=== PATIENT | female | born 1950 | race Caucasian/White ===

== ENCOUNTER 2020-07-05 07:39 | Outpatient (REF) | payer MEDICARE, SELFPAY ==
[2020-07-05 12:08] LABS: Cholesterol 195 mg/dL; HDL Cholesterol 57 mg/dL; LDL Cholesterol Calculated 123 mg/dl; Triglycerides 79 mg/dL
== END 2020-07-05 07:40 | disposition home or self-care (01) ==
LOC: HO.HMGCLDS 07:39
PROVIDERS: PCP Internal Medicine; Visit Provider Internal Medicine
DX: I48.92 Unspecified atrial flutter (principal); E78.5 Hyperlipidemia, unspecified; R76.8 Other specified abnormal immunological findings in serum
CPT/HCPCS: 36415; 80061; 86038; 86039

== ENCOUNTER 2020-08-01 08:28 | Outpatient (REF) | payer MEDICARE, SELFPAY ==
[2020-08-01 11:55] LABS: Alanine Aminotransferase 13 U/L (0-31); Alkaline Phosphatase 77 U/L (39-117); Anion Gap 13 (12-20); Aspartate Amino Transferase 21 U/L (5-31); Bilirubin Total 0.5 mg/dL (0.0-1.0); Blood Urea Nitrogen 18 mg/dL (9-16); Calcium 8.7 mg/dL (8.4-10.2); Carbon Dioxide 31 mmol/L (22-29); Chloride 101 mmol/L (96-108); Estimated Glomerular Filt Rate 52; Glucose Random 75 mg/dL (60-115); Sodium 141 mmol/L (135-145); Total Protein 6.6 g/dL (6.5-8.0)
[2020-08-01 12:19] LABS: Vitamin D 25-OH Total 64.8 ng/mL (>30)
[2020-08-05 19:11] LABS: Calcium (PTHI) 9.3 mg/dL (8.6-10.4); PTHI 87 pg/mL (14-64)
== END 2020-08-01 08:29 | disposition home or self-care (01) ==
LOC: HO.HMGCLDS 08:28
PROVIDERS: PCP Internal Medicine; Visit Provider Internal Medicine Endocrinology, Diabetes & Metabolism
DX: E21.3 Hyperparathyroidism, unspecified (principal)
CPT/HCPCS: 80053; 82306; 83970

== ENCOUNTER → 2020-08-08 14:08 | Outpatient (BNVA) | payer MEDICARE, SELFPAY | PROVIDERS: PCP Internal Medicine; Referring Provider Internal Medicine; Visit Provider Internal Medicine Endocrinology, Diabetes & Metabolism | DX: E21.3 Hyperparathyroidism, unspecified (principal); N18.30 Chronic kidney disease, stage 3 unspecified; E03.9 Hypothyroidism, unspecified; E04.2 Nontoxic multinodular goiter; M85.80 Other specified disorders of bone density and structure, unspecified site | CPT/HCPCS: Q3014 ==

== ENCOUNTER → 2020-09-03 14:11 | Outpatient (BNVA) | payer MEDICARE, SELFPAY | PROVIDERS: PCP Internal Medicine; Visit Provider Internal Medicine Cardiovascular Disease | DX: I50.32 Chronic diastolic (congestive) heart failure (principal); I48.19 Other persistent atrial fibrillation; Z95.0 Presence of cardiac pacemaker; Z90.721 Acquired absence of ovaries, unilateral | CPT/HCPCS: 99212 ==

== ENCOUNTER 2020-11-15 08:25 | Outpatient (REF) | payer MEDICARE, SELFPAY ==
[2020-11-15 12:17] LABS: Free T4 (Free Thyroxine) 0.99 ng/dL (0.71-1.85); Thyroid Stimulating Hormone 5.93 uIU/mL (0.32-4.0)
[2020-11-18 17:06] LABS: Thyroglobulin Antibodies 127 IU/mL (< or = 1); Thyroid Peroxidase Antibodies 1 IU/mL (<9)
== END 2020-11-15 08:26 | disposition home or self-care (01) ==
LOC: HO.HMGCLDS 08:25
PROVIDERS: PCP Internal Medicine; Visit Provider Internal Medicine Endocrinology, Diabetes & Metabolism
DX: E03.9 Hypothyroidism, unspecified (principal); E04.2 Nontoxic multinodular goiter
CPT/HCPCS: 36415; 84439; 84443; 86376; 86800

== ENCOUNTER 2021-01-10 08:13 | Outpatient (REF) | payer MEDICARE, SELFPAY ==
[2021-01-10 12:14] LABS: Cholesterol 199 mg/dL; HDL Cholesterol 56 mg/dL; LDL Cholesterol Calculated 123 mg/dl; Triglycerides 101 mg/dL
[2021-01-14 15:17] LABS: Anti Nuclear Antibody Pattern Nuclear, Homogeneous; Anti Nuclear Antibody Screen POSITIVE (NEGATIVE)
== END 2021-01-10 08:14 | disposition home or self-care (01) ==
LOC: HO.HMGCLDS 08:13
PROVIDERS: PCP Internal Medicine; Visit Provider Internal Medicine
DX: I48.92 Unspecified atrial flutter (principal); E78.5 Hyperlipidemia, unspecified; R76.8 Other specified abnormal immunological findings in serum
CPT/HCPCS: 36415; 80061; 86038; 86039

== ENCOUNTER 2021-01-31 06:30 | Outpatient (REF) | payer MEDICARE, SELFPAY ==
[2021-01-31 12:10] LABS: Free T4 (Free Thyroxine) 1.01 ng/dL (0.71-1.85); Thyroid Stimulating Hormone 0.81 uIU/mL (0.32-4.0)
== END 2021-01-31 06:31 | disposition home or self-care (01) ==
LOC: HO.HMGCLDS 06:30
PROVIDERS: PCP Internal Medicine; Visit Provider Internal Medicine Endocrinology, Diabetes & Metabolism
DX: E03.9 Hypothyroidism, unspecified (principal)
CPT/HCPCS: 36415; 84439; 84443

== ENCOUNTER → 2021-02-04 10:24 | Outpatient (REF) | payer MEDICARE, SELFPAY ==
--- NOTE | 2021-02-04 10:28 | CA_ITS ---
Transthoracic Echocardiogram Patient (Last, First, Middle): Jenny Mendoza M Gender: Female Date of : 1950 Age: 70 Procedure Date: 02/04/2021 Procedure Type: Transthoracic Echocardiogram Location: OP Height: 165.1 cm Weight: 88.91 kg BSA: 1.96 m2 Heart Rate: bpm BP: 110 / 64 mmHg Chief Unit Forester: Sohail MD: Fabian Arndt MD Film Projector Operator: Fabian Arndt MD Symptoms: I50.32 - Chronic diastolic (congestive) heart failure Study Quality: Fair ECG Rhythm: Atrial Fibrillation Conclusions: - 1. Normal LV systolic function 2. Biatrial enlargement, right greater than left 3. Moderately enlarged right ventricle with low normal RV systolic pressure 4. Mild mitral regurgitation 5. At least moderate tricuspid regurgitation 6. [id number] elevation of right ventricular systolic pressure with significantly elevated right atrial pressures 7. No pericardial effusion Findings Procedure Information The patient receives contrast. Left Ventricle Normal left ventricular size, thickness, and systolic function. The visually estimated ejection fraction is between 60-65%. Diastolic function is indeterminate on the basis of available data. Right Ventricle Moderately increased right ventricular cavity size. There is low normal right ventricular systolic function. There is a pacemaker wire seen in the right ventricle. Atria The left atrium is mildly dilated. Interatrial shunt cannot be excluded. The right atrium is moderately dilated. Aortic Valve Normal aortic valve structure and function. There is no aortic valve stenosis. There is no aortic valve regurgitation. Mitral Valve There is mild anterior and posterior mitral leaflet thickening. There is mild mitral valve regurgitation. There is no mitral valve stenosis. Pulmonic Valve The pulmonic valve was not well visualized. Tricuspid Valve Likely normal tricuspid valve structure and function. There is moderate tricuspid valve regurgitation. Significantly elevated right atrial pressure. Mild to moderate pulmonary hypertension is present. Great Vessels All visible segments of the aorta are normal in size. The pulmonary artery was not well visualized. Venous The inferior vena cava is moderately dilated and does not collapse with inspiration. Pericardium/Pleural There is no evidence of pericardial effusion. Prior Study Comparison Changes noted compared to prior study dated: 02/19/2020. RV systolic pressure has reduced Measurements 2D Linear Measurements RVIDd: 3.21 RVIDd Index: 1.64 IVSd: 1.10 0.6-0.9/0.6-1.0 cm LVIDd: 4.79 3.9-5.3/4.2-5.9 cm LVIDd Index: 2.44 2.4-3.2/2.2-3.1 cm/m2 LVIDs: 3.22 2.0-3.6 cm LVPWd: 1.21 0.7-1.1 cm Ao Root: 2.30 2.1-3.5 cm LA Diam: 4.30 2.7-3.8/3.0-4.0 cm LAIDs Index: 2.19 1.5-2.3 cm/m2 LV Mass: 257.93 67-162/88-224 g LV Mass Index: 131.60 43-95/49-115 g/m2 LVOT Diam: 2.00 3.0+(-)1.3 cm 2D Systolic Function EF 4C: 46.20 >55% EF 2C: 77.00 >55% EF BiP: 64.00 >55% Mitral Valve MR Vol - PW Dopp: 12.54 MR VTI: 1.14 MR ERO: 11.00 MR Alias Chandan: 0.40 MR RAD: 0.40 Aortic Valve AoV Pk Chandan: 1.29 AoV Mn Chandan: 0.90 AoV VTI: 0.22 AoV Pk Grad: 7.00 Aov Mn Grad: 4.00 FABIO Cont.VTI: 2.59 LVOT LVOT Pk Chandan: 1.10 LVOT Mn Chandan: 0.75 LVOT VTI: 0.18 LVOT Pk Grad: 5.00 LVOT Mn Grad: 3.00 LVOT Diam: 2.00 LVOT Area: 3.14 Tricuspid Valve TR Pk Chandan: 2.80 TR Pk Grad: 31.00 RA Press: 15.00 RVSP: 46.00 Great Vessels Aorta Ao Root-2D: 2.30 2.0-3.7 cm Ao Asc: 3.00 2.1-3.4 cm Ao Arch: 2.80 Updated in Other Vendor System with Status of Final Fabian Arndt MD electronically signed on 02/05/2021 4:14:54 PM with status of Final
== END ==
LOC: HO.CARD 10:24
PROVIDERS: PCP Internal Medicine; Visit Provider Internal Medicine
DX: I48.19 Other persistent atrial fibrillation (principal); I50.32 Chronic diastolic (congestive) heart failure
CPT/HCPCS: 93306; Q9957

== ENCOUNTER 2021-03-04 14:13 | Outpatient (REF) | payer MEDICARE, SELFPAY ==
[2021-03-04 17:11] LABS: Anion Gap 13 (12-20); B Type Natriuretic Peptide 358 pg/mL (<100); Blood Urea Nitrogen 16 mg/dL (9-16); Calcium 9.9 mg/dL (8.4-10.2); Carbon Dioxide 31 mmol/L (22-29); Chloride 103 mmol/L (96-108); Estimated Glomerular Filt Rate > 60; Glucose Random 87 mg/dL (60-115); Potassium 4.3 mmol/L (3.3-5.1); Sodium 143 mmol/L (135-145)
== END 2021-03-04 14:14 | disposition home or self-care (01) ==
LOC: HO.LAB 14:13
PROVIDERS: PCP Internal Medicine; Visit Provider Internal Medicine Cardiovascular Disease
DX: I48.19 Other persistent atrial fibrillation (principal); I50.32 Chronic diastolic (congestive) heart failure; Z95.0 Presence of cardiac pacemaker
CPT/HCPCS: 36415; 80048; 83880; 93005; 99212

== ENCOUNTER 2021-03-14 06:45 | Outpatient (REF) | payer MEDICARE, SELFPAY ==
[2021-03-14 11:39] LABS: Anion Gap 13 (12-20); Blood Urea Nitrogen 17 mg/dL (9-16); Calcium 9.1 mg/dL (8.4-10.2); Carbon Dioxide 31 mmol/L (22-29); Chloride 103 mmol/L (96-108); Estimated Glomerular Filt Rate > 60; Glucose Random 98 mg/dL (60-115); Potassium 3.8 mmol/L (3.3-5.1); Sodium 143 mmol/L (135-145)
== END 2021-03-14 06:46 | disposition home or self-care (01) ==
LOC: HO.HMGCLDS 06:45
PROVIDERS: PCP Internal Medicine; Visit Provider Internal Medicine Cardiovascular Disease
DX: I50.32 Chronic diastolic (congestive) heart failure (principal)
CPT/HCPCS: 36415; 80048

== ENCOUNTER 2021-04-11 06:35 | Outpatient (REF) | payer MEDICARE, SELFPAY ==
[2021-04-11 12:10] LABS: Anion Gap 13 (12-20); Blood Urea Nitrogen 22 mg/dL (9-16); Calcium 9.4 mg/dL (8.4-10.2); Carbon Dioxide 30 mmol/L (22-29); Chloride 102 mmol/L (96-108); Estimated Glomerular Filt Rate > 60; Glucose Random 90 mg/dL (60-115); Potassium 3.8 mmol/L (3.3-5.1); Sodium 141 mmol/L (135-145)
== END 2021-04-11 06:36 | disposition home or self-care (01) ==
LOC: HO.HMGCLDS 06:35
PROVIDERS: PCP Internal Medicine; Visit Provider Internal Medicine Cardiovascular Disease
DX: I50.32 Chronic diastolic (congestive) heart failure (principal)
CPT/HCPCS: 36415; 80048

== ENCOUNTER 2021-06-05 12:37 | Outpatient (REF) | payer MEDICARE, SELFPAY ==
--- NOTE | ~2021-06-05 | US_ITS ---
EXAMINATION: US THYROID CLINICAL INFORMATION: Nontoxic multinodular goiter. COMPARISON: Thyroid ultrasound 05/23/2020. TECHNIQUE: Linear transducer grayscale and color Doppler examination with attention to the region of the thyroid. FINDINGS: SIZE: Measurements of the thyroid lobes and nodules are given in sagittal, anteroposterior and transverse dimensions respectively. Right Thyroid Lobe: 5.5 x 3.0 x 1.9 cm, volume 16.4 mL. Left Thyroid Lobe: 3.5 x 1.7 x 1.2 cm, volume 3.7 mL. Isthmus: 0.6 cm in maximum AP dimension. THYROID PARENCHYMA AND NODULES: Thyroid gland has heterogeneous echotexture. The vascularity of the gland is grossly normal. Number of nodules greater than or equal to 1 cm: 1. Hand Clipper nodules are described as follows: 0.8 x 0.6 x 0.7 cm smoothly marginated nodule in the right interpolar area has a mixed cystic and solid appearance. Solid component is predominantly isoechoic. Multiple small echogenic foci of the nodule might represent inspissated colloid, although difficult to exclude microcalcifications. This nodule measured 0.9 x 0.6 x 0.9 cm and 05/23/2020. ACR TI-RADS score of 6 points, TR4. 0.9 x 0.5 x 1.1 cm smoothly marginated solid, heterogeneous nodule is present in the anterior right interpolar area. It has a few small echogenic foci from either inspissated colloid or microcalcification. This nodule is nearly isoechoic compared to the surrounding gland. It was not measured on the prior exam. ACR TI-RADS score of 6 points, TR4. 0.6 x 0.5 x 0.7 cm smoothly marginated nodule in the right interpolar area has a spongiform appearance. ACR TI-RADS score of 0 points, TR1. 0.7 x 0.6 x 0.8 cm smoothly marginated nodule in the anterior right lower pole has a mixed cystic and solid appearance. The solid component is isoechoic. No calcification. ACR TI-RADS score of 2 points, TR2. A colloid cyst measuring up to 0.6 cm seen in the lateral right lower pole. NODES: No lymphadenopathy is seen in the tissue surrounding the thyroid gland. US/US thyroid IMPRESSION: There is a heterogeneous, multinodular thyroid gland. Recommend ultrasound follow-up in 12 months. Based on use of ACR TI-RADS, there are no nodules that require recommendations for fine needle aspiration-biopsy. However, ACR TI-RADS Committee recommendations serve as guidance. Ultimately, decisions regarding whether or not to perform ultrasound follow-up or FNA should account for referring physician preference, patient risk factors for thyroid cancer, patient age, comorbidities, life expectancy and any other relevant considerations.
[2021-06-05 14:35] LABS: Alanine Aminotransferase 13 U/L (0-31); Albumin Level 4.1 g/dL (3.5-5.0); Alkaline Phosphatase 61 U/L (39-117); Anion Gap 15 (12-20); Aspartate Amino Transferase 19 U/L (5-31); Bilirubin Total 1.1 mg/dL (0.0-1.0); Blood Urea Nitrogen 21 mg/dL (9-16); Calcium 9.4 mg/dL (8.4-10.2); Carbon Dioxide 27 mmol/L (22-29); Chloride 104 mmol/L (96-108); Estimated Glomerular Filt Rate > 60; Glucose Fasting 91 mg/dL (60-99); Magnesium 2.3 mg/dL (1.6-2.6); Phosphorus 3.5 mg/dL (2.7-4.5); Potassium 4.1 mmol/L (3.3-5.1); Sodium 142 mmol/L (135-145); Total Protein 6.6 g/dL (6.5-8.0)
[2021-06-05 14:44] LABS: Free T4 (Free Thyroxine) 1.27 ng/dL (0.71-1.85); Thyroid Stimulating Hormone 0.01 uIU/mL (0.32-4.0); Vitamin D 25-OH Total 63.1 ng/mL (>30)
[2021-06-09 14:02] LABS: Calcium (PTHI) 9.4 mg/dL (8.6-10.4); PTHI 104 pg/mL (14-64)
== END 2021-06-05 12:38 | disposition home or self-care (01) ==
LOC: HO.HMGCX 12:37
PROVIDERS: Internal Medicine Endocrinology, Diabetes & Metabolism; PCP Internal Medicine; Visit Provider Internal Medicine
DX: E04.2 Nontoxic multinodular goiter (principal); E03.9 Hypothyroidism, unspecified; M85.80 Other specified disorders of bone density and structure, unspecified site
CPT/HCPCS: 36415; 76536; 80053; 82306; 83735; 83970; 84100; 84439; 84443

== ENCOUNTER → 2021-06-19 10:32 | Outpatient (BNVA) | payer MEDICARE, SELFPAY | PROVIDERS: PCP Internal Medicine; Visit Provider Internal Medicine | CPT/HCPCS: Q3014 ==

== ENCOUNTER 2021-07-17 07:51 | Outpatient (REF) | payer MEDICARE, SELFPAY ==
[2021-07-17 08:38] LABS: Alanine Aminotransferase 15 U/L (0-31); Albumin Level 4.3 g/dL (3.5-5.0); Alkaline Phosphatase 68 U/L (39-117); Anion Gap 11 (12-20); Aspartate Amino Transferase 22 U/L (5-31); Bilirubin Total 0.7 mg/dL (0.0-1.0); Blood Urea Nitrogen 23 mg/dL (9-16); Calcium 9.2 mg/dL (8.4-10.2); Carbon Dioxide 32 mmol/L (22-29); Chloride 101 mmol/L (96-108); Estimated Glomerular Filt Rate > 60; Glucose Random 87 mg/dL (60-115); Phosphorus 3.6 mg/dL (2.7-4.5); Potassium 4.1 mmol/L (3.3-5.1); Sodium 140 mmol/L (135-145)
[2021-07-17 09:00] LABS: Free T4 (Free Thyroxine) 1.92 ng/dL (0.71-1.85); Thyroid Stimulating Hormone 0.07 uIU/mL (0.32-4.0); Vitamin D 25-OH Total 73.8 ng/mL (>30)
[2021-07-18 16:01] LABS: Calcium (PTHI) 9.6 mg/dL (8.6-10.4); PTHI 99 pg/mL (14-64)
[2021-07-18 17:45] LABS: Thyroglobulin Antibodies 88 IU/mL (< or = 1); Thyroid Peroxidase Antibodies 1 IU/mL (<9)
[2021-07-19 01:42] LABS: Triiodothyronine T3 Total 134 ng/dL (76-181)
[2021-07-21 21:01] LABS: Thyrotropin Receptor Antibody 4.73 IU/L (<=2.00)
[2021-07-22 15:51] LABS: Thyroid Stimulating Immunoglob 492 % baseline (<140)
== END 2021-07-17 07:52 | disposition home or self-care (01) ==
LOC: HO.LAB 07:51
PROVIDERS: PCP Internal Medicine; Visit Provider Internal Medicine
DX: E03.9 Hypothyroidism, unspecified (principal); E21.3 Hyperparathyroidism, unspecified; E55.9 Vitamin D deficiency, unspecified
CPT/HCPCS: 36415; 80053; 82306; 83520; 83970; 84100; 84439; 84443; 84445; 84480; 86376; 86800

== ENCOUNTER 2021-07-19 08:41 | Outpatient (REF) | payer MEDICARE, SELFPAY ==
[2021-07-19 09:04] LABS: Total Volume 24 Hour Urine 2875 mL
[2021-07-19 09:16] LABS: Creatinine, mg/dL 35.07
[2021-07-20 17:07] LABS: Calcium, 24 Hr Urine 302 mg/24 h; Calcium/Creatinine Ratio 292 mg/g creat (30-275); Creatinine 24Hr Urine 1.04 g/24 h (0.50-2.15)
== END 2021-07-19 08:42 | disposition home or self-care (01) ==
LOC: HO.LNP 08:41
PROVIDERS: Visit Provider Internal Medicine
DX: E21.3 Hyperparathyroidism, unspecified (principal); E03.9 Hypothyroidism, unspecified
CPT/HCPCS: 82340; 82570

== ENCOUNTER → 2021-08-21 10:23 | Outpatient (BNVA) | payer MEDICARE, SELFPAY | PROVIDERS: PCP Internal Medicine; Visit Provider Internal Medicine | DX: E04.2 Nontoxic multinodular goiter (principal); E05.90 Thyrotoxicosis, unspecified without thyrotoxic crisis or storm; E21.3 Hyperparathyroidism, unspecified; E55.9 Vitamin D deficiency, unspecified; M85.852 Other specified disorders of bone density and structure, left thigh | CPT/HCPCS: 99212 ==

== ENCOUNTER → 2021-08-27 10:21 | Outpatient (REF) | payer MEDICARE, SELFPAY ==
--- NOTE | ~2021-08-27 | NM_ITS ---
EXAMINATION: NM THYROID UPTAKE AND SCAN CLINICAL INFORMATION: Thyrotoxicosis. COMPARISON: None TECHNIQUE: Following the oral administration of 275 microcuries of I-123 sodium iodide, a 4-hour and a 24-hour thyroid uptake was performed and expressed as a percentage of the administrated dose. Gamma scintillation camera images of the thyroid in the anterior and right and left anterior oblique views were obtained using a pinhole collimator following the administration of 10 mCi Tc-99m pertechnetate. FINDINGS: The uptake is 2.6% at 4 hours and 12.55% at 24 hours. On thyroid scan, there is an enlarged right thyroid lobe with significant increased activity within the enlarged right thyroid nodule in the upper and midpole region. The left thyroid gland has normal activity. NM/NM thyroid w uptake IMPRESSION: Enlarged right thyroid lobe from a moderately enlarged hot nodule. Normal left thyroid gland activity. The radioactive iodine uptake at 24 hours is 12.55% and within normal limits.
== END ==
LOC: HO.NUCMED 10:21
PROVIDERS: PCP Internal Medicine; Visit Provider Internal Medicine
DX: E05.90 Thyrotoxicosis, unspecified without thyrotoxic crisis or storm (principal)
CPT/HCPCS: 78014; A9512; A9516

== ENCOUNTER 2021-08-28 09:48 | Outpatient (REF) | payer MEDICARE, SELFPAY ==
[2021-08-28 12:54] LABS: Free T4 (Free Thyroxine) 1.09 ng/dL (0.71-1.85); Thyroid Stimulating Hormone 0.03 uIU/mL (0.32-4.0)
[2021-08-30 02:41] LABS: Triiodothyronine T3 Total 138 ng/dL (76-181)
== END 2021-08-28 09:49 | disposition home or self-care (01) ==
LOC: HO.LAB 09:48
PROVIDERS: PCP Internal Medicine; Visit Provider Internal Medicine
DX: E05.90 Thyrotoxicosis, unspecified without thyrotoxic crisis or storm (principal); E04.2 Nontoxic multinodular goiter
CPT/HCPCS: 36415; 84439; 84443; 84480

== ENCOUNTER → 2021-09-02 14:03 | Outpatient (BNVA) | payer MEDICARE, SELFPAY | PROVIDERS: PCP Internal Medicine; Referring Provider Internal Medicine; Visit Provider Internal Medicine Cardiovascular Disease | DX: Z45.018 Encounter for adjustment and management of other part of cardiac pacemaker (principal); I50.32 Chronic diastolic (congestive) heart failure; I48.20 Chronic atrial fibrillation, unspecified | CPT/HCPCS: 99212 ==

== ENCOUNTER 2021-09-15 07:49 | Outpatient (REF) | payer MEDICARE, SELFPAY ==
[2021-09-15 12:15] LABS: Free T4 (Free Thyroxine) 0.96 ng/dL (0.71-1.85)
[2021-09-16 07:51] LABS: Triiodothyronine T3 Total 106 ng/dL (76-181)
== END 2021-09-15 07:50 | disposition home or self-care (01) ==
LOC: HO.HMGCLDS 07:49
PROVIDERS: PCP Internal Medicine; Visit Provider Internal Medicine
DX: E04.2 Nontoxic multinodular goiter (principal); E05.90 Thyrotoxicosis, unspecified without thyrotoxic crisis or storm
CPT/HCPCS: 36415; 84439; 84480

== ENCOUNTER 2021-11-19 14:54 | Outpatient (REF) | payer MEDICARE, SELFPAY ==
[2021-11-19 17:15] LABS: Alanine Aminotransferase 14 U/L (0-31); Albumin Level 4.4 g/dL (3.5-5.0); Alkaline Phosphatase 73 U/L (39-117); Anion Gap 12 (12-20); Aspartate Amino Transferase 23 U/L (5-31); Bilirubin Total 0.9 mg/dL (0.0-1.0); Blood Urea Nitrogen 26 mg/dL (9-16); Carbon Dioxide 34 mmol/L (22-29); Chloride 98 mmol/L (96-108); Estimated Glomerular Filt Rate 53; Glucose Random 84 mg/dL (60-115); Potassium 3.8 mmol/L (3.3-5.1); Sodium 140 mmol/L (135-145); Total Protein 7.4 g/dL (6.5-8.0)
[2021-11-19 17:36] LABS: Free T4 (Free Thyroxine) 0.76 ng/dL (0.71-1.85); Thyroid Stimulating Hormone 6.12 uIU/mL (0.32-4.0); Vitamin D 25-OH Total 52.9 ng/mL (>30)
[2021-11-20 14:33] LABS: Calcium (PTHI) 10.1 mg/dL (8.6-10.4); PTHI 77 pg/mL (14-64)
[2021-11-20 22:57] LABS: Triiodothyronine T3 Free 2.8 pg/mL (2.3-4.2)
[2021-11-21 01:36] LABS: Triiodothyronine T3 Total 109 ng/dL (76-181)
== END 2021-11-19 14:55 | disposition home or self-care (01) ==
LOC: HO.HMGCLDS 14:54
PROVIDERS: Absent Provider Surgery; PCP Internal Medicine; Visit Provider Internal Medicine
DX: E21.3 Hyperparathyroidism, unspecified (principal); E55.9 Vitamin D deficiency, unspecified; E05.00 Thyrotoxicosis with diffuse goiter without thyrotoxic crisis or storm
CPT/HCPCS: 36415; 80053; 82306; 82330; 83970; 84100; 84439; 84443; 84480; 84481

== ENCOUNTER → 2021-11-20 10:31 | Outpatient (BNVA) | payer MEDICARE, SELFPAY | PROVIDERS: PCP Internal Medicine; Visit Provider Internal Medicine | DX: Z13.89 Encounter for screening for other disorder (principal) | CPT/HCPCS: Q3014 ==

== ENCOUNTER 2021-12-04 07:34 | Outpatient (REF) | payer MEDICARE, SELFPAY ==
[2021-12-04 11:55] LABS: Free T4 (Free Thyroxine) 0.89 ng/dL (0.71-1.85)
[2021-12-05 16:31] LABS: Triiodothyronine T3 Total 88 ng/dL (76-181)
== END 2021-12-04 07:35 | disposition home or self-care (01) ==
LOC: HO.HMGCLDS 07:34
PROVIDERS: Visit Provider Internal Medicine
DX: E05.90 Thyrotoxicosis, unspecified without thyrotoxic crisis or storm (principal); E04.2 Nontoxic multinodular goiter
CPT/HCPCS: 36415; 84439; 84480

== ENCOUNTER 2022-01-01 07:48 | Outpatient (REF) | payer MEDICARE, SELFPAY ==
[2022-01-01 11:54] LABS: Free T4 (Free Thyroxine) 0.82 ng/dL (0.71-1.85); Thyroid Stimulating Hormone 7.69 uIU/mL (0.32-4.0)
[2022-01-02 21:42] LABS: Triiodothyronine T3 Total 89 ng/dL (76-181)
== END 2022-01-01 07:49 | disposition home or self-care (01) ==
LOC: HO.HMGCLDS 07:48
PROVIDERS: Visit Provider Internal Medicine
DX: E04.2 Nontoxic multinodular goiter (principal); E05.90 Thyrotoxicosis, unspecified without thyrotoxic crisis or storm
CPT/HCPCS: 36415; 84439; 84443; 84480

== ENCOUNTER 2022-01-29 07:36 | Outpatient (REF) | payer MEDICARE, SELFPAY ==
[2022-01-29 12:21] LABS: Free T4 (Free Thyroxine) 0.98 ng/dL (0.71-1.85); Thyroid Stimulating Hormone 2.28 uIU/mL (0.32-4.0)
== END 2022-01-29 07:37 | disposition home or self-care (01) ==
LOC: HO.HMGCLDS 07:36
PROVIDERS: PCP Internal Medicine; Visit Provider Internal Medicine Endocrinology, Diabetes & Metabolism
DX: E05.90 Thyrotoxicosis, unspecified without thyrotoxic crisis or storm (principal)
CPT/HCPCS: 36415; 84439; 84443

== ENCOUNTER → 2022-02-10 10:56 | Outpatient (BNVA) | payer MEDICARE, SELFPAY | PROVIDERS: PCP Internal Medicine; Visit Provider Internal Medicine | DX: G47.33 Obstructive sleep apnea (adult) (pediatric) (principal); J44.9 Chronic obstructive pulmonary disease, unspecified; Z99.89 Dependence on other enabling machines and devices | CPT/HCPCS: 94010; 99212 ==

== ENCOUNTER → 2022-02-17 12:42 | Outpatient (REF) | payer MEDICARE, SELFPAY ==
--- NOTE | 2022-02-17 12:46 | CA_ITS ---
Transthoracic Echocardiogram Patient (Last, First, Middle): Jenny Mendoza M Gender: Female Date of : 1950 Age: 71 Procedure Date: 02/17/2022 Procedure Type: Transthoracic Echocardiogram Location: OP Height: 165.1 cm Weight: 90.72 kg BSA: 1.98 m2 Heart Rate: bpm BP: 132 / 70 mmHg Delinquency Counselor: KATELIN Referring MD: Fabian Arndt MD Underground Mine Machinery Mechanic: Fabian Arndt MD Symptoms: I50.32 - Chronic diastolic (congestive) heart failure Study Quality: Adequate ECG Rhythm: Atrial Fibrillation Conclusions: - 1. Normal LV systolic function 2. Biatrial enlargement, right greater than left 3. Mild mitral regurgitation 4. Normal RV systolic pressure with mildly elevated right atrial pressures 5. No gross pericardial effusion Findings Left Ventricle Normal left ventricular size, thickness, and systolic function. The visually estimated ejection fraction is between 60-65%. Diastolic function is indeterminate on the basis of available data. Right Ventricle Mildly increased right ventricular cavity size. There is normal right ventricular systolic function. There is a pacemaker wire seen in the right ventricle. Atria The left atrium is mildly dilated. There is no evidence of interatrial shunt. The right atrium is moderately dilated. A pacemaker wire is identified in the right atrium. Aortic Valve Normal aortic valve structure and function. There is no aortic valve stenosis. There is no aortic valve regurgitation. Mitral Valve There is mild anterior and posterior mitral leaflet thickening. There is mild mitral valve regurgitation. There is no mitral valve stenosis. Pulmonic Valve The pulmonic valve was not well visualized. Tricuspid Valve There is mild to moderate tricuspid valve regurgitation. The right ventricular systolic pressure is normal. The right ventricular systolic pressure is 32 mmHg. Mildly elevated right atrial pressure. There is no evidence of pulmonary hypertension. Great Vessels All visible segments of the aorta are normal in size. The pulmonary artery was not well visualized. Venous The inferior vena cava is moderately dilated and collapses greater than 50% with inspiration. Pericardium/Pleural There is no evidence of pericardial effusion. Prior Study Comparison Changes noted compared to prior study dated: 02/04/2021. RV systolic pressure have normalized with improved right atrial pressures Measurements 2D Linear Measurements IVSd: 0.90 0.6-0.9/0.6-1.0 cm LVIDd: 4.76 3.9-5.3/4.2-5.9 cm LVIDd Index: 2.40 2.4-3.2/2.2-3.1 cm/m2 LVIDs: 3.54 2.0-3.6 cm LVPWd: 0.77 0.7-1.1 cm LA Diam: 4.70 2.7-3.8/3.0-4.0 cm LAIDs Index: 2.37 1.5-2.3 cm/m2 LV Mass: 164.32 67-162/88-224 g LV Mass Index: 82.99 43-95/49-115 g/m2 LVOT Diam: 1.90 3.0+(-)1.3 cm 2D Systolic Function EF 4C: 69.40 >55% EF 2C: 55.60 >55% EF BiP: 62.70 >55% Aortic Valve AoV Pk Chandan: 1.10 AoV Mn Chandan: 0.72 AoV VTI: 0.21 AoV Pk Grad: 5.00 Aov Mn Grad: 2.00 FABIO Cont.VTI: 2.32 LVOT LVOT Pk Chandan: 0.95 LVOT Mn Chandan: 0.64 LVOT VTI: 0.17 LVOT Pk Grad: 4.00 LVOT Mn Grad: 2.00 LVOT Diam: 1.90 LVOT Area: 2.84 Right Ventricle TAPSE (mm): 14.70 TVS' Chandan: 8.70 Tricuspid Valve TR Pk Chandan: 2.43 TR Pk Grad: 24.00 RA Press: 8.00 RVSP: 32.00 Great Vessels Aorta Sinus of Valsalva: 2.25 2.0-3.[address] Ridge: 2.23 1.7-3.4 cm Ao Asc: 3.20 2.1-3.4 cm Pulmonary Valve PV Pk Chandan: 0.88 Peak PV Grad: 3.00 Updated in Other Vendor System with Status of Final Fabian Arndt MD electronically signed on 02/18/2022 1:03:23 PM with status of Final
== END ==
LOC: HO.CARD 12:42
PROVIDERS: Visit Provider Internal Medicine Cardiovascular Disease
DX: I50.32 Chronic diastolic (congestive) heart failure (principal)
CPT/HCPCS: 93306

== ENCOUNTER → 2022-03-03 14:02 | Outpatient (BNVA) | payer MEDICARE, SELFPAY | PROVIDERS: PCP Internal Medicine; Referring Provider Internal Medicine; Visit Provider Internal Medicine Cardiovascular Disease | DX: Z01.810 Encounter for preprocedural cardiovascular examination (principal); I50.32 Chronic diastolic (congestive) heart failure; I48.20 Chronic atrial fibrillation, unspecified; Z45.018 Encounter for adjustment and management of other part of cardiac pacemaker; Z79.01 Long term (current) use of anticoagulants | CPT/HCPCS: 93005; 93280; 99212 ==

== ENCOUNTER → 2022-03-19 09:01 | Outpatient (BNVA) | payer MEDICARE, SELFPAY | PROVIDERS: PCP Internal Medicine; Visit Provider Internal Medicine | DX: E05.90 Thyrotoxicosis, unspecified without thyrotoxic crisis or storm (principal); E04.2 Nontoxic multinodular goiter; E21.3 Hyperparathyroidism, unspecified; M85.852 Other specified disorders of bone density and structure, left thigh; E55.9 Vitamin D deficiency, unspecified | CPT/HCPCS: Q3014 ==

== ENCOUNTER → 2022-03-24 09:14 | Outpatient (REF) | payer MEDICARE, SELFPAY ==
--- NOTE | ~2022-03-24 | NM_ITS ---
Lexiscan Myocardial perfusion study Indication: Preoperative cardiac evaluation Technique: The patient was brought in for a Lexiscan perfusion study on 03/24/2022 and was injected 0.4 mg of Lexiscan intravenously. Within a minute of this injection 30 mCi of sestamibi was given intravenously. Images were obtained using the SPECT gamma camera interlaced with the gating device. Images were obtained in supine position. Resting perfusion study was performed on 03/25/2022. Patient was administered 30 mCi of sestamibi intravenously at rest. Images were then obtained in supine position. Total DLP 182mGy-cm. Images were processed with the software and compared side to side in short axis, horizontal long axis and vertical long axis views. Findings: Raw acquisition was reviewed. Arms by the patient's side. The stress perfusion study showed mildly diminished tracer uptake in the distal part of lateral wall. There is improvement with CT attenuation correction and hence suggestive of soft tissue attenuation artifact. The gated study shows normal LV systolic function with calculated LVEF of 37%, but visually appears normal. LV cavity is normal in size. The gated study shows normal wall thickening and contraction of segments. Resting study shows no significant perfusion abnormality. Gating at rest reveals normal wall motion with ejection fraction at 70%. The findings are consistent with mild reversible distal lateral defect likely from soft tissue attenuation. NM/NM michael perf SPECT rest & str Impression: 1. Myocardial perfusion imaging study shows no clear evidence of any ischemia or infarction. Likely normal perfusion. 2. Gated LVEF is 70% during rest. Stress EF reported to be 37% but likely erroneous. Visually appears normal. 3. Transient ischemic dilatation not present. EKG component of the test reported separately.
--- NOTE | 2022-03-24 09:18 | CA_ITS ---
Acquisition Time: 2022-03-24 09:30:39 Total Exercise Time: 00:02:00 Test Indications: Abnormal ECG Medications: SEE H Protocol: LEXISCAN Max HR: 126 BPM 85% of Pred: 147 BPM Max BP: 106/062 mmHG Max Work Load: 1.0 METS Pharmacological stress test with lexiscan injection, while sitting and kicking her legs, with report of burning in chest post inection, with afib and intermittent V paced beats, with normotensive response to injection, with nondiagnostic EKG for ischemia. In recovery she continued to report the chest burning which was treated with Aminophylline 75mg IVP to reverse Lexiscan with resolution of symptom. Nuclear images pending. Test reviewed with Dr Leonardo. Referred By: Fabian Arndt Overread By: JUN EVERETT
== END ==
LOC: HO.CARD 09:14
PROVIDERS: PCP Internal Medicine; Visit Provider Internal Medicine Cardiovascular Disease
DX: Z01.810 Encounter for preprocedural cardiovascular examination (principal)
CPT/HCPCS: 78452; 93017; A9500; A9537; J0280; J2785

== ENCOUNTER 2022-03-27 08:21 | Outpatient (REF) | payer MEDICARE, SELFPAY ==
[2022-03-27 08:51] LABS: Basophils Percent Auto 0.3 % (0-2); Eosinophils Absolute Auto 0.1 X10*3/uL (0.0-0.4); Eosinophils Percent Auto 1.5 % (0-4); Hematocrit 40.9 % (37.0-47.0); Hemoglobin 13.7 g/dl (12.0-16.0); Imm Gran Abs Auto 0.02 X10*3/uL (0.00-0.03); Imm Gran Pct Auto 0.3 % (0.0-0.4); Lymphocytes Absolute Auto 1.5 X10*3/uL (1.2-4.9); Lymphocytes Percent Auto 22.7 % (20-40); MANUAL DIFF FLAG NO; Mean Corpuscular HGB Conc 33.5 g/dl (31.0-35.0); Mean Corpuscular Hemoglobin 31.9 pg (27.0-33.0); Mean Corpuscular Volume 95.3 fL (80.0-98.0); Mean Platelet Volume 9.6 fL (9.4-12.3); Monocytes Absolute Auto 0.8 X10*3/uL (0.1-1.2); Monocytes Percent Auto 11.6 % (2-11); Neutrophils Absolute Auto 4.1 x10*3/uL (2.0-8.3); Neutrophils Percent Auto 63.6 % (45-73); Platelet Count 181 X10*3/uL (160-400); Red Blood Count 4.29 X10*6/uL (4.20-5.50); Red Cell Distribution Width 12.9 % (11.0-16.0); White Blood Count 6.5 X10*3/uL (4.8-10.8)
[2022-03-27 09:19] LABS: Alanine Aminotransferase 16 U/L (0-31); Anion Gap 13 (12-20); Aspartate Amino Transferase 26 U/L (5-31); Blood Urea Nitrogen 22 mg/dL (9-16); Calcium 8.6 mg/dL (8.4-10.2); Carbon Dioxide 27 mmol/L (22-29); Chloride 105 mmol/L (96-108); Cholesterol 169 mg/dL; Estimated Glomerular Filt Rate 58; Glucose Fasting 101 mg/dL (60-99); HDL Cholesterol 48 mg/dL; LDL Cholesterol Calculated 99 mg/dl; Sodium 141 mmol/L (135-145); Triglycerides 112 mg/dL
[2022-03-27 09:24] LABS: Alanine Aminotransferase 16 U/L (0-31); Albumin Level 4.2 g/dL (3.5-5.0); Alkaline Phosphatase 74 U/L (39-117); Anion Gap 13 (12-20); Aspartate Amino Transferase 23 U/L (5-31); Bilirubin Total 0.4 mg/dL (0.0-1.0); Blood Urea Nitrogen 22 mg/dL (9-16); Calcium 8.7 mg/dL (8.4-10.2); Carbon Dioxide 28 mmol/L (22-29); Chloride 104 mmol/L (96-108); Estimated Glomerular Filt Rate 58; Glucose Random 104 mg/dL (60-115); Phosphorus 3.2 mg/dL (2.7-4.5); Sodium 141 mmol/L (135-145)
[2022-03-27 09:45] LABS: Thyroid Stimulating Hormone 3.44 uIU/mL (0.32-4.0); Vitamin D 25-OH Total 57.5 ng/mL (>30)
[2022-03-29 03:01] LABS: Triiodothyronine T3 Total 100 ng/dL (76-181)
[2022-03-31 09:07] LABS: PTHI 140 pg/mL (16-77)
== END 2022-03-27 08:22 | disposition home or self-care (01) ==
LOC: HO.LAB 08:21
PROVIDERS: PCP Internal Medicine; Visit Provider Internal Medicine
DX: E04.2 Nontoxic multinodular goiter (principal); E05.90 Thyrotoxicosis, unspecified without thyrotoxic crisis or storm; E55.9 Vitamin D deficiency, unspecified; E21.3 Hyperparathyroidism, unspecified
CPT/HCPCS: 36415; 80048; 80053; 80061; 82306; 83970; 84100; 84439; 84443; 84450; 84460; 84480; 85025

== ENCOUNTER 2022-03-29 11:45 | Outpatient (REF) | payer MEDICARE, SELFPAY ==
[2022-03-30 10:27] LABS: Creatinine, mg/dL 34.63
[2022-03-30 13:45] LABS: Total Volume 24 Hour Urine 3000 mL
[2022-04-01 18:32] LABS: Calcium, 24 Hr Urine 207 mg/24 h; Calcium/Creatinine Ratio 203 mg/g creat (30-275); Creatinine 24Hr Urine 1.02 g/24 h (0.50-2.15)
== END 2022-03-29 11:46 | disposition home or self-care (01) ==
LOC: HO.LNP 11:45
PROVIDERS: Visit Provider Internal Medicine
DX: E21.3 Hyperparathyroidism, unspecified (principal)
CPT/HCPCS: 82340; 82570

== ENCOUNTER 2022-05-13 08:08 | Outpatient (REF) | payer MEDICARE, SELFPAY ==
[2022-05-13 12:17] LABS: Free T4 (Free Thyroxine) 0.89 ng/dL (0.71-1.85); Thyroid Stimulating Hormone 6.91 uIU/mL (0.32-4.0)
== END 2022-05-13 08:09 | disposition home or self-care (01) ==
LOC: HO.HMGCLDS 08:08
PROVIDERS: PCP Internal Medicine; Visit Provider Surgery
DX: E05.00 Thyrotoxicosis with diffuse goiter without thyrotoxic crisis or storm (principal)
CPT/HCPCS: 36415; 84439; 84443; 84481

== ENCOUNTER 2022-06-03 08:33 | Outpatient (REF) | payer MEDICARE, SELFPAY ==
[2022-06-03 13:53] LABS: Albumin Level 4.1 g/dL (3.5-5.0)
[2022-06-05 08:59] LABS: Calcium 8.8 mg/dL (8.4-10.2)
[2022-06-05 16:37] LABS: Calcium, Ionized 4.8 mg/dL (4.8-5.6)
== END 2022-06-03 08:34 | disposition home or self-care (01) ==
LOC: HO.HMGCLDS 08:33
PROVIDERS: PCP Internal Medicine; Visit Provider Student in an Organized Health Care Education/Training Program
DX: E05.00 Thyrotoxicosis with diffuse goiter without thyrotoxic crisis or storm (principal)
CPT/HCPCS: 36415; 82040; 82310; 82330

== ENCOUNTER 2022-06-15 07:57 | Outpatient (REF) | payer MEDICARE, SELFPAY ==
[2022-06-15 11:58] LABS: Albumin Level 4.2 g/dL (3.5-5.0); Calcium 8.6 mg/dL (8.4-10.2)
== END 2022-06-15 07:58 | disposition home or self-care (01) ==
LOC: HO.HMGCLDS 07:57
PROVIDERS: PCP Internal Medicine; Visit Provider Surgery
DX: E89.0 Postprocedural hypothyroidism (principal)
CPT/HCPCS: 36415; 82040; 82310

== ENCOUNTER 2022-06-22 08:17 | Outpatient (REF) | payer MEDICARE, SELFPAY ==
[2022-06-22 11:18] LABS: MANUAL DIFF FLAG NO
[2022-06-22 11:32] LABS: Basophils Percent Auto 0.4 % (0-2); Eosinophils Absolute Auto 0.1 X10*3/uL (0.0-0.4); Eosinophils Percent Auto 1.8 % (0-4); Hemoglobin 13.8 g/dl (12.0-16.0); Imm Gran Abs Auto 0.02 X10*3/uL (0.00-0.03); Imm Gran Pct Auto 0.3 % (0.0-0.4); Lymphocytes Absolute Auto 1.6 X10*3/uL (1.2-4.9); Lymphocytes Percent Auto 23.4 % (20-40); Mean Corpuscular HGB Conc 32.9 g/dl (31.0-35.0); Mean Corpuscular Hemoglobin 32.6 pg (27.0-33.0); Mean Corpuscular Volume 99.3 fL (80.0-98.0); Mean Platelet Volume 9.9 fL (9.4-12.3); Monocytes Absolute Auto 0.8 X10*3/uL (0.1-1.2); Monocytes Percent Auto 11.8 % (2-11); Neutrophils Absolute Auto 4.2 x10*3/uL (2.0-8.3); Neutrophils Percent Auto 62.3 % (45-73); Platelet Count 190 X10*3/uL (160-400); Red Blood Count 4.23 X10*6/uL (4.20-5.50); Red Cell Distribution Width 13.3 % (11.0-16.0); White Blood Count 6.8 X10*3/uL (4.8-10.8)
[2022-06-22 11:43] LABS: Albumin Level 4.1 g/dL (3.5-5.0); Calcium 8.9 mg/dL (8.4-10.2)
[2022-06-22 11:51] LABS: Alanine Aminotransferase 16 U/L (0-31); Anion Gap 15 (12-20); Aspartate Amino Transferase 21 U/L (5-31); Blood Urea Nitrogen 24 mg/dL (9-16); Calcium 8.6 mg/dL (8.4-10.2); Carbon Dioxide 28 mmol/L (22-29); Chloride 104 mmol/L (96-108); Cholesterol 189 mg/dL; Estimated Glomerular Filt Rate > 60; Glucose Fasting 100 mg/dL (60-99); HDL Cholesterol 50 mg/dL; LDL Cholesterol Calculated 121 mg/dl; Potassium 3.9 mmol/L (3.3-5.1); Sodium 143 mmol/L (135-145); Triglycerides 93 mg/dL
== END 2022-06-22 08:18 | disposition home or self-care (01) ==
LOC: HO.HMGCLDS 08:17
PROVIDERS: Absent Provider Surgery; PCP Internal Medicine; Visit Provider Internal Medicine
DX: E78.5 Hyperlipidemia, unspecified (principal); I50.32 Chronic diastolic (congestive) heart failure; E89.0 Postprocedural hypothyroidism
CPT/HCPCS: 36415; 80048; 80061; 82040; 82310; 84450; 84460; 85025

== ENCOUNTER 2022-07-28 07:56 | Outpatient (REF) | payer MEDICARE, SELFPAY ==
[2022-07-28 12:04] LABS: Alanine Aminotransferase 14 U/L (0-31); Albumin Level 4.2 g/dL (3.5-5.0); Alkaline Phosphatase 72 U/L (39-117); Anion Gap 14 (12-20); Aspartate Amino Transferase 20 U/L (5-31); Bilirubin Total 0.6 mg/dL (0.0-1.0); Blood Urea Nitrogen 17 mg/dL (9-16); Calcium 8.7 mg/dL (8.4-10.2); Carbon Dioxide 27 mmol/L (22-29); Chloride 107 mmol/L (96-108); Estimated Glomerular Filt Rate > 60; Glucose Random 98 mg/dL (60-115); Phosphorus 3.5 mg/dL (2.7-4.5); Potassium 4.2 mmol/L (3.3-5.1); Sodium 144 mmol/L (135-145)
[2022-07-28 12:31] LABS: Free T4 (Free Thyroxine) 1.15 ng/dL (0.71-1.85); Thyroid Stimulating Hormone 0.57 uIU/mL (0.32-4.0); Vitamin D 25-OH Total 56.2 ng/mL (>30)
[2022-07-29 08:32] LABS: Triiodothyronine T3 Total 97 ng/dL (76-181)
[2022-07-29 14:17] LABS: Calcium (PTHI) 8.8 mg/dL (8.6-10.4); PTHI 77 pg/mL (16-77)
== END 2022-07-28 07:57 | disposition home or self-care (01) ==
LOC: HO.HMGCLDS 07:56
PROVIDERS: PCP Internal Medicine; Visit Provider Internal Medicine
DX: E05.90 Thyrotoxicosis, unspecified without thyrotoxic crisis or storm (principal); E21.3 Hyperparathyroidism, unspecified; E55.9 Vitamin D deficiency, unspecified
CPT/HCPCS: 36415; 80053; 82306; 83970; 84100; 84439; 84443; 84480

== ENCOUNTER → 2022-08-06 10:55 | Outpatient (BNVA) | payer MEDICARE, SELFPAY | PROVIDERS: PCP Internal Medicine; Visit Provider Internal Medicine | DX: G47.33 Obstructive sleep apnea (adult) (pediatric) (principal); Z99.89 Dependence on other enabling machines and devices | CPT/HCPCS: 99212 ==

== ENCOUNTER 2022-08-06 15:02 | Emergency (ER) | payer MEDICARE, SELFPAY ==
--- NOTE | ~2022-08-06 | XR_ITS ---
EXAMINATION: XR CHEST CLINICAL INFORMATION: Atrial fibrillation. COMPARISON: 03/28/2020 chest radiograph. TECHNIQUE: Frontal view of the chest was obtained. FINDINGS: Support devices: Left-sided pacemaker appears in good position. No significant abnormality is noted involving the heart, lungs, mediastinum, bony thorax or soft tissues. XR/XR chest 1V IMPRESSION: No acute cardiopulmonary process.
[2022-08-06 15:05] VITALS: BP 141/74; PULSE 113; RESP 18; TEMP 36.3; O2SAT 96; BMI 35.4
--- NOTE | 2022-08-06 15:06 | ED.GENADULT ---
HPI - General Adult General Chief complaint: Arrhythmia/Palpitations Stated complaint: elevated HR, hx of afib sent from dr's office Time Seen by Provider: 08/06/22 15:54 Related Data Home Medications Medication Instructions Recorded Confirmed cyproheptadine 4 mg tablet 4 mg PO BEDTIME 07/12/20 08/06/22 estradiol 0.05 mg-norethindrone 1 patch transdermal 2XW 07/12/20 08/06/22 0.14 mg/24 hr semiwkly transderm patch fluvoxamine 25 mg tablet 25 mg PO TID 07/12/20 08/06/22 lorazepam 0.5 mg tablet 0.2220r66? mg PO TID 07/12/20 08/06/22 omeprazole 20 mg capsule,delayed 20 mg PO BEDTIME 07/12/20 08/06/22 release guaifenesin 600 mg tablet, 600 mg PO .qod PRN 02/10/22 08/06/22 extended release 12 hr (Mucinex) polyethylene glycol 3350 17 gram 17 g PO DAILY 03/26/22 08/06/22 oral powder packet (Miralax) levothyroxine 150 mcg tablet 150 mcg PO DAILY 06/30/22 08/06/22 Previous Rx's Medication Instructions Recorded spironolactone 25 mg tablet 12.5 mg PO DAILY #30 tabs 02/17/22 (Aldactone) metoprolol succinate 100 mg 100 mg PO DAILY #90 tabs 03/16/22 tablet,extended release 24 hr (Toprol XL) furosemide 20 mg tablet 20 mg PO .COMPLEX #450 tabs 03/31/22 rivaroxaban 20 mg tablet (Xarelto) 20 mg PO DAILY #90 tabs 04/23/22 Allergies Allergy/AdvReac Type Severity Reaction Status Date / Time amiodarone [AMIODARONE] Allergy Severe INTERSTITIAL Verified 08/06/22 14:58 PNEUMONITIS, fluid gain, interstial pneumonitis amoxicillin [AMOXICILLIN] Allergy Unknown SHAKES Verified 08/06/22 14:58 ALL OVER , shaky, shaky doxycycline [DOXYCYCLINE] AdvReac Unknown STOMACH Verified 08/06/22 14:58 UPSET, upset stomach PMFSH Past Medical History Medical History Cardiac pacemaker in situ Chronic atrial fibrillation Chronic heart failure with preserved ejection fraction (HFpEF) COPD (chronic obstructive pulmonary disease) Depression with anxiety Drug-induced pneumonitis Dyslipidemia Elevated antinuclear antibody (LORETO) level Hyperparathyroidism Hyperthyroidism Multinodular thyroid Non-toxic multinodular goiter COLIN on CPAP Osteopenia Persistent atrial fibrillation Sick sinus syndrome Stress incontinence Subclinical hypothyroidism Tachycardia Vitamin D deficiency Surgical History H/O unilateral oophorectomy History of removal of cyst Hx of thyroidectomy S/P placement of cardiac pacemaker Family History Family History Father Cirrhosis with alcoholism Medical history non-contributory Mother Medical history non-contributory Hypothyroidism Social History Social History Housing: Condominium Alcohol intake: never Patient Tobacco Use Status: Former Tobacco user Quit Date: 1992 e-Cigarette/Vaping Use: Never Used Advance Directives: No Advance Directives Information Provided: Yes Current occupational status: retired Cognitive needs: No Hearing needs: No Vision needs: No Physical Exam ED Vital Signs: Vital Signs - 24 hr 08/06/22 16:14 08/06/22 17:49 Pulse Rate 98 86 Respiratory Rate 22 H 19 Blood Pressure 131/76 114/67 Pulse Oximetry 97 96 Oxygen Delivery Method Room Air Room Air BMI result Body Mass Index 35.4 Course Course Course Narrative: SHANNON--72-year-old female past medical history of pacemaker, chronic AFib on Xarelto, COPD, depression, HLD, COLIN on CPAP, hypothyroid s/p thyroidectomy 05/26/22, sent in from PCP's office for tachycardia. Denies taking her medications today. Denies CP/SOB, abdominal pain, nausea/vomiting, lightheadedness/dizziness, pedal edema Plan: EKGs, labs, CXR, TSH ordered in triage Medications Administered Discontinued Medications Generic Name Dose Route Start Last Admin Trade Name Freq PRN Reason Stop Dose Admin Metoprolol Succinate 100 mg 08/06/22 16:22 08/06/22 16:33 Metoprolol Succinate Er 100 Mg Tab.Er.24h PO 08/06/22 16:23 100 mg ONCE ONE Administration Protocol Medical Decision Making Lab Data Result diagrams: 08/06/22 15:57 08/06/22 16:06 Labs: Lab Results 08/06/22 08/06/22 08/06/22 Range/Units 15:56 15:56 15:56 WBC (4.8-10.8) X10*3/uL RBC (4.20-5.50) X10*6/uL Hgb (12.0-16.0) g/dl Hct (37.0-47.0) % MCV (80.0-98.0) fL MCH (27.0-33.0) pg MCHC (31.0-35.0) g/dl RDW (11.0-16.0) % Plt Count (160-400) X10*3/uL MPV (9.4-12.3) fL Immature Gran % (Auto) (0.0-0.4) % Neut % (Auto) (45-73) % Lymph % (Auto) (20-40) % [place] % (Auto) (2-11) % Eos % (Auto) (0-4) % Baso % (Auto) (0-2) % Lymph # (Auto) (1.2-4.9) X10*3/uL [place] # (Auto) (0.1-1.2) X10*3/uL Eos # (Auto) (0.0-0.4) X10*3/uL Baso # (Auto) (0.0-0.2) X10*3/uL Abs Immat Gran (auto) (0.00-0.03) X10*3/uL Absolute Neuts (auto) (2.0-8.3) x10*3/uL Absolute Nucleated RBC (0.0-0.012) X10*3/uL Nucleated RBC % (auto) (0.0-0.2) /100WBC PT 14.2 H (10.0-13.1) SEC INR 1.2 H (0.9-1.1) Sodium (135-145) mmol/L Potassium (3.3-5.1) mmol/L Chloride (96-108) mmol/L Carbon Dioxide (22-29) mmol/L Anion Gap (12-20) BUN (9-16) mg/dL Creatinine (0.5-1.4) mg/dL Estim Creat Clear Calc Estimated GFR Random Glucose (60-115) mg/dL Calcium (8.4-10.2) mg/dL Magnesium (1.6-2.6) mg/dL Total Bilirubin (0.0-1.0) mg/dL Direct Bilirubin (0.0-0.5) mg/dL AST (5-31) U/L ALT (0-31) U/L Alkaline Phosphatase (39-117) U/L Troponin I High Sens 7.3 (<3.5-17.0) ng/L B-Natriuretic Peptide (<100) pg/mL Total Protein (6.5-8.0) g/dL Albumin (3.5-5.0) g/dL TSH Urine Color Urine Appearance Urine pH (5.0-9.0) Ur Specific [place] (1.005-1.025) Urine Protein (Neg-Trace) mg/dL Urine Glucose (UA) (Negative) mg/dL Urine Ketones (Negative) mg/dL Urine Blood (Negative) Urine Nitrite (Negative) Ur Leukocyte Esterase (Negative) COVID-19 (VEDA) Negative (Negative) COVID-19 Clin Com See Note 08/06/22 08/06/22 08/06/22 Range/Units 15:56 15:57 15:57 WBC 6.1 (4.8-10.8) X10*3/uL RBC 4.62 (4.20-5.50) X10*6/uL Hgb 14.2 (12.0-16.0) g/dl Hct 43.9 (37.0-47.0) % MCV 95.0 (80.0-98.0) fL MCH 30.7 (27.0-33.0) pg MCHC 32.3 (31.0-35.0) g/dl RDW 12.0 (11.0-16.0) % Plt Count 193 (160-400) X10*3/uL MPV 9.3 L (9.4-12.3) fL Immature Gran % (Auto) 0.5 H (0.0-0.4) % Neut % (Auto) 60.4 (45-73) % Lymph % (Auto) 25.7 (20-40) % [place] % (Auto) 11.1 H (2-11) % Eos % (Auto) 2.0 (0-4) % Baso % (Auto) 0.3 (0-2) % Lymph # (Auto) 1.6 (1.2-4.9) X10*3/uL [place] # (Auto) 0.7 (0.1-1.2) X10*3/uL Eos # (Auto) 0.1 (0.0-0.4) X10*3/uL Baso # (Auto) 0.0 (0.0-0.2) X10*3/uL Abs Immat Gran (auto) 0.03 (0.00-0.03) X10*3/uL Absolute Neuts (auto) 3.7 (2.0-8.3) x10*3/uL Absolute Nucleated RBC 0.000 (0.0-0.012) X10*3/uL Nucleated RBC % (auto) 0.0 (0.0-0.2) /100WBC PT (10.0-13.1) SEC INR (0.9-1.1) Sodium (135-145) mmol/L Potassium (3.3-5.1) mmol/L Chloride (96-108) mmol/L Carbon Dioxide (22-29) mmol/L Anion Gap (12-20) BUN (9-16) mg/dL Creatinine (0.5-1.4) mg/dL Estim Creat Clear Calc Estimated GFR Random Glucose (60-115) mg/dL Calcium (8.4-10.2) mg/dL Magnesium (1.6-2.6) mg/dL Total Bilirubin (0.0-1.0) mg/dL Direct Bilirubin (0.0-0.5) mg/dL AST (5-31) U/L ALT (0-31) U/L Alkaline Phosphatase (39-117) U/L Troponin I High Sens (<3.5-17.0) ng/L B-Natriuretic Peptide 198 H (<100) pg/mL Total Protein (6.5-8.0) g/dL Albumin (3.5-5.0) g/dL TSH Cancelled Urine Color Urine Appearance Urine pH (5.0-9.0) Ur Specific [place] (1.005-1.025) Urine Protein (Neg-Trace) mg/dL Urine Glucose (UA) (Negative) mg/dL Urine Ketones (Negative) mg/dL Urine Blood (Negative) Urine Nitrite (Negative) Ur Leukocyte Esterase (Negative) COVID-19 (VEDA) (Negative) COVID-19 Clin Com 08/06/22 08/06/22 Range/Units 16:06 17:26 WBC (4.8-10.8) X10*3/uL RBC (4.20-5.50) X10*6/uL Hgb (12.0-16.0) g/dl Hct (37.0-47.0) % MCV (80.0-98.0) fL MCH (27.0-33.0) pg MCHC (31.0-35.0) g/dl RDW (11.0-16.0) % Plt Count (160-400) X10*3/uL MPV (9.4-12.3) fL Immature Gran % (Auto) (0.0-0.4) % Neut % (Auto) (45-73) % Lymph % (Auto) (20-40) % [place] % (Auto) (2-11) % Eos % (Auto) (0-4) % Baso % (Auto) (0-2) % Lymph # (Auto) (1.2-4.9) X10*3/uL [place] # (Auto) (0.1-1.2) X10*3/uL Eos # (Auto) (0.0-0.4) X10*3/uL Baso # (Auto) (0.0-0.2) X10*3/uL Abs Immat Gran (auto) (0.00-0.03) X10*3/uL Absolute Neuts (auto) (2.0-8.3) x10*3/uL Absolute Nucleated RBC (0.0-0.012) X10*3/uL Nucleated RBC % (auto) (0.0-0.2) /100WBC PT (10.0-13.1) SEC INR (0.9-1.1) Sodium 140 (135-145) mmol/L Potassium 4.4 (3.3-5.1) mmol/L Chloride 102 (96-108) mmol/L Carbon Dioxide 28 (22-29) mmol/L Anion Gap 14 (12-20) BUN 15 (9-16) mg/dL Creatinine 0.86 (0.5-1.4) mg/dL Estim Creat Clear Calc 66.0 Estimated GFR > 60 Random Glucose 88 (60-115) mg/dL Calcium 9.5 D (8.4-10.2) mg/dL Magnesium 2.3 (1.6-2.6) mg/dL Total Bilirubin 1.0 (0.0-1.0) mg/dL Direct Bilirubin 0.4 (0.0-0.5) mg/dL AST 28 (5-31) U/L ALT 17 (0-31) U/L Alkaline Phosphatase 82 (39-117) U/L Troponin I High Sens (<3.5-17.0) ng/L B-Natriuretic Peptide (<100) pg/mL Total Protein 7.5 (6.5-8.0) g/dL Albumin 4.5 (3.5-5.0) g/dL TSH 0.83 Urine Color Yellow Urine Appearance Clear Urine pH 7.5 (5.0-9.0) Ur Specific [place] <= 1.005 (1.005-1.025) Urine Protein Negative (Neg-Trace) mg/dL Urine Glucose (UA) Negative (Negative) mg/dL Urine Ketones Negative (Negative) mg/dL Urine Blood Negative (Negative) Urine Nitrite Negative (Negative) Ur Leukocyte Esterase Negative (Negative) COVID-19 (VEDA) (Negative) COVID-19 Clin Com Discharge Plan Discharge Clinical Impression: Chronic a-fib Patient Disposition: Home, Self-Care Instructions: A-fib (Atrial Fibrillation) (ED) Additional Instructions: Please follow-up with your primary care physician tomorrow. If you have any worsening or new symptoms, please return to the emergency room or call 911 Prescriptions: No Action spironolactone [Aldactone] 25 mg tablet 12.5 mg PO DAILY Qty: 30 4RF metoprolol succinate [Toprol XL] 100 mg tablet extended release 24 hr 100 mg PO DAILY Qty: 90 1RF furosemide 20 mg tablet 20 mg PO .COMPLEX Qty: 450 1RF Rx Instructions: 20 mg PO Three tablets by mouth every morning and two tablets by mouth at noon; Xarelto 20 mg tablet 20 mg PO DAILY Qty: 90 3RF CombiPatch 0.05-0.14 mg/24 hr patch semiweekly 1 patch transdermal 2XW cyproheptadine 4 mg tablet 4 mg PO BEDTIME fluvoxamine 25 mg tablet 25 mg PO TID lorazepam 0.5 mg tablet 0.0395f32? mg PO TID omeprazole 20 mg capsule,delayed release(DR/EC) 20 mg PO BEDTIME polyethylene glycol 3350 [Miralax] 17 gram powder in packet 17 g PO DAILY levothyroxine 150 mcg tablet 150 mcg PO DAILY guaifenesin [Mucinex] 600 mg tablet extended release 12hr 600 mg PO .qod PRN Interventions: ED Discharge Assessment Last Done: 08/06/22 17:56 Discharge Date/Time: 08/06/22 17:57
--- NOTE | 2022-08-06 15:07 | ECG_ITS ---
Test Reason : afib Blood Pressure : / mmHG Vent. Rate : 105 BPM Atrial Rate : 000 BPM P-R Int : 000 ms QRS Dur : 070 ms QT Int : 374 ms P-R-T Axes : 000 077 -24 degrees QTc Int : 494 ms Atrial fibrillation with rapid ventricular response Abnormal QRS-T angle, consider primary T wave abnormality RSR' or QR pattern in V1 suggests right ventricular conduction delay Nonspecific ST and T wave abnormality Inferior leads Lateral leads Abnormal ECG When compared with ECG of 09-FEB-2020 10:40, Atrial fibrillation has replaced Junctional rhythm Vent. rate has increased BY 47 BPM QRS duration has decreased Inverted T waves have replaced nonspecific T wave abnormality in Inferior leads T wave inversion no longer evident in Anterolateral leads Referred By: Keyla Fontanez Electronically Signed By:DONTA JIMENEZ MD
[2022-08-06 16:11] LABS: MANUAL DIFF FLAG NO
[2022-08-06 16:14] VITALS: BP 131/76; PULSE 98; RESP 22; O2SAT 97
[2022-08-06 16:18] LABS: Basophils Percent Auto 0.3 % (0-2); Eosinophils Absolute Auto 0.1 X10*3/uL (0.0-0.4); Hematocrit 43.9 % (37.0-47.0); Hemoglobin 14.2 g/dl (12.0-16.0); Imm Gran Abs Auto 0.03 X10*3/uL (0.00-0.03); Imm Gran Pct Auto 0.5 % (0.0-0.4); Lymphocytes Absolute Auto 1.6 X10*3/uL (1.2-4.9); Lymphocytes Percent Auto 25.7 % (20-40); Mean Corpuscular HGB Conc 32.3 g/dl (31.0-35.0); Mean Corpuscular Hemoglobin 30.7 pg (27.0-33.0); Mean Platelet Volume 9.3 fL (9.4-12.3); Monocytes Absolute Auto 0.7 X10*3/uL (0.1-1.2); Monocytes Percent Auto 11.1 % (2-11); Neutrophils Absolute Auto 3.7 x10*3/uL (2.0-8.3); Neutrophils Percent Auto 60.4 % (45-73); Platelet Count 193 X10*3/uL (160-400); Red Blood Count 4.62 X10*6/uL (4.20-5.50); White Blood Count 6.1 X10*3/uL (4.8-10.8)
--- NOTE | 2022-08-06 16:23 | ED.ARRPALP ---
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 Seems that earlier today, patient's heart rate was in the 120s, patient was asymptomatic, patient known to be in AFib at all times, complaining with Xarelto. Patient states that usually she takes her metoprolol at night. The patient arrived to emergency room, patient's heart rate was 113. Patient asymptomatic. Blood pressure 141/74. Patient has no physical symptoms. Patient denies chest pain and palpitations, no shortness of breath Related Data Home Medications Medication Instructions Recorded Confirmed cyproheptadine 4 mg tablet 4 mg PO BEDTIME 07/12/20 08/06/22 estradiol 0.05 mg-norethindrone 1 patch transdermal 2XW 07/12/20 08/06/22 0.14 mg/24 hr semiwkly transderm patch fluvoxamine 25 mg tablet 25 mg PO TID 07/12/20 08/06/22 lorazepam 0.5 mg tablet 0.8177r86? mg PO TID 07/12/20 08/06/22 omeprazole 20 mg capsule,delayed 20 mg PO BEDTIME 07/12/20 08/06/22 release guaifenesin 600 mg tablet, 600 mg PO .qod PRN 02/10/22 08/06/22 extended release 12 hr (Mucinex) polyethylene glycol 3350 17 gram 17 g PO DAILY 03/26/22 08/06/22 oral powder packet (Miralax) levothyroxine 150 mcg tablet 150 mcg PO DAILY 06/30/22 08/06/22 Previous Rx's Medication Instructions Recorded spironolactone 25 mg tablet 12.5 mg PO DAILY #30 tabs 02/17/22 (Aldactone) metoprolol succinate 100 mg 100 mg PO DAILY #90 tabs 03/16/22 tablet,extended release 24 hr (Toprol XL) furosemide 20 mg tablet 20 mg PO .COMPLEX #450 tabs 03/31/22 rivaroxaban 20 mg tablet (Xarelto) 20 mg PO DAILY #90 tabs 04/23/22 Allergies Allergy/AdvReac Type Severity Reaction Status Date / Time amiodarone [AMIODARONE] Allergy Severe INTERSTITIAL Verified 08/06/22 14:58 PNEUMONITIS, fluid gain, interstial pneumonitis amoxicillin [AMOXICILLIN] Allergy Unknown SHAKES Verified 08/06/22 14:58 ALL OVER , shaky, shaky doxycycline [DOXYCYCLINE] AdvReac Unknown STOMACH Verified 08/06/22 14:58 UPSET, upset stomach Review of Systems Review of Systems: Constitutional : No Weight loss, No Fever, No Chills, No Night Sweats, No Fatigue, No Malaise ENT/Mouth : No Hearing loss, No Ear Pain, No Nasal Congestion, No Sinus Pain, No Hoarseness, No sore throat, No Rhinorrhea, No Swallowing Difficulty Eyes: No Eye Pain, No Swelling, No Redness, No Foreign Body, No Discharge, No Vision Changes Cardiovascular : No Chest Pain, No SOB, No Dyspnea on Exertion, No Orthopnea, No Edema, No Palpitations, and to have rapid heart rate hit to AFib Respiratory : No Cough, No Sputum, No Wheezing, No Smoke Exposure, No Dyspnea Gastrointestinal : No Nausea, No Vomiting, No Diarrhea, No Constipation, No abdominal Pain, No Hematochezia, No Melena Genitourinary : no irregular bleeding, No Dysuria, No Urinary Frequency, No Hematuria, No Urinary Incontinence, No Urgency, No Flank Pain, No Urinary Flow Changes, No Hesitancy Musculoskeletal : No joint pain, No Myalgias, No Joint Swelling Skin : No Skin Lesions, No rash Neuro : No Weakness, No Numbness, No Paresthesias, No Loss of Consciousness, No Dizziness, No Headache Psych : No Anxiety/Panic, No Depression, No SI/HI/AH/VH, No Social Issues, Heme/Lymph: No Bruising, No Bleeding,No Lymphadenopathy Endocrine : No Polyuria, No Polydipsia, No Temperature Intolerance [facility] Past Medical History Medical History Cardiac pacemaker in situ Chronic atrial fibrillation Chronic heart failure with preserved ejection fraction (HFpEF) COPD (chronic obstructive pulmonary disease) Depression with anxiety Drug-induced pneumonitis Dyslipidemia Elevated antinuclear antibody (LORETO) level Hyperparathyroidism Hyperthyroidism Multinodular thyroid Non-toxic multinodular goiter COLIN on CPAP Osteopenia Persistent atrial fibrillation Sick sinus syndrome Stress incontinence Subclinical hypothyroidism Tachycardia Vitamin D deficiency Surgical History H/O unilateral oophorectomy History of removal of cyst Hx of thyroidectomy S/P placement of cardiac pacemaker Family History Family History Father Cirrhosis with alcoholism Medical history non-contributory Mother Medical history non-contributory Hypothyroidism Social History Social History Housing: Condominium Alcohol intake: never Patient Tobacco Use Status: Former Tobacco user Quit Date: 1992 e-Cigarette/Vaping Use: Never Used Advance Directives: No Advance Directives Information Provided: Yes Current occupational status: retired Cognitive needs: No Hearing needs: No Vision needs: No Physical Exam Vital Signs: Vital Signs: Last Vital Signs Temp 97.4 F 08/06/22 15:05 Pulse 98 08/06/22 16:14 Resp 22 H 08/06/22 16:14 BP 131/76 08/06/22 16:14 Pulse Ox 97 08/06/22 16:14 O2 Del Method 08/06/22 16:14 BMI result Body Mass Index 35.4 Const: Other: Appearance: Alert. Oriented X3. No acute distress. Eyes: Pupils equal, round and reactive to light. ENT: Pharynx normal. Neck: Normal inspection. Neck supple. No lymph nodes noted. No crepitus CVS: Normal heart rate and rhythm. Heart rate in the high 90s Pulses normal. Normal S1 and S2 Respiratory: No respiratory distress. Breath sounds normal. No Wheezing. No rales Abdomen: Soft and nontender. No rigidity. No distention. Skin: Skin warm and dry. Normal skin color. Normal skin turgor. Extremities: No lower extremity edema. No Lacerations. No Rash Neuro: Oriented X 3. No motor deficit. No sensory deficit. Moving all extremities. No slurred speech. CN 2 through 12 grossly intact Psych: calm, cooperative, normal affect Course Course Course Narrative: Patient remains asymptomatic, labs pending. Patient's heart rate runs between 90 and 105. The patient was given her home dose of metoprolol succinate 100 mg. Patient's labs are at baseline, TSH normal, troponin normal, BNP 198 which is patient's baseline. Chest x-ray does not show any pulmonary edema, EKG shows atrial fibrillation which is chronic, heart rate 105. Patient remains asymptomatic, patient ready for discharge Medications Administered Discontinued Medications Generic Name Dose Route Start Last Admin Trade Name Leo PRN Reason Stop Dose Admin Metoprolol Succinate 100 mg 08/06/22 16:22 08/06/22 16:33 Metoprolol Succinate Er 100 Mg Tab.Er.24h PO 08/06/22 16:23 100 mg ONCE ONE Administration Protocol MDM - Arrhythmia/Palpitations Lab Data Result diagrams: 08/06/22 15:57 08/06/22 16:06 Labs: Lab Results 08/06/22 08/06/22 08/06/22 Range/Units 15:56 15:56 15:56 WBC (4.8-10.8) X10*3/uL RBC (4.20-5.50) X10*6/uL Hgb (12.0-16.0) g/dl Hct (37.0-47.0) % MCV (80.0-98.0) fL MCH (27.0-33.0) pg MCHC (31.0-35.0) g/dl RDW (11.0-16.0) % Plt Count (160-400) X10*3/uL MPV (9.4-12.3) fL Immature Gran % (Auto) (0.0-0.4) % Neut % (Auto) (45-73) % Lymph % (Auto) (20-40) % [place] % (Auto) (2-11) % Eos % (Auto) (0-4) % Baso % (Auto) (0-2) % Lymph # (Auto) (1.2-4.9) X10*3/uL [place] # (Auto) (0.1-1.2) X10*3/uL Eos # (Auto) (0.0-0.4) X10*3/uL Baso # (Auto) (0.0-0.2) X10*3/uL Abs Immat Gran (auto) (0.00-0.03) X10*3/uL Absolute Neuts (auto) (2.0-8.3) x10*3/uL Absolute Nucleated RBC (0.0-0.012) X10*3/uL Nucleated RBC % (auto) (0.0-0.2) /100WBC PT 14.2 H (10.0-13.1) SEC INR 1.2 H (0.9-1.1) Sodium (135-145) mmol/L Potassium (3.3-5.1) mmol/L Chloride (96-108) mmol/L Carbon Dioxide (22-29) mmol/L Anion Gap (12-20) BUN (9-16) mg/dL Creatinine (0.5-1.4) mg/dL Estim Creat Clear Calc Estimated GFR Random Glucose (60-115) mg/dL Calcium (8.4-10.2) mg/dL Magnesium (1.6-2.6) mg/dL Total Bilirubin (0.0-1.0) mg/dL Direct Bilirubin (0.0-0.5) mg/dL AST (5-31) U/L ALT (0-31) U/L Alkaline Phosphatase (39-117) U/L Troponin I High Sens 7.3 (<3.5-17.0) ng/L B-Natriuretic Peptide (<100) pg/mL Total Protein (6.5-8.0) g/dL Albumin (3.5-5.0) g/dL TSH COVID-19 (VEDA) Negative (Negative) COVID-19 Clin Com See Note 08/06/22 08/06/22 08/06/22 Range/Units 15:56 15:57 15:57 WBC 6.1 (4.8-10.8) X10*3/uL RBC 4.62 (4.20-5.50) X10*6/uL Hgb 14.2 (12.0-16.0) g/dl Hct 43.9 (37.0-47.0) % MCV 95.0 (80.0-98.0) fL MCH 30.7 (27.0-33.0) pg MCHC 32.3 (31.0-35.0) g/dl RDW 12.0 (11.0-16.0) % Plt Count 193 (160-400) X10*3/uL MPV 9.3 L (9.4-12.3) fL Immature Gran % (Auto) 0.5 H (0.0-0.4) % Neut % (Auto) 60.4 (45-73) % Lymph % (Auto) 25.7 (20-40) % [place] % (Auto) 11.1 H (2-11) % Eos % (Auto) 2.0 (0-4) % Baso % (Auto) 0.3 (0-2) % Lymph # (Auto) 1.6 (1.2-4.9) X10*3/uL [place] # (Auto) 0.7 (0.1-1.2) X10*3/uL Eos # (Auto) 0.1 (0.0-0.4) X10*3/uL Baso # (Auto) 0.0 (0.0-0.2) X10*3/uL Abs Immat Gran (auto) 0.03 (0.00-0.03) X10*3/uL Absolute Neuts (auto) 3.7 (2.0-8.3) x10*3/uL Absolute Nucleated RBC 0.000 (0.0-0.012) X10*3/uL Nucleated RBC % (auto) 0.0 (0.0-0.2) /100WBC PT (10.0-13.1) SEC INR (0.9-1.1) Sodium (135-145) mmol/L Potassium (3.3-5.1) mmol/L Chloride (96-108) mmol/L Carbon Dioxide (22-29) mmol/L Anion Gap (12-20) BUN (9-16) mg/dL Creatinine (0.5-1.4) mg/dL Estim Creat Clear Calc Estimated GFR Random Glucose (60-115) mg/dL Calcium (8.4-10.2) mg/dL Magnesium (1.6-2.6) mg/dL Total Bilirubin (0.0-1.0) mg/dL Direct Bilirubin (0.0-0.5) mg/dL AST (5-31) U/L ALT (0-31) U/L Alkaline Phosphatase (39-117) U/L Troponin I High Sens (<3.5-17.0) ng/L B-Natriuretic Peptide 198 H (<100) pg/mL Total Protein (6.5-8.0) g/dL Albumin (3.5-5.0) g/dL TSH Cancelled COVID-19 (VEDA) (Negative) COVID-19 Clin Com 08/06/22 Range/Units 16:06 WBC (4.8-10.8) X10*3/uL RBC (4.20-5.50) X10*6/uL Hgb (12.0-16.0) g/dl Hct (37.0-47.0) % MCV (80.0-98.0) fL MCH (27.0-33.0) pg MCHC (31.0-35.0) g/dl RDW (11.0-16.0) % Plt Count (160-400) X10*3/uL MPV (9.4-12.3) fL Immature Gran % (Auto) (0.0-0.4) % Neut % (Auto) (45-73) % Lymph % (Auto) (20-40) % [place] % (Auto) (2-11) % Eos % (Auto) (0-4) % Baso % (Auto) (0-2) % Lymph # (Auto) (1.2-4.9) X10*3/uL [place] # (Auto) (0.1-1.2) X10*3/uL Eos # (Auto) (0.0-0.4) X10*3/uL Baso # (Auto) (0.0-0.2) X10*3/uL Abs Immat Gran (auto) (0.00-0.03) X10*3/uL Absolute Neuts (auto) (2.0-8.3) x10*3/uL Absolute Nucleated RBC (0.0-0.012) X10*3/uL Nucleated RBC % (auto) (0.0-0.2) /100WBC PT (10.0-13.1) SEC INR (0.9-1.1) Sodium 140 (135-145) mmol/L Potassium 4.4 (3.3-5.1) mmol/L Chloride 102 (96-108) mmol/L Carbon Dioxide 28 (22-29) mmol/L Anion Gap 14 (12-20) BUN 15 (9-16) mg/dL Creatinine 0.86 (0.5-1.4) mg/dL Estim Creat Clear Calc 66.0 Estimated GFR > 60 Random Glucose 88 (60-115) mg/dL Calcium 9.5 D (8.4-10.2) mg/dL Magnesium 2.3 (1.6-2.6) mg/dL Total Bilirubin 1.0 (0.0-1.0) mg/dL Direct Bilirubin 0.4 (0.0-0.5) mg/dL AST 28 (5-31) U/L ALT 17 (0-31) U/L Alkaline Phosphatase 82 (39-117) U/L Troponin I High Sens (<3.5-17.0) ng/L B-Natriuretic Peptide (<100) pg/mL Total Protein 7.5 (6.5-8.0) g/dL Albumin 4.5 (3.5-5.0) g/dL TSH 0.83 COVID-19 ([facility]) (Negative) COVID-19 Clin Com Discharge Plan Discharge Clinical Impression: Chronic a-fib Patient Disposition: Home, Self-Care Instructions: A-fib (Atrial Fibrillation) (ED) Additional Instructions: Please follow-up with your primary care physician tomorrow. If you have any worsening or new symptoms, please return to the emergency room or call 911 Prescriptions: No Action spironolactone [Aldactone] 25 mg tablet 12.5 mg PO DAILY Qty: 30 4RF metoprolol succinate [Toprol XL] 100 mg tablet extended release 24 hr 100 mg PO DAILY Qty: 90 1RF furosemide 20 mg tablet 20 mg PO .COMPLEX Qty: 450 1RF Rx Instructions: 20 mg PO Three tablets by mouth every morning and two tablets by mouth at noon; Xarelto 20 mg tablet 20 mg PO DAILY Qty: 90 3RF CombiPatch 0.05-0.14 mg/24 hr patch semiweekly 1 patch transdermal 2XW cyproheptadine 4 mg tablet 4 mg PO BEDTIME fluvoxamine 25 mg tablet 25 mg PO TID lorazepam 0.5 mg tablet 0.1596o82? mg PO TID omeprazole 20 mg capsule,delayed release(DR/EC) 20 mg PO BEDTIME polyethylene glycol 3350 [Miralax] 17 gram powder in packet 17 g PO DAILY levothyroxine 150 mcg tablet 150 mcg PO DAILY guaifenesin [Mucinex] 600 mg tablet extended release 12hr 600 mg PO .qod PRN
[2022-08-06] MEDS: Metoprolol Succinate ER 100 MG TAB.ER.24H PO (16:33)
[2022-08-06 16:34] LABS: INTERNATIONAL NORM RATIO 1.2 (0.9-1.1); Prothrombin Time 14.2 SEC (10.0-13.1)
[2022-08-06 16:36] LABS: Alanine Aminotransferase 17 U/L (0-31); Albumin Level 4.5 g/dL (3.5-5.0); Alkaline Phosphatase 82 U/L (39-117); Anion Gap 14 (12-20); Aspartate Amino Transferase 28 U/L (5-31); Bilirubin Direct 0.4 mg/dL (0.0-0.5); Blood Urea Nitrogen 15 mg/dL (9-16); Calcium 9.5 mg/dL (8.4-10.2); Carbon Dioxide 28 mmol/L (22-29); Chloride 102 mmol/L (96-108); Estimated Glomerular Filt Rate > 60; Glucose Random 88 mg/dL (60-115); Magnesium 2.3 mg/dL (1.6-2.6); Potassium 4.4 mmol/L (3.3-5.1); Sodium 140 mmol/L (135-145); Total Protein 7.5 g/dL (6.5-8.0)
[2022-08-06 16:40] LABS: Troponin-I High Sensitivity 7.3 ng/L (<3.5-17.0)
[2022-08-06 16:41] LABS: COVID-19 Test Negative (Negative); IDNOW Serial# BCCEAD1C
[2022-08-06 16:45] LABS: B Type Natriuretic Peptide 198 pg/mL (<100)
[2022-08-06 16:57] LABS: TSH reflex Free T4 0.83 uIU/mL (0.32-4.0)
[2022-08-06 17:49] VITALS: BP 114/67; PULSE 86; RESP 19; O2SAT 96
[2022-08-06 18:24] LABS: Appearance Urine Clear; Color Urine Yellow; Glucose Urine UA Negative (Negative); Leukocyte Esterase Urine Negative (Negative); Nitrite Urine Negative (Negative); PH 7.5 (5.0-9.0); Specific Gravity - Urine <= 1.005 (1.005-1.025); Urine Blood Negative (Negative); Urine Ketones Negative (Negative); Urine Protein Negative (Neg-Trace)
== END 2022-08-06 17:57 | disposition home or self-care (01) ==
PROVIDERS: Physician Assistant; Emergency Provider Emergency Medicine; PCP Internal Medicine
DX: I48.20 Chronic atrial fibrillation, unspecified (principal); I49.9 Cardiac arrhythmia, unspecified; R00.2 Palpitations; R06.02 Shortness of breath; Z79.01 Long term (current) use of anticoagulants; Z20.822 Contact with and (suspected) exposure to COVID-19; Z79.899 Other long term (current) drug therapy
CPT/HCPCS: 36415; 71045; 80048; 80076; 81003; 83735; 83880; 84443; 84484; 85025; 85610; 87635; 93005; 99212; 99283; 99284

== ENCOUNTER → 2022-09-01 14:57 | Outpatient (BNVA) | payer MEDICARE, SELFPAY | PROVIDERS: PCP Internal Medicine; Visit Provider Psychiatry & Neurology Psychiatry | DX: F41.0 Panic disorder [episodic paroxysmal anxiety] (principal); I48.20 Chronic atrial fibrillation, unspecified; R00.2 Palpitations; R53.83 Other fatigue; E89.0 Postprocedural hypothyroidism; Z95.0 Presence of cardiac pacemaker | CPT/HCPCS: 99212 ==

== ENCOUNTER → 2022-09-03 13:15 | Outpatient (BNVA) | payer MEDICARE, SELFPAY | PROVIDERS: PCP Internal Medicine; Visit Provider Internal Medicine Cardiovascular Disease | DX: I48.20 Chronic atrial fibrillation, unspecified (principal); I50.32 Chronic diastolic (congestive) heart failure; Z79.01 Long term (current) use of anticoagulants; Z79.899 Other long term (current) drug therapy; Z45.018 Encounter for adjustment and management of other part of cardiac pacemaker | CPT/HCPCS: 93280; 99212; Q3014 ==

== ENCOUNTER 2022-11-12 19:00 | Emergency (ER) | payer MEDICARE, SELFPAY ==
[2022-11-12 19:40] VITALS: BP 112/79; PULSE 113; RESP 16; TEMP 36.6; O2SAT 98; BMI 34.9
--- NOTE | 2022-11-12 19:41 | ED_ITS ---
HPI - Extremity Problem General Chief complaint: Extremity Problem Stated complaint: left lower leg swollen and reddened Time Seen by Provider: 11/12/22 20:35 Source: patient Mode of arrival: ambulatory Limitations: no limitations History of Present Illness HPI Narrative: Patient is a 72-year-old female who presents emergency department for evaluation of left lower leg swelling and redness. Onset was approximately 1 week ago which is progressively worsening. She does report 2 areas of bruising, but did not have any specific injury. She states that she has chronic swelling for which she is taking furosemide, has not had any recent dosage changes. She is anticoagulated with Xarelto, reports compliance. Denies chest pain, shortness of breath Related Data Home Medications Medication Instructions Recorded Confirmed estradiol 0.05 mg-norethindrone 1 patch transdermal 2XW 07/12/20 09/03/22 0.14 mg/24 hr semiwkly transderm patch omeprazole 20 mg capsule,delayed 20 mg PO BEDTIME 07/12/20 09/03/22 release guaifenesin 600 mg tablet, 600 mg PO .qod PRN 02/10/22 09/03/22 extended release 12 hr (Mucinex) polyethylene glycol 3350 17 gram 17 g PO DAILY 03/26/22 09/03/22 oral powder packet (Miralax) cyproheptadine 4 mg tablet 4 mg PO BEDTIME 09/03/22 09/03/22 Previous Rx's Medication Instructions Recorded spironolactone 25 mg tablet 12.5 mg PO DAILY #30 tabs 02/17/22 (Aldactone) rivaroxaban 20 mg tablet (Xarelto) 20 mg PO DAILY #90 tabs 04/23/22 levothyroxine 150 mcg tablet 150 mcg PO DAILY 30 days #30 tabs 08/26/22 fluvoxamine 25 mg tablet 25 mg PO TID 3 months #270 tabs 09/01/22 lorazepam 0.5 mg tablet 0.25 - 0.5 mg PO TID #270 tabs 09/01/22 furosemide 20 mg tablet 20 mg PO .COMPLEX #450 tabs 09/28/22 metoprolol succinate 100 mg 100 mg PO DAILY #90 tabs 10/26/22 tablet,extended release 24 hr (Toprol XL) cephalexin 500 mg capsule 500 mg PO QID 7 days #28 caps 11/12/22 Allergies Allergy/AdvReac Type Severity Reaction Status Date / Time amiodarone [AMIODARONE] Allergy Severe INTERSTITIAL Verified 11/12/22 19:45 PNEUMONITIS, fluid gain, interstial pneumonitis amoxicillin [AMOXICILLIN] Allergy Unknown SHAKES Verified 11/12/22 19:45 ALL OVER , shaky, shaky doxycycline [DOXYCYCLINE] AdvReac Unknown STOMACH Verified 11/12/22 19:45 UPSET, upset stomach Review of Systems Review of Systems: Yes all other systems are reviewed and are negative [facility] Past Medical History Attestation statement: The following information was validated with the patient. Source: old records reviewed Medical History Cardiac pacemaker in situ Chronic atrial fibrillation Chronic heart failure with preserved ejection fraction (HFpEF) COPD (chronic obstructive pulmonary disease) Depression with anxiety Drug-induced pneumonitis Dyslipidemia Elevated antinuclear antibody (LORETO) level Hyperparathyroidism Hyperthyroidism Multinodular thyroid Non-toxic multinodular goiter COLIN on CPAP Osteopenia Panic disorder [episodic paroxysmal anxiety] Persistent atrial fibrillation Sick sinus syndrome Stress incontinence Subclinical hypothyroidism Tachycardia Vitamin D deficiency Surgical History H/O unilateral oophorectomy History of removal of cyst Hx of thyroidectomy S/P placement of cardiac pacemaker Family History Family History Father Cirrhosis with alcoholism Medical history non-contributory Mother Medical history non-contributory Hypothyroidism Social History Social History Housing: Condominium Alcohol intake: never Patient Tobacco Use Status: Former Tobacco user Quit Date: 1992 e-Cigarette/Vaping Use: Never Used Advance Directives: No Advance Directives Information Provided: Yes Current occupational status: retired Cognitive needs: No Hearing needs: No Vision needs: No Physical Exam Vital Signs: Vital Signs: Last Vital Signs Temp 98 F 11/12/22 20:30 Pulse 95 11/12/22 20:30 Resp 17 11/12/22 20:30 BP 117/73 11/12/22 20:30 Pulse Ox 98 11/12/22 20:30 O2 Del Method 11/12/22 20:30 BMI result Body Mass Index 34.9 Appearance: Alert.?Oriented to person, place and time. No acute distress.?Normal affect. Neck: Normal inspection.? Neck supple.?? CVS: Heart sounds normal. Normal heart rate and rhythm.? Pulses normal.?? Respiratory: No respiratory distress.? Lung sounds clear to auscultation bilaterally?? Abdomen: Soft and non-tender. Normoactive bowel sounds. No pulsatile mass.?? Skin: Skin warm and dry.? Normal skin color.? Left lower extremity macular eruption with surrounding erythema Extremities: Nonpitting lower extremity edema bilaterally, symmetrical.? No calf ttp. 2+ DP/PT pulse bilaterally. Neuro: Moves all extremities spontaneously. Sensation intact bilaterally. Ambulates with normal steady gait. Medical Decision Making Medical Decision Making [facility] Narrative: Patient is a 72-year-old female who presents emergency department for evaluation of left lower extremity redness swelling and pain. Macular rash with surrounding erythema to the left lower extremity anteriorly concerning for cellulitis versus stasis dermatitis. No leukocytosis. D-dimer not consistent with DVT, and she is anticoagulated already with Xarelto. There is no injury, deformity, joint pain or swelling. She is able to weight bear. Not consistent with fracture dislocation. Discussed plan of care for discharge, will send prescription for Keflex to patient's pharmacy, advised outpatient follow-up with her primary care provider next week. Discussed worrisome signs and symptoms that would warrant re-evaluation in the emergency department. She verbalizes un derstanding. Differential Diagnosis Differential Diagnoses: The differential diagnosis associated with the presentation includes (As noted above) Lab Data [facility] Lab Attestation statement: I reviewed the patient's lab results. 11/12/22 19:54 11/12/22 19:54 Labs: Lab Results 11/12/22 11/12/22 11/12/22 Range/Units 19:54 19:54 19:54 WBC 7.0 (4.8-10.8) X10*3/uL RBC 4.63 (4.20-5.50) X10*6/uL Hgb 14.3 (12.0-16.0) g/dl Hct 42.9 (37.0-47.0) % MCV 92.7 (80.0-98.0) fL MCH 30.9 (27.0-33.0) pg MCHC 33.3 (31.0-35.0) g/dl RDW 13.2 (11.0-16.0) % Plt Count 204 (160-400) X10*3/uL MPV 9.1 L (9.4-12.3) fL Immature Gran % (Auto) 0.1 (0.0-0.4) % Neut % (Auto) 64.0 (45-73) % Lymph % (Auto) 20.7 (20-40) % Andrew % (Auto) 11.9 H (2-11) % Eos % (Auto) 2.6 (0-4) % Baso % (Auto) 0.7 (0-2) % Lymph # (Auto) 1.5 (1.2-4.9) X10*3/uL Andrew # (Auto) 0.8 (0.1-1.2) X10*3/uL Eos # (Auto) 0.2 (0.0-0.4) X10*3/uL Baso # (Auto) 0.1 (0.0-0.2) X10*3/uL Abs Immat Gran (auto) 0.01 (0.00-0.03) X10*3/uL Absolute Neuts (auto) 4.5 (2.0-8.3) x10*3/uL Absolute Nucleated RBC 0.000 (0.0-0.012) X10*3/uL Nucleated RBC % (auto) 0.0 (0.0-0.2) /100WBC D-Dimer High Sensitivty 152 NG/ML Sodium 143 (135-145) mmol/L Potassium 4.1 (3.3-5.1) mmol/L Chloride 104 (96-108) mmol/L Carbon Dioxide 28 (22-29) mmol/L Anion Gap 15 (12-20) BUN 16 (9-16) mg/dL Creatinine 0.87 (0.5-1.4) mg/dL Estim Creat Clear Calc 64.7 Estimated GFR > 60 Random Glucose 86 (60-115) mg/dL Calcium 9.0 (8.4-10.2) mg/dL Total Bilirubin 0.9 (0.0-1.0) mg/dL AST 29 (5-31) U/L ALT 19 (0-31) U/L Alkaline Phosphatase 84 (39-117) U/L Total Protein 7.1 (6.5-8.0) g/dL Albumin 4.1 (3.5-5.0) g/dL External Record Review External record reviewed: Office record Prescription Management I considered prescription management with: Antibiotic Discharge Plan Discharge Clinical Impression: Cellulitis of left lower leg Patient Disposition: Home, Self-Care Instructions: Cellulitis (ED) Additional Instructions: As discussed, please complete tire course of antibiotics as prescribed. Follow- up with your primary care provider next week for re-evaluation. If you develop worsening pain, swelling, redness, extension of rash despite antibiotics then this should be re-evaluated sooner. Prescriptions: New cephalexin 500 mg capsule 500 mg PO QID 7 Days Qty: 28 0RF No Action spironolactone [Aldactone] 25 mg tablet 12.5 mg PO DAILY Qty: 30 4RF Xarelto 20 mg tablet 20 mg PO DAILY Qty: 90 3RF levothyroxine 150 mcg tablet 150 mcg PO DAILY 30 Days Qty: 30 11RF furosemide 20 mg tablet 20 mg PO .COMPLEX Qty: 450 1RF Rx Instructions: 20 mg PO Three tablets by mouth every morning and two tablets by mouth at noon; metoprolol succinate [Toprol XL] 100 mg tablet extended release 24 hr 100 mg PO DAILY Qty: 90 3RF CombiPatch 0.05-0.14 mg/24 hr patch semiweekly 1 patch transdermal 2XW omeprazole 20 mg capsule,delayed release(DR/EC) 20 mg PO BEDTIME polyethylene glycol 3350 [Miralax] 17 gram powder in packet 17 g PO DAILY guaifenesin [Mucinex] 600 mg tablet extended release 12hr 600 mg PO .qod PRN cyproheptadine 4 mg tablet 4 mg PO BEDTIME fluvoxamine 25 mg tablet 25 mg PO TID 90 Days Qty: 270 1RF lorazepam 0.5 mg tablet 0.25 - 0.5 mg PO TID Qty: 270 0RF Referrals: Magalys Wall MD [Primary Care Provider] -
[2022-11-12 19:59] LABS: MANUAL DIFF FLAG NO
[2022-11-12 20:01] LABS: Basophils Absolute Auto 0.1 X10*3/uL (0.0-0.2); Basophils Percent Auto 0.7 % (0-2); Eosinophils Absolute Auto 0.2 X10*3/uL (0.0-0.4); Eosinophils Percent Auto 2.6 % (0-4); Hematocrit 42.9 % (37.0-47.0); Hemoglobin 14.3 g/dl (12.0-16.0); Imm Gran Abs Auto 0.01 X10*3/uL (0.00-0.03); Imm Gran Pct Auto 0.1 % (0.0-0.4); Lymphocytes Absolute Auto 1.5 X10*3/uL (1.2-4.9); Lymphocytes Percent Auto 20.7 % (20-40); Mean Corpuscular HGB Conc 33.3 g/dl (31.0-35.0); Mean Corpuscular Hemoglobin 30.9 pg (27.0-33.0); Mean Corpuscular Volume 92.7 fL (80.0-98.0); Mean Platelet Volume 9.1 fL (9.4-12.3); Monocytes Absolute Auto 0.8 X10*3/uL (0.1-1.2); Monocytes Percent Auto 11.9 % (2-11); Neutrophils Absolute Auto 4.5 x10*3/uL (2.0-8.3); Platelet Count 204 X10*3/uL (160-400); Red Blood Count 4.63 X10*6/uL (4.20-5.50); Red Cell Distribution Width 13.2 % (11.0-16.0)
[2022-11-12 20:09] LABS: D Dimer High Sensitivity 152 NG/ML
[2022-11-12 20:29] LABS: Alanine Aminotransferase 19 U/L (0-31); Albumin Level 4.1 g/dL (3.5-5.0); Alkaline Phosphatase 84 U/L (39-117); Anion Gap 15 (12-20); Aspartate Amino Transferase 29 U/L (5-31); Bilirubin Total 0.9 mg/dL (0.0-1.0); Blood Urea Nitrogen 16 mg/dL (9-16); Carbon Dioxide 28 mmol/L (22-29); Chloride 104 mmol/L (96-108); Creatinine Clr Calc Pharmacy 64.7; Estimated Glomerular Filt Rate > 60; Glucose Random 86 mg/dL (60-115); Potassium 4.1 mmol/L (3.3-5.1); Sodium 143 mmol/L (135-145); Total Protein 7.1 g/dL (6.5-8.0)
[2022-11-12 20:30] VITALS: BP 117/73; PULSE 95; RESP 17; TEMP 36.6; O2SAT 98
== END 2022-11-12 21:28 | disposition home or self-care (01) ==
PROVIDERS: Nurse Practitioner Family; Emergency Provider Emergency Medicine Emergency Medical Services; PCP Internal Medicine
DX: L03.116 Cellulitis of left lower limb (principal); M79.662 Pain in left lower leg; R60.0 Localized edema; I48.20 Chronic atrial fibrillation, unspecified; Z95.0 Presence of cardiac pacemaker; Z79.01 Long term (current) use of anticoagulants
CPT/HCPCS: 36415; 80053; 85025; 85379; 99282; 99283

== ENCOUNTER → 2022-11-23 15:14 | Outpatient (BNVA) | payer MEDICARE, SELFPAY | PROVIDERS: PCP Internal Medicine; Referring Provider Internal Medicine; Visit Provider Nurse Practitioner Family | DX: Z13.89 Encounter for screening for other disorder (principal) ==

== ENCOUNTER 2022-12-24 14:02 | Outpatient (REF) | payer MEDICARE, SELFPAY ==
[2022-12-24 16:08] LABS: Alanine Aminotransferase 18 U/L (0-31); Albumin Level 3.9 g/dL (3.5-5.0); Alkaline Phosphatase 93 U/L (39-117); Aspartate Amino Transferase 25 U/L (5-31); Bilirubin Total 1.2 mg/dL (0.0-1.0); Blood Urea Nitrogen 12 mg/dL (9-16); Calcium 8.7 mg/dL (8.4-10.2); Carbon Dioxide 28 mmol/L (22-29); Chloride 103 mmol/L (96-108); Estimated Glomerular Filt Rate > 60; Glucose Random 96 mg/dL (60-115); Phosphorus 3.6 mg/dL (2.7-4.5); Potassium 4.4 mmol/L (3.3-5.1); Sodium 142 mmol/L (135-145); Total Protein 6.8 g/dL (6.5-8.0)
[2022-12-24 16:16] LABS: Anion Gap 15 (12-20)
[2022-12-24 16:24] LABS: Free T4 (Free Thyroxine) 1.28 ng/dL (0.71-1.85); Thyroid Stimulating Hormone 0.58 uIU/mL (0.32-4.0); Vitamin D 25-OH Total 53.6 ng/mL (>30)
[2022-12-28 21:49] LABS: PTHI 96 pg/mL (16-77)
== END 2022-12-24 14:03 | disposition home or self-care (01) ==
LOC: HO.LAB 14:02
PROVIDERS: PCP Internal Medicine; Visit Provider Internal Medicine
DX: E04.2 Nontoxic multinodular goiter (principal); E89.0 Postprocedural hypothyroidism; E55.9 Vitamin D deficiency, unspecified; I48.91 Unspecified atrial fibrillation; M85.852 Other specified disorders of bone density and structure, left thigh; Z79.899 Other long term (current) drug therapy
CPT/HCPCS: 36415; 80053; 82306; 83970; 84100; 84439; 84443; 99212

== ENCOUNTER 2022-12-25 15:10 | Outpatient (REF) | payer MEDICARE, SELFPAY ==
[2022-12-25 15:59] LABS: Alanine Aminotransferase 18 U/L (0-31); Albumin Level 4.1 g/dL (3.5-5.0); Alkaline Phosphatase 95 U/L (39-117); Aspartate Amino Transferase 24 U/L (5-31); Bilirubin Direct 0.4 mg/dL (0.0-0.5); Bilirubin Total 1.4 mg/dL (0.0-1.0); Total Protein 6.9 g/dL (6.5-8.0)
== END 2022-12-25 15:11 | disposition home or self-care (01) ==
LOC: HO.LAB 15:10
PROVIDERS: PCP Internal Medicine; Visit Provider Internal Medicine
DX: R17 Unspecified jaundice (principal)
CPT/HCPCS: 36415; 80076

== ENCOUNTER → 2022-12-30 13:56 | Outpatient (BNVA) | payer MEDICARE, SELFPAY | PROVIDERS: PCP Internal Medicine; Visit Provider Psychiatry & Neurology Psychiatry | DX: F41.0 Panic disorder [episodic paroxysmal anxiety] (principal); F32.5 Major depressive disorder, single episode, in full remission; I48.20 Chronic atrial fibrillation, unspecified; E21.3 Hyperparathyroidism, unspecified; N39.3 Stress incontinence (female) (male) | CPT/HCPCS: 99212 ==

== ENCOUNTER → 2023-02-02 13:37 | Outpatient (BNVA) | payer MEDICARE, SELFPAY | PROVIDERS: PCP Internal Medicine; Visit Provider Internal Medicine | DX: G47.33 Obstructive sleep apnea (adult) (pediatric) (principal); Z99.89 Dependence on other enabling machines and devices | CPT/HCPCS: 99212 ==

== ENCOUNTER 2023-02-09 12:50 | Outpatient (REF) | payer MEDICARE, SELFPAY ==
[2023-02-09 13:46] LABS: MANUAL DIFF FLAG NO
[2023-02-09 14:13] LABS: Basophils Percent Auto 0.3 % (0-2); Eosinophils Absolute Auto 0.1 X10*3/uL (0.0-0.4); Eosinophils Percent Auto 1.9 % (0-4); Hemoglobin 15.3 g/dl (12.0-16.0); Imm Gran Abs Auto 0.02 X10*3/uL (0.00-0.03); Imm Gran Pct Auto 0.3 % (0.0-0.4); Immature Retic Fraction 7.1 % (3.0-15.9); Lymphocytes Absolute Auto 1.5 X10*3/uL (1.2-4.9); Lymphocytes Percent Auto 21.7 % (20-40); Mean Corpuscular HGB Conc 33.3 g/dl (31.0-35.0); Mean Corpuscular Hemoglobin 30.8 pg (27.0-33.0); Mean Corpuscular Volume 92.7 fL (80.0-98.0); Mean Platelet Volume 9.6 fL (9.4-12.3); Monocytes Absolute Auto 0.9 X10*3/uL (0.1-1.2); Neutrophils Absolute Auto 4.3 x10*3/uL (2.0-8.3); Neutrophils Percent Auto 62.8 % (45-73); Platelet Count 218 X10*3/uL (160-400); Red Blood Count 4.96 X10*6/uL (4.20-5.50); Red Cell Distribution Width 13.2 % (11.0-16.0); Retic HGB Equivalent 35.9 pg (30.0-35.0); Reticulocyte Percent 1.2 % (0.5-1.8); Reticulocytes Absolute 0.061 X10*6/uL (0.026-0.095); White Blood Count 6.8 X10*3/uL (4.8-10.8)
[2023-02-09 14:34] LABS: Alanine Aminotransferase 14 U/L (0-31); Alkaline Phosphatase 79 U/L (39-117); Aspartate Amino Transferase 23 U/L (5-31); Bilirubin Direct 0.3 mg/dL (0.0-0.5); Bilirubin Total 1.1 mg/dL (0.0-1.0); Lactate Dehydrogenase 206 U/L (122-220)
[2023-02-18 16:39] LABS: Haptoglobin 76 mg/dL (43-212)
== END 2023-02-09 12:51 | disposition home or self-care (01) ==
LOC: HO.LAB 12:50
PROVIDERS: PCP Internal Medicine; Visit Provider Internal Medicine
DX: R17 Unspecified jaundice (principal)
CPT/HCPCS: 36415; 82247; 82248; 83010; 83615; 84075; 84450; 84460; 85025; 85045; 99202

== ENCOUNTER → 2023-02-18 10:43 | Outpatient (REF) | payer MEDICARE, SELFPAY ==
--- NOTE | 2023-02-18 10:46 | CA_ITS ---
Transthoracic Echocardiogram Patient (Last, First, Middle): Jenny Mendoza M Gender: Female Date of : 1950 Age: 72 Procedure Date: 02/18/2023 Procedure Type: Transthoracic Echocardiogram Location: OP Height: 165.1 cm Weight: 98.88 kg BSA: 2.05 m2 Heart Rate: 96 bpm BP: 124 / 70 mmHg Supervisor [employer]: DAPHNIE Referring MD: Fabian Arndt MD Restorative Art Embalmer: Faiban Arndt MD Symptoms: I50.32 - Chronic diastolic (congestive) heart failure Study Quality: Technically Difficult ECG Rhythm: Atrial Fibrillation Conclusions: - 1. Normal LV systolic function with LVEF of 60 65% 2. At least moderately dilated right-sided chambers with mild-to moderate RV systolic dysfunction 3. Mildly to moderately elevated right ventricular systolic pressure with significantly elevated right atrial pressures 4. No pericardial effusion Findings Left Ventricle Normal left ventricular size, thickness, and systolic function. The visually estimated ejection fraction is between 60-65%. Diastolic function is indeterminate on the basis of available data. Right Ventricle Moderately increased right ventricular cavity size. There is mild to moderately decreased right ventricular systolic function. There is a pacemaker wire seen in the right ventricle. Atria The left atrium is mildly dilated. There is no evidence of interatrial shunt. The right atrium is moderately dilated. A pacemaker wire is identified in the right atrium. Aortic Valve The aortic valve structure and function is likely normal. There is no aortic valve stenosis. There is no aortic valve regurgitation. Mitral Valve The mitral valve was not well visualized. There is trace mitral valve regurgitation. There is no mitral valve stenosis. Pulmonic Valve The pulmonic valve was not well visualized. Tricuspid Valve Likely normal tricuspid valve structure and function. There is moderate tricuspid valve regurgitation. Significantly elevated right atrial pressure. Mild to moderate pulmonary hypertension is present. Great Vessels All visible segments of the aorta are normal in size. The pulmonary artery was not well visualized. Venous The inferior vena cava is severely dilated and collapses less than 50% with inspiration. Pericardium/Pleural There is no evidence of pericardial effusion. Prior Study Comparison Changes noted compared to prior study dated: 02/17/2022. RV systolic pressure is further elevated. Right atrial pressures of further elevated. Measurements 2D Linear Measurements IVSd: 0.88 0.6-0.9/0.6-1.0 cm LVIDd: 4.72 3.9-5.3/4.2-5.9 cm LVIDd Index: 2.30 2.4-3.2/2.2-3.1 cm/m2 LVIDs: 3.05 2.0-3.6 cm LVPWd: 0.83 0.7-1.1 cm LA Diam: 4.30 2.7-3.8/3.0-4.0 cm LAIDs Index: 2.10 1.5-2.3 cm/m2 LV Mass: 167.38 67-162/88-224 g LV Mass Index: 81.65 43-95/49-115 g/m2 LVOT Diam: 1.90 3.0+(-)1.3 cm Mitral Valve MV Pk E: 0.90 MV Decel Time: 179.00 E'Lateral: 11.60 E'Medial: 6.98 E/E' Med: 12.90 E/E' Lat: 7.80 PHT: 53.00 MVA PHT: 4.15 Decel Day: 5.20 Aortic Valve AoV Pk Chandan: 1.10 AoV Pk Grad: 5.00 FABIO: 2.29 LVOT LVOT Pk Chandan: 0.89 LVOT Pk Grad: 3.00 LVOT Diam: 1.90 LVOT Area: 2.84 Diastolic Function MV Pk E: 0.90 E'Medial: 6.98 E/E' Med: 12.90 E' Laterial: 11.60 E/E' Lat: 7.80 Right Ventricle TAPSE (mm): 15.10 TVS' Chandan: 8.27 Tricuspid Valve TR Pk Chandan: 2.76 TR Pk Grad: 30.00 RA Press: 15.00 RVSP: 45.00 Great Vessels Aorta Sinus of Valsalva: 2.83 2.0-3.[address] Ridge: 2.50 1.7-3.4 cm Ao Asc: 3.30 2.1-3.4 cm Ao Arch: 3.00 Updated in Other Vendor System with Status of Final Fabian Arndt MD electronically signed on 02/19/2023 2:14:54 PM with status of Final
== END ==
LOC: HO.CARD 10:43
PROVIDERS: PCP Internal Medicine; Visit Provider Internal Medicine Cardiovascular Disease
DX: I50.32 Chronic diastolic (congestive) heart failure (principal)
CPT/HCPCS: 93306

== ENCOUNTER 2023-02-25 08:43 | Outpatient (REF) | payer MEDICARE, SELFPAY ==
--- NOTE | ~2023-02-25 | US_ITS ---
EXAMINATION: US ABDOMEN LIMITED CLINICAL INFORMATION: Unspecified jaundice. COMPARISON: CT abdomen and pelvis 02/10/2020. TECHNIQUE: Real-time imaging of the right upper quadrant abdominal viscera. Technically difficult study secondary to bowel gas. FINDINGS: PANCREAS: Normal. LIVER: The liver is normal in size. Contour is mildly lobulated. Parenchymal echogenicity is normal. No focal hepatic lesion. There is no intrahepatic biliary duct dilatation seen. GALLBLADDER: The gallbladder is physiologically distended. Multiple mobile gallstones are present. No evidence of pericholecystic fluid. Gallbladder wall slightly thickened at 3.5 mm. Moon's sign is negative. COMMON BILE DUCT: Normal in caliber measuring 0.7 cm in diameter. RIGHT KIDNEY: Normal. No hydronephrosis. No renal calculi or focal parenchymal lesions. The kidney measures 13.0 cm in maximum dimension. FREE FLUID: None. US/US abdomen limited IMPRESSION: Cholelithiasis with slightly thickened gallbladder wall but no pericholecystic fluid and negative Moon's sign.
== END 2023-02-25 08:44 | disposition home or self-care (01) ==
LOC: HO.HMGCX 08:43
PROVIDERS: PCP Internal Medicine; Visit Provider Internal Medicine
DX: R17 Unspecified jaundice (principal)
CPT/HCPCS: 76705

== ENCOUNTER → 2023-03-02 14:38 | Outpatient (BNVA) | payer MEDICARE, SELFPAY | PROVIDERS: PCP Internal Medicine; Referring Provider Internal Medicine; Visit Provider Internal Medicine Cardiovascular Disease | DX: Z45.018 Encounter for adjustment and management of other part of cardiac pacemaker (principal); I50.32 Chronic diastolic (congestive) heart failure; I48.20 Chronic atrial fibrillation, unspecified | CPT/HCPCS: 99212 ==

== ENCOUNTER 2023-03-29 07:47 | Outpatient (REF) | payer MEDICARE, SELFPAY ==
[2023-03-29 12:45] LABS: Blood Urea Nitrogen 17 mg/dL (9-16); Estimated Glomerular Filt Rate 56
== END 2023-03-29 07:48 | disposition home or self-care (01) ==
LOC: HO.HMGCLDS 07:47
PROVIDERS: PCP Internal Medicine; Visit Provider Internal Medicine
DX: Z13.9 Encounter for screening, unspecified (principal)
CPT/HCPCS: 36415; 82565; 84520

== ENCOUNTER 2023-04-06 09:42 | Outpatient (REF) | payer MEDICARE, SELFPAY ==
--- NOTE | ~2023-04-06 | CT_ITS ---
EXAMINATION: CT ABDOMEN WITH CONTRAST CLINICAL INFORMATION: Abnormal gallbladder ultrasound. Jaundice. COMPARISON: Abdominal ultrasound 02/25/[address] of the abdomen and pelvis January 2020 TECHNIQUE: Contiguous axial thin section helical images of the abdomen were performed following the administration of oral contrast and 85 mL of Omnipaque 350 intravenous contrast. The data set was reformatted in the coronal and sagittal planes and reviewed on an independent workstation. This CT examination was performed using dose optimization techniques as appropriate, variously including the following: *Automated exposure control *Adjustment of mA and/or kV according to patient size (this includes techniques or standardized protocols for targeted exams where dose is matched to indication/reason for exam; i.e. extremities or head) *Use of iterative reconstruction technique DLP: 422 mGy-cm FINDINGS: LUNG BASES: The lung bases are clear. Partially visualized pacemaker lead. LIVER, GALLBLADDER, AND BILIARY TREE: The liver is normal in size, shape and contour. No focal liver lesion or biliary duct dilatation. Gallbladder is filled with gallstones. No gallbladder wall thickening or pericholecystic fluid. The gallbladder is normal in size. No common bile duct stone seen by CT. PANCREAS: Normal SPLEEN: Normal ADRENAL GLANDS AND KIDNEYS: Normal. There is excreted contrast in the collecting systems which lowers sensitivity for detection of small stone. BOWEL LOOPS: Large amount of stool in the colon questionable for constipation. Visualized bowel is otherwise normal. The stomach is normal. No ascites. Small umbilical hernia containing fat. LYMPH NODES: Normal VASCULAR: Atherosclerotic disease. No aneurysm. BONES: Degenerative changes of the spine. CT/CT abdomen w IV con IMPRESSION: The gallbladder is filled with gallstones. No CT evidence of cholecystitis. Fleischner guidelines were followed.
[2023-04-06] MEDS: iohexoL 350 MG/ML 100 ML INFUS..BTL 85 ML IV (11:29)
[2023-04-06] MEDS: Barium Sulfate Oral (Berry) 450 ML ORAL.SUSP PO (11:30)
== END 2023-04-06 09:43 | disposition home or self-care (01) ==
LOC: HO.CT 09:42
PROVIDERS: PCP Internal Medicine; Visit Provider Internal Medicine
DX: K82.8 Other specified diseases of gallbladder (principal)
CPT/HCPCS: 74160; Q9967

== ENCOUNTER → 2023-04-13 23:59 | Outpatient (BNV) | payer MEDICARE, SELFPAY ==
--- NOTE | 2023-04-21 14:46 | MHC.OFFVIS ---
Intake Intake Visit Reasons: Remote Device Check- [facility] Allergies amiodarone [AMIODARONE] Allergy (Severe, Verified 04/15/23 12:44) INTERSTITIAL PNEUMONITIS, fluid gain, interstial pneumonitis amoxicillin [AMOXICILLIN] Allergy (Unknown, Verified 04/15/23 12:44) SHAKES ALL OVER , shaky, shaky doxycycline [DOXYCYCLINE] Adverse Reaction (Unknown, Verified 04/15/23 12:44) STOMACH UPSET, upset stomach PFSH Medical History (Updated 04/15/23 @ 17:23 by Magalys Wall MD) Cardiac pacemaker in situ Chronic atrial fibrillation Chronic heart failure with preserved ejection fraction (HFpEF) COPD (chronic obstructive pulmonary disease) Depression with anxiety Drug-induced pneumonitis Dyslipidemia Elevated antinuclear antibody (LORETO) level Elevated bilirubin Hyperparathyroidism Hyperthyroidism Hypothyroidism Major depression in full remission Multinodular thyroid Non-toxic multinodular goiter COLIN on CPAP Osteopenia Panic disorder [episodic paroxysmal anxiety] Persistent atrial fibrillation Sick sinus syndrome Stress incontinence Subclinical hypothyroidism Tachycardia Vitamin D deficiency Surgical History (Updated 04/15/23 @ 17:23 by Magalys Wall MD) H/O unilateral oophorectomy History of parathyroidectomy History of removal of cyst Hx of thyroidectomy S/P placement of cardiac pacemaker Family History Father Cirrhosis with alcoholism Medical history non-contributory Mother Medical history non-contributory Hypothyroidism Social History Housing: Condominium Alcohol intake: never Patient Tobacco Use Status: Former Tobacco user Quit Date: 1992 e-Cigarette/Vaping Use: Never Used Current occupational status: retired Cognitive needs: No Hearing needs: No Vision needs: No Office Procedures Cardiac Device Check Cardiac Device Check Details: Remote pacemaker report generated 04/13/2026. Pacemaker function is adequate [id number] Cardiac Device Interrogation, pacemaker Procedure code (CPT) selection complete Coding Level of Care Code Procedure Only Diagnoses CPT Codes Cardiac Device Check - Cardiac Device 12: [id number] Cardiac Device Interrogation, pacemaker ([id number])
== END ==
PROVIDERS: PCP Internal Medicine; Visit Provider Internal Medicine Cardiovascular Disease
DX: I48.20 Chronic atrial fibrillation, unspecified (principal); Z95.0 Presence of cardiac pacemaker
CPT/HCPCS: 93294

== ENCOUNTER 2023-04-15 10:52 | Outpatient (AMB) | payer MEDICARE, SELFPAY ==
[2023-04-15 11:59] VITALS: BP 132/64; PULSE 83; O2SAT 94; BMI 37.9
--- NOTE | 2023-04-15 11:59 | A.OFFVIS_ITS ---
Intake Vital Signs 04/15/23 11:59 Height 5 ft 5 in Weight 227 lb 8 oz BMI 37.9 BP 132/64 Blood Pressure Location Rt brachial Position Sitting Pulse 83 Pulse Source Pulse Oximeter Pulse Oximetry (%) 94 Oxygen Delivery Method Room Air Intake Visit Reasons: SWV G0439 Allergies amiodarone [AMIODARONE] Allergy (Severe, Verified 09/30/23 14:54) INTERSTITIAL PNEUMONITIS, fluid gain, interstial pneumonitis amoxicillin [AMOXICILLIN] Allergy (Unknown, Verified 09/30/23 14:54) SHAKES ALL OVER , shaky, shaky doxycycline [DOXYCYCLINE] Adverse Reaction (Unknown, Verified 09/30/23 14:54) STOMACH UPSET, upset stomach Medication List - Last Reconciled 04/15/23 by Magalys Wall MD cyproheptadine 4 mg PO BEDTIME estradiol-norethindrone acet 0.05-0.14 mg/24 hr 1 patch transdermal 2XW fluvoxamine 25 mg PO TID 3 months furosemide 20 mg PO Three tablets by mouth every morning and two tablets by mouth at noon; levothyroxine 150 mcg PO DAILY 30 days lorazepam 0.25 - 0.5 mg (0.5 - 1 x 0.5 mg) PO TID metoprolol succinate ER (Toprol XL) 100 mg PO DAILY omeprazole 20 mg PO BEDTIME polyethylene glycol 3350 (Miralax) 17 grams PO DAILY rivaroxaban (Xarelto) 20 mg PO DAILY spironolactone (Aldactone) 12.5 mg (1/2 x 25 mg) PO DAILY 30 days HPI SWV G0439 HPI Details SWV ? 72 year old lady with history of major depression full remission with history of panic disorder, has obstructive sleep apnea on CPAP, chronic atrial fibrillation on chronic anticoagulation, osteopenia, history of hyperpa rathyroidism status post parathyroidectomy and hypothyroidism status post total thyroidectomy, history of heart failure with cardiac pacemaker in place, has osteopenia, presents for her Subsequent? Annual Wellness Visit.? She has had fasting lipid panel and fasting blood sugar check done 06/22/2022 with normal findings. She is up-to-date with her screening mammogram done 12/07/2022 at [facility], and has had a cervical cancer screening done by Dr. Rosen last September 30 negative findings. Last bone density scan was done in 2019, which showed presence of osteopenia in left femoral neck and left femur with normal bone density in lumbar spine. She is up-to-date with her screening colonoscopy done 04/21/[address] La, due this year. She has an appointment see Dr. La later this year. She is up-to-date with her COVID vaccination including booster, up-to-date with Tdap, Shingrix vaccine pneumonia vaccine and gets yearly flu shots. ? Medical / Social History Reviewed? Past Medical History ?Yes . ? [place] of Care / Care Team list updated ?Yes . ? Surgical/Hospitalization History ?Yes . ? Current Medications (including OTC and supplements) ?Yes . ? Family History ?Yes . ? Tobacco Control form ?Yes . ? AUDIT-C (Alcohol use) form ?Yes . ? Illicit drug use in Social History ?Yes . ? Current diagnosis of depression? ?No ? Appropriate PHQ2/PHQ9 completed ?Yes . ? Data entered by ?Preventative Maintenance Technician and reviewed by provider ? Fall Risk ? Fall History? Have you had any falls with injury in the past year? ?No . ? Have you had two or more falls in the past year? ?No . ? Fall Risk Assessment: ?No falls in the past year . ? HRA filled out by the patient, reviewed by Provider and scanned. ?SWV ? Balance? [place] ?Yes . ? Tandem walk ?Yes . ? Walk and Turn ?Yes . ? Rise from sit to stand ?Yes . ?Vision? Corrective lens none ? Vision screen ? Up-to-date, has an appointment Dr Mccormick ?Hearing? Whisper test ?pass . ?Written Plan?Completed. See Patient Documents.? PFSH Medical History Generalized anxiety disorder Major depression in full remission Elevated bilirubin Hypothyroidism Panic disorder [episodic paroxysmal anxiety] Tachycardia COLIN on CPAP Chronic atrial fibrillation Vitamin D deficiency Multinodular thyroid Hyperthyroidism Cardiac pacemaker in situ Non-toxic multinodular goiter Subclinical hypothyroidism Osteopenia Hyperparathyroidism COPD (chronic obstructive pulmonary disease) Chronic heart failure with preserved ejection fraction (HFpEF) Sick sinus syndrome Elevated antinuclear antibody (LORETO) level Drug-induced pneumonitis Dyslipidemia Persistent atrial fibrillation Depression with anxiety Stress incontinence Surgical History History of parathyroidectomy Hx of thyroidectomy S/P placement of cardiac pacemaker H/O unilateral oophorectomy History of removal of cyst Family History Father Cirrhosis with alcoholism Medical history non-contributory Mother Medical history non-contributory Hypothyroidism Social History Housing: Condominium Alcohol intake: never Patient Tobacco Use Status: Former Tobacco user Quit Date: 1992 e-Cigarette/Vaping Use: Never Used Current occupational status: retired Cognitive needs: No Hearing needs: No Vision needs: No Questionnaire Medicare Wellness Checkup [age] What gender do you identify with?: female During the past 4 weeks, how much have you been bothered by emotional problems such as feeling anxious, depressed, irritable, sad or downhearted, and blue?: quite a bit During the past 4 weeks, has your physical & emotional health limited your social activities with family, friends, neighbors, or groups?: slightly During the past 4 weeks, how much bodily pain have you generally had?: mild pain During the past 4 weeks, was someone available to help you if you needed & wanted help?: yes, some During the past 4 weeks, what was the hardest physical activity you could do for at least 2 minutes?: moderate Can you get to places out of walking distance without help? (For eg., can you travel alone on buses, taxis or drive your car?): Yes Can you go shopping for groceries or clothes without someone's help?: Yes Can you prepare your own meals?: Yes Can you do your housework without help?: Yes Because of any health problems, do you need the help of another person with your personal care needs such as eating, bathing, dressing or getting around the house?: No Can you handle your own money without help?: Yes During the past 4 weeks, how would you rate your health in general?: good During the past 4 weeks how have things been going for you?: good & bad parts about equal Are you having difficulties driving your car?: no Do you always fasten your seat belt when you are in a car?: yes, usually During past 4 weeks, have you been bothered by the following: never: Falling or dizzy when standing up, Sexual problems?, Trouble eating well? and Problems using the telephone?, sometimes: Teeth or denture problems? and often: Tiredness or fatigue? Have you fallen 2 or more times in the past year?: No Are you afraid of falling?: No Are you a smoker?: no During the past 4 weeks, how many drinks of wine, beer, or other alcoholic beverages did you have?: no alcohol at all Do you exercise for about 20 minutes 3 or more times a week?: no, I usually do not exercise this much Have you been given information to help with the following?: no: Hazards in your house that might hurt you? and no: Keeping track of your medications? How often do you have trouble taking medicines the way you have been told to take them?: I always take medicine as prescribed How confident are you that you can control & manage most of your health problems?: somewhat confident What is your race?: White Mini Mental State Exam (MMSE) Orientation What is the (year) (season) (date) (day) (month)?: year (2022), season (Summer), date (04/15/2023), day () and month (March) Where are we (state) (county) (town or city) (hospital) (floor)?: state ([place]), county ([place]), town or city ([place]) and hospital/clinic ([facility]) Score Score: 9 Activity of Daily Living Bathing - sponge bath, tub bath or shower: receives no assistance (gets in/out by self, if usual bathing means Dressing - getting clothes from closets & drawers, including inner/outer garments & fasteners.: gets clothes & gets completely dressed without help Toileting - going to the 'toilet room' for urine/bowel elimination & cleaning self/arranging clothes: goes to toilet room, cleans self, arranges clothes without help Transfer: moves in & out of bed and chair without help (may use support object) Continence: controls urination/bowel movements completely by self Feeding: feeds self without help Total Score: 0 Information obtained from: patient Using telephone: independent Traveling: independent Shopping: independent Preparing meals: independent Housework: independent Taking medicine: independent Managing money: independent PHQ-9 Over the last 2 weeks, how often have you been bothered by any of the following problems? 1. Little interest or pleasure in doing things: not at all 2. Feeling down, depressed, or hopeless: not at all 3. Trouble falling or staying asleep, or sleeping too much: not at all 4. Feeling tired or having little energy: several days 5. Poor appetite or overeating: not at all 6. Feeling bad about yourself - or that you are a failure or have let yourself or your family down: not at all 7. Trouble concentrating on things, such as reading the newspaper or watching television: not at all 8. Moving or speaking so slowly that other people could have noticed. Or the opposite - being so fidgety or restless that you have been moving around a lot more than usual: not at all 9. Thoughts that you would be better off or of hurting yourself in some way: not at all Total score: 1 Depression Screening Interpretation: Negative 22415 - PHQ-9 Billing: Yes Source: Developed by Drs. Jeromy Cardozo, Minerva Iniguez, Josemanuel Vazquez and colleagues, with an educational elizabeth from [employer]. Physical Exam Vital Signs: Last Vital Signs Pulse 83 04/15/23 11:59 BP 132/64 04/15/23 11:59 Pulse Ox 94 04/15/23 11:59 Oxygen Delivery Method Room Air 04/15/23 11:59 BMI result Body Mass Index 37.9 Assessment & Plan Assessment & Plan (1) Encounter for subsequent annual wellness visit (AWV) in Medicare patient: Code(s): Z00.00 - Encounter for general adult medical examination without abnormal findings Plan: Medical wellness checklist reviewed, discussed with patient and updated. (2) Chronic heart failure with preserved ejection fraction (HFpEF): Code(s): I50.32 - Chronic diastolic (congestive) heart failure Plan: On spironolactone and furosemide (3) Depression with anxiety: Comment: followed by Dr. Bae Code(s): F41.8 - Other specified anxiety disorders (4) Osteopenia: Code(s): M85.80 - Other specified disorders of bone density and structure, unspecified site Qualifiers: Osteopenia location: femoral neck Laterality: left Qualified Code(s): M85.852 - Other specified disorders of bone density and structure, left thigh Plan: Continue with regular weight-bearing exercise. Take adequate calcium from dietary sources and take vitamin-D 3 at least 2000 units daily (5) Chronic atrial fibrillation: Code(s): I48.20 - Chronic atrial fibrillation, unspecified Plan: On metoprolol succinate ER 100 mg once a day and Xarelto 20 mg daily (6) COLIN on CPAP: Comment: Known case of obstructive sleep apnea. Using CPAP regularly every night . Her compliance is much improved. She feels more comfortable with the nasal mask. Explained to her about her compliance. She is commended for her improved compliance. Encouraged to continue. Using it regularly Otherwise she is doing okay. Will recheck after 6 months. Code(s): G47.33 - Obstructive sleep apnea (adult) (pediatric); Z99.89 - Dependence on other enabling machines and devices Plan: Compliant with her CPAP (7) Hypothyroidism: Code(s): E03.9 - Hypothyroidism, unspecified Plan: Continue with levothyroxine 137 mcg daily in a.m. (8) Panic disorder [episodic paroxysmal anxiety]: Code(s): F41.0 - Panic disorder [episodic paroxysmal anxiety] Plan: Followed by Dr. Bae at [facility] (9) Generalized anxiety disorder: Code(s): F41.1 - Generalized anxiety disorder Plan: Currently followed by Dr. Bae at [facility] psych Quality Reporting (2019) Depression/Bipolar (159/160/161/177) PHQ-9: Total score: 1 Coding Level of Care Code Medicare Subsequent (G0439) Diagnoses Encounter for subsequent annual wellness visit (AWV) in Medicare patient Z00.00 Chronic heart failure with preserved ejection fraction (HFpEF) I50.32 Depression with anxiety F41.8 Osteopenia of neck of left femur M85.852 Osteopenia location: femoral neck Laterality: left Chronic atrial fibrillation I48.20 COLIN on CPAP G47.33; Z99.89 Hypothyroidism E03.9 Panic disorder [episodic paroxysmal anxiety] F41.0 Generalized anxiety disorder F41.1 CPT Codes Advance Care Planning - Advance Care Planning discussion: On file, no changes ( [id number]) Advance Care Planning - Time spent: 1-15 minutes, on File ([id number]) Advance Care Planning Advance Care Planning discussion: On file, no changes Date of discussion: 04/16/23 Who was present: Patient Forms completed: MOLST Time spent: 1-15 minutes, on File Actual minutes spent: 15
== END 2023-04-15 13:50 | disposition home or self-care (01) ==
PROVIDERS: Visit Provider Internal Medicine
DX: Z00.00 Encounter for general adult medical examination without abnormal findings (principal); I50.32 Chronic diastolic (congestive) heart failure; I48.20 Chronic atrial fibrillation, unspecified; F41.8 Other specified anxiety disorders; M85.852 Other specified disorders of bone density and structure, left thigh; G47.33 Obstructive sleep apnea (adult) (pediatric); Z99.89 Dependence on other enabling machines and devices; E03.9 Hypothyroidism, unspecified; F41.0 Panic disorder [episodic paroxysmal anxiety]; F41.1 Generalized anxiety disorder
CPT/HCPCS: 1123F; G0439

== ENCOUNTER 2023-04-27 15:26 | Outpatient (AMB) | payer MEDICARE, SELFPAY ==
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
== END 2023-04-27 15:26 | disposition home or self-care (01) ==
LOC: HO.HOP 15:26
PROVIDERS: PCP Internal Medicine; Visit Provider Psychiatry & Neurology Psychiatry
DX: F41.0 Panic disorder [episodic paroxysmal anxiety] (principal); I48.20 Chronic atrial fibrillation, unspecified; F41.1 Generalized anxiety disorder
CPT/HCPCS: 99214

== ENCOUNTER → 2023-04-27 15:26 | Outpatient (BNVA) | payer MEDICARE, SELFPAY | PROVIDERS: PCP Internal Medicine; Visit Provider Psychiatry & Neurology Psychiatry | DX: F41.0 Panic disorder [episodic paroxysmal anxiety] (principal); F41.1 Generalized anxiety disorder; I48.20 Chronic atrial fibrillation, unspecified | CPT/HCPCS: 99212 ==

== ENCOUNTER → 2023-07-13 23:59 | Outpatient (BNV) | payer MEDICARE, SELFPAY ==
--- NOTE | 2023-07-13 15:17 | MHC.OFFVIS ---
Intake Intake Visit Reasons: Remote Device Check- [facility] Allergies amiodarone [AMIODARONE] Allergy (Severe, Verified 04/15/23 12:44) INTERSTITIAL PNEUMONITIS, fluid gain, interstial pneumonitis amoxicillin [AMOXICILLIN] Allergy (Unknown, Verified 04/15/23 12:44) SHAKES ALL OVER , shaky, shaky doxycycline [DOXYCYCLINE] Adverse Reaction (Unknown, Verified 04/15/23 12:44) STOMACH UPSET, upset stomach PFSH Medical History (Updated 05/24/23 @ 15:42 by Sourav Bae MD) Generalized anxiety disorder Major depression in full remission Elevated bilirubin Hypothyroidism Panic disorder [episodic paroxysmal anxiety] Tachycardia COLIN on CPAP Chronic atrial fibrillation Vitamin D deficiency Multinodular thyroid Hyperthyroidism Cardiac pacemaker in situ Non-toxic multinodular goiter Subclinical hypothyroidism Osteopenia Hyperparathyroidism COPD (chronic obstructive pulmonary disease) Chronic heart failure with preserved ejection fraction (HFpEF) Sick sinus syndrome Elevated antinuclear antibody (LORETO) level Drug-induced pneumonitis Dyslipidemia Persistent atrial fibrillation Depression with anxiety Stress incontinence Surgical History (Updated 04/15/23 @ 17:23 by Magalys Wall MD) History of parathyroidectomy Hx of thyroidectomy S/P placement of cardiac pacemaker H/O unilateral oophorectomy History of removal of cyst Family History Father Cirrhosis with alcoholism Medical history non-contributory Mother Medical history non-contributory Hypothyroidism Social History Housing: Condominium Alcohol intake: never Patient Tobacco Use Status: Former Tobacco user Quit Date: 1992 e-Cigarette/Vaping Use: Never Used Current occupational status: retired Cognitive needs: No Hearing needs: No Vision needs: No Office Procedures Cardiac Device Check Cardiac Device Check Details: Remote pacemaker report generated 07/13/2023. Pacemaker function appears adequate [id number] Cardiac Device Interrogation, pacemaker Procedure code (CPT) selection complete Coding Level of Care Code Procedure Only CPT Codes Cardiac Device Check - Cardiac Device 12: [id number] Cardiac Device Interrogation, pacemaker ([id number])
== END ==
PROVIDERS: PCP Internal Medicine; Visit Provider Internal Medicine Cardiovascular Disease
DX: I48.20 Chronic atrial fibrillation, unspecified (principal); Z95.0 Presence of cardiac pacemaker
CPT/HCPCS: 93294

== ENCOUNTER 2023-08-03 13:32 | Outpatient (AMB) | payer MEDICARE, SELFPAY ==
[2023-08-03 13:48] VITALS: BP 120/82; PULSE 92; O2SAT 96; BMI 38.1
--- NOTE | 2023-08-03 13:48 | A.OFFVIS_ITS ---
Intake Vital Signs 08/03/23 13:48 Height 5 ft 5 in Weight 229 lb BMI 38.1 BP 120/82 Blood Pressure Location Lt brachial Position Sitting Pulse 92 Pulse Source Pulse Oximeter Pulse Oximetry (%) 96 Oxygen Delivery Method Room Air Intake Visit Reasons: Obstructive sleep apnea Intake Note: pt is here for follow up of COLIN, doing okay with cpap. 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 Allergies amiodarone [AMIODARONE] Allergy (Severe, Verified 08/03/23 13:57) INTERSTITIAL PNEUMONITIS, fluid gain, interstial pneumonitis amoxicillin [AMOXICILLIN] Allergy (Unknown, Verified 08/03/23 13:57) SHAKES ALL OVER , shaky, shaky doxycycline [DOXYCYCLINE] Adverse Reaction (Unknown, Verified 08/03/23 13:57) STOMACH UPSET, upset stomach Medication List - Last Reconciled 08/03/23 by Idalia Woo MD cyproheptadine 4 mg PO BEDTIME estradiol-norethindrone acet 0.05-0.14 mg/24 hr 1 patch transdermal 2XW fluvoxamine 25 mg PO TID 3 months furosemide 20 mg PO Three tablets by mouth every morning and two tablets by mouth at noon; levothyroxine 150 mcg PO DAILY 30 days lorazepam 0.25 - 0.5 mg (0.5 - 1 x 0.5 mg) PO TID metoprolol succinate ER (Toprol XL) 100 mg PO DAILY omeprazole 20 mg PO BEDTIME polyethylene glycol 3350 (Miralax) 17 grams PO DAILY rivaroxaban (Xarelto) 20 mg PO DAILY spironolactone (Aldactone) 12.5 mg (1/2 x 25 mg) PO DAILY 90 days Do you need a note to return to daycare/school/sports/work: No HPI Obstructive sleep apnea HPI Details ANGELA IS 73 YEARS OLD VERY PLEASANT FEMALE WHO COMES ALONG WITH. HER SHE IS HERE FOR 6 MONTHS FOLLOW-UP. SHE USES HER CPAP EVERY NIGHT VERY REGULARLY AND SLEEPS GOOD. SHE FEELS QUITE COMFORTABLE WITH THE NASAL MASK, THAT SHE HAS. NO PROBLEM IN USING THE CPAP AT NIGHT SHE DENIES. ANY DAYTIME SLEEPINESS [facility] Medical History Generalized anxiety disorder Major depression in full remission Elevated bilirubin Hypothyroidism Panic disorder [episodic paroxysmal anxiety] Tachycardia COLIN on CPAP Chronic atrial fibrillation Vitamin D deficiency Multinodular thyroid Hyperthyroidism Cardiac pacemaker in situ Non-toxic multinodular goiter Subclinical hypothyroidism Osteopenia Hyperparathyroidism COPD (chronic obstructive pulmonary disease) Chronic heart failure with preserved ejection fraction (HFpEF) Sick sinus syndrome Elevated antinuclear antibody (LORETO) level Drug-induced pneumonitis Dyslipidemia Persistent atrial fibrillation Depression with anxiety Stress incontinence Surgical History History of parathyroidectomy Hx of thyroidectomy S/P placement of cardiac pacemaker H/O unilateral oophorectomy History of removal of cyst Family History Father Cirrhosis with alcoholism Medical history non-contributory Mother Medical history non-contributory Hypothyroidism Social History Housing: Condominium Alcohol intake: never Patient Tobacco Use Status: Former Tobacco user Quit Date: 1992 e-Cigarette/Vaping Use: Never Used Current occupational status: retired Cognitive needs: No Hearing needs: No Vision needs: No Review of Systems Const All systems reviewed & are unremarkable except as noted in HPI and below Eyes Reports no additional complaints ENT Reports no additional complaints Card Reports irregular heart rhythm and Reports dyspnea on exertion (mild) Resp Reports as per HPI and Reports dyspnea on exertion (mild) GI Reports no additional complaints Reports no additional complaints Musc Reports no additional complaints Skin/Breast Reports system reviewed and no additional complaints, except as documented Neuro Reports no additional complaints Psych Reports anxiety and Reports depression (Mild controlled) Endo Reports no additional complaints Physical Exam Vital Signs: Last Vital Signs Pulse 92 08/03/23 13:48 BP 120/82 08/03/23 13:48 Pulse Ox 96 08/03/23 13:48 Oxygen Delivery Method Room Air 08/03/23 13:48 BMI result Body Mass Index 38.1 Const General: comfortable, no acute distress, alert and awake Orientation/consciousness: patient oriented x3 HEENT Head: Yes normal to inspection General nose exam: No nasal polyps present and No nasal discharge present Face and sinus: Yes sinuses nontender Mouth: oropharynx normal Throat: Yes posterior oropharynx normal Eyes General: appearance normal, both eyes and all related structures Neck Neck: Yes normal visual inspection, Yes no lymphadenopathy, Yes trachea midline and Yes no JVD Thyroid: Thyroid normal Chest Chest palpation & inspection: normal inspection of the chest, normal palpation of entire chest wall and no tenderness Resp Other: Percussion note is resonant, breath sounds are slightly distant but equal on both sides, No wheezes rhonchi or crepitations are heard. Cardio Palpation: normal PMI Rate: regular rate Rhythm: regular rhythm Heart sounds: no gallops and no murmurs GI Palpation (GI): Soft to palpation, nontender, No hepatosplenomegaly present and no masses Auscultation: normal bowel sounds Back/Spine/Pelvis Thoracic/Lumbar Spine: thoracic and lumbar spine normal to inspection Skin General skin exam: no rashes or lesions noted Neuro General: patient oriented x3 and no focal motor deficits Cranial nerves: Yes CN's II-XII intact bilaterally Extrem General: Yes normal to inspection, Yes no clubbing, cyanosis or edema and Yes no calf tenderness Psych Appearance: grossly normal and well kempt Speech and movement: Normal speech and movement present Results Reviewed Results Reviewed: COMPLIANCE REPORT IS REVIEWED. USED 28/30 NIGHTS, 93%. AVERAGE USE IS 5 HOURS 52 MINUTES. PRESSURE USED MOSTLY 8-8.7 CM. THERE IS NO SIGNIFICANT AIR LEAK. RESIDUAL AHI 2.2 Assessment & Plan Assessment & Plan (1) COLIN on CPAP: Comment: Known case of obstructive sleep apnea. Using CPAP regularly every night . Her compliance is much improved. She feels more comfortable with the nasal mask. Explained to her about her compliance. She is commended for her improved compliance. Encouraged to continue. Using it regularly Otherwise she is doing okay. Will recheck after 6 months. Code(s): G47.33 - Obstructive sleep apnea (adult) (pediatric); Z99.89 - Dependence on other enabling machines and devices Coding Level of Care Code Est Pt Level 3 (70476) Diagnoses COLIN on CPAP G47.33; Z99.89
== END 2023-08-03 14:10 | disposition home or self-care (01) ==
PROVIDERS: PCP Internal Medicine; Visit Provider Internal Medicine
DX: G47.33 Obstructive sleep apnea (adult) (pediatric) (principal); Z99.89 Dependence on other enabling machines and devices
CPT/HCPCS: 99213

== ENCOUNTER → 2023-08-03 13:32 | Outpatient (BNVA) | payer MEDICARE, SELFPAY | PROVIDERS: PCP Internal Medicine; Visit Provider Internal Medicine | DX: G47.33 Obstructive sleep apnea (adult) (pediatric) (principal); Z99.89 Dependence on other enabling machines and devices | CPT/HCPCS: 99212 ==

== ENCOUNTER 2023-08-31 14:17 | Outpatient (AMB) | payer MEDICARE, SELFPAY ==
--- NOTE | 2023-08-31 14:22 | MHC.OFFVIS ---
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 Allergies amiodarone [AMIODARONE] Allergy (Severe, Verified 08/03/23 13:57) INTERSTITIAL PNEUMONITIS, fluid gain, interstial pneumonitis amoxicillin [AMOXICILLIN] Allergy (Unknown, Verified 08/03/23 13:57) SHAKES ALL OVER , shaky, shaky doxycycline [DOXYCYCLINE] Adverse Reaction (Unknown, Verified 08/03/23 13:57) STOMACH UPSET, upset stomach Medication List - Last Reconciled 08/31/23 by Fabian Arndt MD cyproheptadine 4 mg PO BEDTIME estradiol-norethindrone acet 0.05-0.14 mg/24 hr 1 patch transdermal 2XW fluvoxamine 25 mg PO TID 3 months furosemide 20 mg PO Three tablets by mouth every morning and two tablets by mouth at noon; levothyroxine 150 mcg PO DAILY lorazepam 0.25 - 0.5 mg (0.5 - 1 x 0.5 mg) PO TID metoprolol succinate ER (Toprol XL) 100 mg PO DAILY omeprazole 20 mg PO BEDTIME polyethylene glycol 3350 (Miralax) 17 grams PO DAILY rivaroxaban (Xarelto) 20 mg PO DAILY spironolactone (Aldactone) 12.5 mg (1/2 x 25 mg) PO DAILY 90 days HPI HPI Comments History of Present Illness Details Jenny comes for cardiology follow-up. She has been doing well from cardiac perspective. She denies any worsening symptoms of shortness of breath, orthopnea, PND, leg edema. Taking all her medications and tolerating that well. Denies any prolonged palpitation irregular heartbeat. No lightheadedness, syncope. No bleeding issues or neurologic events. [facility] Medical History Generalized anxiety disorder Major depression in full remission Elevated bilirubin Hypothyroidism Panic disorder [episodic paroxysmal anxiety] Tachycardia COLIN on CPAP Chronic atrial fibrillation Vitamin D deficiency Multinodular thyroid Hyperthyroidism Cardiac pacemaker in situ Non-toxic multinodular goiter Subclinical hypothyroidism Osteopenia Hyperparathyroidism COPD (chronic obstructive pulmonary disease) Chronic heart failure with preserved ejection fraction (HFpEF) Sick sinus syndrome Elevated antinuclear antibody (LORETO) level Drug-induced pneumonitis Dyslipidemia Persistent atrial fibrillation Depression with anxiety Stress incontinence Surgical History History of parathyroidectomy Hx of thyroidectomy S/P placement of cardiac pacemaker H/O unilateral oophorectomy History of removal of cyst Family History Father Cirrhosis with alcoholism Medical history non-contributory Mother Medical history non-contributory Hypothyroidism Social History Housing: Condominium Alcohol intake: never Patient Tobacco Use Status: Former Tobacco user Quit Date: 1992 e-Cigarette/Vaping Use: Never Used Current occupational status: retired Cognitive needs: No Hearing needs: No Vision needs: No Review of Systems Const Denies chills, Denies fatigue, Denies fever(s), Denies frequent falls, Denies weakness, Denies weight gain and Denies weight loss ENT Denies dizziness Card Denies chest pain, Denies leg edema, Denies lightheadedness, Denies palpitations, Denies dyspnea, Denies dyspnea on exertion, Denies orthopnea and Denies other (loss of consciousness) Resp Denies cough, Denies dyspnea and Denies dyspnea on exertion GI Denies hematochezia and Denies change in stool character Musc Denies abnormal gait, Denies muscle weakness, Denies numbness, Denies radiating pain into limb and Denies tingling Neuro Denies abnormal gait, Denies dizziness, Denies frequent falls, Denies numbness, Denies tingling and Denies weakness Endo Denies fatigue and Denies palpitations Physical Exam Vital Signs: Last Vital Signs Pulse 87 08/31/23 14:25 BP 122/74 08/31/23 14:25 BMI result Body Mass Index 37.0 Const General: cooperative, comfortable, no acute distress, alert and awake Nutritional Appearance: obese Orientation/consciousness: patient oriented x3 Limitations: no limitations Neck Neck: Yes trachea midline, Yes supple and Yes no JVD Resp Effort & Inspection: normal respiratory effort Auscultation: clear to auscultation bilaterally Cardio Rate: tachycardic Rhythm: abnormal rhythm irregularly irregular Heart sounds: S1 normal heart sound present and S2 normal heart sound present GI Auscultation: normal bowel sounds Skin General skin exam: no rashes or lesions noted and ecchymosis Neuro General: patient oriented x3 and no focal motor deficits Extrem General: Yes no clubbing, cyanosis or edema Psych Appearance: grossly normal Office Procedures Cardiac Device Check Cardiac Device Check Details: Dual-chamber pacemaker, programmed in VVI at 50 beats per minute. Ventricular pacing 3.7% of the time. Ventricular sensing was adequate. Ventricular capture thresholds adequate. Pacing lead impedance is stable. Battery life is excellent at 11-12 years 10932-MM Cardiac Device Check, pacemaker dual lead Procedure code (CPT) selection complete EKG Details: EKG shows atrial fibrillation with low-voltage QRS 87 beats per minute 39034-[id number], Complete Assessment & Plan Assessment & Plan (1) Chronic heart failure with preserved ejection fraction (HFpEF): Code(s): I50.32 - Chronic diastolic (congestive) heart failure Plan: Patient with heart failure preserved ejection fraction, clinically euvolemic and well compensated on low-dose Lasix therapy as well as on spironolactone therapy. Signs and symptoms of heart failure were discussed daily weight monitoring avoidance of salt loading was discussed. Advise continue current therapy. Additional diuretics as need be. Continue current rate control for atrial fibrillation. (2) Chronic atrial fibrillation: Code(s): I48.20 - Chronic atrial fibrillation, unspecified Plan: Chronic atrial fibrillation which has failed to pursue rhythm control approach. She has done well with persistent atrial fibrillation with rate control. Continue current rate control strategy. Continue full oral anticoagulation, currently on Xarelto 20 mg daily. Semi annual renal function test is recommended. (3) Cardiac pacemaker in situ: Code(s): Z95.0 - Presence of cardiac pacemaker Plan: Cardiac pacemaker in-situ, working well. Reprogrammed for adequate function. Will follow up in 6 months time. Will follow up in the clinic in 6 months time, sooner p.r.n.. Thank you for allowing me to partake in her care Orders: Orders Basic Metabolic Panel Today I48.20 - Chronic atrial fibrillation, unspecified Coding Level of Care Code Est Pt Level 4 (60934) Diagnoses Chronic heart failure with preserved ejection fraction (HFpEF) I50.32 Chronic atrial fibrillation I48.20 Cardiac pacemaker in situ Z95.0 CPT Codes Cardiac Device Check - Cardiac Device 2: 87171-RR Cardiac Device Check, pacemaker dual lead ([id number]) EKG - CPT: 40018-[id number], Complete ([id number])
[2023-08-31 14:25] VITALS: BP 122/74; PULSE 87; BMI 37.0
== END 2023-08-31 14:52 | disposition home or self-care (01) ==
PROVIDERS: PCP Internal Medicine; Visit Provider Internal Medicine Cardiovascular Disease
DX: I50.32 Chronic diastolic (congestive) heart failure (principal); I48.20 Chronic atrial fibrillation, unspecified; Z95.0 Presence of cardiac pacemaker
CPT/HCPCS: 93280; 99214

== ENCOUNTER 2023-08-31 14:17 | Outpatient (REF) | payer MEDICARE, SELFPAY ==
[2023-08-31 16:55] LABS: Alanine Aminotransferase 16 U/L (0-31); Albumin Level 4.3 g/dL (3.5-5.0); Alkaline Phosphatase 96 U/L (39-117); Anion Gap 15 (12-20); Aspartate Amino Transferase 23 U/L (5-31); Bilirubin Total 1.2 mg/dL (0.0-1.0); Blood Urea Nitrogen 15 mg/dL (9-16); Calcium 9.3 mg/dL (8.4-10.2); Carbon Dioxide 29 mmol/L (22-29); Chloride 101 mmol/L (96-108); Estimated Glomerular Filt Rate 57; Glucose Random 97 mg/dL (60-115); Phosphorus 3.6 mg/dL (2.7-4.5); Sodium 141 mmol/L (135-145); Total Protein 8.1 g/dL (6.5-8.0)
[2023-08-31 17:13] LABS: Free T4 (Free Thyroxine) 1.23 ng/dL (0.71-1.85); Vitamin D 25-OH Total 45.4 ng/mL (>30)
== END 2023-08-31 14:18 | disposition home or self-care (01) ==
LOC: HO.LAB 14:17
PROVIDERS: Internal Medicine; PCP Internal Medicine; Visit Provider Internal Medicine Cardiovascular Disease
DX: I50.32 Chronic diastolic (congestive) heart failure (principal); I48.20 Chronic atrial fibrillation, unspecified; E03.9 Hypothyroidism, unspecified; E04.2 Nontoxic multinodular goiter; E55.9 Vitamin D deficiency, unspecified; E21.3 Hyperparathyroidism, unspecified; Z45.018 Encounter for adjustment and management of other part of cardiac pacemaker; Z79.899 Other long term (current) drug therapy
CPT/HCPCS: 36415; 80053; 82306; 84100; 84439; 84443; 93005; 93280; 99212

== ENCOUNTER 2023-09-30 14:42 | Outpatient (AMB) | payer MEDICARE, SELFPAY ==
--- NOTE | 2023-09-30 14:44 | A.OFFVIS_ITS ---
Intake Vital Signs 09/30/23 14:45 Height 5 ft 5 in Weight 226 lb 3.108 oz BMI 37.6 BP 102/72 Blood Pressure Location Rt brachial Position Sitting Pulse 74 Pulse Source Pulse Oximeter Intake Visit Reasons: F/U Hypothyroidism s/p thyroidectomy 30MIN/LVM Intake Note: Patient presents today for Hypothyroidism s/p Thyroidectomy. Last seen by Dr. Florence on 12/24/2022. 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 Accompanied by: Self / Same As Patient Allergies amiodarone [AMIODARONE] Allergy (Severe, Verified 09/30/23 14:54) INTERSTITIAL PNEUMONITIS, fluid gain, interstial pneumonitis amoxicillin [AMOXICILLIN] Allergy (Unknown, Verified 09/30/23 14:54) SHAKES ALL OVER , shaky, shaky doxycycline [DOXYCYCLINE] Adverse Reaction (Unknown, Verified 09/30/23 14:54) STOMACH UPSET, upset stomach Medication List - Last Reconciled 09/30/23 by Jeromy Torres MD cyproheptadine 4 mg PO BEDTIME estradiol-norethindrone acet 0.05-0.14 mg/24 hr 1 patch transdermal 2XW fluvoxamine 25 mg PO TID 3 months furosemide 20 mg PO Three tablets by mouth every morning and two tablets by mouth at noon; levothyroxine 137 mcg PO DAILY lorazepam 0.25 - 0.5 mg (0.5 - 1 x 0.5 mg) PO TID metoprolol succinate ER (Toprol XL) 100 mg PO DAILY omeprazole 20 mg PO BEDTIME polyethylene glycol 3350 (Miralax) 17 grams PO DAILY rivaroxaban (Xarelto) 20 mg PO DAILY spironolactone (Aldactone) 12.5 mg (1/2 x 25 mg) PO DAILY 90 days HPI HPI Comments History of Present Illness Details 73 YO Female with a PMHx of Afib who is seen in F/U for for hypothyroidism after a total thyroidectomy, and a history of hyperparathyroidism s/p a 3.5 gland parathyroidectomy. The patient last saw Dr. Florence on 12/24/2022 She had been followed for a multinodular thyroid, with no nodules meeting indication for FNA biopsy. She was previously on levothyroxine, but her labs revealed suppressed TSH so this was stopped. She was asked to have labs repeated in 6 weeks time, with labs still revealing hyperthyroidism. 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 She had a thyroid Uptake and Scan which revealed an enlarged R lobe of the thyroid, and a pattern consistent with autoimmune thyroid disease. She was started on methimazole, and subsequently underwent a total thyroidectomy 05/27/2022. Postoperative she was started on levothyroxine 150 mcg PO daily. Her dose was recently decreased to 137 mcg 4 weeks ago She does have a history of AFib and is on Xarelto. She otherwise reports feeling well currently. 2) Hyperparathyroidism: She has a long history of elevated PTH levels with normal Calcium. She has Osteopenia of the hips and the spine. Most recent labs are consistent with primary hyperparathyroidism with elevated 24 hour urine calcium, but this is in the setting of hyperthyroidism. Her renal function is WNL. Her Vitamin D level is elevated into the toxic range. She is off Vitamin D as of now. She was evaluated by Dr. Hubbard and underwent a subtotal parathyroidectomy with only a remnant of her R superior parathyroid remaining. She has not yet co mpleted her labs. Thyroid US: 06/05/2021 Right Thyroid Lobe: 5.5 x 3.0 x 1.9 cm, volume 16.4 mL. Left Thyroid Lobe: 3.5 x 1.7 x 1.2 cm, volume 3.7 mL. Isthmus: 0.6 cm in maximum AP dimension. THYROID PARENCHYMA AND NODULES: Thyroid gland has heterogeneous echotexture. The vascularity of the gland is grossly normal. Number of nodules greater than or equal to 1 cm: 1. 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 Solid component is predominantly isoechoic. Multiple small echogenic foci of the nodule might represent inspissated colloid, although difficult to exclude microcalcifications. This nodule measured 0.9 x 0.6 x 0.9 cm and 05/23/2020.? ACR TI-RADS score of 6 poin ts, TR4. 0.9 x 0.5 x 1.1 cm smoothly marginated s olid, heterogeneous nodule is present in the anterior right interpolar area. It has a few small echogenic foci from either inspissated colloid or microcalcification. This nodule is nearly isoechoic compared to the surrounding gland. It was not measured on the prior exam.? ACR TI-RADS score of 6 points, TR4. 0.6 x 0.5 x 0.7 cm smoothly marginated n odule in the right interpolar area has a spongiform appearance. ACR TI-RADS score of 0 points, TR1. 0.7 x 0.6 x 0.8 cm smoothly marginated n odule in the anterior right lower pole has a mixed cystic and solid appearance. The solid component is isoechoic. No calcification. ACR TI-RADS score of 2 points, TR2. A colloid cyst measuring up to 0.6 cm seen in the lateral right lower pole. NODES: No lymphadenopathy is seen in the tissue surrounding the thyroid gland. Thyroid Uptake and Scan: 08/28/2021 FINDINGS: The uptake is 2.6% at 4 hours and 12.55% at 24 hours. On thyroid scan, there is an enlarged right thyroid lobe with significant increased activity within the enlarged right thyroid nodule in the upper and midpole region. The left thyroid gland has normal activity. NM/NM thyroid w uptake IMPRESSION: Enlarged right thyroid lobe from a moderately enlarged hot nodule. Normal left thyroid gland activity. ? The radioactive iodine uptake at 24 hours is 12.55% and within normal limits. DEXA 05/23/2020: FINDINGS: AP SPINE L1-L4: BMD 1.098 g/cm2, Z-score 0.3, T-score -0.7, normal. LEFT FEMUR, NECK: BMD 0.705 g/cm2, Z-score -1.1, T-score -2.4, osteopenia. LEFT FEMUR, TOTAL: BMD 0.732 g/cm2, Z-score -1.1, T-score -2.2, osteopenia. LEFT FOREARM RADIUS 33%: BMD 0.824 g/cm2, Z-score 1.4, T-score -0.6, normal. Labs: Laboratory Tests 01/29/22 07:45 TSH 2.28 Free T4 0.98 [facility] Medical History Generalized anxiety disorder Major depression in full remission Elevated bilirubin Hypothyroidism Panic disorder [episodic paroxysmal anxiety] Tachycardia COLIN on CPAP Chronic atrial fibrillation Vitamin D deficiency Multinodular thyroid Hyperthyroidism Cardiac pacemaker in situ Non-toxic multinodular goiter Subclinical hypothyroidism Osteopenia Hyperparathyroidism COPD (chronic obstructive pulmonary disease) Chronic heart failure with preserved ejection fraction (HFpEF) Sick sinus syndrome Elevated antinuclear antibody (LORETO) level Drug-induced pneumonitis Dyslipidemia Persistent atrial fibrillation Depression with anxiety Stress incontinence Surgical History History of parathyroidectomy Hx of thyroidectomy S/P placement of cardiac pacemaker H/O unilateral oophorectomy History of removal of cyst Family History Father Cirrhosis with alcoholism Medical history non-contributory Mother Medical history non-contributory Hypothyroidism Social History Housing: Condominium Alcohol intake: never Patient Tobacco Use Status: Former Tobacco user Quit Date: 1992 e-Cigarette/Vaping Use: Never Used Current occupational status: retired Cognitive needs: No Hearing needs: No Vision needs: No Physical Exam Vital Signs: Last Vital Signs Pulse 74 09/30/23 14:45 BP 102/72 09/30/23 14:45 BMI result Body Mass Index 37.6 Const Other: Healed scar status post thyroidectomy . Assessment & Plan Assessment & Plan (1) Hypothyroidism: Code(s): E03.9 - Hypothyroidism, unspecified Plan: This 73-year-old white female with a history of post-operative hypothyroidism currently on levothyroxine 137 mcg recently reduced about 4 weeks ago from 150 mcg. She appears to be clinically euthyroid. Plan is to recheck TSH and free T4 in about 2 weeks' time adjust levothyroxine accordingly. If TSH is still fluctuating and/or patient is not feeling well g eneric levothyroxine, could consider switching to branded Synthroid Coding Level of Care Code Est Pt Level 3 (88888) Diagnoses Hypothyroidism E03.9
[2023-09-30 14:45] VITALS: BP 102/72; PULSE 74; BMI 37.6
== END 2023-09-30 15:21 | disposition home or self-care (01) ==
PROVIDERS: PCP Internal Medicine; Visit Provider Internal Medicine Endocrinology, Diabetes & Metabolism
DX: E03.9 Hypothyroidism, unspecified (principal)
CPT/HCPCS: 99213

== ENCOUNTER → 2023-09-30 14:42 | Outpatient (BNVA) | payer MEDICARE, SELFPAY | PROVIDERS: Visit Provider Internal Medicine Endocrinology, Diabetes & Metabolism | DX: E03.9 Hypothyroidism, unspecified (principal) | CPT/HCPCS: 99212 ==

== ENCOUNTER 2023-10-06 15:18 | Outpatient (AMB) | payer MEDICARE, SELFPAY ==
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
== END 2023-10-06 16:21 | disposition home or self-care (01) ==
LOC: HO.HOP 15:18
PROVIDERS: PCP Internal Medicine; Visit Provider Psychiatry & Neurology Psychiatry
DX: F41.1 Generalized anxiety disorder (principal); F41.0 Panic disorder [episodic paroxysmal anxiety]
CPT/HCPCS: 99214

== ENCOUNTER → 2023-10-06 15:18 | Outpatient (BNVA) | payer MEDICARE, SELFPAY | PROVIDERS: PCP Internal Medicine; Visit Provider Psychiatry & Neurology Psychiatry | DX: F41.1 Generalized anxiety disorder (principal); F41.0 Panic disorder [episodic paroxysmal anxiety]; Z79.899 Other long term (current) drug therapy | CPT/HCPCS: 99212 ==

== ENCOUNTER 2023-10-07 07:48 | Outpatient (REF) | payer MEDICARE, SELFPAY ==
[2023-10-07 12:42] LABS: Anion Gap 15 (12-20); Blood Urea Nitrogen 14 mg/dL (9-16); Calcium 9.3 mg/dL (8.4-10.2); Carbon Dioxide 31 mmol/L (22-29); Chloride 99 mmol/L (96-108); Estimated Glomerular Filt Rate > 60; Glucose Random 88 mg/dL (60-115); Potassium 3.6 mmol/L (3.3-5.1); Sodium 141 mmol/L (135-145)
[2023-10-07 12:44] LABS: Free T4 (Free Thyroxine) 1.61 ng/dL (0.71-1.85); Thyroid Stimulating Hormone 0.38 uIU/mL (0.32-4.0)
== END 2023-10-07 07:49 | disposition home or self-care (01) ==
LOC: HO.HMGCLDS 07:48
PROVIDERS: PCP Internal Medicine; Visit Provider Internal Medicine Endocrinology, Diabetes & Metabolism
DX: E03.9 Hypothyroidism, unspecified (principal); I48.20 Chronic atrial fibrillation, unspecified
CPT/HCPCS: 36415; 80048; 84439; 84443

== ENCOUNTER → 2023-10-12 23:59 | Outpatient (BNV) | payer MEDICARE, SELFPAY ==
--- NOTE | 2023-10-12 11:34 | MHC.OFFVIS ---
Intake Intake Visit Reasons: Remote Device Check- [facility] Allergies amiodarone [AMIODARONE] Allergy (Severe, Verified 09/30/23 14:54) INTERSTITIAL PNEUMONITIS, fluid gain, interstial pneumonitis amoxicillin [AMOXICILLIN] Allergy (Unknown, Verified 09/30/23 14:54) SHAKES ALL OVER , shaky, shaky doxycycline [DOXYCYCLINE] Adverse Reaction (Unknown, Verified 09/30/23 14:54) STOMACH UPSET, upset stomach PFSH Medical History Generalized anxiety disorder Major depression in full remission Elevated bilirubin Hypothyroidism Panic disorder [episodic paroxysmal anxiety] Tachycardia COLIN on CPAP Chronic atrial fibrillation Vitamin D deficiency Multinodular thyroid Hyperthyroidism Cardiac pacemaker in situ Non-toxic multinodular goiter Subclinical hypothyroidism Osteopenia Hyperparathyroidism COPD (chronic obstructive pulmonary disease) Chronic heart failure with preserved ejection fraction (HFpEF) Sick sinus syndrome Elevated antinuclear antibody (LORETO) level Drug-induced pneumonitis Dyslipidemia Persistent atrial fibrillation Depression with anxiety Stress incontinence Surgical History History of parathyroidectomy Hx of thyroidectomy S/P placement of cardiac pacemaker H/O unilateral oophorectomy History of removal of cyst Family History Father Cirrhosis with alcoholism Medical history non-contributory Mother Medical history non-contributory Hypothyroidism Social History Housing: Condominium Alcohol intake: never Patient Tobacco Use Status: Former Tobacco user Quit Date: 1992 e-Cigarette/Vaping Use: Never Used Current occupational status: retired Cognitive needs: No Hearing needs: No Vision needs: No Office Procedures Cardiac Device Check Cardiac Device Check Details: Remote pacemaker report generated 10/13/2023. Pacemaker function is adequate. Lower ventricular sensitivity noted. Will follow by remote monitoring and in the clinic as planned [id number] Cardiac Device Interrogation, pacemaker Procedure code (CPT) selection complete Assessment & Plan Assessment & Plan (1) Cardiac pacemaker in situ: Code(s): Z95.0 - Presence of cardiac pacemaker Plan: See above Coding Level of Care Code Procedure Only Diagnoses Cardiac pacemaker in situ Z95.0 CPT Codes Cardiac Device Check - Cardiac Device 12: [id number] Cardiac Device Interrogation, pacemaker ([id number])
== END ==
PROVIDERS: PCP Internal Medicine; Visit Provider Internal Medicine Cardiovascular Disease
DX: I48.20 Chronic atrial fibrillation, unspecified (principal); Z95.0 Presence of cardiac pacemaker
CPT/HCPCS: 93294

== ENCOUNTER 2023-11-11 07:46 | Outpatient (REF) | payer MEDICARE, SELFPAY ==
[2023-11-11 11:36] LABS: Hematocrit 45.8 % (37.0-47.0); Hemoglobin 15.1 g/dl (12.0-16.0)
[2023-11-11 12:07] LABS: Alanine Aminotransferase 18 U/L (0-31); Anion Gap 12 (12-20); Aspartate Amino Transferase 25 U/L (5-31); Blood Urea Nitrogen 13 mg/dL (9-16); Calcium 8.7 mg/dL (8.4-10.2); Carbon Dioxide 32 mmol/L (22-29); Chloride 101 mmol/L (96-108); Cholesterol 179 mg/dL (<200); Estimated Glomerular Filt Rate > 60; Glucose Fasting 84 mg/dL (60-99); HDL Cholesterol 47 mg/dL (>40); LDL Cholesterol Calculated 110 mg/dL (<100); Potassium 3.5 mmol/L (3.3-5.1); Sodium 141 mmol/L (135-145); Triglycerides 111 mg/dL (<150); Vitamin D 25-OH Total 50.8 ng/mL (>30)
== END 2023-11-11 07:47 | disposition home or self-care (01) ==
LOC: HO.HMGCLDS 07:46
PROVIDERS: PCP Internal Medicine; Visit Provider Internal Medicine
DX: M85.852 Other specified disorders of bone density and structure, left thigh (principal); I50.32 Chronic diastolic (congestive) heart failure; R00.0 Tachycardia, unspecified; E55.9 Vitamin D deficiency, unspecified; I48.20 Chronic atrial fibrillation, unspecified
CPT/HCPCS: 36415; 80048; 80061; 82306; 84450; 84460; 85014; 85018

== ENCOUNTER 2023-11-15 08:33 | Day surgery (SDC) | payer MEDICARE, SELFPAY ==
--- NOTE | 2023-11-12 10:29 | HO.ANESPROP2 ---
Documented by User: Morena Pitt NP 11/12/23 10:32 HPI - Anesthesia Eval Consult details Narrative: 73yo F for Colonoscopy Follows [facility] [place]. Optimized for procedure Xarelto for Afib Pacer (SSS) in situ PMFSH Active Problems Active Problems: All Active Problems (Updated 08/03/23 @ 14:38 by Idalia Woo MD) Generalized anxiety disorder (Acute) Chronic heart failure with preserved ejection fraction (HFpEF) (Acute) Elevated bilirubin (Acute) Hypothyroidism (Acute) Panic disorder [episodic paroxysmal anxiety] (Acute) Tachycardia (Acute) COLIN on CPAP (Acute) Chronic atrial fibrillation (Acute) Vitamin D deficiency (Acute) Cardiac pacemaker in situ (Acute) Osteopenia (Acute) Elevated antinuclear antibody (LORETO) level (Acute) Depression with anxiety (Acute) Stress incontinence (Acute) Past Medical History Medical History Generalized anxiety disorder Major depression in full remission Elevated bilirubin Hypothyroidism Panic disorder [episodic paroxysmal anxiety] Tachycardia COLIN on CPAP Chronic atrial fibrillation Vitamin D deficiency Multinodular thyroid Hyperthyroidism Cardiac pacemaker in situ Non-toxic multinodular goiter Subclinical hypothyroidism Osteopenia Hyperparathyroidism COPD (chronic obstructive pulmonary disease) Chronic heart failure with preserved ejection fraction (HFpEF) Sick sinus syndrome Elevated antinuclear antibody (LORETO) level Drug-induced pneumonitis Dyslipidemia Persistent atrial fibrillation Depression with anxiety Stress incontinence Family History Family History Father Cirrhosis with alcoholism Medical history non-contributory Mother Medical history non-contributory Hypothyroidism Surgical History Surgical History History of parathyroidectomy Hx of thyroidectomy S/P placement of cardiac pacemaker H/O unilateral oophorectomy History of removal of cyst Social History Social History Housing: Condominium Alcohol intake: never Patient Tobacco Use Status: Former Tobacco user Quit Date: 1992 e-Cigarette/Vaping Use: Never Used Advance Directives: No Advance Directives Information Provided: Yes Current occupational status: retired Cognitive needs: No Hearing needs: No Vision needs: No Meds Allergies Allergy/AdvReac Type Severity Reaction Status Date / Time amiodarone [AMIODARONE] Allergy Severe INTERSTITIAL Verified 11/15/23 08:55 PNEUMONITIS, fluid gain, interstial pneumonitis amoxicillin [AMOXICILLIN] Allergy Unknown SHAKES Verified 11/15/23 08:55 ALL OVER , shaky, shaky doxycycline [DOXYCYCLINE] AdvReac Unknown STOMACH Verified 11/15/23 08:55 UPSET, upset stomach Home Medications Medication Instructions Recorded Confirmed Last Taken Type estradiol 0.05 mg-norethindrone 1 patch transdermal 2XW 07/12/20 11/15/23 Unknown History 0.14 mg/24 hr semiwkly transderm patch omeprazole 20 mg capsule,delayed 20 mg PO BEDTIME 07/12/20 11/15/23 11/15/23 History release Exam Pertinent Lab Results Pertinent Lab Results: Laboratory Tests 02/09/23 02/09/23 11/11/23 13:44 13:44 07:52 WBC 6.8 Hgb Hct Plt Count 218 Sodium 141 Potassium 3.5 Chloride 101 Carbon Dioxide 32 H BUN 13 Creatinine 0.79 11/11/23 07:52 WBC Hgb 15.1 Hct 45.8 Plt Count Sodium Potassium Chloride Carbon Dioxide BUN Creatinine Narrative Narrative: Cardiac Device Check 08/2023 Details: Dual-chamber pacemaker, programmed in VVI at 50 beats per minute. Ventricular pacing 3.7% of the time. Ventricular sensing was adequate. Ventricular capture thresholds adequate. Pacing lead impedance is stable. Battery life is excellent at 11-12 years [id number] Cardiac Device Check, pacemaker dual lead Procedure code (CPT) selection complete EKG 08/2023 Details: EKG shows atrial fibrillation with low-voltage QRS 87 beats per minute Assessment and Plan Assessment Anesthesia Assessment: Chart Reviewed Documented by User: Cong Vila MD 11/15/23 09:17 [facility] Past Medical History Medical History Generalized anxiety disorder Major depression in full remission Elevated bilirubin Hypothyroidism Panic disorder [episodic paroxysmal anxiety] Tachycardia COLIN on CPAP Chronic atrial fibrillation Vitamin D deficiency Multinodular thyroid Hyperthyroidism Cardiac pacemaker in situ Non-toxic multinodular goiter Subclinical hypothyroidism Osteopenia Hyperparathyroidism COPD (chronic obstructive pulmonary disease) Chronic heart failure with preserved ejection fraction (HFpEF) Sick sinus syndrome Elevated antinuclear antibody (LORETO) level Drug-induced pneumonitis Dyslipidemia Persistent atrial fibrillation Depression with anxiety Stress incontinence Family History Family History Father Cirrhosis with alcoholism Medical history non-contributory Mother Medical history non-contributory Hypothyroidism Family history of problems with anesthesia: No Surgical History Surgical History History of parathyroidectomy Hx of thyroidectomy S/P placement of cardiac pacemaker H/O unilateral oophorectomy History of removal of cyst History of Problems with Anesthesia: No Social History [facility] Alcohol intake: never Patient Tobacco Use Status: Former Tobacco user Quit Date: 1992 e-Cigarette/Vaping Use: Never Used Advance Directives: No Advance Directives Information Provided: Yes Current occupational status: retired Cognitive needs: No Hearing needs: No Vision needs: No Meds Allergies Allergy/AdvReac Type Severity Reaction Status Date / Time amiodarone [AMIODARONE] Allergy Severe INTERSTITIAL Verified 11/15/23 08:55 PNEUMONITIS, fluid gain, interstial pneumonitis amoxicillin [AMOXICILLIN] Allergy Unknown SHAKES Verified 11/15/23 08:55 ALL OVER , shaky, shaky doxycycline [DOXYCYCLINE] AdvReac Unknown STOMACH Verified 11/15/23 08:55 UPSET, upset stomach Home Medications Medication Instructions Recorded Confirmed Last Taken Type estradiol 0.05 mg-norethindrone 1 patch transdermal 2XW 07/12/20 11/15/23 Unknown History 0.14 mg/24 hr semiwkly transderm patch omeprazole 20 mg capsule,delayed 20 mg PO BEDTIME 07/12/20 11/15/23 11/15/23 History release Exam Airway Mallampati Class: III TM Dist: <=3cm Neck ROM: Full Partial: Upper and Lower Loose/Missing/Broken Teeth: No Heart: irr rhythm irr rate Lungs: cta b/l Assessment and Plan Assessment Anesthesia Assessment: Anesthesia Plan Discussed Final Anesthetic Review Family History of Problems with Anesthesia: No History of Problems with Anesthesia: No NPO: Yes ASA Class: III Final Preanesthetic Review: No Changes in Pt Med Stat, Meds/Allgs Chart Reviewed, Consent Obtained/Reviewed and Anes Risks/Benef Reviewed Patient Risk: Intermediate Procedure Risk: Intermediate Anesthetic Plan Anesthetic Plan: MAC: Disposition: Standard PACU
[2023-11-15 08:46] VITALS: BMI 37.4
[2023-11-15] MEDS: Lactated Ringers 1,000 ML 50 ML IVCONT (09:05)
[2023-11-15 09:11] VITALS: BP 155/70; PULSE 106; RESP 18; TEMP 36.6; O2SAT 95
[2023-11-15 10:28] VITALS: BP 111/67; PULSE 118; RESP 18; TEMP 36.1; O2SAT 99
--- NOTE | 2023-11-15 10:30 | P.BOP_ITS ---
Brief Operative Note Date of Service: 11/15/23 Pre-op diagnosis: Screening Post-op diagnosis: other (Diverticulosis) Procedure: Colonoscopy to the cecum Surgeon: Jeromy La MD Anesthesia: MAC Was an Heel Sprayer First used for this Procedure?: No Estimated blood loss (mL): 0 Pathology: none sent Condition: stable Disposition: PACU
[2023-11-15 10:43] VITALS: BP 121/76; PULSE 98; RESP 20; TEMP 36.3; O2SAT 95
--- NOTE | 2023-11-15 23:01 | OP_ITS ---
DATE OF SERVICE: 11/15/2023 SURGEON: Jeromy La MD INDICATIONS: The patient presents for evaluation of colorectal cancer screening. Full consent was obtained from her for this, including risks of bleeding and perforation. PREOPERATIVE DIAGNOSIS: Colorectal cancer screening. POSTOPERATIVE DIAGNOSIS: Colorectal cancer screening, diverticulosis, and internal hemorrhoids. PROCEDURE PERFORMED: Colonoscopy to the cecum. ESTIMATED BLOOD LOSS: COMPLICATIONS: ANESTHESIA: Medication use, monitored anesthesia care. ASSISTANTS: SPECIMENS: DESCRIPTION OF PROCEDURE: The patient was placed in the left lateral decubitus position. The digital rectal exam revealed no abnormalities. The Olympus video-pediatric colonoscope was entered into the rectum and advanced to the cecum. Advancement was somewhat difficult. Once in the cecum, I did visualize a normal-appearing cecal pouch with appendiceal orifice and a normal-appearing ileocecal valve. The entire cecum and ileocecal valve were well visualized. There was transillumination of light deep in the right lower quadrant. The scope was slowly withdrawn assessing all mucosal surfaces carefully. Preparation was excellent. I did not visualize any sign of polyps, colitis, nor angiodysplasia. There was a mild amount of sigmoid diverticulosis. In the rectum, scope was retroflexed visualizing internal hemorrhoids, but no other pathology. The rectal mucosa appeared normal. The scope was straightened and withdrawn from the patient. She tolerated the procedure well and was returned to recovery area in stable condition. IMPRESSION: 1. Diverticulosis. 2. Internal hemorrhoids. PLAN: Given today's negative exam and her age, I do not think she would need any further screening colonoscopies. She would see me again on a p.r.n. basis. She was advised to resume her Xarelto today. This has been discussed with her . MD JAMARCUS Del Valle/RIVER / [id number]
== END 2023-11-15 11:13 | disposition home or self-care (01) ==
PROVIDERS: PCP Internal Medicine; Visit Provider Internal Medicine
PROC: 0DJD8ZZ Inspection of Lower Intestinal Tract, Via Natural or Artificial Opening Endoscopic (ICD-10-PCS; CPT 45378; principal; 2023-11-15 09:50)
DX: Z12.11 Encounter for screening for malignant neoplasm of colon (principal); K57.30 Diverticulosis of large intestine without perforation or abscess without bleeding; K64.8 Other hemorrhoids; K21.9 Gastro-esophageal reflux disease without esophagitis; K80.20 Calculus of gallbladder without cholecystitis without obstruction; I48.91 Unspecified atrial fibrillation; Z95.0 Presence of cardiac pacemaker; F41.9 Anxiety disorder, unspecified; E80.4 Gilbert syndrome; G47.33 Obstructive sleep apnea (adult) (pediatric); Z99.89 Dependence on other enabling machines and devices; Z79.01 Long term (current) use of anticoagulants; Z87.891 Personal history of nicotine dependence
CPT/HCPCS: G0121; J2704

== ENCOUNTER 2023-11-18 15:55 | Outpatient (AMB) | payer MEDICARE, SELFPAY ==
[2023-11-18 16:04] VITALS: BP 118/74; PULSE 95; O2SAT 95; BMI 36.6
--- NOTE | 2023-11-18 16:04 | A.OFFPC_ITS ---
Vital Signs 11/18/23 16:04 Height 5 ft 5.5 in Weight 223 lb 6 oz BMI 36.6 BP 118/74 Blood Pressure Location Rt brachial Position Sitting Pulse 95 Pulse Source Pulse Oximeter Pulse Oximetry (%) 95 Oxygen Delivery Method Room Air Intake Visit Reasons: f/u labs Intake Note: Pt is here today to follow up on labs. Allergies amiodarone [AMIODARONE] Allergy (Severe, Verified 11/18/23 16:47) INTERSTITIAL PNEUMONITIS, fluid gain, interstial pneumonitis amoxicillin [AMOXICILLIN] Allergy (Unknown, Verified 11/18/23 16:47) SHAKES ALL OVER , shaky, shaky doxycycline [DOXYCYCLINE] Adverse Reaction (Unknown, Verified 11/18/23 16:47) STOMACH UPSET, upset stomach Medication List - Last Reconciled 11/18/23 by Mgaalys Wall MD cyproheptadine 4 mg PO BEDTIME estradiol-norethindrone acet 0.05-0.14 mg/24 hr 1 patch transdermal 2XW fluvoxamine 25 mg PO TID 3 months furosemide 20 mg PO Three tablets by mouth every morning and two tablets by mouth at noon; lorazepam 0.25 - 0.5 mg (0.5 - 1 x 0.5 mg) PO TID metoprolol succinate ER (Toprol XL) 100 mg PO DAILY omeprazole 20 mg PO BEDTIME rivaroxaban (Xarelto) 20 mg PO DAILY spironolactone (Aldactone) 12.5 mg (1/2 x 25 mg) PO DAILY 90 days Synthroid (levothyroxine) 137 mcg PO DAILY NS Tobacco use date assessed: 11/18/23 Fall risk assessment: No Falls in past year Last assessed Fall Risk: 11/18/23 Dental Screening Dental Screen Date: 11/18/23 Did you have a dental visit in the last 12 months?: No Did you have a dental problem in the last 6 months where you did not have access to dental care?: No Was dental information given to patient?: Patient has dentist HPI f/u labs HPI Details 73-year-old lady with hypothyroidism, hy pertension, here today for follow-up. Currently taking Synthroid 137 mcg taken once a day. She had recent fasting labs done which showed normal BMP, normal hemoglobin hematocrit, and fasting lipids are improved as compared to last check, thyroid levels are also within normal limits . She has been feeling well with no complaints at present time [facility] Medical History (Updated 11/18/23 @ 17:50 by Magalys Wall MD) Essential hypertension Hypothyroidism Panic disorder [episodic paroxysmal anxiety] Tachycardia COLIN on CPAP Cardiac pacemaker in situ Non-toxic multinodular goiter Subclinical hypothyroidism Osteopenia Hyperparathyroidism COPD (chronic obstructive pulmonary disease) Chronic heart failure with preserved ejection fraction (HFpEF) Sick sinus syndrome Elevated antinuclear antibody (LORETO) level Drug-induced pneumonitis Dyslipidemia Persistent atrial fibrillation Depression with anxiety Stress incontinence Surgical History (Updated 11/18/23 @ 17:41 by Magalys Wall MD) Hx of colonoscopy History of parathyroidectomy Hx of thyroidectomy S/P placement of cardiac pacemaker H/O unilateral oophorectomy History of removal of cyst Family History Father Cirrhosis with alcoholism Medical history non-contributory Mother Medical history non-contributory Hypothyroidism Social History Housing: Condominium Alcohol intake: never Patient Tobacco Use Status: Former Tobacco user Quit Date: 1992 e-Cigarette/Vaping Use: Never Used service: No Current occupational status: retired Cognitive needs: No Hearing needs: No Vision needs: No Questionnaire PHQ-9 Over the last 2 weeks, how often have you been bothered by any of the following problems? 1. Little interest or pleasure in doing things: not at all 2. Feeling down, depressed, or hopeless: not at all 3. Trouble falling or staying asleep, or sleeping too much: several days 4. Feeling tired or having little energy: several days 5. Poor appetite or overeating: not at all 6. Feeling bad about yourself - or that you are a failure or have let yourself or your family down: not at all 7. Trouble concentrating on things, such as reading the newspaper or watching television: not at all 8. Moving or speaking so slowly that other people could have noticed. Or the opposite - being so fidgety or restless that you have been moving around a lot more than usual: not at all 9. Thoughts that you would be better off or of hurting yourself in some way: not at all Total score: 2 Depression Screening Interpretation: Positive Depression Screening Follow-up: Existing condition, In treatment and Community Mental Health Worker F/U ( Followed by Dr. Bae) Depression Screening Done: Yes Source: Developed by Drs. Jeromy Cardozo, Minerva Iniguez, Josemanuel Vazquez and colleagues, with an educational elizabeth from [employer]. Thrive Questionnaire Date Thrive assessed: 11/18/23 I am a: Patient Within the past 12 months, did the food you bought not last and you didn't have the money to get more?: Never true Within the past 12 months, did you worry whether your food would run out before you got money to buy more?: Never true Do you have trouble paying for medicines?: No Do you have trouble getting transportation to medical appointments?: No Do you have trouble paying your heating and electricity bill?: No Do you have trouble taking care of your child, family member or friend?: No Do you have trouble with day-to-day activities such as bathing, preparing meals, shopping, managing finances, etc.?: No Are you currently unemployed and looking for a job?: No Are you interested in more education?: No THRIVE Score: 0 AUDIT C Alcohol Use Questionnaire (AUDIT-C) 1. How often do you have a drink containing alcohol?: Never Total Score: 0 GERMAINE-7 AMB Questionnaire GERMAINE-7 Date GERMAINE - 7 assessed: 11/18/23 Feeling nervous, anxious, or on edge: 0 = Not at all Not being able to stop or control worryin = Several days Worrying too much about different things: 0 = Not at all Trouble relaxin = Not at all Being so restless that it is hard to sit still: 0 = Not at all Becoming easily annoyed or irritable: 0 = Not at all Feeling afraid as if something awful might happen: 0 = Not at all Total GERMAINE-7 score (0-4 normal; 5-9 mild; 10-14 moderate; 15-21 severe): 1 Source: Developed by Drs. Jeromy Cardozo, Minerva Iniguez, Josemanuel Vazquez and colleagues, with an educational elizabeth from [employer]. GERMAINE-7 Assessment Billing GERMAINE-7 Assessment Tool: GERMAINE-7 Assessment 12116 Review of Systems Const Denies chills, Denies fatigue, Denies fever(s), Denies frequent falls and Denies weakness ENT Denies dizziness and Denies nasal congestion Card Denies chest pain, Denies leg edema, Denies lightheadedness, Denies palpitations, Denies dyspnea and Denies dyspnea on exertion Resp Denies cough, Denies dyspnea and Denies dyspnea on exertion GI Denies abdominal pain, Denies melena, Denies hematochezia, Denies change in bowel habits, Denies change in stool character and Denies heartburn Reports no additional complaints Musc Denies abnormal gait, Denies arthralgias, Denies muscle weakness, Denies numbness and Denies tingling Neuro Denies abnormal gait, Denies dizziness, Denies frequent falls, Denies numbness, Denies tingling and Denies weakness Psych Reports no additional complaints Endo Denies fatigue and Denies palpitations Physical exam (Primary Care) Vital Signs: Last Vital Signs Pulse 95 11/18/23 16:04 BP 118/74 11/18/23 16:04 Pulse Ox 95 11/18/23 16:04 Oxygen Delivery Method Room Air 11/18/23 16:04 BMI result Body Mass Index 36.6 Tobacco/Smoking Status: Tobacco use Status Tobacco use date assessed 11/18/23 11/18/23 16:05 Patient Tobacco Use Status Former Tobacco user 11/18/23 16:05 e-Cigarette/Vaping Use Never Used 11/18/23 16:05 Depression Screening Interpretation: Positive Depression Screening Follow-up: Existing condition, In treatment and Community Mental Health Worker F/U (Followed by Dr. Bae) Thrive Assessment: Date of Thrive Assessment Date Thrive assessed 12/02/22 11/18/23 16:05 Const General: no acute distress and alert Orientation/consciousness: patient oriented x3 HENMT Head: Yes normocephalic Ears: external ears normal, TM's normal bilaterally and EAC's normal Neck Neck: Yes full ROM, Yes no lymphadenopathy and Yes supple Resp Effort & Inspection: normal respiratory effort Auscultation: clear to auscultation bilaterally Cardio Other: S1-S2 present regular rate and rhythm GI Other: Normal bowel sounds, soft, nontender with no mass palpated Skin General skin exam: no rashes or lesions noted Neuro General: patient oriented x3, gait normal, moves all extremities, Normal light touch and pain sensation, no focal motor deficits and CN's II-XI intact bilaterally Extrem General: Yes full ROM, Yes no joint enlargement, Yes no calf tenderness and Yes normal gait Results Reviewed Results Reviewed: Laboratory Tests 06/22/22 11/11/23 08:26 07:52 WBC 6.8 Hgb 13.8 15.1 Hct 42.0 45.8 RDW 13.3 Plt Count 190 Sodium 143 Potassium 3.9 Chloride 104 Carbon Dioxide 28 Anion Gap 15 BUN 24 H Creatinine 0.90 Estimated GFR > 60 Fasting Glucose 100 H Calcium 8.6 AST 21 ALT 16 Albumin 4.1 Triglycerides 93 Cholesterol 189 LDL Cholesterol, Calc 121 HDL Cholesterol 50 zia: Jenny Mendoza Age/Sex: 73/F : 1950 Unit#: [id number] Attend Dr: Magalys Wall MD Re11/11/23 Status: DEP REF Location: [facility] Disch: SPEC : [id number] ROSALVA: 11/11/23 STATUS: COMP REQ : [id number] RECD: 11/11/23-[address]: Magalys Wall MD COMP: 11/11/23 ENTERED: 11/11/[address]: ORDERED: Met Prof Fast, AST, ALT, Lipid Panel, Vitamin D 25-OH Test Result Flag Reference Sodium 141 135-145 mmol/L Potassium 3.5 3.3-5.1 mmol/L CL 101 96-108 mmol/L CO2 32 H 22-29 mmol/L Gap 12 12-20 BUN 13 9-16 mg/dL Creat 0.79 0.5-1.4 mg/dL EGFR > 60 NOTE: For -[place] Citizen individuals, multiply the result by 1.210. Chronic Kidney Disease: Estimated GFR < 60 mL/min/1.73m2 Severe Kidney Disease: Estimated GFR < 15 mL/min/1.73m2 FBS 84 60-99 mg/dL CA 8.7 # 8.4-10.2 mg/dL AST (GOT) 25 5-31 U/L ALT (GPT) 18 0-31 U/L Triglyceride 111 <150 mg/dL Desirable Triglyceride: less than 150 mg/dL Borderline High Triglyceride 150-199 mg/dL High Triglyceride: 200-499 mg/dL Very High Triglyceride: greater than or equal to 5OO mg/dL Cholesterol 179 <200 mg/dL Desirable Cholesterol: less than 200 mg/dL Borderline High Cholesterol: 200-239 mg/dL High Cholesterol: greater than 239 mg/dL LDL Calculated 110 H <100 mg/dL Desirable LDL: less than 100 mg/dL Near Optimal/Above Optimal LDL: 110-129 mg/dL Borderline High LDL: 130-159 mg/dL High LDL: 160-189 mg/dL Very High LDL: greater than or equal to 190 mg/dL HDL 47 >40 mg/dL Desirable HDL: greater than 40 mg/dL Note: This HDL assay may give artificially low results in patients with liver disease. Vit D 25-OH Tot 50.8 >30 ng/mL Health Based Reference Values* < 20 ng/mL Deficient 20-30 ng/mL Insufficient > 30 ng/mL Sufficient Assessment and Plan Assessment & Plan (1) Essential hypertension: Code(s): I10 - Essential (primary) hypertension Plan: Blood pressure at goal of less than 130/80. Continue with current medication. Reinforced importance of following a low sodium diet, getting regular exercise, and lowering stress levels. (2) Hypothyroidism: Code(s): E03.9 - Hypothyroidism, unspecified Qualifiers: Hypothyroidism type: acquired Qualified Code(s): E03.9 - Hypothyroidism, unspecified Plan: Thyroid levels are within normal limits, continued on Synthroid at 137 mcg taken once a day in a.m. an hour before breakfast. Coding Level of Care Code Est Pt Level 4 (95385) Diagnoses Essential hypertension I10 Acquired hypothyroidism E03.9 Hypothyroidism type: acquired Additional Codes GERMAINE-7 Assessment Billing - GERMAINE-7 Assessment Tool: GERMAINE-7 Assessment 94033 ([id number])
== END 2023-11-18 17:15 | disposition home or self-care (01) ==
PROVIDERS: PCP Internal Medicine; Visit Provider Internal Medicine
DX: I10 Essential (primary) hypertension (principal); E03.9 Hypothyroidism, unspecified
CPT/HCPCS: 99214

== ENCOUNTER 2023-11-26 12:51 | Outpatient (REF) | payer MEDICARE, SELFPAY ==
[2023-11-26 17:42] LABS: Free T4 (Free Thyroxine) 1.21 ng/dL (0.71-1.85); Thyroid Stimulating Hormone 0.49 uIU/mL (0.32-4.0)
== END 2023-11-26 12:52 | disposition home or self-care (01) ==
LOC: HO.HMGCLDS 12:51
PROVIDERS: PCP Internal Medicine; Visit Provider Internal Medicine Endocrinology, Diabetes & Metabolism
DX: E03.9 Hypothyroidism, unspecified (principal)
CPT/HCPCS: 36415; 84439; 84443

== ENCOUNTER → 2024-01-11 23:59 | Outpatient (BNV) | payer MEDICARE, SELFPAY ==
--- NOTE | 2024-01-11 16:36 | A.OFFVIS_ITS ---
Intake Visit Reasons: Remote device check-ST Leonid Allergies amiodarone [AMIODARONE] Allergy (Severe, Verified 11/18/23 16:47) INTERSTITIAL PNEUMONITIS, fluid gain, interstial pneumonitis amoxicillin [AMOXICILLIN] Allergy (Unknown, Verified 11/18/23 16:47) SHAKES ALL OVER , shaky, shaky doxycycline [DOXYCYCLINE] Adverse Reaction (Unknown, Verified 11/18/23 16:47) STOMACH UPSET, upset stomach PFSH Medical History (Updated 11/18/23 @ 17:50 by Magalys Wall MD) Essential hypertension Hypothyroidism Panic disorder [episodic paroxysmal anxiety] Tachycardia COLIN on CPAP Cardiac pacemaker in situ Non-toxic multinodular goiter Subclinical hypothyroidism Osteopenia Hyperparathyroidism COPD (chronic obstructive pulmonary disease) Chronic heart failure with preserved ejection fraction (HFpEF) Sick sinus syndrome Elevated antinuclear antibody (LORETO) level Drug-induced pneumonitis Dyslipidemia Persistent atrial fibrillation Depression with anxiety Stress incontinence Surgical History (Updated 11/18/23 @ 17:41 by Magalys Wall MD) Hx of colonoscopy History of parathyroidectomy Hx of thyroidectomy S/P placement of cardiac pacemaker H/O unilateral oophorectomy History of removal of cyst Family History Father Cirrhosis with alcoholism Medical history non-contributory Mother Medical history non-contributory Hypothyroidism Social History Housing: Condominium Alcohol intake: never Patient Tobacco Use Status: Former Tobacco user Quit Date: 1992 e-Cigarette/Vaping Use: Never Used service: No Current occupational status: retired Cognitive needs: No Hearing needs: No Vision needs: No Office Procedures Cardiac Device Check Cardiac Device Check Details: Remote pacemaker report generated 01/11/2024. Pacemaker function overall is okay. Ventricular lead noise noted, this is old problem [id number] Cardiac Device Interrogation, pacemaker Procedure code (CPT) selection complete Assessment & Plan Assessment & Plan (1) Cardiac pacemaker in situ: Code(s): Z95.0 - Presence of cardiac pacemaker Category: Medical Plan: See above Coding Level of Care Code Procedure Only Diagnoses Cardiac pacemaker in situ Z95.0 CPT Codes Cardiac Device Check - Cardiac Device 12: [id number] Cardiac Device In terrogation, pacemaker ([id number])
== END ==
PROVIDERS: PCP Internal Medicine; Visit Provider Internal Medicine Cardiovascular Disease
DX: Z45.018 Encounter for adjustment and management of other part of cardiac pacemaker (principal)
CPT/HCPCS: 93294

== ENCOUNTER 2024-02-01 16:19 | Outpatient (AMB) | payer MEDICARE, SELFPAY ==
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
== END 2024-02-01 17:02 | disposition home or self-care (01) ==
LOC: HO.HOP 16:19
PROVIDERS: PCP Internal Medicine; Visit Provider Psychiatry & Neurology Psychiatry
DX: F41.0 Panic disorder [episodic paroxysmal anxiety] (principal); F41.1 Generalized anxiety disorder
CPT/HCPCS: 99214

== ENCOUNTER → 2024-02-01 16:19 | Outpatient (BNVA) | payer MEDICARE, SELFPAY | PROVIDERS: PCP Internal Medicine; Visit Provider Psychiatry & Neurology Psychiatry | DX: F41.0 Panic disorder [episodic paroxysmal anxiety] (principal); F41.1 Generalized anxiety disorder; Z79.899 Other long term (current) drug therapy | CPT/HCPCS: 99212 ==

== ENCOUNTER 2024-02-03 13:22 | Outpatient (AMB) | payer MEDICARE, SELFPAY ==
[2024-02-03 13:30] VITALS: BP 102/68; PULSE 94; O2SAT 97; BMI 37.2
--- NOTE | 2024-02-03 13:30 | MHC.OFFVIS ---
Vital Signs 02/03/24 13:30 Height 5 ft 5.5 in Weight 227 lb 1.218 oz BMI 37.2 BP 102/68 Blood Pressure Location Lt brachial Position Sitting Pulse 94 Pulse Source Pulse Oximeter Pulse Oximetry (%) 97 Oxygen Delivery Method Room Air Intake Visit Reasons: Obstructive sleep apnea Intake Note: pt is here for follow up is feeling alright just her moments of aib causing some short of breath Saw Man Required: No Allergies amiodarone [AMIODARONE] Allergy (Severe, Verified 02/03/24 13:46) INTERSTITIAL PNEUMONITIS, fluid gain, interstial pneumonitis amoxicillin [AMOXICILLIN] Allergy (Unknown, Verified 02/03/24 13:46) SHAKES ALL OVER , shaky, shaky doxycycline [DOXYCYCLINE] Adverse Reaction (Unknown, Verified 02/03/24 13:46) STOMACH UPSET, upset stomach Medication List - Last Reconciled 02/03/24 by Idalia Woo MD cyproheptadine 4 mg PO BEDTIME estradiol-norethindrone acet 0.05-0.14 mg/24 hr 1 patch transdermal 2XW fluvoxamine 25 mg PO TID 3 months furosemide 20 mg PO Three tablets by mouth every morning and two tablets by mouth at noon; lorazepam 0.25 - 0.5 mg (0.5 - 1 x 0.5 mg) PO TID metoprolol succinate ER (Toprol XL) 100 mg PO DAILY omeprazole 20 mg PO BEDTIME rivaroxaban (Xarelto) 20 mg PO DAILY spironolactone (Aldactone) 12.5 mg (1/2 x 25 mg) PO DAILY 90 days Synthroid (levothyroxine) 137 mcg PO DAILY NS Do you need a note to return to daycare/school/sports/work: No HPI HPI Obstructive sleep apnea: Details: ANGELA COMES AFTER 6 MONTHS FOR FOLLOW-UP. SHE IS A CASE OF OBSTRUCTIVE SLEEP APNEA AND HAS BEEN USING CPAP VERY REGULARLY. SHE HER INTERFACE IS NASAL PILLOWS WHICH SHE LIKES VERY MUCH.. SHE SLEEPS GOOD AND IN DEEP STAGES. SHE TALKS DURING THE SLEEP AND THE GETS SOMEWHAT DISTURBED SHE WAKES UP IN THE MORNING FULLY REFRESHED. FORMERLY [facility], LATER [facility] Medical History Essential hypertension Hypothyroidism Panic disorder [episodic paroxysmal anxiety] Tachycardia COLIN on CPAP Cardiac pacemaker in situ Non-toxic multinodular goiter Subclinical hypothyroidism Osteopenia Hyperparathyroidism COPD (chronic obstructive pulmonary disease) Chronic heart failure with preserved ejection fraction (HFpEF) Sick sinus syndrome Elevated antinuclear antibody (LORETO) level Drug-induced pneumonitis Dyslipidemia Persistent atrial fibrillation Depression with anxiety Stress incontinence Surgical History Hx of colonoscopy History of parathyroidectomy Hx of thyroidectomy S/P placement of cardiac pacemaker H/O unilateral oophorectomy History of removal of cyst Family History Father Cirrhosis with alcoholism Medical history non-contributory Mother Medical history non-contributory Hypothyroidism Social History Housing: Condominium Alcohol intake: never Patient Tobacco Use Status: Former Tobacco user Quit Date: 1992 e-Cigarette/Vaping Use: Never Used service: No Current occupational status: retired Cognitive needs: No Hearing needs: No Vision needs: No Review of Systems Const All systems reviewed & are unremarkable except as noted in HPI and below Eyes Reports no additional complaints ENT Reports no additional complaints Card Reports irregular heart rhythm and Reports dyspnea on exertion (mild) Resp Reports as per HPI and Reports dyspnea on exertion (mild) GI Reports no additional complaints Reports no additional complaints Musc Reports no additional complaints Skin/Breast Reports system reviewed and no additional complaints, except as documented Neuro Reports no additional complaints Psych Reports anxiety and Reports depression (Mild controlled) Endo Reports no additional complaints Physical Exam Vital Signs: Last Vital Signs Pulse 94 02/03/24 13:30 BP 102/68 02/03/24 13:30 Pulse Ox 97 02/03/24 13:30 Oxygen Delivery Method Room Air 02/03/24 13:30 BMI result Body Mass Index 37.2 Const General: comfortable, no acute distress, alert and awake Orientation/consciousness: patient oriented x3 HEENT Head: Yes normal to inspection General nose exam: No nasal polyps present and No nasal discharge present Face and sinus: Yes sinuses nontender Mouth: oropharynx normal Throat: Yes posterior oropharynx normal Eyes General: appearance normal, both eyes and all related structures Neck Neck: Yes normal visual inspection, Yes no lymphadenopathy, Yes trachea midline and Yes no JVD Thyroid: Thyroid normal Chest Chest palpation & inspection: normal inspection of the chest, normal palpation of entire chest wall and no tenderness Resp Other: Percussion note is resonant, breath sounds are slightly distant but equal on both sides, No wheezes rhonchi or crepitations are heard. Cardio Palpation: normal PMI Rate: regular rate Rhythm: regular rhythm Heart sounds: no gallops and no murmurs GI Palpation (GI): Soft to palpation, nontender, No hepatosplenomegaly present and no masses Auscultation: normal bowel sounds Back/Spine/Pelvis Thoracic/Lumbar Spine: thoracic and lumbar spine normal to inspection Skin General skin exam: no rashes or lesions noted Neuro General: patient oriented x3 and no focal motor deficits Cranial nerves: Yes CN's II-XII intact bilaterally Extrem General: Yes normal to inspection, Yes no clubbing, cyanosis or edema and Yes no calf tenderness Psych Appearance: grossly normal and well kempt Speech and movement: Normal speech and movement present Results Reviewed Results Reviewed: COMPLIANCE REPORT IS REVIEWED AND SHE HAS USED 30/30 NIGHTS, 100%. AVERAGE USE IT PER NIGHT 7 HOURS 25 MINUTES. THERE IS ONLY MILD AIR LEAKAGE. RESIDUAL AHI 2.5 Assessment & Plan Assessment & Plan (1) COLIN on CPAP: Comment: Known case of obstructive sleep apnea. Using CPAP regularly every night . Compliance is good . She feels more comfortable with the nasal pillows . Code(s): G47.33 - Obstructive sleep apnea (adult) (pediatric); Z99.89 - Dependence on other enabling machines and devices Category: Medical Plan: Explained to her about her compliance. She is commended for good compliance. Encouraged to continue using it regularly Otherwise she is doing okay. Will recheck after 6 months. Coding Level of Care Code Est Pt Level 3 (27061) Diagnoses COLIN on CPAP G47.33; Z99.89
== END 2024-02-03 13:48 | disposition home or self-care (01) ==
PROVIDERS: PCP Internal Medicine; Visit Provider Internal Medicine
DX: G47.33 Obstructive sleep apnea (adult) (pediatric) (principal); Z99.89 Dependence on other enabling machines and devices
CPT/HCPCS: 99213

== ENCOUNTER → 2024-02-03 13:22 | Outpatient (BNVA) | payer MEDICARE, SELFPAY | PROVIDERS: PCP Internal Medicine; Visit Provider Internal Medicine | DX: G47.33 Obstructive sleep apnea (adult) (pediatric) (principal); Z99.89 Dependence on other enabling machines and devices | CPT/HCPCS: 99212 ==

== ENCOUNTER 2024-03-14 07:40 | Outpatient (REF) | payer MEDICARE, SELFPAY ==
[2024-03-14 12:34] LABS: Alanine Aminotransferase 17 U/L (0-31); Anion Gap 16 (12-20); Aspartate Amino Transferase 23 U/L (5-31); Blood Urea Nitrogen 22 mg/dL (9-16); Calcium 9.5 mg/dL (8.4-10.2); Carbon Dioxide 29 mmol/L (22-29); Chloride 102 mmol/L (96-108); Cholesterol 199 mg/dL (<200); Estimated Glomerular Filt Rate > 60; Glucose Fasting 93 mg/dL (60-99); HDL Cholesterol 46 mg/dL (>40); LDL Cholesterol Calculated 130 mg/dL (<100); Potassium 3.9 mmol/L (3.3-5.1); Sodium 143 mmol/L (135-145); Triglycerides 117 mg/dL (<150); Vitamin D 25-OH Total 46.1 ng/mL (>30)
== END 2024-03-14 07:41 | disposition home or self-care (01) ==
LOC: HO.HMGCLDS 07:40
PROVIDERS: PCP Internal Medicine; Visit Provider Internal Medicine
DX: I10 Essential (primary) hypertension (principal); M85.852 Other specified disorders of bone density and structure, left thigh
CPT/HCPCS: 36415; 80048; 80061; 82306; 84450; 84460

== ENCOUNTER 2024-03-16 14:47 | Outpatient (AMB) | payer MEDICARE, SELFPAY ==
[2024-03-16 15:39] VITALS: BP 120/70; PULSE 100; O2SAT 94; BMI 35.7
--- NOTE | 2024-03-16 15:39 | MHC.PC.OV ---
Vital Signs 03/16/24 15:39 Height 5 ft 5.5 in Weight 218 lb BMI 35.7 BP 120/70 Blood Pressure Location Rt brachial Position Sitting Pulse 100 Pulse Source Pulse Oximeter Pulse Oximetry (%) 94 Oxygen Delivery Method Room Air Intake Visit Reasons: follow up Intake Note: Pt is here today to discuss recent lab results Allergies amiodarone [AMIODARONE] Allergy (Severe, Verified 03/26/24 17:11) INTERSTITIAL PNEUMONITIS, fluid gain, interstial pneumonitis amoxicillin [AMOXICILLIN] Allergy (Unknown, Verified 03/26/24 17:11) SHAKES ALL OVER , shaky, shaky doxycycline [DOXYCYCLINE] Adverse Reaction (Unknown, Verified 03/26/24 17:11) STOMACH UPSET, upset stomach flecainide Adverse Reaction (Verified 03/26/24 17:11) dizzy Medication List - Last Reconciled 03/26/24 by Magalys Wall MD cyproheptadine 4 mg PO BEDTIME estradiol-norethindrone acet 0.05-0.14 mg/24 hr 1 patch transdermal 2XW fluvoxamine 25 mg PO TID 3 months furosemide 20 mg PO Three tablets by mouth every morning and two tablets by mouth at noon; lorazepam 0.5 mg take one half to one tablet by mouth 3 times a day; metoprolol succinate ER (Toprol XL) 100 mg PO DAILY omeprazole 20 mg PO BEDTIME rivaroxaban (Xarelto) 20 mg PO DAILY spironolactone (Aldactone) 12.5 mg (1/2 x 25 mg) PO DAILY 90 days Synthroid (levothyroxine) 137 mcg PO DAILY NS Tobacco use date assessed: 03/16/24 Fall risk assessment: No Falls in past year Last assessed Fall Risk: 03/16/24 Dental Screening Dental Screen Date: 03/16/24 Did you have a dental visit in the last 12 months?: Yes Did you have a dental problem in the last 6 months where you did not have access to dental care?: No Was dental information given to patient?: Patient has dentist HPI follow up HPI Details 73-year-old lady with hypothyroidism, hypertension, here today for follow-up she is currently taking Synthroid 137 mcg once a day in a.m., spironolactone 12.5 mg daily, metoprolol succinate 100 mg daily. Feels well on current dose, has no complaints at present time PFSH Medical History Essential hypertension Hypothyroidism Panic disorder [episodic paroxysmal anxiety] Tachycardia COLIN on CPAP Cardiac pacemaker in situ Non-toxic multinodular goiter Subclinical hypothyroidism Osteopenia Hyperparathyroidism COPD (chronic obstructive pulmonary disease) Chronic heart failure with preserved ejection fraction (HFpEF) Sick sinus syndrome Elevated antinuclear antibody (LORETO) level Drug-induced pneumonitis Dyslipidemia Persistent atrial fibrillation Depression with anxiety Stress incontinence Surgical History Hx of colonoscopy History of parathyroidectomy Hx of thyroidectomy S/P placement of cardiac pacemaker H/O unilateral oophorectomy History of removal of cyst Family History Father Cirrhosis with alcoholism Medical history non-contributory Mother Medical history non-contributory Hypothyroidism Social History Housing: Condominium Alcohol intake: never Patient Tobacco Use Status: Former Tobacco user e-Cigarette/Vaping Use: Never Used service: No Current occupational status: retired Cognitive needs: No Hearing needs: No Vision needs: No Questionnaire Thrive Questionnaire Date Thrive assessed: 11/18/23 GERMAINE-7 AMB Questionnaire GERMAINE-7 Date GERMAINE - 7 assessed: 11/18/23 Source: Developed by Drs. Jeromy Cardozo, Minerva Iniguez, Josemanuel Vazquez and colleagues, with an educational elizabeth from [employer]. Review of Systems Const Denies fatigue, Denies fever(s), Denies frequent falls and Denies weakness Eyes Reports no additional complaints ENT Reports no additional complaints Card Denies chest pain, Denies leg edema, Denies lightheadedness, Denies palpitations and Denies dyspnea Resp Denies cough and Denies dyspnea GI Denies abdominal pain, Denies change in bowel habits, Denies change in stool character and Denies heartburn Reports no additional complaints Musc Denies abnormal gait, Denies arthralgias, Denies muscle weakness, Denies numbness and Denies tingling Neuro Denies abnormal gait, Denies frequent falls, Denies numbness, Denies tingling and Denies weakness Psych Reports no additional complaints Endo Denies fatigue and Denies palpitations Physical exam (Primary Care) Vital Signs: Last Vital Signs Pulse 100 03/16/24 15:39 BP 120/70 03/16/24 15:39 Pulse Ox 94 03/16/24 15:39 Oxygen Delivery Method Room Air 03/16/24 15:39 BMI result Body Mass Index 35.7 Tobacco/Smoking Status: Tobacco use Status Tobacco use date assessed 03/16/24 03/16/24 15:41 Patient Tobacco Use Status Former Tobacco user 03/16/24 15:41 e-Cigarette/Vaping Use Never Used 03/16/24 15:41 Thrive Assessment: Date of Thrive Assessment Date Thrive assessed 11/18/23 03/16/24 15:41 Const General: no acute distress and alert Orientation/consciousness: patient oriented x3 HENMT Head: Yes normocephalic Ears: external ears normal, TM's normal bilaterally and EAC's normal Neck Neck: Yes full ROM, Yes no lymphadenopathy and Yes supple Resp Effort & Inspection: normal respiratory effort Auscultation: clear to auscultation bilaterally Cardio Other: S1-S2 present regular rate and rhythm GI Other: Normal bowel sounds, soft, nontender with no mass palpated Skin General skin exam: no rashes or lesions noted Neuro General: patient oriented x3, gait normal, moves all extremities, Normal light touch and pain sensation, no focal motor deficits and CN's II-XI intact bilaterally Extrem General: Yes full ROM, Yes no joint enlargement, Yes no calf tenderness and Yes normal gait Results Reviewed Results Reviewed: zia: Jenny Mendoza Rhiannon Age/Sex: 73/F : 1950 Unit#: [id number] Attend Dr: Magalys Wall MD Re03/14/24 Status: DEP REF Location: [facility] Disch: SPEC : [id number] ROSALVA: 03/14/24 STATUS: COMP REQ : [id number] RECD: 03/14/[address]: Magalys Wall MD COMP: 03/14/241234 ENTERED: 03/14/[address]: ORDERED: Met Prof Fast, AST, ALT, Lipid Panel, Vitamin D 25-OH Test Result Flag Reference Sodium 143 135-145 mmol/L Potassium 3.9 3.3-5.1 mmol/L CL 102 96-108 mmol/L CO2 29 22-29 mmol/L Gap 16 12-20 BUN 22 H 9-16 mg/dL Creat 0.84 0.5-1.4 mg/dL EGFR > 60 NOTE: For -[place] individuals, multiply the result by 1.210. Chronic Kidney Disease: Estimated GFR < 60 mL/min/1.73m2 Severe Kidney Disease: Estimated GFR < 15 mL/min/1.73m2 FBS 93 60-99 mg/dL CA 9.5 # 8.4-10.2 mg/dL AST (GOT) 23 5-31 U/L ALT (GPT) 17 0-31 U/L Triglyceride 117 <150 mg/dL Desirable Triglyceride: less than 150 mg/dL Borderline High Triglyceride 150-199 mg/dL High Triglyceride: 200-499 mg/dL Very High Triglyceride: greater than or equal to 5OO mg/dL Cholesterol 199 <200 mg/dL Desirable Cholesterol: less than 200 mg/dL Borderline High Cholesterol: 200-239 mg/dL High Cholesterol: greater than 239 mg/dL LDL Calculated 130 H <100 mg/dL Desirable LDL: less than 100 mg/dL Near Optimal/Above Optimal LDL: 110-129 mg/dL Borderline High LDL: 130-159 mg/dL High LDL: 160-189 mg/dL Very High LDL: greater than or equal to 190 mg/dL HDL 46 >40 mg/dL Desirable HDL: greater than 40 mg/dL Note: This HDL assay may give artificially low results in patients with liver disease. Vit D 25-OH Tot 46.1 >30 ng/mL Health Based Reference Values* < 20 ng/mL Deficient 20-30 ng/mL Insufficient > 30 ng/mL Sufficient Laboratory Tests 11/26/23 13:03 TSH 0.49 Free T4 1.21 Assessment and Plan Assessment & Plan (1) Hypothyroidism: Code(s): E03.9 - Hypothyroidism, unspecified Qualifiers: Hypothyroidism type: acquired Qualified Code(s): E03.9 - Hypothyroidism, unspecified (2) Essential hypertension: Code(s): I10 - Essential (primary) hypertension Plan: Blood pressure at goal of less than 130/80. Continue with current medication. Reinforced importance of following a low sodium diet, getting regular exercise, and lowering stress levels. Orders: Orders Lipid Panel 06/20/24 E03.9 - Hypothyroidism, unspecified, I10 - Essential (primary) hypertension Alanine Aminotransferase 06/20/24 E03.9 - Hypothyroidism, unspecified, I10 - Essential (primary) hypertension Thyroid Stimulating Hormone 06/20/24 E03.9 - Hypothyroidism, unspecified, I10 - Essential (primary) hypertension Free T4 (Free Thyroxine) 06/20/24 E03.9 - Hypothyroidism, unspecified, I10 - Essential (primary) hypertension Basic Metabolic Panel Fasting 06/20/24 E03.9 - Hypothyroidism, unspecified, I10 - Essential (primary) hypertension Aspartate Amino Transferase 06/20/24 E03.9 - Hypothyroidism, unspecified, I10 - Essential (primary) hypertension Coding Level of Care Code Est Pt Level 4 (77415) Complex EM visit Add On G2211 Diagnoses Acquired hypothyroidism E03.9 Hypothyroidism type: acquired Essential hypertension I10
== END 2024-03-16 16:35 | disposition home or self-care (01) ==
LOC: HO.HMGC 14:47
PROVIDERS: PCP Internal Medicine; Visit Provider Internal Medicine
DX: E03.9 Hypothyroidism, unspecified (principal); I10 Essential (primary) hypertension
CPT/HCPCS: 99214; G2211

== ENCOUNTER → 2024-04-11 23:59 | Outpatient (BNV) | payer MEDICARE, SELFPAY ==
--- NOTE | 2024-04-12 14:37 | A.OFFVIS_ITS ---
Intake Visit Reasons: Remote device check- [facility] Allergies amiodarone [AMIODARONE] Allergy (Severe, Verified 03/26/24 17:11) INTERSTITIAL PNEUMONITIS, fluid gain, interstial pneumonitis amoxicillin [AMOXICILLIN] Allergy (Unknown, Verified 03/26/24 17:11) SHAKES ALL OVER , shaky, shaky doxycycline [DOXYCYCLINE] Adverse Reaction (Unknown, Verified 03/26/24 17:11) STOMACH UPSET, upset stomach flecainide Adverse Reaction (Verified 03/26/24 17:11) dizzy PFSH Medical History Essential hypertension Hypothyroidism Panic disorder [episodic paroxysmal anxiety] Tachycardia COLIN on CPAP Cardiac pacemaker in situ Non-toxic multinodular goiter Subclinical hypothyroidism Osteopenia Hyperparathyroidism COPD (chronic obstructive pulmonary disease) Chronic heart failure with preserved ejection fraction (HFpEF) Sick sinus syndrome Elevated antinuclear antibody (LORETO) level Drug-induced pneumonitis Dyslipidemia Persistent atrial fibrillation Depression with anxiety Stress incontinence Surgical History Hx of colonoscopy History of parathyroidectomy Hx of thyroidectomy S/P placement of cardiac pacemaker H/O unilateral oophorectomy History of removal of cyst Family History Father Cirrhosis with alcoholism Medical history non-contributory Mother Medical history non-contributory Hypothyroidism Social History Housing: Condominium Alcohol intake: never Patient Tobacco Use Status: Former Tobacco user e-Cigarette/Vaping Use: Never Used service: No Current occupational status: retired Cognitive needs: No Hearing needs: No Vision needs: No Office Procedures Cardiac Device Check Cardiac Device Check Details: Remote pacemaker report generated rate in 04/11/2024. Pacemaker function is adequate [id number] Cardiac Device Interrogation, pacemaker Procedure code (CPT) selection complete Assessment & Plan Assessment & Plan (1) Cardiac pacemaker in situ: Code(s): Z95.0 - Presence of cardiac pacemaker Category: Medical Plan: See above Coding Level of Care Code Procedure Only Diagnoses Cardiac pacemaker in situ Z95.0 CPT Codes Cardiac Device Check - Cardiac Device 12: [id number] Cardiac Device In terrogation, pacemaker ([id number])
== END ==
PROVIDERS: PCP Internal Medicine; Visit Provider Internal Medicine Cardiovascular Disease
DX: Z45.018 Encounter for adjustment and management of other part of cardiac pacemaker (principal)
CPT/HCPCS: 93294

== ENCOUNTER 2024-04-20 14:31 | Outpatient (AMB) | payer MEDICARE, SELFPAY ==
[2024-04-20 14:34] VITALS: BP 120/74; PULSE 92; BMI 36.5
--- NOTE | 2024-04-20 14:34 | A.OFFVIS_ITS ---
Vital Signs 04/20/24 14:34 Height 5 ft 5.5 in Weight 222 lb 10.67 oz BMI 36.5 BP 120/74 Blood Pressure Location Lt brachial Position Sitting Pulse 92 Intake Visit Reasons: 6 mth f/up Intake Note: 6 month follow-up with [facility] c/o sob at times Business Analytics Specialist Required: No Telephone Diaphragm Assembler: Telephone Diaphragm Assembler Present Accompanied by: Spouse Allergies amiodarone [AMIODARONE] Allergy (Severe, Verified 03/26/24 17:11) INTERSTITIAL PNEUMONITIS, fluid gain, interstial pneumonitis amoxicillin [AMOXICILLIN] Allergy (Unknown, Verified 03/26/24 17:11) SHAKES ALL OVER , shaky, shaky doxycycline [DOXYCYCLINE] Adverse Reaction (Unknown, Verified 03/26/24 17:11) STOMACH UPSET, upset stomach flecainide Adverse Reaction (Verified 03/26/24 17:11) dizzy Medication List - Last Reconciled 04/20/24 by Fabian Arndt MD cyproheptadine 4 mg PO BEDTIME estradiol-norethindrone acet 0.05-0.14 mg/24 hr 1 patch transdermal 2XW fluvoxamine 25 mg PO TID 3 months furosemide 20 mg PO Three tablets by mouth every morning and two tablets by m outh at noon; lorazepam 0.5 mg take one half to one tablet by mouth 3 times a day; metoprolol succinate ER (Toprol XL) 100 mg PO DAILY omeprazole 20 mg PO BEDTIME rivaroxaban (Xarelto) 20 mg PO DAILY spironolactone (Aldactone) 12.5 mg (1/2 x 25 mg) PO DAILY 90 days Synthroid (levothyroxine) 137 mcg PO DAILY NS HPI Comments Details: Jenny comes for follow-up. Patient presents here with her . She was wondering whether heart can go back in regular rhythm. We have had this discussions in many times in the past and has said that she has failed rhythm control approach with significant left atrial enlargement unlikely that she will be able to have rhythm control approach. At this point time she has had no progressive heart failure syndrome. She has been taking her diuretic regimen. As per the pacer telemetry she has been very active up to 8 hours a day. She has no bleeding issues or neurologic events. Recent renal functions are within normal limits. Taking all her medications regularly. Denies any orthopnea, PND, worsening leg edema. Denies any palpitations although she says she sometimes feels anxious. No exertional chest pain. [facility] Medical History (Updated 04/21/24 @ 09:07 by Fabian Arndt MD) Essential hypertension Hypothyroidism Panic disorder [episodic paroxysmal anxiety] Tachycardia COLIN on CPAP Cardiac pacemaker in situ Non-toxic multinodular goiter Subclinical hypothyroidism Osteopenia Hyperparathyroidism COPD (chronic obstructive pulmonary disease) Chronic heart failure with preserved ejection fraction (HFpEF) Sick sinus syndrome Elevated antinuclear antibody (LORETO) level Drug-induced pneumonitis Dyslipidemia Depression with anxiety Stress incontinence Surgical History Hx of colonoscopy History of parathyroidectomy Hx of thyroidectomy S/P placement of cardiac pacemaker H/O unilateral oophorectomy History of removal of cyst Family History Father Cirrhosis with alcoholism Medical history non-contributory Mother Medical history non-contributory Hypothyroidism Social History Housing: Condominium Alcohol intake: never Patient Tobacco Use Status: Former Tobacco user e-Cigarette/Vaping Use: Never Used service: No Current occupational status: retired Cognitive needs: No Hearing needs: No Vision needs: No Review of Systems Const Denies chills, Denies fatigue, Denies fever(s), Denies frequent falls, Denies weakness, Denies weight gain and Denies weight loss ENT Denies dizziness Card Denies chest pain, Denies leg edema, Denies lightheadedness, Denies palpitations, Denies dyspnea, Denies dyspnea on exertion, Denies orthopnea and Denies other (loss of consciousness) Resp Denies cough, Denies dyspnea and Denies dyspnea on exertion GI Denies hematochezia and Denies change in stool character Musc Denies abnormal gait, Denies muscle weakness, Denies numbness, Denies radiating pain into limb and Denies tingling Neuro Denies abnormal gait, Denies dizziness, Denies frequent falls, Denies numbness, Denies tingling and Denies weakness Endo Denies fatigue and Denies palpitations Physical Exam Vital Signs: Last Vital Signs Pulse 92 04/20/24 14:34 BP 120/74 04/20/24 14:34 BMI result Body Mass Index 36.5 Const General: cooperative, comfortable, no acute distress, alert and awake Nutritional Appearance: obese Orientation/consciousness: patient oriented x3 Limitations: no limitations Neck Neck: Yes trachea midline, Yes supple and Yes no JVD Resp Effort & Inspection: normal respiratory effort Auscultation: clear to auscultation bilaterally Cardio Rate: tachycardic Rhythm: abnormal rhythm irregularly irregular Heart sounds: S1 normal heart sound present and S2 normal heart sound present GI Auscultation: normal bowel sounds Skin General skin exam: no rashes or lesions noted and ecchymosis Neuro General: patient oriented x3 and no focal motor deficits Extrem General: Yes no clubbing, cyanosis or edema Psych Appearance: grossly normal Office Procedures Cardiac Device Check Cardiac Device Check Details: Dual-chamber [place] pacemaker in place programmed in VVI due to underlying atrial fibrillation. Ventricular pacing 4.9% of the time. Ventricular pacing thresholds are adequate and in our capture mode. Ventricular sensing is adequate. Pacing lead impedance is stable. Battery life is up to 8 years [id number] Cardiac Device Check, pacemaker dual lead Procedure code (CPT) selection complete Assessment & Plan Assessment & Plan (1) Chronic heart failure with preserved ejection fraction (HFpEF): Code(s): I50.32 - Chronic diastolic (congestive) heart failure Category: Medical Plan: Heart failure preserved ejection fraction, clinically euvolemic and well compensated current diuretic dose. Heart failure management discussed. She is extremely active for her age and weather underlying cardiovascular condition. Continue maintain the same. Continue spironolactone therapy for neurohormonal modulation. Continue aggressive rate control approach. Additional diuretics as need be. Daily weight monitoring avoidance of salt loading was discussed. She understands management of heart failure. (2) Chronic a-fib: Code(s): I48.20 - Chronic atrial fibrillation, unspecified Category: Medical Plan: Chronic atrial fibrillation. Advise to continue current rate control approach. We discussed again that it is unlikely that will be able to pursue rhythm control approach. Continue full oral anticoagulation, currently on Xarelto 20 mg daily. Semi annual renal function test should be pursued. Annual CBC should be checked. (3) Cardiac pacemaker in situ: Code(s): Z95.0 - Presence of cardiac pacemaker Category: Medical Plan: Cardiac pacemaker in-situ, working well. Reprogrammed for adequate function. Will follow-up remotely every 3 months. Follow up in the clinic in 6 months time. Follow up in the clinic in 6 months time, sooner p.r.n.. Thank you for allowing me to partake in care Coding Level of Care Code Est Pt Level 4 (46558) Diagnoses Chronic heart failure with preserved ejection fraction (HFpEF) I50.32 Chronic a-fib I48.20 Cardiac pacemaker in situ Z95.0 CPT Codes Cardiac Device Check - Cardiac Device 2: [id number] Cardiac Device Check, pacemaker dual lead ([id number])
== END 2024-04-20 15:03 | disposition home or self-care (01) ==
PROVIDERS: PCP Internal Medicine; Visit Provider Internal Medicine Cardiovascular Disease
DX: I50.32 Chronic diastolic (congestive) heart failure (principal); I48.20 Chronic atrial fibrillation, unspecified; Z95.0 Presence of cardiac pacemaker
CPT/HCPCS: 93280; 99214

== ENCOUNTER → 2024-04-20 14:31 | Outpatient (BNVA) | payer MEDICARE, SELFPAY | PROVIDERS: PCP Internal Medicine; Visit Provider Internal Medicine Cardiovascular Disease | DX: I50.32 Chronic diastolic (congestive) heart failure (principal); I48.20 Chronic atrial fibrillation, unspecified; Z45.018 Encounter for adjustment and management of other part of cardiac pacemaker | CPT/HCPCS: 93280; 99212 ==

== ENCOUNTER 2024-06-07 14:57 | Outpatient (AMB) | payer MEDICARE, SELFPAY ==
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
== END 2024-06-07 15:50 | disposition home or self-care (01) ==
LOC: HO.HOP 14:57
PROVIDERS: PCP Internal Medicine; Visit Provider Psychiatry & Neurology Psychiatry
DX: F41.0 Panic disorder [episodic paroxysmal anxiety] (principal); G47.33 Obstructive sleep apnea (adult) (pediatric); Z99.89 Dependence on other enabling machines and devices
CPT/HCPCS: 90833; 99213

== ENCOUNTER → 2024-06-07 14:57 | Outpatient (BNVA) | payer MEDICARE, SELFPAY | PROVIDERS: PCP Internal Medicine; Visit Provider Psychiatry & Neurology Psychiatry | DX: F41.0 Panic disorder [episodic paroxysmal anxiety] (principal); G47.33 Obstructive sleep apnea (adult) (pediatric); Z99.89 Dependence on other enabling machines and devices | CPT/HCPCS: 99212 ==

== ENCOUNTER → 2024-07-11 23:59 | Outpatient (BNV) | payer MEDICARE, SELFPAY ==
--- NOTE | 2024-07-24 17:18 | MHC.OFFVIS ---
Intake Visit Reasons: Remote device check- [facility] Allergies amiodarone [AMIODARONE] Allergy (Severe, Verified 03/26/24 17:11) INTERSTITIAL PNEUMONITIS, fluid gain, interstial pneumonitis amoxicillin [AMOXICILLIN] Allergy (Unknown, Verified 03/26/24 17:11) SHAKES ALL OVER , shaky, shaky doxycycline [DOXYCYCLINE] Adverse Reaction (Unknown, Verified 03/26/24 17:11) STOMACH UPSET, upset stomach flecainide Adverse Reaction (Verified 03/26/24 17:11) dizzy [facility] Medical History (Updated 05/26/24 @ 11:43 by Magalys Wall MD) Postmenopausal HRT (hormone replacement therapy) Essential hypertension Hypothyroidism Panic disorder [episodic paroxysmal anxiety] Tachycardia COLIN on CPAP Cardiac pacemaker in situ Non-toxic multinodular goiter Subclinical hypothyroidism Osteopenia Hyperparathyroidism COPD (chronic obstructive pulmonary disease) Chronic heart failure with preserved ejection fraction (HFpEF) Sick sinus syndrome Elevated antinuclear antibody (LORETO) level Drug-induced pneumonitis Dyslipidemia Depression with anxiety Stress incontinence Surgical History Hx of colonoscopy History of parathyroidectomy Hx of thyroidectomy S/P placement of cardiac pacemaker H/O unilateral oophorectomy History of removal of cyst Family History Father Cirrhosis with alcoholism Medical history non-contributory Mother Medical history non-contributory Hypothyroidism Social History Housing: Condominium Alcohol intake: never Patient Tobacco Use Status: Former Tobacco user e-Cigarette/Vaping Use: Never Used service: No Current occupational status: retired Cognitive needs: No Hearing needs: No Vision needs: No Office Procedures Cardiac Device Check Cardiac Device Check Details: Remote pacemaker report generated 07/11/2024. Pacemaker function is adequate [id number] Cardiac Device Interrogation, pacemaker Procedure code (CPT) selection complete Assessment & Plan Assessment & Plan (1) Cardiac pacemaker in situ: Code(s): Z95.0 - Presence of cardiac pacemaker Category: Medical Plan: See above Coding Level of Care Code Procedure Only Diagnoses Cardiac pacemaker in situ Z95.0 CPT Codes Cardiac Device Check - Cardiac Device 12: [id number] Cardiac Device Interrogation, pacemaker ([id number])
== END ==
PROVIDERS: PCP Internal Medicine; Visit Provider Internal Medicine Cardiovascular Disease
DX: Z45.018 Encounter for adjustment and management of other part of cardiac pacemaker (principal)
CPT/HCPCS: 93294

== ENCOUNTER 2024-08-10 13:31 | Outpatient (AMB) | payer MEDICARE, SELFPAY ==
[2024-08-10 13:39] VITALS: BP 102/64; PULSE 108; O2SAT 96; BMI 37.2
--- NOTE | 2024-08-10 13:39 | A.OFFVIS_ITS ---
Vital Signs 08/10/24 13:39 Height 5 ft 5.5 in Weight 227 lb BMI 37.2 BP 102/64 Blood Pressure Location Lt brachial Position Sitting Pulse 108 H Pulse Source Pulse Oximeter Pulse Oximetry (%) 96 Oxygen Delivery Method Room Air Intake Visit Reasons: Obstructive sleep apnea Intake Note: pt is here for follow up and states she gets out of breath and this happens at different times, some short of breath with walking. Biofuels Research Scientist Required: No Allergies amiodarone [AMIODARONE] Allergy (Severe, Verified 08/10/24 13:52) INTERSTITIAL PNEUMONITIS, fluid gain, interstial pneumonitis amoxicillin [AMOXICILLIN] Allergy (Unknown, Verified 08/10/24 13:52) SHAKES ALL OVER , shaky, shaky doxycycline [DOXYCYCLINE] Adverse Reaction (Unknown, Verified 08/10/24 13:52) STOMACH UPSET, upset stomach flecainide Adverse Reaction (Verified 08/10/24 13:52) dizzy Medication List - Last Reconciled 08/10/24 by Idalia Woo MD cyproheptadine 4 mg PO BEDTIME estradiol-norethindrone acet 0.05-0.14 mg/24 hr 1 patch transdermal 2XW fluvoxamine 25 mg PO TID 3 months furosemide 20 mg PO Three tablets by mouth every morning and two tablets by mouth at noon; lorazepam 0.5 mg take one half to one tablet by mouth 3 times a day; metoprolol succinate ER (Toprol XL) 100 mg PO DAILY omeprazole 20 mg PO BEDTIME rivaroxaban (Xarelto) 20 mg PO DAILY 30 days spironolactone (Aldactone) 12.5 mg (1/2 x 25 mg) PO DAILY 90 days Synthroid (levothyroxine) 137 mcg PO DAILY NS Do you need a note to return to daycare/school/sports/work: No HPI HPI Obstructive sleep apnea: Details: 74 YEARS OLD VERY PLEASANT FEMALE IS HERE FOR FOLLOW-UP AFTER 6 MONTHS. SHE KEEPS ON USING HER CPAP VERY REGULARLY EVERY NIGHT. AND SLEEPS GOOD. HER NEW COMPLAINT TODAY IS THAT SHE WAKES UP FROM HER SLEEP WITH SHORTNESS OF BREATH, AND SHE WAKES UP IT QUICKLY GOES AWAY WITHIN A FEW MINUTES. SHE DREAMS A LOT SOMETIMES SHE SPEAKS DURING THE DREAMS, TO THE POINT THAT HER WAKES HER UP. SO THIS MAY BE RELATED TO HER WAKING UP WITH SHORTNESS OF BREATH. SHE HAS NO PROBLEM DURING THE DAYTIME. SHE CAN WALK AROUND WITHOUT MUCH SHORTNESS OF BREATH. DENIES COUGH OR WHEEZING. [facility] Medical History (Updated 08/10/24 @ 14:14 by Idalia Woo MD) Shortness of breath Postmenopausal HRT (hormone replacement therapy) Essential hypertension Hypothyroidism Panic disorder [episodic paroxysmal anxiety] Tachycardia COLIN on CPAP Cardiac pacemaker in situ Non-toxic multinodular goiter Subclinical hypothyroidism Osteopenia Hyperparathyroidism COPD (chronic obstructive pulmonary disease) Chronic heart failure with preserved ejection fraction (HFpEF) Sick sinus syndrome Elevated antinuclear antibody (LORETO) level Drug-induced pneumonitis Dyslipidemia Depression with anxiety Stress incontinence Surgical History Hx of colonoscopy History of parathyroidectomy Hx of thyroidectomy S/P placement of cardiac pacemaker H/O unilateral oophorectomy History of removal of cyst Family History Father Cirrhosis with alcoholism Medical history non-contributory Mother Medical history non-contributory Hypothyroidism Social History Housing: Condominium Alcohol intake: never Patient Tobacco Use Status: Former Tobacco user e-Cigarette/Vaping Use: Never Used service: No Current occupational status: retired Cognitive needs: No Hearing needs: No Vision needs: No Review of Systems Const All systems reviewed & are unremarkable except as noted in HPI and below Eyes Reports no additional complaints ENT Reports no additional complaints Card Reports irregular heart rhythm and Reports dyspnea on exertion (mild) Resp Reports as per HPI and Reports dyspnea on exertion (mild) GI Reports no additional complaints Reports no additional complaints Musc Reports no additional complaints Skin/Breast Reports system reviewed and no additional complaints, except as documented Neuro Reports no additional complaints Psych Reports anxiety and Reports depression (Mild controlled) Endo Reports no additional complaints Physical Exam Vital Signs: Last Vital Signs Pulse 108 H 08/10/24 13:39 BP 102/64 08/10/24 13:39 Pulse Ox 96 08/10/24 13:39 Oxygen Delivery Method Room Air 08/10/24 13:39 BMI result Body Mass Index 37.2 Const General: comfortable, no acute distress, alert and awake Orientation/consciousness: patient oriented x3 HEENT Head: Yes normal to inspection General nose exam: No nasal polyps present and No nasal discharge present Face and sinus: Yes sinuses nontender Mouth: oropharynx normal Throat: Yes posterior oropharynx normal Eyes General: appearance normal, both eyes and all related structures Neck Neck: Yes normal visual inspection, Yes no lymphadenopathy, Yes trachea midline and Yes no JVD Thyroid: Thyroid normal Chest Chest palpation & inspection: normal inspection of the chest, normal palpation of entire chest wall and no tenderness Resp Other: Percussion note is resonant, breath sounds are slightly distant but equal on both sides, No wheezes rhonchi or crepitations are heard. Cardio Palpation: normal PMI Rate: regular rate Rhythm: regular rhythm Heart sounds: no gallops and no murmurs GI Palpation (GI): Soft to palpation, nontender, No hepatosplenomegaly present and no masses Auscultation: normal bowel sounds Back/Spine/Pelvis Thoracic/Lumbar Spine: thoracic and lumbar spine normal to inspection Skin General skin exam: no rashes or lesions noted Neuro General: patient oriented x3 and no focal motor deficits Cranial nerves: Yes CN's II-XII intact bilaterally Extrem General: Yes normal to inspection, Yes no clubbing, cyanosis or edema and Yes no calf tenderness Psych Appearance: grossly normal and well kempt Speech and movement: Normal speech and movement present Office Procedures Spirometry Testing Spirometry Comments: Spirometry done in the office, Dr. Woo has the results results scanned to her chart. 16981- Spirometry Results Reviewed Results Reviewed: COMPLIANCE REPORT SPIROMETRY Assessment & Plan Assessment & Plan (1) COLIN on CPAP: Comment: Known case of obstructive sleep apnea. Using CPAP regularly every night . Compliance is good . She feels more comfortable with the nasal pillows . Code(s): G47.33 - Obstructive sleep apnea (adult) (pediatric); Z99.89 - Dependence on other enabling machines and devices Category: Medical Plan: COMMENDED FOR GOOD COMPLIANCE AND ADVISED TO CONTINUE USING THE CPAP REGULARLY. MAY TIGHTEN THE STRAPS LITTLE BIT MORE TO AVOID ANY AIR LEAK. (2) Shortness of breath: Comment: COMPLAINS OF NONSPECIFIC BOUTS OF SHORTNESS OF BREATH, SOMETIME WAKES UP WITH THESE EPISODES FROM HER SLEEP. MAY BE RELATED TO SOME ACTIVE DREAMS , SPIROMETRY PERFORMED IN THE OFFICE IS ESSENTIALLY NORMAL Code(s): R06.02 - Shortness of breath Category: Medical Plan: PATIENT IS REASSURED. ADVISED TO DO DEEP BREATHING EXERCISES IF SHE HAS ANY SPELL OF SHORTNESS OF BREATH Coding Level of Care Code Est Pt Level 3 (20294) Diagnoses COLIN on CPAP G47.33; Z99.89 Shortness of breath R06.02 CPT Codes Spirometry - CPT: 30214- Spirometry ([id number])
== END 2024-08-10 14:17 | disposition home or self-care (01) ==
PROVIDERS: PCP Internal Medicine; Visit Provider Internal Medicine
DX: G47.33 Obstructive sleep apnea (adult) (pediatric) (principal); Z99.89 Dependence on other enabling machines and devices; R06.02 Shortness of breath
CPT/HCPCS: 94010; 99213

== ENCOUNTER → 2024-08-10 13:31 | Outpatient (BNVA) | payer MEDICARE, SELFPAY | PROVIDERS: PCP Internal Medicine; Visit Provider Internal Medicine | DX: G47.33 Obstructive sleep apnea (adult) (pediatric) (principal); R06.02 Shortness of breath; Z99.89 Dependence on other enabling machines and devices | CPT/HCPCS: 94010; 99212 ==

== ENCOUNTER 2024-09-15 08:01 | Outpatient (REF) | payer MEDICARE, SELFPAY ==
--- OUTSIDE RECORDS SUMMARY | 2024-09-15 08:17 | XMS_ITS ---
Author Organization [facility] Address [address] [place] [address] Care Team Providers [facility] Name Role Phone Mae LOPEZ, Magalys Primary Care Provider Jeromy Chaparro Unavailable [phone] NIKHIL NEWMAN Unavailable Unavailable REASON FOR VISIT screening PROBLEMS Problem Type ICD Code Onset Dates Problem Status W/U Status Risk SNOMED Code Notes Problem Diverticulosis of large intestine without perforation or abscess without bleeding (K57.30) Active confirmed Diverticul ar disease of colon ([id number]) Encounters Encounter Location Date Provider Diagnosis [facility] [place] Outpatient [address] [place] [address] [id number] 11/15/2023 Jeromy La Encounter for scre ening colonoscopy Z12.11 ; Diverticulosis of large intestine without perforation or abscess without bleeding K57.30 and Other hemorrhoids K64.8 ASSESSMENTS Encounter Date Diagnosis Assessment Notes Treatment Notes Treatment Clinical Notes 11/15/2023 Encounter for screening colonoscopy (ICD-10 - Z12.11) 11/15/2023 Diverticulosis of large intestine without perforation or abscess without bleeding (ICD-10 - K57.30) 11/15/2023 Other hemorrhoids (ICD-10 - K64.8) PLAN OF TREATMENT No Information
--- OUTSIDE RECORDS SUMMARY | 2024-09-15 08:17 | XMS_ITS ---
Author Organization [facility] Address [address] [place] [address] Care Team Providers Care Physical Fitness Trainer Name Role Phone Mae LOPEZ, Magalys Primary Care Provider Jeromy Chaparro Unavailable [phone] NIKHIL NEWMAN Unavailable Unavailable ALLERGIES Allergen (clinical drug ingredient) Drug/Non Drug Allergy documented on EMR Reaction Allergy Type Onset Date Status amoxicillin Amoxicillin Unknown Drug Allergy Act alex REASON FOR VISIT Patient presents today for a screening colon MEDICATIONS Medication SIG (Take, Route, Frequency, Duration) Notes Start Date End Date Status LORazepam 0.5 MG TAKE ONE-HALF TO ONE TABLET BY MOUTH THREE TIMES A DAY Oral for 90 Active fluvoxaMINE Maleate 25 MG TAKE ONE TABLE T BY MOUTH THREE TIMES A DAY Oral for 90 Active Metoprolol Succinate ER 100 MG TAKE 1 TABLET BY MOUTH ONCE DAILY Oral for 90 Active Levothyroxine Sodium 150 MCG TAKE ONE TA BLET BY MOUTH EVERY DAY Oral for 30 Active Spironolactone 25 MG TAKE ONE-HALF TABLE T 12.5 MG) BY MOUTH EVERY DAY Oral for 30 Active Omeprazole 20 MG 1 capsule 30 minutes before morning meal Orally Once a day for 30 day(s) Active CombiPatch 0.05-0.25 MG/DAY 1 patch to s kin Transdermal as directed Active Furosemide 20 MG TAKE twoTABLET BY [facility] EVERY DAYwith 2 tablets Orally twice a day Active Xarelto 20 MG 1 tablet with food Orally Once a day for 30 day(s) Active MiraLax 17 GM 1 packet mixed with 8 ounces of fluid Orally prn Active Citracal + D Active Mucinex 600 MG 1 tablet as needed Orally every 12 hrs Active PROBLEMS Problem Type ICD Code Onset Dates Problem Status W/U Status Risk SNOMED Code Notes Problem Colon cancer screening (Z12.11) Active confirmed 376195624 Problem Anticoagulant long-term use (Z79.01) Active confirmed 798594014 Problem Gallstones (K80.20) Active confirmed 23 9207183 Problem Gilbert's syndrome (E80.4) Active confirmed 29893173 Problem Gastroesophageal reflux disease without esophagitis (K21.9) Active confirmed 966633735 VITAL SIGNS BMI 36.09 kg/m2 08/24/2023 Blood pressure systolic 00 mm Hg 08/24/20 23 Blood pressure diastolic 00 mm Hg 023 Height 66.5 in 08/24/2023 Temperature 97.3 degrees Fahrenheit 08/24/20 23 Weight 227 lbs 08/24/2023 Encounters Encounter Location Date Provider Diagnosis [facility] [address] [place] [address] 08/24/2023 Jeromy La Colon cancer screeni ng Z12.11 ; Gastroesophageal reflux disease without esophagitis K21.9 ; Anticoagulant long-term use Z79.01 ; Gallstones K80.20 and Gilbert's syndrome E80.4 ASSESSMENTS Encounter Date Diagnosis Assessment Notes Treatment Notes Treatment Clinical Notes 08/24/2023 Colon cancer screeni ng (ICD-10 - Z12.11) Stop Xarelto for 3 days before the colonoscopy Do not take the Furosemide or Spironolactone the day before nor on the day of the colonoscopy 08/24/2023 Gastroesophageal reflux disease without esophagitis (ICD-10 - K21.9) 08/24/2023 Anticoagulant long-term use (ICD-10 - Z79.01) 08/24/2023 Gallstones (ICD-10 - K80.20) 08/24/2023 Gilbert's syndrome (ICD-10 - E80.4) PLAN OF TREATMENT Treatment Notes Assessment Notes Colon cancer screening Stop Xarelto for 3 days before the colonoscopy Do not take the Furosemide or Spironolactone the day before nor on the day of the colonoscopy Future Test Test Name Order Date COLONOSCOPY 08/24/2023 Next Appt Details Follow Up: prn, Reason: Progress Notes * Examination Category Sub-Category Detail Notes General Examination GENERAL APPEARANCE: pleasant , well nourished, well developed, in no acute distress EYES: sclera non-icteric NECK/THYROID: no cervical lymphade nopathy, neck supple HEART: S1, S2 normal LUNGS: clear to auscultatio n bilaterally ABDOMEN: normal bowel sounds, no guarding or rigidity, no hepatosplenomegaly, no masses palpable, soft, nontender, nondistended. NEUROLOGIC: alert and oriented SKIN: nonjaundiced, no spi shayy angiomata. EXTREMITIES: no edema ORAL CAVITY: mucosa moist
--- OUTSIDE RECORDS SUMMARY | 2024-09-15 08:18 | XMS_ITS | Continuity of Care Document ---
Author Name [facility] Organization [facility] Care Team Providers Care Clinical Assistant Name Role Phone [facility] Unavailable Unavailable Immunizations Combined list of available immunizations from the Department of Defense and Veterans Affairs facilities. Immunization Series Date Given Administered By Site Reaction Lot Number [id number] Code Drug Dispatcher Automobile Rental Status Comments Source COVID-19 (MODERNA), MRNA, LNP-S, PF, 100 MCG OR 50 MCG DOSE 3 2020 207 complet ed MOD; [id number]; 2 IELD COVID-19 (MODERNA), MRNA, LNP-S, PF, 100 MCG/0.5 ML DOSE 2 2020 207 complet ed MOD; [id number]; IELD COVID-19 (MODERNA), MRNA, LNP-S, PF, 100 MCG/0.5 ML DOSE 1 2020 207 complet ed MOD; [id number]; 1 IELD
--- OUTSIDE RECORDS SUMMARY | 2024-09-15 08:18 | XMS_ITS | Patient Health Record ---
Author Organization [facility] Address [address] [place] [address] Care Team Providers Care Chief Lending Officer Name Role Phone Magalys Wall MD Primary Care Provider Jeromy Chaparro Unavailable [phone] NIKHIL NEWMAN Unavailable Unavailable ALLERGIES Allergen (clinical drug ingredient) Drug/Non Drug Allergy documented on EMR Reaction Allergy Type Onset Date Status amoxicillin Amoxicillin Unknown Drug Allergy Act alex REASON FOR REFERRAL No Information MEDICATIONS Medication SIG (Take, Route, Frequency, Duration) Notes Start Date End Date Status Levothyroxine Sodium 150 MCG TAKE ONE TA BLET BY MOUTH EVERY DAY Oral for 30 Active Spironolactone 25 MG TAKE ONE-HALF TABLE T 12.5 MG) BY MOUTH EVERY DAY Oral for 30 Active LORazepam 0.5 MG TAKE ONE-HALF TO ONE TABLET BY MOUTH THREE TIMES A DAY Oral for 90 Active fluvoxaMINE Maleate 25 MG TAKE ONE TABLE T BY MOUTH THREE TIMES A DAY Oral for 90 Active Omeprazole 20 MG 1 capsule 30 minutes before morning meal Orally Once a day for 30 day(s) Active CombiPatch 0.05-0.25 MG/DAY 1 patch to s kin Transdermal as directed Active Furosemide 20 MG [facility]T [facility] EVERY DAYwith 2 tablets Orally twice a day Active Xarelto 20 MG 1 tablet with food Orally Once a day for 30 day(s) Active Metoprolol Succinate ER 100 MG TAKE 1 TABLET BY MOUTH ONCE DAILY Oral for 90 Active MiraLax 17 GM 1 packet mixed with 8 ounces of fluid Orally prn Active Citracal + D Active Mucinex 600 MG 1 tablet as needed Orally every 12 hrs Active SOCIAL HISTORY Sex Assigned At : Social History Observation Description Sex Assigned At Unknown PROBLEMS Problem Type ICD Code Onset Dates Problem Status W/U Status Risk SNOMED Code Notes Problem Colon cancer screening (Z12.11) Active confirmed 378868260 Problem Diverticulosis of large intestine without perforation or abscess without bleeding (K57.30) Active confirmed Diverticul ar disease of colon (857001819) Problem Gastroesophageal reflux disease without esophagitis (K21.9) Active confirmed 797598012 Problem Gastroesophageal reflux disease, esophagitis presence not specified (K21.9) Active confirmed 552379592 Problem Gallstones (K80.20) Active confirmed 23 3406266 Problem Pharyngoesophageal dysphagia (R13.14) Active confirmed 04186292 Problem Anticoagulant long-term use (Z79.01) Active confirmed 276857047 Problem Gilbert's syndrome (E80.4) Active confirmed 87470951 Encounters Encounter Location Date Provider Diagnosis [facility] Outpatient [address] [place] [phone] 11/15/2023 Jeromy La Encounter for scre ening [...] hemorrhoids (ICD-10 - K64.8) PLAN OF TREATMENT Future Test Test Name Order Date COLONOSCOPY 02/14/2013 UPPER GI ENDOSCOPY [place] DILATION OF ESOPH 01/24/2020 COLONOSCOPY 08/24/2023 Insurance Providers Payer Name Payer Address Payer Phone Subscriber Number Group Number Insured Name Patient Relationship to Insured Coverage Start Date Coverage End Date MEDICARE OF [place] [address] [place] [id number] POHORE, ANGELA Self - patient is the insured [facility] [employer] [address] [place] [address] [id number] POJULIETARE, ANGELA Self - patient is the insured MEDICAL (GENERAL) HISTORY Medical History History ICD Code Denies VT,DM,CVA,Lung disease,renal dise ase She describes a colonoscopy in [address] See-reportedly negative Anxiety AFIB- Dr. Arndt--has had previous cardia c ablations, s/p Pacemaker Pneumonia- Dr. Woo Neg. screening colonoscopy in 04/2013 Reports an EGD > 20 yrs ago but is not c lear about the results Sleep apnea --uses a CPAP EGD in 2019 with a small hiatal hernia b ut otherwise negative Gallstones seen on ultrasoun d and CT scan in 2022--those had been ordered by Dr. Park. She is asymptomatic in regard to her gallstones and we did review that at the 08/2023 OV. Gilbert's with slightly elev ated total bilirubins with a predominantly indirect bilirubin Surgical History Surgery Date(Month/Year) Left oopherectomy and Fallopian tube Cataracts D&C 2018 Pacemaker 2019 Thyroidectomy and removal of 3 Parathyro id glands
[2024-09-15 10:44] LABS: Alanine Aminotransferase 13 U/L (0-31); Anion Gap 14 (12-20); Aspartate Amino Transferase 28 U/L (5-31); Blood Urea Nitrogen 15 mg/dL (9-16); Calcium 8.7 mg/dL (8.4-10.2); Carbon Dioxide 30 mmol/L (22-29); Chloride 100 mmol/L (96-108); Cholesterol 158 mg/dL (<200); Estimated Glomerular Filt Rate > 60; Glucose Fasting 97 mg/dL (60-99); HDL Cholesterol 42 mg/dL (>40); LDL Cholesterol Calculated 103 mg/dL (<100); Potassium 3.6 mmol/L (3.3-5.1); Sodium 140 mmol/L (135-145); Triglycerides 66 mg/dL (<150)
[2024-09-15 11:09] LABS: Free T4 (Free Thyroxine) 1.36 ng/dL (0.71-1.85); Thyroid Stimulating Hormone 1.28 uIU/mL (0.32-4.0)
== END 2024-09-15 08:02 | disposition home or self-care (01) ==
LOC: HO.HMGCLDS 08:01
PROVIDERS: PCP Internal Medicine; Visit Provider Internal Medicine
DX: E03.9 Hypothyroidism, unspecified (principal); I10 Essential (primary) hypertension
CPT/HCPCS: 36415; 80048; 80061; 84439; 84443; 84450; 84460

== ENCOUNTER 2024-09-19 10:47 | Outpatient (AMB) | payer MEDICARE, SELFPAY ==
--- NOTE | 2024-09-19 10:51 | MHC.PC.OV ---
Intake Visit Reasons: OSWALDO [id number] - see comments Allergies amiodarone [AMIODARONE] Allergy (Severe, Verified 08/10/24 13:52) INTERSTITIAL PNEUMONITIS, fluid gain, interstial pneumonitis amoxicillin [AMOXICILLIN] Allergy (Unknown, Verified 08/10/24 13:52) SHAKES ALL OVER , shaky, shaky doxycycline [DOXYCYCLINE] Adverse Reaction (Unknown, Verified 08/10/24 13:52) STOMACH UPSET, upset stomach flecainide Adverse Reaction (Verified 08/10/24 13:52) dizzy Tobacco use date assessed: 03/16/24 Dental Screening Dental Screen Date: 03/16/24 [facility] Medical History (Updated 08/10/24 @ 14:14 by Idalia Woo MD) Shortness of breath Postmenopausal HRT (hormone replacement therapy) Essential hypertension Hypothyroidism Panic disorder [episodic paroxysmal anxiety] Tachycardia COLIN on CPAP Cardiac pacemaker in situ Non-toxic multinodular goiter Subclinical hypothyroidism Osteopenia Hyperparathyroidism COPD (chronic obstructive pulmonary disease) Chronic heart failure with preserved ejection fraction (HFpEF) Sick sinus syndrome Elevated antinuclear antibody (LORETO) level Drug-induced pneumonitis Dyslipidemia Depression with anxiety Stress incontinence Surgical History Hx of colonoscopy History of parathyroidectomy Hx of thyroidectomy S/P placement of cardiac pacemaker H/O unilateral oophorectomy History of removal of cyst Family History Father Cirrhosis with alcoholism Medical history non-contributory Mother Medical history non-contributory Hypothyroidism Social History Housing: Condominium Alcohol intake: never Patient Tobacco Use Status: Former Tobacco user e-Cigarette/Vaping Use: Never Used service: No Current occupational status: retired Cognitive needs: No Hearing needs: No Vision needs: No Questionnaire Thrive Questionnaire Date Thrive assessed: 11/18/23 GERMAINE-7 AMB Questionnaire GERMAINE-7 Date GERMAINE - 7 assessed: 11/18/23 Source: Developed by Drs. Jeromy Cardozo, Minerva Iniguez, Josemanuel Vazquez and colleagues, with an educational elizabeth from [employer] Physical exam (Primary Care) Tobacco/Smoking Status: Tobacco use Status Tobacco use date assessed 03/16/24 03/16/24 15:41 Patient Tobacco Use Status Former Tobacco user 03/16/24 15:41 e-Cigarette/Vaping Use Never Used 03/16/24 15:41 Thrive Assessment: Date of Thrive Assessment Date Thrive assessed 11/18/23 03/16/24 15:41 Coding
--- NOTE | 2024-09-19 10:54 | A.OFFVIS_ITS ---
Intake Vital Signs 09/19/24 10:57 Height 5 ft 5.5 in Weight 232 lb BMI 38.0 BP 90/62 Blood Pressure Location Rt brachial Position Sitting Pulse 111 H Pulse Source Pulse Oximeter Pulse Oximetry (%) 95 Oxygen Delivery Method Room Air Intake Visit Reasons: SWV G0439 - see comments Intake Note: Pt is here today for her SWV: Mammogram 06/22/24, colonoscopy 11/15/23 Allergies amiodarone [AMIODARONE] Allergy (Severe, Verified 09/19/24 11:03) INTERSTITIAL PNEUMONITIS, fluid gain, interstial pneumonitis amoxicillin [AMOXICILLIN] Allergy (Unknown, Verified 09/19/24 11:03) SHAKES ALL OVER , shaky, shaky doxycycline [DOXYCYCLINE] Adverse Reaction (Unknown, Verified 09/19/24 11:03) STOMACH UPSET, upset stomach flecainide Adverse Reaction (Verified 09/19/24 11:03) dizzy Medication List - Last Reconciled 09/19/24 by Magalys Wall MD cyproheptadine 4 mg PO BEDTIME estradiol-norethindrone acet 0.05-0.14 mg/24 hr 1 patch transdermal 2XW fluvoxamine 25 mg PO TID 3 months furosemide 20 mg PO Three tablets by mouth every morning and two tablets by mouth at noon; lorazepam 0.5 mg take one half to one tablet by mouth 3 times a day; metoprolol succinate ER (Toprol XL) 100 mg PO DAILY omeprazole 20 mg PO BEDTIME rivaroxaban (Xarelto) 20 mg PO DAILY 30 days spironolactone (Aldactone) 12.5 mg (1/2 x 25 mg) PO DAILY 90 days Synthroid (levothyroxine) 137 mcg PO DAILY NS HPI SWV G0439 - see comments HPI Details SWV ? 74 year old lady with history of major depression in full remission with history of panic disorder, has obstructive sleep apnea on CPAP, chronic atrial fibrillation on chronic anticoagulation, osteopenia, history of hyperparathyroidism status post parathyroidectomy and hypothyroidism status post total thyroidectomy, history of heart failure with cardiac pacemaker in place, has osteopenia, presents for her Subsequent? Annual Wellness Visit.? She has had fasting lipid panel and fasting blood sugar check done 09/15/2024 with normal findings. She is up-to-date with her screening mammogram done 06/22/2024 at [facility], and has had a cervical cancer screening done by Dr. Rosen last September 30 23 negative findings. Last bone density scan was done in 2019, which showed presence of osteopenia in left femoral neck and left femur with normal bone density in lumbar spine. She is up-to-date with her screening colonoscopy done 11/15/[address] La, , and was advised that that was to be her last 1, no need for further colonoscopy screenings. She is up-to-date with her COVID vaccination including booster, up-to-date with Tdap, Shingrix vaccine pneumonia vaccine and gets yearly flu shots. ? Medical / Social History Reviewed? Past Medical History ?Yes . ? [place] of Care / Care Team list updated ?Yes . ? Surgical/Hospitalization History ?Yes . ? Current Medications (including OTC and supplements) ?Yes . ? Family History ?Yes . ? Tobacco Control form ?Yes . ? AUDIT-C (Alcohol use) form ?Yes . ? Illicit drug use in Social History ?Yes . ? Current diagnosis of depression? ?yes , controlled , followed by Dr Bae ? Appropriate PHQ2/PHQ9 completed ?Yes . ? Data entered by ?Psychologist Chief and reviewed by provider ? Fall Risk ? Fall History? Have you had any falls with injury in the past year? ?No . ? Have you had two or more falls in the past year? ?No . ? Fall Risk Assessment: ?No falls in the past year . ? HRA filled out by the patient, reviewed by Provider and scanned. ?SWV ? Balance? Romberg negative ? Tandem walk ?Yes . ? Walk and Turn ?Yes . ? Rise from sit to stand ?Yes . ?Vision? Corrective lens none ? Vision screen ? Up-to-date, has an appointment Dr Mccormick ?Hearing? Whisper test ?pass . ?Written Plan?Completed. See Patient Documents.? [facility] Medical History (Updated 09/23/24 @ 03:17 by Magalys Wall MD) Postmenopausal HRT (hormone replacement therapy) Essential hypertension Hypothyroidism Panic disorder [episodic paroxysmal anxiety] Tachycardia COLIN on CPAP Cardiac pacemaker in situ Non-toxic multinodular goiter Subclinical hypothyroidism Osteopenia Hyperparathyroidism COPD (chronic obstructive pulmonary disease) Chronic heart failure with preserved ejection fraction (HFpEF) Sick sinus syndrome Elevated antinuclear antibody (LORETO) level Drug-induced pneumonitis Dyslipidemia Depression with anxiety Stress incontinence Surgical History Hx of colonoscopy History of parathyroidectomy Hx of thyroidectomy S/P placement of cardiac pacemaker H/O unilateral oophorectomy History of removal of cyst Family History Father Cirrhosis with alcoholism Medical history non-contributory Mother Medical history non-contributory Hypothyroidism Social History Housing: Condominium Alcohol intake: never Patient Tobacco Use Status: Former Tobacco user e-Cigarette/Vaping Use: Never Used service: No Current occupational status: retired Cognitive needs: No Hearing needs: No Vision needs: No Questionnaire Medicare Wellness Checkup [age] What gender do you identify with?: female During the past 4 weeks, how much have you been bothered by emotional problems such as feeling anxious, depressed, irritable, sad or downhearted, and blue?: moderately During the past 4 weeks, has your physical & emotional health limited your social activities with family, friends, neighbors, or groups?: slightly During the past 4 weeks, how much bodily pain have you generally had?: moderate pain During the past 4 weeks, was someone available to help you if you needed & wanted help?: yes, some During the past 4 weeks, what was the hardest physical activity you could do for at least 2 minutes?: very light Can you get to places out of walking distance without help? (For eg., can you travel alone on buses, taxis or drive your car?): Yes Can you go shopping for groceries or clothes without someone's help?: Yes Can you prepare your own meals?: Yes Can you do your housework without help?: Yes Because of any health problems, do you need the help of another person with your personal care needs such as eating, bathing, dressing or getting around the house?: No Can you handle your own money without help?: Yes During the past 4 weeks, how would you rate your health in general?: fair During the past 4 weeks how have things been going for you?: good & bad parts about equal Are you having difficulties driving your car?: no Do you always fasten your seat belt when you are in a car?: yes, usually During past 4 weeks, have you been bothered by the following: never: Sexual problems?, Trouble eating well? and Problems using the telephone?, seldom: Falling or dizzy when standing up, sometimes: Teeth or denture problems? and often: Tiredness or fatigue? Have you fallen 2 or more times in the past year?: No Are you afraid of falling?: No Are you a smoker?: no During the past 4 weeks, how many drinks of wine, beer, or other alcoholic beverages did you have?: no alcohol at all Do you exercise for about 20 minutes 3 or more times a week?: no, I usually do not exercise this much Have you been given information to help with the following?: no: Hazards in your house that might hurt you? and no: Keeping track of your medications? How often do you have trouble taking medicines the way you have been told to take them?: sometimes I take medicine as prescribed How confident are you that you can control & manage most of your health problems?: not very confident What is your race?: White Mini Mental State Exam (MMSE) Orientation What is the (year) (season) (date) (day) (month)?: year (2023), season (winter), date (09/19/2024), day (Wednesday) and month (August) Where are we (state) (county) (town or city) (hospital) (floor)?: state ([place]), county ([place]), town or city ([place]) and hospital/clinic ([facility]) Score Score: 9 Activity of Daily Living Bathing - sponge bath, tub bath or shower: receives no assistance (gets in/out by self, if usual bathing means Dressing - getting clothes from closets & drawers, including inner/outer garments & fasteners.: gets clothes & gets completely dressed without help Toileting - going to the 'toilet room' for urine/bowel elimination & cleaning self/arranging clothes: goes to toilet room, cleans self, arranges clothes without help Transfer: moves in & out of bed and chair without help (may use support object) Continence: controls urination/bowel movements completely by self Feeding: feeds self without help Total Score: 0 Information obtained from: patient Using telephone: independent Traveling: independent Shopping: independent Preparing meals: independent Housework: independent Taking medicine: independent Managing money: independent PHQ-9 Over the last 2 weeks, how often have you been bothered by any of the following problems? 1. Little interest or pleasure in doing things: not at all 2. Feeling down, depressed, or hopeless: several days 3. Trouble falling or staying asleep, or sleeping too much: more than half the days 4. Feeling tired or having little energy: more than half the days 5. Poor appetite or overeating: not at all 6. Feeling bad about yourself - or that you are a failure or have let yourself or your family down: not at all 7. Trouble concentrating on things, such as reading the newspaper or watching television: not at all 8. Moving or speaking so slowly that other people could have noticed. Or the opposite - being so fidgety or restless that you have been moving around a lot more than usual: not at all 9. Thoughts that you would be better off or of hurting yourself in some way: not at all Total score: 5 Depression Screening Interpretation: Positive (followed by Dr Bae) Depression Screening Follow-up: Existing condition, In treatment and Community Mental Health Worker F/U Depression Screening Done: Yes 81699 - PHQ-9 Billing: Yes Source: Developed by Drs. Jeromy Cardozo, Minerva Iniguez, Josemanuel Vazquez and colleagues, with an educational elizabeth from [employer] Physical Exam Vital Signs: Last Vital Signs Pulse 111 H 09/19/24 10:57 BP 90/62 09/19/24 10:57 Pulse Ox 95 09/19/24 10:57 Oxygen Delivery Method Room Air 09/19/24 10:57 BMI result Body Mass Index 38.0 Results Reviewed Results Reviewed: Name: Jenny Mendoza Age/Sex: 74/F : 1950 Unit#: [id number] Attend Dr: Magalys Wall MD Re09/15/24 Status: DEP REF Location: [facility] Disch: SPEC : [id number] ROSALVA: 09/15/24 STATUS: COMP REQ : [id number] RECD: 09/15/[address]: Magalys Wall MD COMP: 09/15/24 ENTERED: 09/15/[address]: ORDERED: Met Prof Fast, AST, ALT, Lipid Panel, Free T4, TSH Test Result Flag Reference Sodium 140 135-145 mmol/L Potassium 3.6 3.3-5.1 mmol/L CL 100 96-108 mmol/L CO2 30 H 22-29 mmol/L Gap 14 12-20 BUN 15 9-16 mg/dL Creat 0.81 0.5-1.4 mg/dL eGFR > 60 Chronic Kidney Disease: Estimated GFR < 60 mL/min/1.73m2 Severe Kidney Disease: Estimated GFR < 15 mL/min/1.73m2 FBS 97 60-99 mg/dL CA 8.7 # 8.4-10.2 mg/dL AST (GOT) 28 5-31 U/L ALT (GPT) 13 0-31 U/L Triglyceride 66 <150 mg/dL Desirable Triglyceride: less than 150 mg/dL Borderline High Triglyceride 150-199 mg/dL High Triglyceride: 200-499 mg/dL Very High Triglyceride: greater than or equal to 5OO mg/dL Cholesterol 158 <200 mg/dL Desirable Cholesterol: less than 200 mg/dL Borderline High Cholesterol: 200-239 mg/dL High Cholesterol: greater than 239 mg/dL LDL Calculated 103 H <100 mg/dL Desirable LDL: less than 100 mg/dL Near Optimal/Above Optimal LDL: 110-129 mg/dL Borderline High LDL: 130-159 mg/dL High LDL: 160-189 mg/dL Very High LDL: greater than or equal to 190 mg/dL HDL 42 >40 mg/dL Desirable HDL: greater than 40 mg/dL Note: This HDL assay may give artificially low results in patients with liver disease. Free T4 1.36 0.71-1.85 ng/dL TSH 3rd Gen. 1.28 0.32-4.0 uIU/mL TSH 3rd Generation ([facility]) Assessment & Plan Assessment & Plan (1) Encounter for subsequent annual wellness visit (AWV) in Medicare patient: Code(s): Z00.00 - Encounter for general adult medical examination without abnormal findings Plan: Medical wellness checklist reviewed, discussed with patient and updated. Up-to-date with all her vaccinations. (2) Osteopenia: Code(s): M85.80 - Other specified disorders of bone density and structure, unspecified site Qualifiers: Laterality: left Osteopenia location: femoral neck Qualified Code(s): M85.852 - Other specified disorders of bone density and structure, left thigh Plan: Ordered a repeat bone density scan. In the meantime patient advised to continue doing regular weight-bearing exercise in addition to adherence to low- cholesterol diet (3) Depression with anxiety: Comment: followed by Dr. Bae Code(s): F41.8 - Other specified anxiety disorders Plan: Currently followed by psychiatrist (4) COLIN on CPAP: Comment: Known case of obstructive sleep apnea. Using CPAP regularly every night . Compliance is good . She feels more comfortable with the nasal pillows . Code(s): G47.33 - Obstructive sleep apnea (adult) (pediatric); Z99.89 - Dependence on other enabling machines and devices Plan: Compliant with using CPAP (5) Hypothyroidism: Code(s): E03.9 - Hypothyroidism, unspecified Qualifiers: Hypothyroidism type: acquired Qualified Code(s): E03.9 - Hypothyroidism, unspecified Plan: Currently on Synthroid 137 mcg daily, will check TSH and free T4 (6) Essential hypertension: Code(s): I10 - Essential (primary) hypertension Plan: Currently on metoprolol succinate ER 100 mg daily in addition to furosemide spironolactone (7) Postmenopausal HRT (hormone replacement therapy): Code(s): Z79.890 - Hormone replacement therapy Plan: Currently on estradiol-norethindrone patch, will be following up with a new OBGYN Orders: Orders Vitamin D 25-OH Total 01/18/25 E03.9 - Hypothyroidism, unspecified, F41.8 - Other specified anxiety disorders, M85.852 - Other specified disorders of bone density and structure, left thigh XR DEXA axial skeleton 09/19/24 M85.852 - Other specified disorders of bone density and structure, left thigh, Z78.0 - Asymptomatic menopausal state Thyroid Stimulating Hormone 01/18/25 E03.9 - Hypothyroidism, unspecified, F41.8 - Other specified anxiety disorders, M85.852 - Other specified disorders of bone density and structure, left thigh Free T4 (Free Thyroxine) 01/18/25 E03.9 - Hypothyroidism, unspecified, F41.8 - Other specified anxiety disorders, M85.852 - Other specified disorders of bone density and structure, left thigh Medications: Refilled Synthroid (levothyroxine) 137 mcg PO DAILY 30 tabs 5RF NS Quality Reporting (2019) Depression/Bipolar (159/160/161/177) PHQ-9: Total score: 5 Coding Level of Care Code Medicare Subsequent (G0439) Diagnoses Encounter for subsequent annual wellness visit (AWV) in Medicare patient Z00.00 Osteopenia of neck of left femur M85.852 Laterality: left Osteopenia location: femoral neck Depression with anxiety F41.8 COLIN on CPAP G47.33; Z99.89 Acquired hypothyroidism E03.9 Hypothyroidism type: acquired Essential hypertension I10 Postmenopausal HRT (hormone replacement therapy) Z79.890 CPT Codes Advance Care Planning - Time spent: 16-45 minutes ([id number]) Additional Codes PHQ-9 - 17396 - PHQ-9 Billing: Yes ([id number]) Advance Care Planning Advance Care Planning discussion: Completed/Scanned Date of discussion: 09/19/24 Who was present: patient Forms completed: Health Care Proxy Time spent: 16-45 minutes Actual minutes spent: 3
[2024-09-19 10:57] VITALS: BP 90/62; PULSE 111; O2SAT 95; BMI 38.0
--- OUTSIDE RECORDS SUMMARY | 2024-09-19 11:01 | XMS_ITS ---
Author Organization [facility] Address [address] [place] [address] Care Team Providers Care Dining Services Director Name Role Phone Mae LOPEZ, Magalys Primary Care Provider Jeromy Chaparro Unavailable [phone] NIKHIL NEWMAN Unavailable Unavailable REASON FOR VISIT screening PROBLEMS Problem Type ICD Code Onset Dates Problem Status W/U Status Risk SNOMED Code Notes Problem Diverticulosis of large intestine without perforation or abscess without bleeding (K57.30) Active confirmed Diverticul ar disease of colon (723391987) Encounters Encounter Location Date Provider Diagnosis [facility] Outpatient [address] [place] [address] [id number] 11/15/2023 Jeromy La Encounter for scre ening [...]
--- OUTSIDE RECORDS SUMMARY | 2024-09-19 11:01 | XMS_ITS | Continuity of Care Document ---
Author Name [facility] Organization [facility] Care Team Providers Care Nurse Assistant Name Role Phone [facility] Unavailable Unavailable Immunizations Combined list of available immunizations from the Department of Defense and Veterans Affairs facilities. Immunization Series Date Given Administered By Site Reaction Lot Number CVX Code Drug Metal Burnisher Status Comments Source COVID-19 (MODERNA), MRNA, LNP-S, PF, 100 MCG OR 50 MCG DOSE 3 2020 207 complet ed MOD; [id number]; 2 IELD COVID-19 (MODERNA), MRNA, LNP-S, PF, 100 MCG/0.5 ML DOSE 2 2020 207 complet ed MOD; [id number]; IELD COVID-19 (MODERNA), MRNA, LNP-S, PF, 100 MCG/0.5 ML DOSE 1 2020 207 complet ed MOD; [id number]; 1 IELD
--- OUTSIDE RECORDS SUMMARY | 2024-09-19 11:01 | XMS_ITS | Patient Health Record ---
Author Organization [facility] Address [address] [place] [address] Care Team Providers Care Home And Family Living Professor Name Role Phone Magalys Wall MD Primary Care Provider Jeromy Chaparro Unavailable [phone] NIKHIL NEWMAN Unavailable Unavailable ALLERGIES Allergen (clinical [...] Active Furosemide [address] EVERY DAYwith 2 tablets Orally twice [...] Problem Colon cancer screening (Z12.11) Active confirmed 612848384 Problem Diverticulosis of large intestine without perforation or abscess without bleeding (K57.30) Active confirmed Diverticul ar disease of colon (339073706) Problem Gastroesophageal reflux disease without esophagitis (K21.9) Active confirmed 989202908 Problem Gastroesophageal reflux disease, esophagitis presence not specified (K21.9) Active confirmed 869166138 Problem Gallstones (K80.20) Active confirmed 23 2009153 Problem Pharyngoesophageal dysphagia (R13.14) Active confirmed 76190114 Problem Anticoagulant long-term use (Z79.01) Active confirmed 779569117 Problem Gilbert's syndrome (E80.4) Active confirmed 77223013 Encounters Encounter Location Date Provider Diagnosis [facility] Outpatient [address] [place] [address] [id number] 11/15/2023 Jeromy La Encounter for scre ening [...] OF [place] [address] [place] [address] [id number] POHORE, ANGELA Self - patient is the insured [facility] [employer] [address] [place] [address] [id number] POJULIETARE, ANGELA Self - patient is the insured MEDICAL (GENERAL) HISTORY Medical History History ICD Code Denies NH,DM,CVA,Lung disease,renal dise ase She describes a colonoscopy [...]
--- OUTSIDE RECORDS SUMMARY | 2024-09-19 11:01 | XMS_ITS ---
Author Organization [facility] Address [address] [place] [address] Care Team Providers Care Tobacco Scrap Sifter Name Role Phone Mae LOPEZ, Magalys Primary Care Provider Jeromy Chaparro Unavailable [phone] NIKHIL NEWMAN Unavailable Unavailable ALLERGIES Allergen (clinical [...] Furosemide 20 MG TAKE twoTABLET BY [facility] EVERY DAYwith 2 tablets [...] Problem Colon cancer screening (Z12.11) Active confirmed 880608818 Problem Anticoagulant long-term use (Z79.01) Active confirmed 695146667 Problem Gallstones (K80.20) Active confirmed 23 3096246 Problem Gilbert's syndrome (E80.4) Active confirmed 41613638 Problem Gastroesophageal reflux disease without esophagitis (K21.9) Active confirmed 912729607 VITAL SIGNS BMI 36.09 kg/m2 08/24/2023 Blood pressure systolic 00 mm Hg 08/24/20 23 Blood pressure diastolic 00 mm Hg 023 Height 66.5 in 08/24/2023 Temperature 97.3 degrees Fahrenheit 08/24/20 23 Weight 227 lbs 08/24/2023 Encounters Encounter Location Date Provider Diagnosis [facility] [address] [place] [address] 08/24/2023 Jeromy La Colon cancer screeni ng [...]
== END 2024-09-19 11:41 | disposition home or self-care (01) ==
PROVIDERS: PCP Internal Medicine; Visit Provider Internal Medicine
DX: Z00.00 Encounter for general adult medical examination without abnormal findings (principal); M85.852 Other specified disorders of bone density and structure, left thigh; F41.8 Other specified anxiety disorders; G47.33 Obstructive sleep apnea (adult) (pediatric); Z99.89 Dependence on other enabling machines and devices; E03.9 Hypothyroidism, unspecified; I10 Essential (primary) hypertension; Z79.890 Hormone replacement therapy

== ENCOUNTER → 2024-09-19 10:47 | Outpatient (BNVA) | payer MEDICARE, SELFPAY | PROVIDERS: PCP Internal Medicine; Visit Provider Internal Medicine | DX: Z00.00 Encounter for general adult medical examination without abnormal findings (principal); M85.852 Other specified disorders of bone density and structure, left thigh; F41.8 Other specified anxiety disorders; G47.33 Obstructive sleep apnea (adult) (pediatric); Z99.89 Dependence on other enabling machines and devices; E03.9 Hypothyroidism, unspecified; I10 Essential (primary) hypertension; Z79.890 Hormone replacement therapy | CPT/HCPCS: 96127 ==

== ENCOUNTER 2024-09-28 14:30 | Outpatient (AMB) | payer MEDICARE, SELFPAY ==
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
== END 2024-09-28 15:20 | disposition home or self-care (01) ==
LOC: HO.HOP 14:30
PROVIDERS: PCP Internal Medicine; Visit Provider Psychiatry & Neurology Psychiatry
DX: F41.8 Other specified anxiety disorders (principal); F41.1 Generalized anxiety disorder
CPT/HCPCS: 90833; 99213

== ENCOUNTER → 2024-09-28 14:30 | Outpatient (BNVA) | payer MEDICARE, SELFPAY | PROVIDERS: PCP Internal Medicine; Visit Provider Psychiatry & Neurology Psychiatry | DX: F41.8 Other specified anxiety disorders (principal); F41.1 Generalized anxiety disorder | CPT/HCPCS: 99212 ==

== ENCOUNTER → 2024-10-10 23:59 | Outpatient (BNV) | payer MEDICARE, SELFPAY ==
--- NOTE | 2024-10-13 12:38 | MHC.OFFVIS ---
Intake Visit Reasons: Remote device check- [facility] Allergies amiodarone [AMIODARONE] Allergy (Severe, Verified 09/19/24 11:03) INTERSTITIAL PNEUMONITIS, fluid gain, interstial pneumonitis amoxicillin [AMOXICILLIN] Allergy (Unknown, Verified 09/19/24 11:03) SHAKES ALL OVER , shaky, shaky doxycycline [DOXYCYCLINE] Adverse Reaction (Unknown, Verified 09/19/24 11:03) STOMACH UPSET, upset stomach flecainide Adverse Reaction (Verified 09/19/24 11:03) dizzy [facility] Medical History (Updated 09/28/24 @ 15:13 by Sourav Bae MD) Panic disorder [episodic paroxysmal anxiety] Postmenopausal HRT (hormone replacement therapy) Essential hypertension Hypothyroidism Tachycardia COLIN on CPAP Cardiac pacemaker in situ Non-toxic multinodular goiter Subclinical hypothyroidism Osteopenia Hyperparathyroidism COPD (chronic obstructive pulmonary disease) Chronic heart failure with preserved ejection fraction (HFpEF) Sick sinus syndrome Elevated antinuclear antibody (LORETO) level Drug-induced pneumonitis Dyslipidemia Depression with anxiety Stress incontinence Surgical History Hx of colonoscopy History of parathyroidectomy Hx of thyroidectomy S/P placement of cardiac pacemaker H/O unilateral oophorectomy History of removal of cyst Family History Father Cirrhosis with alcoholism Medical history non-contributory Mother Medical history non-contributory Hypothyroidism Social History Housing: Condominium Alcohol intake: never Patient Tobacco Use Status: Former Tobacco user e-Cigarette/Vaping Use: Never Used service: No Current occupational status: retired Cognitive needs: No Hearing needs: No Vision needs: No Office Procedures Cardiac Device Check Cardiac Device Check Details: Remote pacemaker report generated 10/10/2024. Pacemaker function is adequate [id number] Cardiac Device Interrogation, pacemaker Procedure code (CPT) selection complete Assessment & Plan Assessment & Plan (1) Cardiac pacemaker in situ: Code(s): Z95.0 - Presence of cardiac pacemaker Category: Medical Plan: See above Coding Level of Care Code Procedure Only Diagnoses Cardiac pacemaker in situ Z95.0 CPT Codes Cardiac Device Check - Cardiac Device 12: [id number] Cardiac Device Interrogation, pacemaker ([id number])
== END ==
PROVIDERS: PCP Internal Medicine; Visit Provider Internal Medicine Cardiovascular Disease
DX: Z45.018 Encounter for adjustment and management of other part of cardiac pacemaker (principal)
CPT/HCPCS: 93294

== ENCOUNTER 2024-10-26 15:08 | Outpatient (REF) | payer MEDICARE, SELFPAY ==
--- OUTSIDE RECORDS SUMMARY | 2024-10-26 16:14 | XMS_ITS | Clinical Summary ---
Author Organization [facility] it Address [address] [place] [address] Care Team Providers Care Custom Feed Mill Operator Helper Name Role Phone Massiel Soto MD Primary Care Provider [phone] Social History Tobacco Use Types Packs/Day Years Used Date Smoking Tobacco: Never Assessed Sex and Gender Information Value Date Recorded Sex Assigned at Not on file Gender Identity Not on file Sexual Orientation Not on file Plan of Treatment Health Maintenance Due Date Last Done Comments DTaP,Tdap,and Td Vaccines (1 - Tdap) 1967 Zoster Vaccines (1 of 2) 1998 Pneumococcal Vaccine: 65+ Years (1 of 1 - PCV) 2013 Depression Screening 08/23/2022 Falls Risk Assessment 08/23/2022 Hepatitis C Screening 08/23/2022 Osteoporosis Screening (Bone Density Screening) 08/23/2022 Social Influencers of Health Screening 08/23/2022 RSV Immunization Patients 60+ Years Old (1 - 1-dose 75+ series) 2023 COVID-19 Vaccine ( season) 2024 Influenza Vaccine (#1) 2024 Breast Cancer Screening Discontinued 06/23/20 24, 04/28/2022, 04/22/2021, Additional history exists HIB Vaccines Aged Out No longer eligi ble based on patient's age to complete this topic HPV Vaccines Aged Out No longer eligi ble based on patient's age to complete this topic Hepatitis A Vaccines Aged Out No long er eligible based on patient's age to complete this topic Hepatitis B Vaccines Aged Out No long er eligible based on patient's age to complete this topic IPV Vaccines Aged Out No longer eligi ble based on patient's age to complete this topic MMR Vaccines Aged Out No longer eligi ble based on patient's age to complete this topic Meningococcal ACWY Vaccine Aged Out N o longer eligible based on patient's age to complete this topic RSV Immunization Patients Under 20 months Aged Out No longer eligible based on patient's age to complete this topic Varicella Vaccines Aged Out No longer eligible based on patient's age to complete this topic Procedures Procedure Name Priority Date/Time Associated Diagnosis Comments [facility] SCREENING DIGITAL Routine 06/23/2024 9:25 AM EDT Encounter for screening mammogram for malignant neoplasm of breast from Last 3 Months or Most Recently Relevant to Health Maintenance Results * MAX SCREENING DIGITAL (06/23/2024 9:25 AM EDT) Anatomical Region Laterality Modality Mammography 06/22/2024 11:0 0 AM EDT Narrative 06/23/2024 9:25 AM EDT [facility] Diagnostic Imaging Department [address] [place], [place] [id number] Patient: ??ELLIEHERMINIAJENNY M ?/Age/Sex: 1950 - 74 - F Unit#: ??[id number] ? Location/Status: ??SPDIMAM/REG CLI ? Mnemonic/Ordering Site: ??DIGSC/SPMAM Ordering Physician: ??MASSIEL SOTO MD Max Screening Digital - 06/22/243 Report Status:Signed EXAM: Max Screening Digital EXAM DATE AND TIME: 06/22/2024 11:23 AM HISTORY: ??Screening. Right breast biopsy in 2022, pathology benign. COMPARISON: ??05/13/23, 05/04/23, 11/24/22, 04/28/22, 04/22/21 and previous exams dating back to 2009. TECHNIQUE: Bilateral digital breast tomosynthesis was performed in the CC and MLO projections. Computer aided detection with Compliance Control 3D 3.1 was employed. TISSUE DENSITY: c. The breasts are heterogeneously dense, which may obscure small masses. FINDINGS: Large areas of architectural distortion in the middle to posterior 12 to 1:00 position of the right breast and a small area of architectural distortion in the posterior 6:00 position of the left breast are long-term stable, dating back to least 2009, most likely representing radial scars. No suspicious masses, grouped microcalcifications, or developing architectural distortion are seen. The tiny left breast cyst shown previously with ultrasound has resolved. Scattered microcalcifications and several benign rim calcifications are again seen. A biopsy marker is present in the anterior right breast. Vascular calcification is present. The skin is unremarkable. IMPRESSION: No mammographic evidence of malignancy is seen. No significant change. A negative mammogram in the presence of a clinically suspicious palpable abnormality does not preclude the possibility of malignancy or alter the indications for biopsy. BI-RADS: ??Category 2: Benign RECOMMENDATION(S): 1: Routine screening mammogram BILATERAL in 1 year. Mammogram performed at [facility] [place] [address] Dictating Physician: ??CATE LEON MD Electronically Signed by: ??CATE LEON MD Dic Date/Time: ??06/23/24921 Sign date/Time: ??06/23/24924 Procedure Note Cate Leon MD - 07/18/2024 [facility] Diagnostic Imaging Department [address] [place] [address] Patient: JENNY MENDOZA /Age/Sex: 1950 - 74 - F Unit#: [id number] Location/Status: SPDIMAM/REG CLI Mnemonic/Ordering Site: [facility] Ordering Physician: MASSIEL SOTO MD [facility] Screening Digital - 06/22/24 - 1123 Report Status:Signed EXAM: [facility] Screening Digital EXAM DATE AND TIME: 06/22/2024 11:23 AM HISTORY: Screening. Right breast biopsy in 2022, pathology benign. COMPARISON: 05/13/23, 05/04/23, 11/24/22, 04/28/22, 04/22/21 and previous examsdating back to 2009. TECHNIQUE: Bilateral digital breast tomosynthesis was performed in the CCand MLO projections. Computer aided detection with Compliance Control 3D 3.1was employed. TISSUE DENSITY: c. The breasts are heterogeneously dense, which mayobscure small masses. FINDINGS: Large areas of architectural distortion in the middle to posterior 12 to1:00 position of the right breast and a small area of architectural distortionin the posterior 6:00 position of the left breast are long-term stable, datingback to least 2009, most likely representing radial scars. No suspicious masses, grouped microcalcifications, or developingarchitectural distortion are seen. The tiny left breast cyst shown previously withultrasound has resolved. Scattered microcalcifications and several benign rim calcifications are again seen. A biopsy marker is present in the anteriorright breast. Vascular calcification is present. The skin is unremarkable. IMPRESSION: No mammographic evidence of malignancy is seen. No significant change. A negative mammogram in the presence of a clinically suspicious palpable abnormality does not preclude the possibility of malignancy or alter the indications for biopsy. BI-RADS: Category 2: Benign RECOMMENDATION(S): 1: Routine screening mammogram BILATERAL in 1 year. Mammogram performed at [facility] [place] [address] Dictating Physician: CATE LEON MD Electronically Signed by: CATE LEON MD Dic Date/Time: 06/23/24921 Sign date/Time: 06/23/24924 Massiel Soto MD IMG BI PROCEDURES from Last 3 Months or Most Recently Relevant to Health Maintenance Care Teams Custom Feed Mill Operator Helper Relationship Specialty Start Date End Date Massiel Soto MD [address] [place] [address] PCP - General Internal Medicine 03/10/22
--- OUTSIDE RECORDS SUMMARY | 2024-10-26 16:15 | XMS_ITS | Continuity of Care Document ---
Author Name [facility] Organization [facility] Care Team Providers Care Map Maker Name Role Phone [facility] Unavailable Unavailable Immunizations Combined list of available immunizations from the Department of Defense and Veterans Affairs facilities. Immunization Series Date Given Administered By Site Reaction Lot Number [id number] Code Drug Carton Liner Status Comments Source COVID-19 (MODERNA), MRNA, LNP-S, PF, 100 MCG OR 50 MCG DOSE 3 2020 207 complet ed MOD; [id number]; 2 IELD COVID-19 (MODERNA), MRNA, LNP-S, PF, 100 MCG/0.5 ML DOSE 2 2020 207 complet ed MOD; [id number]; IELD COVID-19 (MODERNA), MRNA, LNP-S, PF, 100 MCG/0.5 ML DOSE 1 2020 207 complet ed MOD; [id number]; 1 IELD
[2024-10-26 16:36] LABS: Hematocrit 40.9 % (37.0-47.0); Hemoglobin 13.1 g/dl (12.0-16.0); Mean Corpuscular Hemoglobin 28.2 pg (27.0-33.0); Mean Corpuscular Volume 88.1 fL (80.0-98.0); Mean Platelet Volume 9.3 fL (9.4-12.3); Platelet Count 218 X10*3/uL (160-400); Red Blood Count 4.64 X10*6/uL (4.20-5.50); Red Cell Distribution Width 14.6 % (11.0-16.0); White Blood Count 7.7 X10*3/uL (4.8-10.8)
[2024-10-26 16:57] LABS: Anion Gap 13 (12-20); Blood Urea Nitrogen 12 mg/dL (9-16); Calcium 8.8 mg/dL (8.4-10.2); Carbon Dioxide 26 mmol/L (22-29); Chloride 103 mmol/L (96-108); Estimated Glomerular Filt Rate > 60; Glucose Random 106 mg/dL (60-115); Potassium 3.7 mmol/L (3.3-5.1); Sodium 138 mmol/L (135-145)
[2024-10-26 17:04] LABS: B Type Natriuretic Peptide 364 pg/mL (<100)
== END 2024-10-26 15:09 | disposition home or self-care (01) ==
LOC: HO.LAB 15:08
PROVIDERS: PCP Internal Medicine; Visit Provider Internal Medicine Cardiovascular Disease
DX: I50.32 Chronic diastolic (congestive) heart failure (principal); I48.20 Chronic atrial fibrillation, unspecified; Z95.0 Presence of cardiac pacemaker; R06.02 Shortness of breath
CPT/HCPCS: 36415; 80048; 83880; 85027; 93005; 93280; 99212

== ENCOUNTER 2024-12-13 11:50 | Outpatient (REF) | payer MEDICARE, SELFPAY ==
[2024-12-13 13:40] LABS: Anion Gap 14 (12-20); Blood Urea Nitrogen 12 mg/dL (9-16); Calcium 8.6 mg/dL (8.4-10.2); Carbon Dioxide 30 mmol/L (22-29); Chloride 100 mmol/L (96-108); Estimated Glomerular Filt Rate > 60; Glucose Random 97 mg/dL (60-115); Potassium 3.7 mmol/L (3.3-5.1); Sodium 140 mmol/L (135-145)
[2024-12-13 13:41] LABS: Digoxin 0.6 ng/mL (0.8-2.0)
[2024-12-13 13:47] LABS: B Type Natriuretic Peptide 308 pg/mL (<100)
== END 2024-12-13 11:51 | disposition home or self-care (01) ==
LOC: HO.LAB 11:50
PROVIDERS: PCP Internal Medicine; Visit Provider Internal Medicine Cardiovascular Disease
DX: I50.32 Chronic diastolic (congestive) heart failure (principal); R00.0 Tachycardia, unspecified
CPT/HCPCS: 36415; 80048; 80162; 83880

== ENCOUNTER 2024-12-14 14:15 | Outpatient (AMB) | payer MEDICARE, SELFPAY ==
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
== END 2024-12-14 15:19 | disposition home or self-care (01) ==
LOC: HO.HOP 14:15
PROVIDERS: PCP Internal Medicine; Visit Provider Psychiatry & Neurology Psychiatry
DX: F41.8 Other specified anxiety disorders (principal); F41.0 Panic disorder [episodic paroxysmal anxiety]
CPT/HCPCS: 90833; 99213

== ENCOUNTER → 2024-12-14 14:15 | Outpatient (BNVA) | payer MEDICARE, SELFPAY | PROVIDERS: PCP Internal Medicine; Visit Provider Psychiatry & Neurology Psychiatry | DX: F32.A Depression, unspecified (principal); F41.8 Other specified anxiety disorders; F41.0 Panic disorder [episodic paroxysmal anxiety]; Z71.89 Other specified counseling | CPT/HCPCS: 99212 ==

== ENCOUNTER → 2024-12-15 14:52 | Outpatient (REF) | payer MEDICARE, SELFPAY ==
--- NOTE | 2024-12-15 14:55 | CA_ITS ---
Transthoracic Echocardiogram Patient (Last, First, Middle): Jenny Mendoza M Gender: Female Date of : 1950 Age: 74 Procedure Date: 12/15/2024 Procedure Type: Transthoracic Echocardiogram Location: OP Height: 165.1 cm Weight: 104.78 kg BSA: 2.10 m2 Heart Rate: 78 bpm BP: 110 / 68 mmHg High Density Finishing Operator: SB Referring MD: Fabian Arndt MD Bundling Machine Operator: Fabian Arndt MD Symptoms: I50.32 - Chronic diastolic (congestive) heart failure Study Quality: Fair ECG Rhythm: Atrial Fibrillation Conclusions: - 1. Hyperdynamic LV ejection fraction greater than 72% 2. At least moderate biatrial enlargement 3. Moderately dilated right ventricle with preserved contractility is noted on TAPSE 4. Srnr-ik-srgcwuaw tricuspid regurgitation 5. Normal measured RV systolic pressure is significantly elevated right atrial pressures 6. No gross pericardial effusion Findings Procedure Information The quality of the study was technically difficult. The study quality is limited by lung artifact. Left Ventricle Normal left ventricular cavity size. There is normal left ventricular wall thickness. The left ventricular systolic function is hyperdynamic. The visually estimated ejection fraction is >70%. Spectral Doppler is indicative of a restrictive filling pattern. Right Ventricle Moderately increased right ventricular cavity size. There is normal right ventricular systolic function. There is a pacemaker wire seen in the right ventricle. Atria Moderate biatrial enlargement. Interatrial shunt cannot be excluded. A pacemaker wire is identified in the right atrium. Aortic Valve Normal aortic valve structure and function. There is no aortic valve stenosis. There is no aortic valve regurgitation. Mitral Valve There is mild anterior and posterior mitral leaflet thickening. There is mild mitral annular calcification. There is trace mitral valve regurgitation. There is no mitral valve stenosis. Pulmonic Valve The pulmonic valve is likely normal. There is trace pulmonic valve regurgitation. Tricuspid Valve Normal tricuspid valve structure. There is mild to moderate tricuspid valve regurgitation. Significantly elevated right atrial pressure. There is no evidence of pulmonary hypertension. Great Vessels All visible segments of the aorta are normal in size. The pulmonary artery was not well visualized. There is no dilatation of the ascending aorta measuring 3.40 cm. Venous The inferior vena cava is severely dilated and collapses less than 50% with inspiration. Pericardium/Pleural There is no evidence of pericardial effusion. Prior Study Comparison Changes noted compared to prior study dated: 02/18/2023. RV systolic pressure is not elevated on this study Measurements 2D Linear Measurements IVSd: 0.87 0.6-0.9/0.6-1.0 cm LVIDd: 4.47 3.9-5.3/4.2-5.9 cm LVIDd Index: 2.13 2.4-3.2/2.2-3.1 cm/m2 LVIDs: 3.47 2.0-3.6 cm LVPWd: 0.69 0.7-1.1 cm LA Diam: 4.60 2.7-3.8/3.0-4.0 cm LAIDs Index: 2.19 1.5-2.3 cm/m2 LV Mass: 135.82 67-162/88-224 g LV Mass Index: 64.68 43-95/49-115 g/m2 LVOT Diam: 1.80 3.0+(-)1.3 cm 2D Systolic Function EF 4C: 70.70 >55% EF 2C: 81.00 >55% EF BiP: 76.30 >55% Mitral Valve MV Pk E: 0.92 Aortic Valve AoV Pk Chandan: 1.07 AoV Pk Grad: 5.00 FABIO: 2.22 LVOT LVOT Pk Chandan: 0.94 LVOT Mn Chandan: 0.64 LVOT VTI: 0.20 LVOT Pk Grad: 4.00 LVOT Mn Grad: 2.00 LVOT Diam: 1.80 LVOT Area: 2.54 Diastolic Function MV Pk E: 0.92 Right Ventricle TAPSE (mm): 22.30 TVS' Chandan: 10.10 Tricuspid Valve TR Pk Chandan: 2.18 TR Pk Grad: 19.00 RA Press: 15.00 RVSP: 34.00 Great Vessels Aorta Sinus of Valsalva: 2.40 2.0-3.5 cm Ao Asc: 3.40 2.1-3.4 cm Pulmonary Valve PV Pk Chandan: 0.74 Peak PV Grad: 2.00 Updated in Other Vendor System with Status of Final Fabian Arndt MD electronically signed on 12/16/2024 12:50:38 PM with status of Final
== END ==
LOC: HO.CARD 14:52
PROVIDERS: Visit Provider Internal Medicine Cardiovascular Disease
DX: I50.32 Chronic diastolic (congestive) heart failure (principal)
CPT/HCPCS: 93306

== ENCOUNTER → 2024-12-15 14:55 | Outpatient (BNV) | payer MEDICARE, SELFPAY | PROVIDERS: Visit Provider Internal Medicine Cardiovascular Disease | DX: I50.32 Chronic diastolic (congestive) heart failure (principal); I36.1 Nonrheumatic tricuspid (valve) insufficiency; I51.7 Cardiomegaly | CPT/HCPCS: 93306 ==

== ENCOUNTER 2025-01-05 13:54 | Outpatient (REF) | payer MEDICARE, SELFPAY ==
--- NOTE | ~2025-01-05 | MM_ITS ---
EXAMINATION: DXA BONE DENSITY AXIAL HISTORY: M85.852 - Other specified disorders of bone density and structure, left ... TECHNIQUE: [employer] Dual energy absorptiometry (DEXA) of the lumbar spine, total left hip, and femoral neck was performed. COMPARISON: Comparison is made with the prior examination dated 05/23/2020. FINDINGS: The bone mineral density of the lumbar spine is 1.200 with a T-score of 0.2, and a Z-score of 1.0. This is indicative of normal bone mineral density. This represents a BMD change of 9.3% compared to the prior exam. This is statistically significant. The bone mineral density of the left total hip is 0.720 with a T-score of -2.3, and a Z-score of -1.1. This is indicative of osteopenia. This represents a BMD change of -1.6% compared to the prior exam. This is not statistically significant. The bone mineral density of the left femoral neck is 0.678 with a T-score of -2.6, and a Z-score of -1.2. This is indicative of osteoporosis. This represents a BMD change of -3.8% compared to the prior exam. FRACTURE RISK: The FRAX index suggests a ten year probability of major osteoporotic fracture of 32.9%, and of hip fracture 22.5%. MM/XR DEXA axial skeleton IMPRESSION: Based on bone mineral density, and according to World Health Organization (WHO) criteria, the diagnosis is consistent with osteoporosis. All bone density values are in grams per centimeter squared (g/cm2). Statistically, 68% of repeat scans fall within 1 SD (+/- 0.010 g/cm2 for AP spine L1-L4) and 1 SD (+/- 0.012 g/cm2 for femur total) FRAX is a trademark of the [employer]'s [place] [employer] Met[employer], a World Health Organization (WHO) Collaborating Center. Electronically signed by: Jeromy Izaguirre MD 01/05/2025 03:04 PM EDT
--- OUTSIDE RECORDS SUMMARY | 2025-01-05 14:17 | XMS_ITS | Continuity of Care Document ---
Author Name [facility] Organization [facility] Care Team Providers Care Analyst Name Role Phone [facility] Unavailable Unavailable Immunizations Combined list of available immunizations from the Department of Defense and Veterans Affairs facilities. Immunization Series Date Given Administered By Site Reaction Lot Number CVX Code Drug Machine Learning Intern Status Comments Source COVID-19 (MODERNA), MRNA, LNP-S, PF, 100 MCG OR 50 MCG DOSE 3 2020 207 complet ed MOD; [id number]; 2 IELD COVID-19 (MODERNA), MRNA, LNP-S, PF, 100 MCG/0.5 ML DOSE 2 2020 207 complet ed MOD; [id number]; IELD COVID-19 (MODERNA), MRNA, LNP-S, PF, 100 MCG/0.5 ML DOSE 1 2020 207 complet ed MOD; [id number]; 1 IELD
--- OUTSIDE RECORDS SUMMARY | 2025-01-05 14:17 | XMS_ITS ---
Author Organization [facility] Address [address] [place] [id number] Care Team Providers Care Facilities Custodian Name Role Phone Mae LOPEZ, Magalys Primary Care Provider Jeromy Chaparro Unavailable [phone] NIKHIL NEWMAN Unavailable Unavailable REASON FOR VISIT screening Problems Problem Type SNOMED Code ICD Code Onset Dates Problem Status W/U Status Risk Notes Problem Diverticular disease of colon (946609077) Diverticulosis of large intestine without perforation or abscess without bleeding (K57.30) Active confirmed Encounters Encounter Location Date Provider Diagnosis [facility] [place] [facility] [address] [place] [phone] 11/15/2023 Jeromy La Encounter for scre ening [...] Notes * LESVIA ARREGUINOB:1950 (74 yo F)Acc No.[id number]:11/15/2023 COLON WITH MAC Patient:?ANGELA ARREGUIN Provider:?Jeromy La MD :1950???Age:73 Y???Sex:Female D ate:11/15/2023 Address:[id number] Pcp:Magalys Wall MD Subjective: * Chief Complaints: * ???1. Screening. * Medical History:? Objective: * Vitals:? Assessment: * Assessment: 1.?Encounter for screening c olonoscopy - Z12.11 (Primary)???2.?Diverticulosis of large intestine without perforation or abscess without bleeding - K57.30???3.?Other hemorrhoids - K64.8??? Plan: * Treatment: * Procedure Codes:?G0121 COLOR EC CNCR SCR;COLNSCPY NO HI RSK, 0529F INTRVL 3+YRS PTS CLNSCP DOCD, 0528F RCMND FLW-UP 10 YRS DOCD, Modifiers: 1P * * The named appointment provid er may or may not be the originator of this progress note, and it is not deemed complete until electronically signed by the appointment provider. Sign off status: Pending * Provider:?Jeromy La MD Date:? 024 Generated for Lacey scruggs/Marcie/eTransmitting on:?01/05/2025 02:17 PM EDT
--- OUTSIDE RECORDS SUMMARY | 2025-01-05 14:17 | XMS_ITS | Clinical Summary ---
Author Organization [facility] Address [address] [place] [address] Care Team Providers Care Over Short And Damage Clerk Name Role Phone Massiel Soto MD Primary Care Provider Social History Tobacco Use Types Packs/Day Years Used Date Smoking Tobacco: Never Assessed Comments Unknown Sex and Gender Information Value Date Recorded Sex Assigned at Not on file Legal Sex Female 3:28 AM EST Gender Identity Not on file Sexual Orientation Not on file Plan of Treatment Health Maintenance Due Date Last Done Comments DTaP,Tdap,and Td Vaccines (1 - Tdap) 1967 Pneumococcal Vaccine: 50+ Years (1 of 1 - PCV) 1998 Zoster Vaccines (1 of 2) 1998 Depression Screening 08/23/2022 Falls Risk Assessment 08/23/2022 Hepatitis C Screening 08/23/2022 Osteoporosis Screening (Bone Density Screening) 08/23/2022 Social Influencers of Health Screening 08/23/2022 RSV Immunization Adult Patients (1 - 1-dose 75+ series) 2023 COVID-19 Vaccine ( - 2023- season) 2024 Influenza Vaccine (Season Ended) 2025 Breast Cancer Screening Discontinued 06/23/20 24, 04/28/2022, [...] patient's age to complete this topic Meningococcal B Vaccine Aged Out No l onger eligible based on patient's age to complete this topic RSV Immunization Patients Under 20 months Aged Out No longer eligible based on patient's age to complete this topic Varicella Vaccines Aged Out No longer eligible based on patient's age to complete this topic Procedures Procedure Name Priority Date/Time Associated Diagnosis Comments [facility] SCREENING DIGITAL Routine 06/23/2024 9:25 AM EDT Encounter for screening mammogram for malignant neoplasm of breast from Last 3 Months or Most Recently Relevant to Health Maintenance Results * [facility] SCREENING DIGITAL (06/23/2024 9:25 AM EDT) Anatomical Region Laterality Modality Mammography 06/22/2024 11:0 0 AM EDT Narrative 06/23/2024 9:25 AM EDT [facility] Diagnostic Imaging Department [address] [place] [address] Patient: ??JENNY MENDOZA ?/Age/Sex: 1950 - 74 - F Unit#: ??[id number] ? Location/Status: ??SPDIMAM/REG CLI ? Mnemonic/Ordering Site: ??DIGSC/SPMAM Ordering Physician: ??MASSIEL SOTO MD [facility] Screening Digital - 06/22/24 - 1123 Report Status:Signed EXAM: [facility] Screening Digital EXAM DATE AND TIME: 06/22/2024 11:23 AM HISTORY: ??Screening. Right breast biopsy in 2022, pathology benign. COMPARISON: ??05/13/23, 05/04/23, 11/24/22, 04/28/22, 04/22/21 and previous exams dating back to 2009. TECHNIQUE: Bilateral digital breast tomosynthesis was performed in the CC and MLO projections. Computer aided detection with Restalo 3D 3.1 was employed. TISSUE DENSITY: c. [...] Mamm[facility] performed at [facility] at [address] [address] Dictating Physician: ??CATE LEON MD Electronically Signed by: ??CATE LEON MD Dic Date/Time: ??06/23/24921 Sign date/Time: ??06/23/24924 Procedure Note Cate Leon MD - 07/18/2024 [facility] Diagnostic Imaging Department [address] [place] [id number] Patient: JENNY MENDOZA /Age/Sex: 1950 - 74 - F Unit#: [id number] Location/Status: SPDIMAM/REG CLI Mnemonic/Ordering Site: [facility] Ordering Physician: MASSIEL SOTO MD [facility] Screening Digital - 06/22/24 1123 Report Status:Signed EXAM: [facility] Screening Digital EXAM DATE AND TIME: 06/22/2024 11:23 AM HISTORY: Screening. Right breast biopsy in 2022, pathology benign. COMPARISON: 05/13/23, 05/04/23, 11/24/22, 04/28/22, 04/22/21 and previous examsdating back to 2009. TECHNIQUE: Bilateral digital breast tomosynthesis was performed in the CCand MLO projections. Computer aided detection with Restalo 3D 3.1was employed. TISSUE DENSITY: c. The [...] Mammogram performed at [facility] [place] [address] Dictating Physician: CATE LEON MD Electronically Signed by: CATE LEON MD Dic Date/Time: 06/23/24921 Sign date/Time: 06/23/24924 us Massiel Soto MD IMG BI PROCEDURES Final Res ult from Last 3 Months or Most Recently Relevant to Health Maintenance Care Teams Over Short And Damage Clerk Relationship Specialty Start Date End Date Massiel Soto MD [address] [place] [address] PCP - General Internal Medicine 03/10/22
--- OUTSIDE RECORDS SUMMARY | 2025-01-05 14:18 | XMS_ITS ---
Author Organization [facility] Address [address] [place] [id number] Care Team Providers Care Air Motor Repairer Name Role Phone Mae LOPEZ, Magalys Primary Care Provider Jeromy Chaparro Unavailable [phone] NIKHIL NEWMAN Unavailable Unavailable Allergies Allergen (clinical drug ingredient) Drug/Non Drug Allergy documented on EMR Reaction Allergy Type Onset Date Status amoxicillin Amoxicillin Unknown Drug Allergy Act alex REASON FOR VISIT Patient presents today for a screening colon Medications Medication SIG (Take, Route, Frequency, Duration) Notes [...] Furosemide 20 MG TAKE twoTABLET BY [facility] EVERY DAYwith 2 tablets Orally twice a day Active Xarelto 20 MG 1 tablet with food Orally Once a day for 30 day(s) Active MiraLax 17 GM 1 packet mixed with 8 ounces of fluid Orally prn Active Citracal + D Active Mucinex 600 MG 1 tablet as needed Orally every 12 hrs Active Problems Problem Type SNOMED Code ICD Code Onset Dates Problem Status W/U Status Risk Notes Problem 779391633 Colon cancer screening (Z12.11) Active confirmed Problem 258847476 Anticoagulant long-term use (Z79.01) Active confirmed Problem 137606870 Gallstones (K80.20) Active confirmed Problem 21681228 Gilbert's syndro me (E80.4) Active confirmed Problem 122469045 Gastroesophageal reflux disease without esophagitis (K21.9) Active confirmed Vital Signs Temperature 97.3 degrees Fahrenheit 08/24/20 23 Blood pressure systolic 00 mm Hg 08/24/20 23 Blood pressure diastolic 00 mm Hg 023 Height 66.5 in 08/24/2023 Weight 227 lbs 08/24/2023 BMI 36.09 kg/m2 08/24/2023 Encounters Encounter Location Date Provider Diagnosis [facility] [address] [place] [address] 08/24/2023 Jeromy La Colon cancer screeni ng Z12.11 ; Gastroesophageal reflux disease without esophagitis K21.9 ; Anticoagulant long-term use Z79.01 ; Gallstones K80.20 and Gilbert's syndrome E80.4 Assessments Encounter Date Diagnosis (ICD Code) Assessment Notes Treatment Notes Treatment Clinical Notes Section Notes 08/24/2023 Colon cancer screening (ICD-10 - Z12.11) Stop Xarelto for 3 days before the colonoscopy Do not take the Furosemide or Spironolactone the day before nor on the day of the colonoscopy Overall, Jenny appears well. I did recommend a colonoscopy for screening purposes given her last exam being over 10 years ago, her age, and her overall good clinical appearance. We did review the rationale for that in regard to colon cancer prevention. Full consent was obtained from her for this, including risks of bleeding and perforation. The procedure will be done with monitored anesthesia care. She was given the below instructions regarding adjustment of her medications for the procedure. We did review her gallstones that were seen on imaging studies earlier this year. They are currently asymptomatic but we did review potential symptoms of gallstones and the need for surgical consultation if that was to occur. Her history of reflux also seem stable on her omeprazole. We did review her negative upper endoscopy from 2019 as well. I did advise her to continue omeprazole as needed for symptomatic relief of reflux. Jenny and her were comfortable with this plan. Thank you again for allowing me to participate in Jenny's care. I shall continue to keep you advised of her progress. 08/24/2023 Gastroesophageal reflux disease without esophagitis (ICD-10 - K21.9) Overall, Jenny appears well. I did recommend a colonoscopy for screening purposes given her last exam being over 10 years ago, her age, and her overall good clinical appearance. We did review the rationale for that in regard to colon cancer prevention. Full consent was obtained from her for this, including risks of bleeding and perforation. The procedure will be done with monitored anesthesia care. She was given the below instructions regarding adjustment of her medications for the procedure. We did review her gallstones that were seen on imaging studies earlier this year. They are currently asymptomatic but we did review potential symptoms of gallstones and the need for surgical consultation if that was to occur. Her history of reflux also seem stable on her omeprazole. We did review her negative upper endoscopy from 2019 as well. I did advise her to continue omeprazole as needed for symptomatic relief of reflux. Jenny and her were comfortable with this plan. Thank you again for allowing me to participate in Jenny's care. I shall continue to keep you advised of her progress. 08/24/2023 Anticoagulant long-term use (ICD-10 - Z79.01) Overall, Jenny appears well. I did recommend a colonoscopy for screening purposes given her last exam being over 10 years ago, her age, and her overall good clinical appearance. We did review the rationale for that in regard to colon cancer prevention. Full consent was obtained from her for this, including risks of bleeding and perforation. The procedure will be done with monitored anesthesia care. She was given the below instructions regarding adjustment of her medications for the procedure. We did review her gallstones that were seen on imaging studies earlier this year. They are currently asymptomatic but we did review potential symptoms of gallstones and the need for surgical consultation if that was to occur. Her history of reflux also seem stable on her omeprazole. We did review her negative upper endoscopy from 2019 as well. I did advise her to continue omeprazole as needed for symptomatic relief of reflux. Jenny and her were comfortable with this plan. Thank you again for allowing me to participate in Jenny's care. I shall continue to keep you advised of her progress. 08/24/2023 Gallstones (ICD-10 - K80.20) Overall, Jenny appears well. I did recommend a colonoscopy for screening purposes given her last exam being over 10 years ago, her age, and her overall good clinical appearance. We did review the rationale for that in regard to colon cancer prevention. Full consent was obtained from her for this, including risks of bleeding and perforation. The procedure will be done with monitored anesthesia care. She was given the below instructions regarding adjustment of her medications for the procedure. We did review her gallstones that were seen on imaging studies earlier this year. They are currently asymptomatic but we did review potential symptoms of gallstones and the need for surgical consultation if that was to occur. Her history of reflux also seem stable on her omeprazole. We did review her negative upper endoscopy from 2019 as well. I did advise her to continue omeprazole as needed for symptomatic relief of reflux. Jenny and her were comfortable with this plan. Thank you again for allowing me to participate in Jenny's care. I shall continue to keep you advised of her progress. 08/24/2023 Gilbert's syndrome (ICD-10 - E80.4) Overall, Jenny appears well. I did recommend a colonoscopy for screening purposes given her last exam being over 10 years ago, her age, and her overall good clinical appearance. We did review the rationale for that in regard to colon cancer prevention. Full consent was obtained from her for this, including risks of bleeding and perforation. The procedure will be done with monitored anesthesia care. She was given the below instructions regarding adjustment of her medications for the procedure. We did review her gallstones that were seen on imaging studies earlier this year. They are currently asymptomatic but we did review potential symptoms of gallstones and the need for surgical consultation if that was to occur. Her history of reflux also seem stable on her omeprazole. We did review her negative upper endoscopy from 2019 as well. I did advise her to continue omeprazole as needed for symptomatic relief of reflux. Jenny and her were comfortable with this plan. Thank you again for allowing me to participate in Jenny's care. I shall continue to keep you advised of her progress. Plan Of Treatment Treatment Notes Assessment Notes Colon cancer screening Stop Xarelto for 3 days before the colonoscopy Do not take the Furosemide or Spironolactone the day before nor on the day of the colonoscopy Future Test Test Name Order Date COLONOSCOPY 08/24/2023 Next Appt Details Follow Up: prn, Reason: Progress Notes * LESVIA ARREGUINOB:1950 (73 yo F)Acc No.[id number]:08/24/2023 Progress Notes Patient:JENNY LUNA Provider:?Jeromy La MD :1950???Age:73 Y???Sex:Female D ate:08/24/2023 Address:[address] [place], [place] [address] Pcp:Magalys Wall MD Subjective: * Chief Complaints: * ???Patient presents today fo r a screening colon * HPI: ???incontinence:? I saw Jenny in the office today for evaluation of colorectal cancer screening. She is accompanied by her . ?I last saw Jenny in March of 2020, at which time she underwent an upper endoscopy for the evaluation of some dysphagia. This revealed only a small hiatal hernia but was otherwise unremarkable. Since that time she has been doing well on her daily omeprazole. She denies any significant heartburn, dysphagia, anorexia, early satiety, nausea, nor vomiting. She denies abdominal pain, jaundice, nor weight loss. ?Her bowel movements have been regular, without any hematochezia nor melena. She denies any known family history of colon cancer. She had a negative colonoscopy with me in 2012. ?Laboratories in January revealed a normal CBC with a hemoglobin of 15.3 and a normal liver profile except for a minimally elevated total bilirubin with a predominantly indirect component. She apparently saw Dr. Park for the elevated bilirubin and imaging studies with CT scan and ultrasound were negative other than the incidental finding of gallstones. There was no biliary disease noted. * ROS:?General/Constitutional:?Change in appetite?denies.?Chills?denies.?Fatigue?denies.?Ophthalmologic:?Patient denies? Negative..?ENT:?Patient denies?Negative..?Respiratory:?Patient denies?No coughing/hemoptysis..?Cardiovascular:?Patient denies? No chest pain/orthopnea..?Gastrointestinal:?Comments?See HPI for details.?Genitourinary:?Patient denies? No dysuria/hematuria..?Musculoskeletal:?Patient denies? No specific arthralgias/myalgias..?Skin:?Patient denies?No rash/pruritus..?Neurologic:?Patient denies? No headaches/seizures..?Psychiatric:?Patient denies?Negative..? * Medical History:? * Surgical History:?Left oophe rectomy and Fallopian tube Cataracts D&C 2019Pacemaker 2020Thyroidectomy and removal of 3 Parathyroid glands * Hospitalization/Major Diagno stic Procedure:?No Hospitalization History. * Family History:?Father: dece ased.?Mother: .? No family hx of colorectal cancer. * Social History:?Tobacco Use:?Tobacco Use/Smoking?Are you a: former smoker , How long has it been since you last smoked?: > 10 years.?Drugs/Alcohol:?Alcohol Screen?Points: 0, Interpretation: Negative.?Miscellaneous:?Marital status: . 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 ???Nonsmoker x 20 yrs; no alcohol. * Medications:?TakingXarelto 2 0 MG Tablet 1 tablet with food Orally Once a dayMiraLax 17 GM Packet 1 packet mixed with 8 ounces of fluid Orally prnCitracal + D Mucinex 600 MG Tablet Extended Release 12 Hour 1 tablet as needed Orally every 12 hrsOmeprazole 20 MG Capsule Delayed Release 1 capsule 30 minutes before morning meal Orally Once a dayCombiPatch 0.05-0.25 MG/DAY Patch Twice Weekly 1 patch to skin Transdermal as directedFurosemide 20 MG Tablet TAKE twoTABLET BY MOUTH EVERY DAYwith 2 tablets Orally twice a dayLevothyroxine Sodium 150 MCG Tablet TAKE ONE TABLET BY MOUTH EVERY DAY Oral Spironolactone 25 MG Tablet TAKE ONE-HALF TABLET 12.5 MG) BY MOUTH EVERY DAY Oral LORazepam 0.5 MG Tablet TAKE ONE-HALF TO ONE TABLET BY MOUTH THREE TIMES A DAY Oral fluvoxaMINE Maleate 25 MG Tablet TAKE ONE TABLET BY MOUTH THREE TIMES A DAY Oral Metoprolol Succinate ER 100 MG Tablet Extended Release 24 Hour TAKE 1 TABLET BY MOUTH ONCE DAILY Oral Taking Xarelto 20 MG Tablet 1 tablet with food Orally Once a dayTaking MiraLax 17 GM Packet 1 packet mixed with 8 ounces of fluid Orally prnTaking Citracal + D Taking Mucinex 600 MG Tablet Extended Release 12 Hour 1 tablet as needed Orally every 12 hrsTaking Omeprazole 20 MG Capsule Delayed Release 1 capsule 30 minutes before morning meal Orally Once a dayTaking CombiPatch 0.05-0.25 MG/DAY Patch Twice Weekly 1 patch to skin Transdermal as directedTaking Furosemide 20 MG Tablet TAKE twoTABLET BY MOUTH EVERY DAYwith 2 tablets Orally twice a dayTaking Levothyroxine Sodium 150 MCG Tablet TAKE ONE TABLET BY MOUTH EVERY DAY Oral Taking Spironolactone 25 MG Tablet TAKE ONE-HALF TABLET 12.5 MG) BY MOUTH EVERY DAY Oral Taking LORazepam 0.5 MG Tablet TAKE ONE-HALF TO ONE TABLET BY MOUTH THREE TIMES A DAY Oral Taking fluvoxaMINE Maleate 25 MG Tablet TAKE ONE TABLET BY MOUTH THREE TIMES A DAY Oral Taking Metoprolol Succinate ER 100 MG Tablet Extended Release 24 Hour TAKE 1 TABLET BY MOUTH ONCE DAILY Oral DiscontinuedLuvox CR 25 mg 1 capsule at bedtime Orally three times a dayamLODIPine Besylate 5 MG Tablet TAKE ONE TABLET BY MOUTH EVERY DAY Oral Flecainide Acetate 150 MG Tablet TAKE ONE AND HALF TABLET BY MOUTH TWICE A DAY DIRECTED ORALLYXarelto 20 MG Tablet TAKE ONE TABLET BY MOUTH EVERY DAY Oral Cyproheptadine HCl 4 MG Tablet TAKE ONE TABLET BY MOUTH AT BEDTIME Oral PriLOSEC OTC 20 MG Tablet Delayed Release 1 tablet 30 minutes before morning meal Orally Once a dayAtivan 0.5 MG Tablet 1 - 1/2 tablet at bedtime as needed Orally every 6 hrsMedication List reviewed and reconciled with the patientDiscontinued Luvox CR 25 mg 1 capsule at bedtime Orally three times a dayDiscontinued amLODIPine Besylate 5 MG Tablet TAKE ONE TABLET BY MOUTH EVERY DAY Oral Discontinued Flecainide Acetate 150 MG Tablet TAKE ONE AND HALF TABLET BY MOUTH TWICE A DAY DIRECTED ORALLYDiscontinued Xarelto 20 MG Tablet TAKE ONE TABLET BY MOUTH EVERY DAY Oral Discontinued Cyproheptadine HCl 4 MG Tablet TAKE ONE TABLET BY MOUTH AT BEDTIME Oral Discontinued PriLOSEC OTC 20 MG Tablet Delayed Release 1 tablet 30 minutes before morning meal Orally Once a dayDiscontinued Ativan 0.5 MG Tablet 1 - 1/2 tablet at bedtime as needed Orally every 6 hrsMedication List reviewed and reconciled with the patient * Allergies:?Amoxicillinyes[Al keiry Verified] Objective: * Vitals:?Wt: 227 lbs, Ht: 66. 5 in, BMI:36.09 Index, BP: 00/00 mm Hg, Temp: 97.3. * Examination: ???General Examination: ?GENERAL APPEARANCE:?pleasant, well nourished, well developed, in no acute distress.?EYES:?sclera non-icteric.?ORAL CAVITY:?mucosa moist.?NECK/THYROID:?no cervical lymphadenopathy, neck supple.?SKIN:?nonjaundiced, no spider angiomata..?HEART:?S1, S2 normal.?LUNGS:?clear to auscultation bilaterally.?ABDOMEN:?normal bowel sounds, no guarding or rigidity, no hepatosplenomegaly, no masses palpable, soft, nontender, nondistended..?EXTREMITIES:?no edema.?NEUROLOGIC:?alert and oriented.? Assessment: * Assessment: 1.?Gastroesophageal reflux d isease without esophagitis - K21.9 (Primary)?2.?Colon cancer screening - Z12.11?3.?Anticoagulant long-term use - Z79.01?4.?Gallstones - K80.20?5.?Gilbert's syndrome - E80.4? Overall, Jenny appears well . I did recommend a colonoscopy for screening purposes given her last exam being over 10 years ago, her age, and her overall good clinical appearance. We did review the rationale for that in regard to colon cancer prevention. Full consent was obtained from her for this, including risks of bleeding and perforation. The procedure will be done with monitored anesthesia care. She was given the below instructions regarding adjustment of her medications for the procedure. We did review her gallstones that were seen on imaging studies earlier this year. They are currently asymptomatic but we did review potential symptoms of gallstones and the need for surgical consultation if that was to occur. Her history of reflux also seem stable on her omeprazole. We did review her negative upper endoscopy from 2019 as well. I did advise her to continue omeprazole as needed for symptomatic relief of reflux. Jenny and her were comfortable with this plan. Thank you again for allowing me to participate in Jenny's care. I shall continue to keep you advised of her progress. Plan: * Treatment: Notes: Stop Xarelto for 3 days before the colonoscopy Do not take the Furosemide or Spironolactone the day before nor on the day of the colonoscopy.?? * Procedure Codes:?3017F COLOR ECTAL CA SCREEN DOC [id number] TOBACCO NON-[id number] BP SCR NOT PRFRM REC REASON NOS * Preventive Medicine:? ??Counseling:?Care goal follow-up plan:?Above Normal BMI Follow-up?Giving encouragement to exercise,?BMI management provided?Yes.? ??Urinary Incontinence:?Urinary Incontinence?Assessment:?Present,?Plan of care documented:?Yes,?Type of plan of care:?Lifestyle interventions.? * Follow Up:?prn * * Sign off status: Completed true * Provider:?Jeromy La MD Date:? 023 Generated for Lacey scruggs/Marcie/Desmond on:?01/05/2025 02:17 PM EDT History and Physical Notes * HPI (History of Present Illness) Category Sub-Category Detail Notes Category Not es incontinence I saw Jenny in the office today for evaluation of colorectal cancer screening. She is accompanied by her . I last saw Jenny in March of 2020, at which time she underwent an upper endoscopy for the evaluation of some dysphagia. This revealed only a small hiatal hernia but was otherwise unremarkable. Since that time she has been doing well on her daily omeprazole. She denies any significant heartburn, dysphagia, anorexia, early satiety, nausea, nor vomiting. She denies abdominal pain, jaundice, nor weight loss. Her bowel movements have been regular, without any hematochezia nor melena. She denies any known family history of colon cancer. She had a negative colonoscopy with me in 2012. Laboratories in January revealed a normal CBC with a hemoglobin of 15.3 and a normal liver profile except for a minimally elevated total bilirubin with a predominantly indirect component. She apparently saw Dr. Park for the elevated bilirubin and imaging studies with CT scan and ultrasound were negative other than the incidental finding of gallstones. There was no biliary disease noted. Examination Category Sub-Category Detail Notes Category Not es General Examination GENERAL APPEARANCE: pleasant , well [...]
--- OUTSIDE RECORDS SUMMARY | 2025-01-05 14:18 | XMS_ITS | Patient Health Record ---
Author Organization [facility] Address [address] [place] [address] Care Team Providers Care Mechanical Insulator Name Role Phone Magalys Wall MD Primary Care Provider Jeromy Chaparro Unavailable [phone] NIKHIL NEWMAN Unavailable Unavailable Allergies Allergen (clinical drug ingredient) Drug/Non Drug Allergy documented on EMR Reaction Allergy Type Onset Date Status amoxicillin Amoxicillin Unknown Drug Allergy Act alex Reason For Referral No Information Medications Medication SIG (Take, Route, Frequency, Duration) [...] Active Furosemide 20 MG TAKE twoTABLET BY [facility] EVERY DAYwith 2 tablets [...] Problem Status W/U Status Risk Notes Problem 236199482 Colon cancer screening (Z12.11) Active confirmed Problem Diverticular disease of colon (121377442) Diverticulosis of large intestine without perforation or abscess without bleeding (K57.30) Active confirmed Problem 271399074 Gastroesophageal reflux disease without esophagitis (K21.9) Active confirmed Problem 594388237 Gastroesophageal reflux disease, esophagitis presence not specified (K21.9) Active confirmed Problem 501272053 Gallstones (K80.20) Active confirmed Problem 31922754 Pharyngoesophage al dysphagia (R13.14) Active confirmed Problem 660996089 Anticoagulant long-term use (Z79.01) Active confirmed Problem 96808549 Gilbert's syndro me (E80.4) Active confirmed Plan Of Treatment Future Test Test Name Order Date COLONOSCOPY 02/14/2013 UPPER GI ENDOSCOPY [place]ALL[place]ON DILATION OF ESOPH 01/24/2020 COLONOSCOPY 08/24/2023 Insurance Providers Payer Name Payer Address Payer Phone Subscriber Number Group Number Insured Name Patient Relationship to Insured Coverage Start Date Coverage End Date MEDICARE OF [place] [address] [facility] [place] [address] [phone] [id number] POHORE, ANGELA Self - patient is the insured [facility] [employer] [address] [place] [address] [id number] POHORE, ANGELA Self - patient is the insured Medical (General) History Medical History History ICD Code Denies NE,DM,CVA,Lung disease,renal dise ase She describes a colonoscopy [...] Left oopherectomy and Fallopian tube Cataracts D&C 2019 Pacemaker 2019 Thyroidectomy and removal of 3 Parathyro id glands
== END 2025-01-05 13:55 | disposition home or self-care (01) ==
LOC: HO.MAMMO 13:54
PROVIDERS: PCP Internal Medicine; Visit Provider Internal Medicine
DX: Z13.820 Encounter for screening for osteoporosis (principal); M85.852 Other specified disorders of bone density and structure, left thigh; Z78.0 Asymptomatic menopausal state
CPT/HCPCS: 77080

== ENCOUNTER → 2025-01-05 14:30 | Outpatient (BNV) | payer MEDICARE, SELFPAY | PROVIDERS: PCP Internal Medicine; Visit Provider Radiology Diagnostic Radiology | DX: E28.39 Other primary ovarian failure (principal) | CPT/HCPCS: 77080 ==

== ENCOUNTER → 2025-01-09 23:59 | Outpatient (BNV) | payer MEDICARE, SELFPAY ==
--- NOTE | 2025-01-10 12:34 | A.OFFVIS_ITS ---
Intake Visit Reasons: Remote device check- [facility] Allergies amiodarone [AMIODARONE] Allergy (Severe, Verified 09/19/24 11:03) INTERSTITIAL PNEUMONITIS, fluid gain, interstial pneumonitis amoxicillin [AMOXICILLIN] Allergy (Unknown, Verified 09/19/24 11:03) SHAKES ALL OVER , shaky, shaky doxycycline [DOXYCYCLINE] Adverse Reaction (Unknown, Verified 09/19/24 11:03) STOMACH UPSET, upset stomach flecainide Adverse Reaction (Verified 09/19/24 11:03) dizzy PFSH Medical History Panic disorder [episodic paroxysmal anxiety] Postmenopausal HRT (hormone replacement therapy) Essential hypertension Hypothyroidism Tachycardia COLIN on CPAP Cardiac pacemaker in situ Non-toxic multinodular goiter Subclinical hypothyroidism Osteopenia Hyperparathyroidism COPD (chronic obstructive pulmonary disease) Chronic heart failure with preserved ejection fraction (HFpEF) Sick sinus syndrome Elevated antinuclear antibody (LORETO) level Drug-induced pneumonitis Dyslipidemia Depression with anxiety Stress incontinence Surgical History Hx of colonoscopy History of parathyroidectomy Hx of thyroidectomy S/P placement of cardiac pacemaker H/O unilateral oophorectomy History of removal of cyst Family History Father Cirrhosis with alcoholism Medical history non-contributory Mother Medical history non-contributory Hypothyroidism Social History [facility] Alcohol intake: never Patient Tobacco Use Status: Former Tobacco user e-Cigarette/Vaping Use: Never Used service: No Current occupational status: retired Cognitive needs: No Hearing needs: No Vision needs: No Office Procedures Cardiac Device Check Cardiac Device Check Details: Remote pacemaker report generated 01/09/2025. Pacemaker function is adequate [id number] Cardiac Device Interrogation, pacemaker Procedure code (CPT) selection complete Assessment & Plan Assessment & Plan (1) Cardiac pacemaker in situ: Code(s): Z95.0 - Presence of cardiac pacemaker Category: Medical Plan: See above Coding Level of Care Code Procedure Only Diagnoses Cardiac pacemaker in situ Z95.0 CPT Codes Cardiac Device Check - Cardiac Device 12: [id number] Cardiac Device Interrogation, pacemaker ([id number])
== END ==
PROVIDERS: PCP Internal Medicine; Visit Provider Internal Medicine Cardiovascular Disease
DX: Z45.018 Encounter for adjustment and management of other part of cardiac pacemaker (principal)
CPT/HCPCS: 93294

== ENCOUNTER 2025-01-25 13:30 | Outpatient (AMB) | payer MEDICARE, SELFPAY ==
[2025-01-25 13:32] VITALS: BP 120/82; PULSE 74; BMI 32.9
--- NOTE | 2025-01-25 13:32 | MHC.OFFVIS ---
Vital Signs 01/25/25 13:32 Height 5 ft 5.5 in Weight 200 lb 9.93 oz BMI 32.9 BP 120/82 Blood Pressure Location Lt brachial Position Sitting Pulse 74 Intake Visit Reasons: Follow up after Echo Intake Note: Follow-up after echo with ekg and [facility] check feeling better De Icer Kit Assembler Required: No Allergies amiodarone [AMIODARONE] Allergy (Severe, Verified 09/19/24 11:03) INTERSTITIAL PNEUMONITIS, fluid gain, interstial pneumonitis amoxicillin [AMOXICILLIN] Allergy (Unknown, Verified 09/19/24 11:03) SHAKES ALL OVER , shaky, shaky doxycycline [DOXYCYCLINE] Adverse Reaction (Unknown, Verified 09/19/24 11:03) STOMACH UPSET, upset stomach flecainide Adverse Reaction (Verified 09/19/24 11:03) dizzy Medication List - Last Reconciled 01/25/25 by Fabian Arndt MD bumetanide 2 mg PO BID cyproheptadine 4 mg PO BEDTIME digoxin 125 mcg PO DAILY empagliflozin (Jardiance) 10 mg PO DAILY estradiol-norethindrone acet 0.05-0.14 mg/24 hr 1 patch transdermal 2XW fluvoxamine 25 mg PO TID lorazepam 0.5 mg take one half to one tablet by mouth 3 times a day; metolazone 2.5 mg PO .PRN metoprolol succinate ER (Toprol XL) 100 mg PO BID omeprazole 20 mg PO BEDTIME rivaroxaban (Xarelto) 20 mg PO DAILY 30 days spironolactone (Aldactone) 12.5 mg (1/2 x 25 mg) PO DAILY 90 days Synthroid (levothyroxine) 137 mcg PO DAILY NS HPI Comments Details: Jenny comes for follow-up. He said after taking additional metolazone she has done well. Her symptoms of shortness of breath have improved. She has also had improved leg edema. She denies any abdominal distension. No orthopnea, PND, leg edema. Denies any prolonged palpitation irregular heartbeat. Takes all her medications. No bleeding issues or neurologic events. [facility] Medical History Chronic a-fib Panic disorder [episodic paroxysmal anxiety] Postmenopausal HRT (hormone replacement therapy) Essential hypertension Hypothyroidism Tachycardia COLIN on CPAP Cardiac pacemaker in situ Non-toxic multinodular goiter Subclinical hypothyroidism Osteopenia Hyperparathyroidism COPD (chronic obstructive pulmonary disease) Chronic heart failure with preserved ejection fraction (HFpEF) Sick sinus syndrome Elevated antinuclear antibody (LORETO) level Drug-induced pneumonitis Dyslipidemia Depression with anxiety Stress incontinence Surgical History Hx of colonoscopy History of parathyroidectomy Hx of thyroidectomy S/P placement of cardiac pacemaker H/O unilateral oophorectomy History of removal of cyst Family History Father Cirrhosis with alcoholism Medical history non-contributory Mother Medical history non-contributory Hypothyroidism Social History Housing: Condominium Alcohol intake: never Patient Tobacco Use Status: Former Tobacco user e-Cigarette/Vaping Use: Never Used service: No Current occupational status: retired Cognitive needs: No Hearing needs: No Vision needs: No Review of Systems Const Denies chills, Denies fatigue, Denies fever(s), Denies frequent falls, Denies weakness, Denies weight gain and Denies weight loss ENT Denies dizziness Card Denies chest pain, Denies leg edema, Denies lightheadedness, Denies palpitations, Denies dyspnea, Denies dyspnea on exertion, Denies orthopnea and Denies other (loss of consciousness) Resp Denies cough, Denies dyspnea and Denies dyspnea on exertion GI Denies hematochezia and Denies change in stool character Musc Denies abnormal gait, Denies muscle weakness, Denies numbness, Denies radiating pain into limb and Denies tingling Neuro Denies abnormal gait, Denies dizziness, Denies frequent falls, Denies numbness, Denies tingling and Denies weakness Endo Denies fatigue and Denies palpitations Physical Exam Vital Signs: Last Vital Signs Pulse 74 01/25/25 13:32 BP 120/82 01/25/25 13:32 BMI result Body Mass Index 32.9 Const General: cooperative, comfortable, no acute distress, alert and awake Nutritional Appearance: obese Orientation/consciousness: patient oriented x3 Limitations: no limitations Neck Neck: Yes trachea midline, Yes supple and Yes no JVD Resp Effort & Inspection: normal respiratory effort Auscultation: clear to auscultation bilaterally Cardio Jugular venous distension: no JVD Rate: tachycardic Rhythm: abnormal rhythm irregularly irregular Heart sounds: S1 normal heart sound present and S2 normal heart sound present GI Auscultation: normal bowel sounds Skin General skin exam: no rashes or lesions noted and ecchymosis Neuro General: patient oriented x3 and no focal motor deficits Extrem General: No clubbing, No cyanosis and Yes edema (2+ below knee on the left side and 1+ on the right) Psych Appearance: grossly normal Office Procedures Cardiac Device Check Cardiac Device Check Details: Dual-chamber [facility] pacemaker in place programmed in VVI. Ventricular sensing is adequate. Ventricular pacing thresholds are excellent. Pacing lead impedance is stable. Battery life is excellent [id number] Cardiac Device Check, leadless/single lead pacemaker Procedure code (CPT) selection complete EKG Details: EKG shows atrial fibrillation with diffuse ST T wave changes most likely suggestive of repolarization abnormality and/or digoxin effect 77611-Vexzkgdqqwxrkiwkt, Complete Assessment & Plan Assessment & Plan (1) Chronic a-fib: Code(s): I48.20 - Chronic atrial fibrillation, unspecified Category: Medical Plan: Chronic rate control atrial fibrillation dual therapy at this point time. Continue digoxin as well as metoprolol therapy. Continue full oral anticoagulation currently on Xarelto 20 mg daily which she has tolerated well. Quarterly renal function test should be pursued. (2) Chronic heart failure with preserved ejection fraction (HFpEF): Code(s): I50.32 - Chronic diastolic (congestive) heart failure Category: Medical Plan: Heart failure preserved ejection fraction, clinically euvolemic and well compensated. Advised to continue current diuretic regimen. Additional metolazone as need be. Continue Jardiance as well as spironolactone therapy. Heart failure management was discussed. Advised to continue daily weight monitoring avoidance salt loading. Additional diuretics as need be including metolazone therapy. (3) Cardiac pacemaker in situ: Code(s): Z95.0 - Presence of cardiac pacemaker Category: Medical Plan: Cardiac pacemaker in-situ for sick sinus syndrome. Pacemaker is working well. Currently programmed VVI mode due to chronic atrial fibrillation. Continue monitor remotely every 3 months. Follow up in the clinic in 6 months time. Follow up in the clinic in 6 months time, sooner p.r.n.. Thank you for allowing me to partake in her care Coding Level of Care Code Est Pt Level 4 (23543) Complex EM visit Add On G2211 Diagnoses Chronic a-fib I48.20 Chronic heart failure with preserved ejection fraction (HFpEF) I50.32 Cardiac pacemaker in situ Z95.0 CPT Codes Cardiac Device Check - Cardiac Device 1: 33553-FI Cardiac Device Check, leadless/single lead pacemaker ([id number]) EKG - CPT: 65611-Zosrvwncgspkndirp, Complete ([id number])
--- OUTSIDE RECORDS SUMMARY | 2025-01-25 14:33 | XMS_ITS | Patient Health Record ---
Author Organization [facility] Address [address] [place] [address] Care Team Providers Care Library Consultant Name Role Phone Magalys Wall MD Primary Care Provider Jeromy Chaparro Unavailable [phone] NIKHIL NEWMAN Unavailable Unavailable Allergies Allergen (clinical [...] Active Furosemide 20 MG TAKE twoTABLET BY [facility] EVERY DAYwith 2 tablets Orally twice a [...] Problem Status W/U Status Risk Notes Problem 594310300 Colon cancer screening (Z12.11) Active confirmed Problem Diverticular disease of colon (193771692) Diverticulosis of large intestine without perforation or abscess without bleeding (K57.30) Active confirmed Problem 116284091 Gastroesophageal reflux disease without esophagitis (K21.9) Active confirmed Problem 767378385 Gastroesophageal reflux disease, esophagitis presence not specified (K21.9) Active confirmed Problem 268995486 Gallstones (K80.20) Active confirmed Problem 84132765 Pharyngoesophage al dysphagia (R13.14) Active confirmed Problem 522475104 Anticoagulant long-term use (Z79.01) Active confirmed Problem 14605423 Gilbert's syndro me (E80.4) Active confirmed Plan Of Treatment Future Test Test Name Order Date COLONOSCOPY 02/14/2013 UPPER GI ENDOSCOPY BALLOOON DILATION OF ESOPH 01/24/2020 COLONOSCOPY 08/24/2023 Insurance Providers Payer Name Payer Address Payer Phone Subscriber Number Group Number Insured Name Patient Relationship to Insured Coverage Start Date Coverage End Date MEDICARE OF [place] [address] [facility] [place] [address] [phone] [id number] POHORE, ANGELA Self - patient is the insured [facility] SUPPLEMENTAL PLAN [address] [place] [address] [id number] POHORE, ANGELA Self - patient is the insured Medical (General) History Medical History History ICD Code Denies CO,DM,CVA,Lung disease,renal dise ase She describes a colonoscopy [...]
--- OUTSIDE RECORDS SUMMARY | 2025-01-25 14:33 | XMS_ITS ---
Author Organization [facility] Address [address] [place] [address] Care Team Providers Care Piece Goods Packer Name Role Phone Mae LOPEZ, Magalys Primary Care Provider Jeromy Chaparro Unavailable [phone] NIKHIL NEWMAN Unavailable Unavailable Allergies Allergen (clinical [...] Furosemide 20 MG TAKE twoTABLET BY [facility] EVERY DAYwith 2 tablets Orally twice [...] Problem Status W/U Status Risk Notes Problem 778096491 Colon cancer screening (Z12.11) Active confirmed Problem 472189276 Anticoagulant long-term use (Z79.01) Active confirmed Problem 147955483 Gallstones (K80.20) Active confirmed Problem 48397960 Gilbert's syndro me (E80.4) Active confirmed Problem 162786831 Gastroesophageal reflux disease without esophagitis (K21.9) Active confirmed Vital Signs Temperature 97.3 degrees Fahrenheit 08/24/20 23 Blood pressure systolic 00 mm Hg 08/24/20 23 Blood pressure diastolic 00 mm Hg 023 Height 66.5 in 08/24/2023 Weight 227 lbs 08/24/2023 BMI 36.09 kg/m2 08/24/2023 Encounters Encounter Location Date Provider Diagnosis [facility] [address] [place] [address] 08/24/2023 Jeromy La Colon cancer screeni ng [...] Notes * LESVIA ARREGUINOB:1950 (73 yo F)Acc No.[id number]:08/24/2023 Progress Notes Patient:JENNY LUNA Provider:?Jeromy La MD :1950???Age:73 Y???Sex:Female D ate:08/24/2023 Address:[address] [place], [place] [address] Pcp:Magalys Wall MD Subjective: * Chief Complaints: [...] Procedure Codes:?3017F COLOR ECTAL CA SCREEN DOC IMC6430M TOBACCO NON-NVYGI0128 BP SCR NOT PRFRM REC REASON NOS * Preventive Medicine:? ??Counseling:?Care goal follow-up plan:?Above Normal BMI Follow-up?Giving encouragement to exercise,?BMI management provided?Yes.? ??Urinary Incontinence:?Urinary Incontinence?Assessment:?Present,?Plan of care documented:?Yes,?Type of plan of care:?Lifestyle interventions.? * Follow Up:?prn * * Sign off status: Completed true * Provider:?Jeromy La MD Date:? 023 Generated for Lacey scruggs/Marcie/Desmond on:?01/25/2025 02:33 PM EDT History and Physical Notes * [...]
--- OUTSIDE RECORDS SUMMARY | 2025-01-25 14:33 | XMS_ITS ---
Author Organization [facility] Address [address] [place] [address] Care Team Providers Care Rehabilitation Team Lead Name Role Phone Mae LOPEZ, Magalys Primary Care Provider Jeromy Chaparro Unavailable [phone] NIKHIL NEWMAN Unavailable Unavailable REASON FOR VISIT screening Problems Problem Type SNOMED Code ICD Code Onset Dates Problem Status W/U Status Risk Notes Problem Diverticulosis o f large intestine without perforation or abscess without bleeding (K57.30) Active confirmed Encounters Encounter Location Date Provider Diagnosis [facility] Outpatient [address] [place] [id number] 11/15/2023 Jeromy La Encounter for scre ening [...] Notes * LESVIA ARREGUINOB:1950 (74 yo F)Acc No.[id number]:11/15/2023 COLON WITH MAC Patient:?ANGELA ARREGUIN Provider:?Jeromy La MD :1950???Age:73 Y???Sex:Female D ate:11/15/2023 Address:[address] [place], [place] [id number] Pcp:Magalys Wall MD Subjective: * Chief Complaints: [...] MD Date:? 024 Generated for Lacey scruggs/Marcie/eTransmitting on:?01/25/2025 02:33 PM EDT
--- OUTSIDE RECORDS SUMMARY | 2025-01-25 14:33 | XMS_ITS | Clinical Summary ---
Author Organization [facility] it Address [address] [place] [address] Care Team Providers Care Creamery Worker Name Role Phone Massiel Soto MD Primary Care Provider [phone] Social History Tobacco Use Types Packs/Day Years [...] [facility] Diagnostic Imaging Department [address] [place] [address] Patient: ??JENNY MENDOZA ?/Age/Sex: 1950 - 74 - F Unit#: ??[id number] ? Location/Status: ??SPDIMAM/REG CLI ? Mnemonic/Ordering Site: ??DIGSC/SPMAM Ordering Physician: ??MASSIEL SOTO MD [facility] Screening Digital - 06/22/24 - 1123 Report Status:Signed EXAM: [facility] Screening Digital EXAM DATE AND TIME: 06/22/2024 11:23 AM HISTORY: ??Screening. Right breast biopsy in 2022, pathology benign. COMPARISON: ??05/13/23, 05/04/23, 11/24/22, 04/28/22, 04/22/21 and previous exams dating back to 2009. TECHNIQUE: Bilateral digital breast tomosynthesis was performed in the CC and MLO projections. Computer aided detection with Spinback 3D 3.1 was employed. TISSUE DENSITY: c. [...] Mammogram performed at [facility] at [address] [address] Dictating Physician: ??CATE LEON MD Electronically Signed by: ??CATE LEON MD Dic Date/Time: ??06/23/24921 Sign date/Time: ??06/23/24924 Procedure Note Cate Leon MD - 07/18/2024 [facility] Diagnostic Imaging Department [address] [place] [address] Patient: JENNY MENDOZA /Age/Sex: 1950 - 74 - F Unit#: [id number] Location/Status: SPDIMAM/REG CLI Mnemonic/Ordering Site: DIGME/[facility] Ordering Physician: MASSIEL SOTO MD [facility] Screening Digital - 06/22/24 1123 Report Status:Signed EXAM: [facility] Screening Digital EXAM DATE AND TIME: 06/22/2024 11:23 AM HISTORY: Screening. Right breast biopsy in 2022, pathology benign. COMPARISON: 05/13/23, 05/04/23, 11/24/22, 04/28/22, 04/22/21 and previous examsdating back to 2009. TECHNIQUE: Bilateral digital breast tomosynthesis was performed in the CCand MLO projections. Computer aided detection with Spinback 3D 3.1was employed. TISSUE DENSITY: c. The [...] Mammogram performed at [facility] [place] [address] Dictating Physician: CATE LEON MD Electronically Signed by: CATE LEON MD Dic Date/Time: 06/23/24921 Sign date/Time: 06/23/24924 us Massiel Soto MD IMG BI PROCEDURES Final Res ult from Last 3 Months or Most Recently Relevant to Health Maintenance Care Teams Creamery Worker Relationship Specialty Start Date End Date Massiel Soto MD [address] [place] [address] PCP - General Internal Medicine 03/10/22
--- OUTSIDE RECORDS SUMMARY | 2025-01-25 14:33 | XMS_ITS | Continuity of Care Document ---
Author Name [facility] Organization [facility] Care Team Providers Care Supervisor Dehydrogenation Name Role Phone [facility] Unavailable Unavailable Immunizations Combined list of available immunizations from the Department of Defense and Veterans Affairs facilities. Immunization Series Date Given Administered By Site Reaction Lot Number CVX Code Drug Data Report Analyst Status Comments Source COVID-19 (MODERNA), MRNA, LNP-S, PF, 100 MCG OR 50 MCG DOSE 3 2020 207 complet ed MOD; [id number]; 2 IELD COVID-19 (MODERNA), MRNA, LNP-S, PF, 100 MCG/0.5 ML DOSE 2 2020 207 complet ed MOD; [id number]; IELD COVID-19 (MODERNA), MRNA, LNP-S, PF, 100 MCG/0.5 ML DOSE 1 2020 207 complet ed MOD; [id number]; 1 IELD
== END 2025-01-25 13:58 | disposition home or self-care (01) ==
LOC: HO.HCS 13:31
PROVIDERS: PCP Internal Medicine; Visit Provider Internal Medicine Cardiovascular Disease
DX: I48.20 Chronic atrial fibrillation, unspecified (principal); I50.32 Chronic diastolic (congestive) heart failure; Z95.0 Presence of cardiac pacemaker
CPT/HCPCS: 93010; 93279; 99214; G2211

== ENCOUNTER → 2025-01-25 13:30 | Outpatient (BNVA) | payer MEDICARE, SELFPAY | PROVIDERS: PCP Internal Medicine; Visit Provider Internal Medicine Cardiovascular Disease | DX: I48.20 Chronic atrial fibrillation, unspecified (principal); I50.32 Chronic diastolic (congestive) heart failure; Z45.018 Encounter for adjustment and management of other part of cardiac pacemaker | CPT/HCPCS: 93005; 99212 ==

== ENCOUNTER 2025-01-29 07:53 | Outpatient (REF) | payer MEDICARE, SELFPAY ==
--- OUTSIDE RECORDS SUMMARY | 2025-01-29 07:56 | XMS_ITS | Continuity of Care Document ---
Author Name [facility] Organization [facility] Care Team Providers Care Mesh Man Name Role Phone [facility] Unavailable Unavailable Immunizations Combined list of available immunizations from the Department of Defense and Veterans Affairs facilities. Immunization Series Date Given Administered By Site Reaction Lot Number CVX Code Drug Groover And Turner Status Comments Source COVID-19 (MODERNA), MRNA, LNP-S, PF, 100 MCG OR 50 MCG DOSE 3 2020 207 complet ed MOD; [id number]; 2 IELD COVID-19 (MODERNA), MRNA, LNP-S, PF, 100 MCG/0.5 ML DOSE 2 2020 207 complet ed MOD; [id number]; IELD COVID-19 (MODERNA), MRNA, LNP-S, PF, 100 MCG/0.5 ML DOSE 1 2020 207 complet ed MOD; [id number]; 1 IELD
--- OUTSIDE RECORDS SUMMARY | 2025-01-29 07:56 | XMS_ITS | Patient Health Record ---
Author Organization [facility] Address [address] [place] [address] Care Team Providers Care Substance Abuse Clinician Name Role Phone Magalys Wall MD Primary Care Provider Jeromy Chaparro Unavailable [phone] NIKHIL NEWMAN Unavailable Unavailable Allergies Allergen (clinical [...] Active Furosemide 20 MG TAKE twoTABLET BY [facility] EVERY DAYwith 2 tablets Orally twice a [...] Problem Status W/U Status Risk Notes Problem 834714978 Colon cancer screening (Z12.11) Active confirmed Problem Diverticular disease of colon (920680213) Diverticulosis of large intestine without perforation or abscess without bleeding (K57.30) Active confirmed Problem 781774783 Gastroesophageal reflux disease without esophagitis (K21.9) Active confirmed Problem 110909185 Gastroesophageal reflux disease, esophagitis presence not specified (K21.9) Active confirmed Problem 038009924 Gallstones (K80.20) Active confirmed Problem 35524180 Pharyngoesophage al dysphagia (R13.14) Active confirmed Problem 634320189 Anticoagulant long-term use (Z79.01) Active confirmed Problem 12605386 Gilbert's syndro me (E80.4) Active confirmed Plan Of Treatment Future Test Test Name Order Date COLONOSCOPY 02/14/2013 UPPER GI ENDOSCOPY BALLOOON DILATION OF ESOPH 01/24/2020 COLONOSCOPY 08/24/2023 Insurance Providers Payer Name Payer Address Payer Phone Subscriber Number Group Number Insured Name Patient Relationship to Insured Coverage Start Date Coverage End Date [place]ARE OF [place] [address] [facility] [place] [address] [id number] POHORE, ANGELA Self - patient is the insured [facility] SUPPLEMENTAL PLAN [address] [place] [address] [id number] POHORE, ANGELA Self - patient is the insured Medical (General) History Medical History History ICD Code Denies MS,DM,CVA,Lung disease,renal dise ase She describes a colonoscopy [...]
--- OUTSIDE RECORDS SUMMARY | 2025-01-29 07:56 | XMS_ITS ---
Author Organization [facility] Address [address] [place] [address] Care Team Providers Care Change Attendant Name Role Phone Mae LOPEZ, Magalys Primary Care Provider Jeromy Chaparro Unavailable [phone] NIKHIL NEWMAN Unavailable Unavailable Allergies Allergen (clinical [...] Furosemide 20 MG TAKE twoTABLET BY [facility] EVERY DAYwith 2 tablets Orally twice [...] Problem Status W/U Status Risk Notes Problem 012203723 Colon cancer screening (Z12.11) Active confirmed Problem 128911524 Anticoagulant long-term use (Z79.01) Active confirmed Problem 947572042 Gallstones (K80.20) Active confirmed Problem 60990346 Gilbert's syndro me (E80.4) Active confirmed Problem 680776624 Gastroesophageal reflux disease without esophagitis (K21.9) Active confirmed Vital Signs Temperature 97.3 degrees Fahrenheit 08/24/20 23 Blood pressure systolic 00 mm Hg 08/24/20 23 Blood pressure diastolic 00 mm Hg 023 Height 66.5 in 08/24/2023 Weight 227 lbs 08/24/2023 BMI 36.09 kg/m2 08/24/2023 Encounters Encounter Location Date Provider Diagnosis [facility] [address] [place] [address] 08/24/2023 Jeromy La Colon cancer screeni ng [...] Notes * LESVIA ARREGUINOB:1950 (73 yo F)Acc No.[id number]:08/24/2023 Progress Notes Patient:JENNY LUNA Provider:?Jeromy La MD :1950???Age:73 Y???Sex:Female D ate:08/24/2023 Address:[address] [place], [place] [address] Pcp:Magalys Wall MD Subjective: * Chief Complaints: [...] Procedure Codes:?3017F COLOR ECTAL CA SCREEN DOC HTQ9433Y TOBACCO NON-VZPZM4728 BP SCR NOT PRFRM REC REASON NOS * Preventive Medicine:? ??Counseling:?Care goal follow-up plan:?Above Normal BMI Follow-up?Giving encouragement to exercise,?BMI management provided?Yes.? ??Urinary Incontinence:?Urinary Incontinence?Assessment:?Present,?Plan of care documented:?Yes,?Type of plan of care:?Lifestyle interventions.? * Follow Up:?prn * * Sign off status: Completed true * Provider:?Jeromy La MD Date:? 023 Generated for Lacey scruggs/Marcie/Desmond on:?01/29/2025 07:56 AM EDT History and Physical Notes * HPI [...]
[2025-01-29 11:03] LABS: Free T4 (Free Thyroxine) 0.98 ng/dL (0.71-1.85); Thyroid Stimulating Hormone 11.17 uIU/mL (0.32-4.0); Vitamin D 25-OH Total 50.1 ng/mL (>30)
== END 2025-01-29 07:54 | disposition home or self-care (01) ==
LOC: HO.HMGCLDS 07:53
PROVIDERS: PCP Internal Medicine; Visit Provider Internal Medicine
DX: F41.8 Other specified anxiety disorders (principal); E03.9 Hypothyroidism, unspecified; M85.852 Other specified disorders of bone density and structure, left thigh
CPT/HCPCS: 36415; 82306; 84439; 84443

== ENCOUNTER 2025-02-01 11:36 | Outpatient (AMB) | payer MEDICARE, SELFPAY ==
[2025-02-01 11:51] VITALS: BP 100/64; PULSE 64; RESP 15; TEMP 36.6; O2SAT 98; BMI 34.1
--- NOTE | 2025-02-01 11:51 | A.OFFPC_ITS ---
Vital Signs 02/01/25 11:51 Height 5 ft 5.5 in Weight 208 lb BMI 34.1 BP 100/64 Blood Pressure Location Rt brachial Position Sitting Respiration 15 Pulse 64 Pulse Source Pulse Oximeter Temp 97.9 F Temp Source Oral Pulse Oximetry (%) 98 Oxygen Delivery Method Room Air Intake Visit Reasons: 5 months follow up/labs Intake Note: Pt is here today for her 5mo. f/u labs Allergies amiodarone [AMIODARONE] Allergy (Severe, Verified 02/01/25 12:07) INTERSTITIAL PNEUMONITIS, fluid gain, interstial pneumonitis amoxicillin [AMOXICILLIN] Allergy (Unknown, Verified 02/01/25 12:07) SHAKES ALL OVER , shaky, shaky doxycycline [DOXYCYCLINE] Adverse Reaction (Unknown, Verified 02/01/25 12:07) STOMACH UPSET, upset stomach flecainide Adverse Reaction (Verified 02/01/25 12:07) dizzy Medication List - Last Reconciled 02/01/25 by Magalys Wall MD bumetanide 2 mg PO BID cyproheptadine 4 mg PO BEDTIME digoxin 125 mcg PO DAILY empagliflozin (Jardiance) 10 mg PO DAILY estradiol-norethindrone acet 0.05-0.14 mg/24 hr 1 patch transdermal 2XW fluvoxamine 25 mg PO TID guaifenesin ER (Mucinex) 600 mg PO BID lorazepam 0.5 mg take one half to one tablet by mouth 3 times a day; metolazone 2.5 mg PO .PRN metoprolol succinate ER (Toprol XL) 150 mg PO BID omeprazole 20 mg PO BEDTIME polyethylene glycol 3350 (Miralax) 17 grams PO DAILY rivaroxaban (Xarelto) 20 mg PO DAILY 30 days spironolactone (Aldactone) 12.5 mg (1/2 x 25 mg) PO DAILY 90 days Synthroid (levothyroxine) 137 mcg PO DAILY NS Tobacco use date assessed: 02/01/25 Fall risk assessment: No Falls in past year Last assessed Fall Risk: 02/01/25 Dental Screening Dental Screen Date: 02/01/25 Did you have a dental visit in the last 12 months?: Yes Did you have a dental problem in the last 6 months where you did not have access to dental care?: No Was dental information given to patient?: Patient has dentist HPI 5 months follow up/labs HPI Details Jenny is here today for follow-up on her hypothyroidism. Currently taking Synthroid 137 mcg daily. Patient states that she feels well on current dose. Labs however showed elevated TSH with a low normal free T4 level.. PFSH Medical History Chronic a-fib Panic disorder [episodic paroxysmal anxiety] Postmenopausal HRT (hormone replacement therapy) Essential hypertension Hypothyroidism Tachycardia COLIN on CPAP Cardiac pacemaker in situ Non-toxic multinodular goiter Subclinical hypothyroidism Osteopenia Hyperparathyroidism COPD (chronic obstructive pulmonary disease) Chronic heart failure with preserved ejection fraction (HFpEF) Sick sinus syndrome Elevated antinuclear antibody (LORETO) level Drug-induced pneumonitis Dyslipidemia Depression with anxiety Stress incontinence Surgical History Hx of colonoscopy History of parathyroidectomy Hx of thyroidectomy S/P placement of cardiac pacemaker H/O unilateral oophorectomy History of removal of cyst Family History Father Cirrhosis with alcoholism Medical history non-contributory Mother Medical history non-contributory Hypothyroidism Social History Housing: Condominium Alcohol intake: never Patient Tobacco Use Status: Former Tobacco user e-Cigarette/Vaping Use: Never Used service: No Current occupational status: retired Cognitive needs: No Hearing needs: No Vision needs: No Questionnaire Thrive Questionnaire Date Thrive assessed: 02/01/25 I am a: Patient What is your living situation today?: I have a steady place to live Within the past 12 months, did the food you bought not last and you didn't have the money to get more?: Never true Within the past 12 months, did you worry whether your food would run out before you got money to buy more?: Never true Do you have trouble paying for medicines?: No Do you have trouble getting transportation to medical appointments?: No Do you have trouble paying your heating and electricity bill?: No Do you have trouble taking care of your child, family member or friend?: No Do you have trouble with day-to-day activities such as bathing, preparing meals, shopping, managing finances, etc.?: No Are you currently unemployed and looking for a job?: No Are you interested in more education?: No THRIVE Score: 0 AUDIT C Alcohol Use Questionnaire (AUDIT-C) 1. How often do you have a drink containing alcohol?: Never Total Score: 0 GERMAINE-7 AMB Questionnaire GERMAINE-7 Date GERMAINE - 7 assessed: 11/18/23 Source: Developed by Drs. Jeromy Cardozo, Minerva Iniguez, Josemanuel Vazquez and colleagues, with an educational elizabeth from [employer]. Review of Systems Const Denies fatigue, Denies frequent falls and Denies weakness Eyes Reports no additional complaints ENT Denies dizziness Card Denies chest pain, Denies leg edema, Denies lightheadedness, Denies palpitations, Denies dyspnea, Denies dyspnea on exertion and Denies orthopnea Resp Denies cough, Denies dyspnea and Denies dyspnea on exertion GI Reports no additional complaints Reports no additional complaints Musc Denies abnormal gait, Denies muscle weakness, Denies numbness and Denies tingling Neuro Denies abnormal gait, Denies dizziness, Denies frequent falls, Denies numbness, Denies tingling and Denies weakness Psych Reports no additional complaints Endo Denies fatigue and Denies palpitations Luc/Lymph Reports no additional complaints Aller/Immun Reports no additional complaints Physical exam (Primary Care) Vital Signs: Last Vital Signs Temp 97.9 F 02/01/25 11:51 Pulse 64 02/01/25 11:51 Resp 15 02/01/25 11:51 BP 100/64 02/01/25 11:51 Pulse Ox 98 02/01/25 11:51 Oxygen Delivery Method Room Air 02/01/25 11:51 BMI result Body Mass Index 34.1 Tobacco/Smoking Status: Tobacco use Status Tobacco use date assessed 02/01/25 02/01/25 11:52 Patient Tobacco Use Status Former Tobacco user 02/01/25 11:52 e-Cigarette/Vaping Use Never Used 02/01/25 11:52 Thrive Assessment: Date of Thrive Assessment Date Thrive assessed 02/01/25 02/01/25 12:02 Const General: no acute distress and alert Orientation/consciousness: patient oriented x3 HENMT Face and sinus: Yes face symmetric Mouth: Normal oral and palatal mucosa present and moist mucous membranes Eyes General: appearance normal, both eyes and all related structures Neck Other: Nonpalpable thyroid Neck: Yes full ROM, Yes no lymphadenopathy and Yes supple Resp Effort & Inspection: normal respiratory effort Auscultation: clear to auscultation bilaterally Cardio Other: S1-S2 present regular rate and rhythm GI Other: Normal bowel sounds, soft, nontender with no mass palpated Skin General skin exam: no rashes or lesions noted Neuro General: patient oriented x3, gait normal, moves all extremities, Normal light touch and pain sensation, no focal motor deficits and CN's II-XI intact bilaterally Extrem General: Yes full ROM, Yes no joint enlargement, Yes no calf tenderness and Yes normal gait Psych Appearance: grossly normal and well kempt Mental Status: mental status grossly normal Speech and movement: Normal speech and movement present Affect: normal affect Results Reviewed Results Reviewed: RUN: 02/01/25 1206 PAGE 1 [facility] [address] [place] [id number] Scrap Bunch Maker: Christoph Heredia M.D. Specimen Inquiry Name: Jenny Mendoza Age/Sex: 74/F : 1950 Unit#: [id number] Attend Dr: Magalys Wall MD Re01/29/25 Status: DEP REF Location: [facility] Disch: SPEC : [id number] ROSALVA: 01/29/25 STATUS: COMP REQ : [id number] RECD: 01/29/25-[address]: Magalys Wall MD COMP: 01/29/253 ENTERED: 01/29/25-[address]: ORDERED: Vitamin D 25-OH, Free T4, TSH Test Result Flag Reference Vitamin D 25-OH 50.1 >30 ng/mL Health Based Reference Values* < 20 ng/mL Deficient 20-30 ng/mL Insufficient > 30 ng/mL Sufficient *Willie CRAMER. N Engl J Med. 2007;357:266-280 There is no well-established upper level of normal vitamin D levels. Some laboratories use 50 ng/mL as an upper limit of normal. However, toxicity is patient-dependent and may occur at any level. Careful correlation with the patient's presentation is necessary and, if there is concern for vitamin D toxicity, treatment should be considered irrespective of the serum level. Care must be taken in interpreting Vitamin D results from different laboratories and methodologies. Published data demonstrated that results from patients undergoing hemodialysis may show a negative bias when tested with various automated 25-OH vitamin D assays when compared to LC-MS/MS. When testing samples from patients whose predominant form of Vitamin D is Vitamin D2, such as patients receiving Vitamin D2 supplementation, results that are subtherapeutic should be confirmed with another method such as LC-MS/MS. Free T4 0.98 0.71-1.85 ng/dL TSH 3rd Gen. 11.17 H 0.32-4.0 uIU/mL Note: A sustained TSH level above 2.5 uIU/mL may rasheed ant further investigation. TSH 3rd Generation ([facility]) Coding Level of Care Code Est Pt Level 4 (97427) Diagnoses Acquired hypothyroidism E03.9 Hypothyroidism type: acquired Assessment & Plan Assessment & Plan (1) Hypothyroidism: Code(s): E03.9 - Hypothyroidism, unspecified Category: Medical Qualifiers: Hypothyroidism type: acquired Qualified Code(s): E03.9 - Hypothyroidism, unspecified Plan: Reviewed results of recent thyroid tests with patient, patient states that she feels well on current dose of Synthroid at 137 mcg daily, will continue. Will repeat another TSH, free T4 and thyroid peroxidase level in March 2025 and follow-up after Orders: Orders Thyroid Stimulating Hormone 03/24/25 Magalys Wall MD E03.9 - Hyp othyroidism, unspecified Free T4 (Free Thyroxine) 03/24/25 Magalys Wall MD E03.9 - Hypothyroidism, unspecified Thyroid Peroxidase Antibodies 03/24/25 Magalys Wall MD E03.9 - Hypothyroidism, unspecified Medications: Changed From metoprolol succinate ER (Toprol XL) Take 1 tablet in the morning and half tablet at night 100 mg PO BID 90 tabs 3RF To metoprolol succinate ER (Toprol XL) Take 1 tablet in the morning and half tablet at night 150 mg PO BID Fabian Arndt MD
--- OUTSIDE RECORDS SUMMARY | 2025-02-01 12:42 | XMS_ITS | Clinical Summary ---
Author Organization [facility] it Address [address] [place] [address] Care Team Providers Care Layout Mechanic Name Role Phone Massiel Soto MD Primary [...] Procedure Name Priority Date/Time Associated Diagnosis Comments [facility] SCREENING DIGITAL Routine 06/23/2024 9:25 AM EDT Encounter for screening mammogram for malignant neoplasm of breast from Last 3 Months or Most Recently Relevant to Health Maintenance Results * [facility] SCREENING DIGITAL (06/23/2024 9:25 AM EDT) Anatomical Region Laterality Modality Mammography 06/22/2024 11:0 0 AM EDT Narrative 06/23/2024 9:25 AM EDT [facility] Diagnostic Imaging Department [address] [place] [address] Patient: ??JENNY MENDOZA ?/Age/Sex: 1950 - 74 - F Unit#: ??[id number] ? Location/Status: ??SPDIMAM/REG CLI ? Mnemonic/Ordering Site: ??DIGSC/SPMAM Ordering Physician: ??MASSIEL SOTO MD [facility] Screening Digital - 06/22/24 - 1123 Report Status:Signed EXAM: [facility] Screening Digital EXAM DATE AND TIME: 06/22/2024 11:23 AM HISTORY: ??Screening. Right breast biopsy in 2022, pathology benign. COMPARISON: ??05/13/23, 05/04/23, 11/24/22, 04/28/22, 04/22/21 and previous exams dating back to 2009. TECHNIQUE: Bilateral digital breast tomosynthesis was performed in the CC and MLO projections. Computer aided detection with [employer] 3D 3.1 was employed. TISSUE DENSITY: c. [...] Mammogram performed at [facility] at [address] [address] Dictating Physician: ??CATE LEON MD Electronically Signed by: ??CATE LEON MD Dic Date/Time: ??06/23/24921 Sign date/Time: ??06/23/24924 Procedure Note Cate Leon MD - 07/18/2024 [facility] Diagnostic Imaging Department [address] [place] [address] Patient: JENNY MENDOZA /Age/Sex: 1950 - 74 - F Unit#: [id number] Location/Status: SPDIMAM/REG CLI Mnemonic/Ordering Site: DIGMO/[facility] Ordering Physician: MASSIEL SOTO MD [facility] Screening Digital - 06/22/24 1123 Report Status:Signed EXAM: [facility] Screening Digital EXAM DATE AND TIME: 06/22/2024 11:23 AM HISTORY: Screening. Right breast biopsy in 2022, pathology benign. COMPARISON: 05/13/23, 05/04/23, 11/24/22, 04/28/22, 04/22/21 and previous examsdating back to 2009. TECHNIQUE: Bilateral digital breast tomosynthesis was performed in the CCand MLO projections. Computer aided detection with [employer] 3D 3.1was employed. TISSUE DENSITY: c. The [...] Mammogram performed at [facility] [place] [address] Dictating Physician: CATE LEON MD Electronically Signed by: CATE LEON MD Dic Date/Time: 06/23/24921 Sign date/Time: 06/23/24924 us Massiel Soto MD IMG BI PROCEDURES Final Res ult from Last 3 Months or Most Recently Relevant to Health Maintenance Care Teams Layout Mechanic Relationship Specialty Start Date End Date Massiel Soto MD [address] [place] [address] PCP - General Internal Medicine 03/10/22
--- OUTSIDE RECORDS SUMMARY | 2025-02-01 12:42 | XMS_ITS ---
Author Organization [facility] Address [address] [place] [address] Care Team Providers Care Stone Setter Name Role Phone Mae LOPEZ, Magalys Primary Care Provider Jeromy Chaparro Unavailable [phone] NIKHIL NEWMAN Unavailable Unavailable REASON FOR VISIT screening Problems Problem Type SNOMED Code ICD Code Onset Dates Problem Status W/U Status Risk Notes Problem Diverticular disease of colon (779848196) Diverticulosis of large intestine without perforation or abscess without bleeding (K57.30) Active confirmed Encounters Encounter Location Date Provider Diagnosis [facility] [address] [place] [phone] 11/15/2023 Jeromy La Encounter for scre ening [...] Notes * LESVIA ARREGUINOB:1950 (74 yo F)Acc No.[id number]:11/15/2023 COLON WITH MAC Patient:?ANGELA ARREGUIN Provider:?Jeromy La MD :1950???Age:73 Y???Sex:Female D ate:11/15/2023 Address:[facility] Pcp:Magalys Wall MD Subjective: * Chief Complaints: [...] MD Date:? 024 Generated for Lacey scruggs/Marcie/eTransmitting on:?02/01/2025 12:42 PM EDT
--- OUTSIDE RECORDS SUMMARY | 2025-02-01 12:42 | XMS_ITS | Patient Health Record ---
Author Organization [facility] Address [address] [place] [address] Care Team Providers Care Haul Driver Name Role Phone Magalys Wall MD Primary Care Provider Jeromy Chaparro Unavailable [phone] NIKHIL NEWMAN Unavailable Unavailable Allergies Allergen (clinical [...] Furosemide 20 MG TAKE twoTABLET BY [facility] EVERY DAYwith 2 tablets Orally twice [...] Problem Status W/U Status Risk Notes Problem 596990986 Colon cancer screening (Z12.11) Active confirmed Problem Diverticular disease of colon (148110989) Diverticulosis of large intestine without perforation or abscess without bleeding (K57.30) Active confirmed Problem 843677219 Gastroesophageal reflux disease without esophagitis (K21.9) Active confirmed Problem 024513439 Gastroesophageal reflux disease, esophagitis presence not specified (K21.9) Active confirmed Problem 382608087 Gallstones (K80.20) Active confirmed Problem 83766426 Pharyngoesophage al dysphagia (R13.14) Active confirmed Problem 455456242 Anticoagulant long-term use (Z79.01) Active confirmed Problem 64682776 Gilbert's syndro me (E80.4) Active confirmed Plan Of Treatment Future Test Test Name Order Date COLONOSCOPY 02/14/2013 UPPER GI ENDOSCOPY BALLOOON DILATION OF ESOPH 01/24/2020 COLONOSCOPY 08/24/2023 Insurance Providers Payer Name Payer Address Payer Phone Subscriber Number Group Number Insured Name Patient Relationship to Insured Coverage Start Date Coverage End Date MEDICARE OF [place] [address] [facility] [place] [address] [id number] POHORE, ANGELA Self - patient is the insured [facility] [employer] [address] [place] [address] [phone] [id number] POHORE, ANGELA Self - patient is the insured Medical (General) History Medical History History ICD Code Denies NM,DM,CVA,Lung disease,renal dise ase She describes a colonoscopy [...]
--- OUTSIDE RECORDS SUMMARY | 2025-02-01 12:43 | XMS_ITS | Continuity of Care Document ---
Author Name [facility] Organization [facility] Care Team Providers Care Marketing Research Coordinator Name Role Phone [facility] Unavailable Unavailable Immunizations Combined list of available immunizations from the Department of Defense and Veterans Affairs facilities. Immunization Series Date Given Administered By Site Reaction Lot Number CVX Code Drug Applications Specialist Status Comments Source COVID-19 (MODERNA), MRNA, LNP-S, PF, 100 MCG OR 50 MCG DOSE 3 2020 207 complet ed MOD; [id number]; 2 IELD COVID-19 (MODERNA), MRNA, LNP-S, PF, 100 MCG/0.5 ML DOSE 2 2020 207 complet ed MOD; [id number]; IELD COVID-19 (MODERNA), MRNA, LNP-S, PF, 100 MCG/0.5 ML DOSE 1 2020 207 complet ed MOD; [id number]; 1 IELD
--- OUTSIDE RECORDS SUMMARY | 2025-02-01 12:43 | XMS_ITS ---
Author Organization [facility] Address [address] [place] [address] Care Team Providers Care Gas Meter Installer Helper Name Role Phone Mae LOPEZ, Magalys Primary Care Provider Jeromy Chaparro Unavailable [phone] NIKHIL NEWMAN Unavailable Unavailable Allergies Allergen (clinical [...] Furosemide 20 MG TAKE twoTABLET BY [facility] EVERY DAYwith 2 tablets Orally twice [...] Problem Status W/U Status Risk Notes Problem 865006601 Colon cancer screening (Z12.11) Active confirmed Problem 257298182 Anticoagulant long-term use (Z79.01) Active confirmed Problem 025842151 Gallstones (K80.20) Active confirmed Problem 01563114 Gilbert's syndro me (E80.4) Active confirmed Problem 247920808 Gastroesophageal reflux disease without esophagitis (K21.9) Active confirmed Vital Signs Temperature 97.3 degrees Fahrenheit 08/24/20 23 Blood pressure systolic 00 mm Hg 08/24/20 23 Blood pressure diastolic 00 mm Hg 023 Height 66.5 in 08/24/2023 Weight 227 lbs 08/24/2023 BMI 36.09 kg/m2 08/24/2023 Encounters Encounter Location Date Provider Diagnosis [facility] [address] [place] [address] 08/24/2023 Jeromy La Colon cancer screeni ng [...] again for allowing me to participate in Jneny's care. I shall continue to keep you [...] Notes * LESVIA ARREGUINOB:1950 (73 yo F)Acc No.[id number]:08/24/2023 Progress Notes Patient:JENNY LUNA Provider:?Jeromy La MD :1950???Age:73 Y???Sex:Female D ate:08/24/2023 Address:[address] [place], [place] [id number] Pcp:Magalys Wall MD Subjective: * Chief Complaints: [...] Procedure Codes:?3017F COLOR ECTAL CA SCREEN DOC TPO7247O TOBACCO NON-AKZZY6850 BP SCR NOT PRFRM REC REASON NOS * Preventive Medicine:? ??Counseling:?Care goal follow-up plan:?Above Normal BMI Follow-up?Giving encouragement to exercise,?BMI management provided?Yes.? ??Urinary Incontinence:?Urinary Incontinence?Assessment:?Present,?Plan of care documented:?Yes,?Type of plan of care:?Lifestyle interventions.? * Follow Up:?prn * * Sign off status: Completed true * Provider:?Jeromy La MD Date:? 023 Generated for Lacey scruggs/Marcie/Desmond on:?02/01/2025 12:42 PM EDT History and Physical Notes * [...]
== END 2025-02-01 12:35 | disposition home or self-care (01) ==
LOC: HO.HMCC 11:37
PROVIDERS: PCP Internal Medicine; Visit Provider Internal Medicine
DX: E03.9 Hypothyroidism, unspecified (principal)

== ENCOUNTER → 2025-02-01 11:36 | Outpatient (BNVA) | payer MEDICARE, SELFPAY | PROVIDERS: PCP Internal Medicine; Visit Provider Internal Medicine | DX: E03.9 Hypothyroidism, unspecified (principal) | CPT/HCPCS: 99212 ==

== ENCOUNTER 2025-02-08 14:16 | Outpatient (AMB) | payer MEDICARE, SELFPAY ==
--- OUTSIDE RECORDS SUMMARY | 2025-02-08 14:24 | XMS_ITS | Clinical Summary ---
Author Organization [facility] it Address [address] [place] [address] Care Team Providers Care Patient Relations Liaison Name Role Phone Massiel Soto MD Primary Care Provider [phone] Social History Tobacco Use Types Packs/Day Years [...] Procedure Name Priority Date/Time Associated Diagnosis Comments [facility] SCREENING DIGITAL Routine 06/23/2024 9:25 AM EDT Encounter for screening mammogram for malignant neoplasm of breast from Last 3 Months or Most Recently Relevant to Health Maintenance Results * [facility] SCREENING DIGITAL (06/23/2024 9:25 AM EDT) Anatomical Region Laterality Modality Mammography 06/22/2024 11:0 0 AM EDT Narrative 06/23/2024 9:25 AM EDT [facility] Diagnostic Imaging Department [address] [place] [address] Patient: ??JENNY MENDOZA ?/Age/Sex: 1950 - 74 - F Unit#: ??[id number] ? Location/Status: ??SPDIMAM/REG CLI ? Mnemonic/Ordering Site: ??DIGSC/SPMAM Ordering Physician: ??MASSIEL SOTO MD [facility] Screening Digital - 06/22/24 - 1123 Report Status:Signed EXAM: [facility] Screening Digital EXAM DATE AND TIME: 06/22/2024 11:23 AM HISTORY: ??Screening. Right breast biopsy in 2022, pathology benign. COMPARISON: ??05/13/23, 05/04/23, 11/24/22, 04/28/22, 04/22/21 and previous exams dating back to 2009. TECHNIQUE: Bilateral digital breast tomosynthesis was performed in the CC and MLO projections. Computer aided detection with [employer] 3D 3.1 was employed. TISSUE DENSITY: c. [...] Mammogram performed at [facility] at [address] [address] Dictating Physician: ??CATE LEON MD Electronically Signed by: ??CATE LEON MD Dic Date/Time: ??06/23/24921 Sign date/Time: ??06/23/24924 Procedure Note Cate Leon MD - 07/18/2024 [facility] Diagnostic Imaging Department [address] [place] [address] Patient: JENNY MENDOZA /Age/Sex: 1950 - 74 - F Unit#: [id number] Location/Status: SPDIMAM/REG CLI Mnemonic/Ordering Site: [facility] Ordering Physician: MASSIEL SOTO MD [facility] Screening Digital - 06/22/24 1123 Report Status:Signed EXAM: [facility] Screening Digital EXAM DATE AND TIME: 06/22/2024 11:23 AM HISTORY: Screening. Right breast biopsy in 2022, pathology benign. COMPARISON: 05/13/23, 05/04/23, 11/24/22, 04/28/22, 04/22/21 and previous examsdating back to 2009. TECHNIQUE: Bilateral digital breast tomosynthesis was performed in the CCand MLO projections. Computer aided detection with [employer] 3D 3.1was employed. TISSUE DENSITY: c. The [...] Mammogram performed at [facility] [place] [address] Dictating Physician: CATE LEON MD Electronically Signed by: CATE LEON MD Dic Date/Time: 06/23/24921 Sign date/Time: 06/23/24924 us Massiel Soto MD IMG BI PROCEDURES Final Res ult from Last 3 Months or Most Recently Relevant to Health Maintenance Care Teams Patient Relations Liaison Relationship Specialty Start Date End Date Massiel Soto MD [address] [place] [address] PCP - General Internal Medicine 03/10/22
[2025-02-08 14:27] VITALS: BP 120/68; PULSE 68; O2SAT 97; BMI 32.9
--- NOTE | 2025-02-08 14:27 | MHC.OFFVIS ---
Vital Signs 02/08/25 14:27 Height 5 ft 5.5 in Weight 200 lb 9.93 oz BMI 32.9 BP 120/68 Blood Pressure Location Lt brachial Position Sitting Pulse 68 Pulse Source Pulse Oximeter Pulse Oximetry (%) 97 Oxygen Delivery Method Room Air Intake Visit Reasons: Obstructive sleep apnea Intake Note: pt is here for follow up and states she is using cpap, is having health issues, she feels like she could sleep all the time, [employer] Required: No Allergies amiodarone [AMIODARONE] Allergy (Severe, Verified 02/08/25 14:54) INTERSTITIAL PNEUMONITIS, fluid gain, interstial pneumonitis amoxicillin [AMOXICILLIN] Allergy (Unknown, Verified 02/08/25 14:54) SHAKES ALL OVER , shaky, shaky doxycycline [DOXYCYCLINE] Adverse Reaction (Unknown, Verified 02/08/25 14:54) STOMACH UPSET, upset stomach flecainide Adverse Reaction (Verified 02/08/25 14:54) dizzy Medication List - Last Reconciled 02/08/25 by Idalia Woo MD bumetanide 2 mg PO BID cyproheptadine 4 mg PO BEDTIME digoxin 125 mcg PO DAILY empagliflozin (Jardiance) 10 mg PO DAILY estradiol-norethindrone acet 0.05-0.14 mg/24 hr 1 patch transdermal 2XW fluvoxamine 25 mg PO TID guaifenesin ER (Mucinex) 600 mg PO BID lorazepam 0.5 mg take one half to one tablet by mouth 3 times a day; metolazone 2.5 mg PO .PRN metoprolol succinate ER (Toprol XL) 150 mg PO BID omeprazole 20 mg PO BEDTIME polyethylene glycol 3350 (Miralax) 17 grams PO DAILY rivaroxaban (Xarelto) 20 mg PO DAILY 30 days spironolactone (Aldactone) 12.5 mg (1/2 x 25 mg) PO DAILY 90 days Synthroid (levothyroxine) 137 mcg PO DAILY NS Do you need a note to return to daycare/school/sports/work: No HPI HPI Obstructive sleep apnea: Details: THIS 74 YEARS OLD VERY PLEASANT FEMALE IS HERE FOR SLEEP APNEA FOLLOW-UP AFTER 6 MONTHS. HE HAS BEEN USING CPAP REGULARLY MOST OF THE NIGHTS. SHE MISSES A FEW NIGHTS BECAUSE WHEN WATCHING TV SHE JUST GO TO SLEEP WITHOUT PUTTING ON THE MASK. AND ON SOME NIGHTS SHE CUTS HER SLEEP SHORT BECAUSE SHE HAS TO GET UP AND TAKE CARE OF HER . OVERALL HER USAGE OF THE CPAP IS STILL WITHIN OPTIMAL RANGE. SHE SHE USES CPAP SHE SLEEPS WELL.. FOR HER MILD OBSTRUCTIVE AIRWAY DISORDER SHE USES ALBUTEROL HFA 2 PUFFS Q 6 HOURS ONLY P.R.N. [facility] Medical History Chronic a-fib Panic disorder [episodic paroxysmal anxiety] Postmenopausal HRT (hormone replacement therapy) Essential hypertension Hypothyroidism Tachycardia COLIN on CPAP Cardiac pacemaker in situ Non-toxic multinodular goiter Subclinical hypothyroidism Osteopenia Hyperparathyroidism COPD (chronic obstructive pulmonary disease) Chronic heart failure with preserved ejection fraction (HFpEF) Sick sinus syndrome Elevated antinuclear antibody (LORETO) level Drug-induced pneumonitis Dyslipidemia Depression with anxiety Stress incontinence Surgical History Hx of colonoscopy History of parathyroidectomy Hx of thyroidectomy S/P placement of cardiac pacemaker H/O unilateral oophorectomy History of removal of cyst Family History Father Cirrhosis with alcoholism Medical history non-contributory Mother Medical history non-contributory Hypothyroidism Social History Housing: Condominium Alcohol intake: never Patient Tobacco Use Status: Former Tobacco user e-Cigarette/Vaping Use: Never Used service: No Current occupational status: retired Cognitive needs: No Hearing needs: No Vision needs: No Review of Systems Const All systems reviewed & are unremarkable except as noted in HPI and below Eyes Reports no additional complaints ENT Reports no additional complaints Card Reports irregular heart rhythm and Reports dyspnea on exertion (mild) Resp Reports as per HPI and Reports dyspnea on exertion (mild) GI Reports no additional complaints Reports no additional complaints Musc Reports no additional complaints Skin/Breast Reports system reviewed and no additional complaints, except as documented Neuro Reports no additional complaints Psych Reports anxiety and Reports depression (Mild controlled) Endo Reports no additional complaints Physical Exam Vital Signs: Last Vital Signs Pulse 68 02/08/25 14:27 BP 120/68 02/08/25 14:27 Pulse Ox 97 02/08/25 14:27 Oxygen Delivery Method Room Air 02/08/25 14:27 BMI result Body Mass Index 32.9 Const General: comfortable, no acute distress, alert and awake Orientation/consciousness: patient oriented x3 HEENT Head: Yes normal to inspection General nose exam: No nasal polyps present and No nasal discharge present Face and sinus: Yes sinuses nontender Mouth: oropharynx normal Throat: Yes posterior oropharynx normal Eyes General: appearance normal, both eyes and all related structures Neck Neck: Yes normal visual inspection, Yes no lymphadenopathy, Yes trachea midline and Yes no JVD Thyroid: Thyroid normal Chest Chest palpation & inspection: normal inspection of the chest, normal palpation of entire chest wall and no tenderness Resp Other: Percussion note is resonant, breath sounds are slightly distant but equal on both sides, No wheezes rhonchi or crepitations are heard. Cardio Palpation: normal PMI Rate: regular rate Rhythm: regular rhythm Heart sounds: no gallops and no murmurs GI Palpation (GI): Soft to palpation, nontender, No hepatosplenomegaly present and no masses Auscultation: normal bowel sounds Back/Spine/Pelvis Thoracic/Lumbar Spine: thoracic and lumbar spine normal to inspection Skin General skin exam: no rashes or lesions noted Neuro General: patient oriented x3 and no focal motor deficits Cranial nerves: Yes CN's II-XII intact bilaterally Extrem General: Yes normal to inspection, Yes no clubbing, cyanosis or edema and Yes no calf tenderness Psych Appearance: grossly normal and well kempt Speech and movement: Normal speech and movement present Results Reviewed Results Reviewed: COMPLIANCE REPORT FOR THE LAST 30 NIGHTS IS REVIEWED. SHE HAS USED 26/30 NIGHTS, 87%. AVERAGE USE IT PER NIGHT 5 HOURS 59 MINUTES. PRESSURE USED MOSTLY 8-9 CM. NO SIGNIFICANT AIR LEAK. RESIDUAL AHI 2.2 Assessment & Plan Assessment & Plan (1) COLIN on CPAP: Comment: Known case of obstructive sleep apnea. Using CPAP regularly every night . Compliance is good . She feels more comfortable with the nasal pillows . Code(s): G47.33 - Obstructive sleep apnea (adult) (pediatric); Z99.89 - Dependence on other enabling machines and devices Category: Medical Plan: ADVISED TO CONTINUE USING CPAP EVERY NIGHT. STRESSED THAT SHE SHOULD USE THE CPAP FOR MORE THAN 5 HOURS EVERY NIGHT. ALSO REMEMBER TO PUT THE CPAP ON BEFORE FALLING ASLEEP. Coding Level of Care Code Est Pt Level 3 (40152) Diagnoses COLIN on CPAP G47.33; Z99.89
== END 2025-02-08 14:58 | disposition home or self-care (01) ==
LOC: HO.HPS 14:16
PROVIDERS: PCP Internal Medicine; Visit Provider Internal Medicine
DX: G47.33 Obstructive sleep apnea (adult) (pediatric) (principal); Z99.89 Dependence on other enabling machines and devices
CPT/HCPCS: 99213

== ENCOUNTER → 2025-02-08 14:16 | Outpatient (BNVA) | payer MEDICARE, SELFPAY | PROVIDERS: PCP Internal Medicine; Visit Provider Internal Medicine | DX: G47.33 Obstructive sleep apnea (adult) (pediatric) (principal); Z99.89 Dependence on other enabling machines and devices | CPT/HCPCS: 99212 ==

== ENCOUNTER 2025-03-15 14:20 | Outpatient (AMB) | payer MEDICARE, SELFPAY ==
--- OUTSIDE RECORDS SUMMARY | 2021-09-06 07:45 | XMS_ITS | Continuity of Care Document ---
Author Name [facility] Organization [facility] Care Team Providers Care Sub Arc Operator Name Role Phone [facility] Unavailable Unavailable Immunizations Combined list of available immunizations from the Department of Defense and Veterans Affairs facilities. Immunization Series Date Given Administered By Site Reaction Lot Number CVX Code Drug Team Leader Status Comments Source COVID-19 (MODERNA), MRNA, LNP-S, PF, 100 MCG OR 50 MCG DOSE 3 2020 207 complet ed MOD; [id number]; 2 IELD COVID-19 (MODERNA), MRNA, LNP-S, PF, 100 MCG/0.5 ML DOSE 2 2020 207 complet ed MOD; [id number]; IELD COVID-19 (MODERNA), MRNA, LNP-S, PF, 100 MCG/0.5 ML DOSE 1 2020 207 complet ed MOD; [id number]; 1 IELD
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
== END 2025-03-15 15:24 | disposition home or self-care (01) ==
LOC: HO.HOP 14:20
PROVIDERS: PCP Internal Medicine; Visit Provider Psychiatry & Neurology Psychiatry
DX: F41.8 Other specified anxiety disorders (principal); F41.0 Panic disorder [episodic paroxysmal anxiety]
CPT/HCPCS: 90833; 99213

== ENCOUNTER → 2025-03-15 14:20 | Outpatient (BNVA) | payer MEDICARE, SELFPAY | PROVIDERS: PCP Internal Medicine; Visit Provider Psychiatry & Neurology Psychiatry | DX: F41.8 Other specified anxiety disorders (principal); F41.0 Panic disorder [episodic paroxysmal anxiety] | CPT/HCPCS: 99212 ==

== ENCOUNTER 2025-04-09 08:05 | Outpatient (REF) | payer MEDICARE, SELFPAY ==
--- OUTSIDE RECORDS SUMMARY | 2021-09-06 07:45 | XMS_ITS | Continuity of Care Document ---
Author Name [facility] Organization [facility] Care Team Providers Care Log Buncher Name Role Phone [facility] Unavailable Unavailable Immunizations Combined list of available immunizations from the Department of Defense and Veterans Affairs facilities. Immunization Series Date Given Administered By Site Reaction Lot Number CVX Code Drug Writer Producer Status Comments Source COVID-19 (MODERNA), MRNA, LNP-S, PF, 100 MCG OR 50 MCG DOSE 3 2020 207 complet ed MOD; [id number]; 2 IELD COVID-19 (MODERNA), MRNA, LNP-S, PF, 100 MCG/0.5 ML DOSE 2 2020 207 complet ed MOD; [id number]; IELD COVID-19 (MODERNA), MRNA, LNP-S, PF, 100 MCG/0.5 ML DOSE 1 2020 207 complet ed MOD; [id number]; 1 IELD
--- OUTSIDE RECORDS SUMMARY | 2023-11-15 05:50 | XMS_ITS ---
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 [employer] Name Role Phone Mae LOPEZ, Magalys Primary Care Provider Jeromy Chaparro Unavailable [phone] NIKHIL NEWMAN Unavailable Unavailable REASON FOR VISIT screening Problems Problem Type SNOMED Code ICD Code Onset Dates Problem Status W/U Status Risk Notes Problem Diverticulosis o f large intestine without perforation or abscess without bleeding (K57.30) Active confirmed Encounters Encounter Location Date Provider [place] [facility] [place] [address] [place] [phone] 11/15/2023 Jeromy La Encounter for scre ening colonoscopy Z12.11 ; Diverticulosis of large intestine without perforation or abscess without bleeding K57.30 and Other hemorrhoids K64.8 Assessments Encounter Date Diagnosis (ICD Code) Assessment Notes Treatment Notes Treatment Clinical Notes Section Notes 11/15/2023 Encounter for screening colonoscopy (ICD-10 - Z12.11) 11/15/2023 Diverticulosis of large intestine without perforation or abscess without bleeding (ICD-10 - K57.30) 11/15/2023 Other hemorrhoids (ICD-10 - K64.8) Plan Of Treatment No Information Progress Notes * LESVIA ARREGUINOB:1950 (74 yo F)Acc No.[id number]:11/15/2023 COLON WITH MAC Patient: ANGELA LORD Provider: Yara La MD :1950 A ge:73 Y S ex:Female Date:11/15/2023 Address[address] [id number] Pcp:Magalys Wall MD Subjective: * Chief Complaints: * 1 . Screening. * Medical History: Objective: * Vitals: Assessment: * Assessment: 1. E ncounter for screening colonoscopy - Z12.11 (Primary) 2 . D iverticulosis of large intestine without perforation or abscess without bleeding - K57.30 3 .?Other hemorrhoids - K64.8 Plan: * Treatment: * Procedure Codes: G 0121 COLOREC CNCR SCR;COLNSCPY NO HI RSK, 0529F INTRVL 3+YRS PTS CLNSCP DOCD, 0528F RCMND FLW-UP 10 YRS DOCD, Modifiers: 1P * * The named appointment provid er may or may not be the originator of this progress note, and it is not deemed complete until electronically signed by the appointment provider. Sign off status: Pending * Provider: Yara La MD Date: 0 11/15/2023 Generated for Lacey scruggs/Marcie/Leslyitting on: 0 04/09/2025 08:09 AM EDT
--- OUTSIDE RECORDS SUMMARY | 2025-04-09 08:09 | XMS_ITS | Clinical Summary ---
Author Organization [facility] it Address [address] [place] [address] Care Team Providers Care Passenger Service Manager Name Role Phone Massiel Soto MD Primary [...] 1998 Zoster Vaccines (1 of 2) 1998 Falls Risk Assessment 08/23/2022 Hepatitis C Screening 08/23/2022 Osteoporosis Screening (Bone Density Screening) 08/23/2022 Social Influencers of Health Screening 08/23/2022 RSV Immunization Adult Patients (1 - 1-dose 75+ series) 2023 COVID-19 Vaccine ( - season) 2024 Depression Screening 09/20/2024 Influenza Vaccine (#1) 2025 Breast Cancer Screening Discontinued 06/23/20 24, [...] AM EDT Narrative 06/23/2024 9:25 AM EDT [facility] Diagnostic Imaging Department [address] [place] [address] Patient: SEVENMEHNAZJENNY /Age/Sex: 1950 - 74 - F Unit#: [id number] [facility]/Ordering Site: [facility] [place] Ordering Physician: MASSIEL SOTO MD [facility] Screening Digital - 06/22/243 Report Status:Signed EXAM: [facility] Screening Digital EXAM DATE AND TIME: 06/22/2024 11:23 AM HISTORY: Screening. Right breast biopsy in 2022, pathology benign. COMPARISON: 05/13/23, 05/04/23, 11/24/22, 04/28/22, 04/22/21 and previous exams dating back to 2009. TECHNIQUE: Bilateral digital breast tomosynthesis was performed in the CC and MLO projections. Computer aided detection with [employer] 3D 3.1 was employed. TISSUE DENSITY: c. [...] Mammogram performed at [facility] [place] [address] Dictating Physician: CATE LEON MD Electronically Signed by: CATE LEON MD Dic Date/Time: 06/23/24921 Sign date/Time: 06/23/24924 Procedure Note Cate Leon MD - 07/18/2024 [facility] Diagnostic Imaging Department [address] [place] [id number] Patient: JENNY MENDOZA /Age/Sex: 1950 - 74 - F Unit#: [id number] Location/Status: [facility]/REG CLI Mnemonic/Ordering Site: [facility] [place] Ordering Physician: MASSIEL SOTO MD [facility] Screening Digital - 06/22/24 - 1123 Report Status:Signed EXAM: [facility] Screening Digital EXAM DATE AND TIME: 06/22/2024 11:23 AM HISTORY: Screening. Right breast biopsy in 2022, pathology benign. COMPARISON: 05/13/23, 05/04/23, 11/24/22, 04/28/22, 04/22/21 and previous examsdating back to 2009. TECHNIQUE: Bilateral digital breast tomosynthesis was performed in the CCand MLO projections. Computer aided detection with [employer] 3D 3.1was employed. TISSUE DENSITY: c. The [...] Mammogram performed at [facility] at [address] [address] Dictating Physician: CATE LEON MD Electronically Signed by: CATE LEON MD Dic Date/Time: 06/23/24921 Sign date/Time: 06/23/24924 us Massiel Soto MD IMG BI PROCEDURES Final Res ult from Last 3 Months or Most Recently Relevant to Health Maintenance Care Teams Passenger Service Manager Relationship Specialty Start Date End Date Massiel Soto MD [address] [place] [address] PCP - General Internal Medicine 03/10/22
[2025-04-09 11:46] LABS: Free T4 (Free Thyroxine) 1.30 ng/dL (0.71-1.85); Thyroid Stimulating Hormone 2.13 uIU/mL (0.32-4.0)
== END 2025-04-09 08:06 | disposition home or self-care (01) ==
LOC: HO.HMGCLDS 08:05
PROVIDERS: PCP Internal Medicine; Visit Provider Internal Medicine
DX: E03.9 Hypothyroidism, unspecified (principal)
CPT/HCPCS: 36415; 84439; 84443; 86376

== ENCOUNTER → 2025-04-10 23:59 | Outpatient (BNV) | payer MEDICARE, SELFPAY ==
--- NOTE | 2025-04-12 09:20 | MHC.OFFVIS ---
Intake Visit Reasons: Remote device check- [facility] Allergies amiodarone (AMIODARONE) Allergy (Severe, Verified 02/08/25 14:54) INTERSTITIAL PNEUMONITIS, fluid gain, interstial pneumonitis amoxicillin (AMOXICILLIN) Allergy (Unknown, Verified 02/08/25 14:54) SHAKES ALL OVER , shaky, shaky doxycycline (DOXYCYCLINE) Adverse Reaction (Unknown, Verified 02/08/25 14:54) STOMACH UPSET, upset stomach flecainide Adverse Reaction (Verified 02/08/25 14:54) dizzy PFSH Medical History Chronic a-fib Panic disorder [episodic paroxysmal anxiety] Postmenopausal HRT (hormone replacement therapy) Essential hypertension Hypothyroidism Tachycardia COLIN on CPAP Cardiac pacemaker in situ Non-toxic multinodular goiter Subclinical hypothyroidism Osteopenia Hyperparathyroidism COPD (chronic obstructive pulmonary disease) Chronic heart failure with preserved ejection fraction (HFpEF) Sick sinus syndrome Elevated antinuclear antibody (LORETO) level Drug-induced pneumonitis Dyslipidemia Depression with anxiety Stress incontinence Surgical History Hx of colonoscopy History of parathyroidectomy Hx of thyroidectomy S/P placement of cardiac pacemaker H/O unilateral oophorectomy History of removal of cyst Family History Father Cirrhosis with alcoholism Medical history non-contributory Mother Medical history non-contributory Hypothyroidism Social History Housing: Condominium Alcohol intake: never Patient Tobacco Use Status: Former Tobacco user e-Cigarette/Vaping Use: Never Used service: No Current occupational status: retired Cognitive needs: No Hearing needs: No Vision needs: No Office Procedures Cardiac Device Check Cardiac Device Check Details: Remote pacemaker report generated 04/10/2025. Pacemaker function is adequate. [id number] Cardiac Device Interrogation, pacemaker Procedure code (CPT) selection complete Assessment & Plan Assessment & Plan (1) Cardiac pacemaker in situ: Code(s): Z95.0 - Presence of cardiac pacemaker Category: Medical Plan: See above Coding Level of Care Code Procedure Only Diagnoses Cardiac pacemaker in situ Z95.0 CPT Codes Cardiac Device Check - Cardiac Device 12: [id number] Cardiac Device Interrogation, pacemaker ([id number])
== END ==
PROVIDERS: PCP Internal Medicine; Visit Provider Internal Medicine Cardiovascular Disease
DX: Z45.018 Encounter for adjustment and management of other part of cardiac pacemaker (principal)
CPT/HCPCS: 93294

== ENCOUNTER 2025-04-13 11:04 | Outpatient (AMB) | payer MEDICARE, SELFPAY ==
--- OUTSIDE RECORDS SUMMARY | 2023-11-15 05:50 | XMS_ITS ---
Author Organization [facility] Address [address] [place] [phone] Care Team Providers Care Imaging Specialist Name Role Phone Mae LOPEZ, Magalys Primary Care Provider Jeromy Chaparro Unavailable [phone] NIKHIL NEWMAN Unavailable Unavailable REASON FOR VISIT screening Problems Problem Type SNOMED Code ICD Code Onset Dates Problem Status W/U Status Risk Notes Problem Diverticulosis o f large intestine without perforation or abscess without bleeding (K57.30) Active confirmed Encounters Encounter Location Date Provider [place] [facility] [place] [address] [place] [phone] 11/15/2023 Jeromy La Encounter for scre ening [...] Notes * LESVIA ARREGUINOB:1950 (74 yo F)Acc No.[id number]:11/15/2023 COLON WITH MAC Patient: ANGELA LORD Provider: Yara La MD :1950 A ge:73 Y S ex:Female Date:11/15/2023 Address[address] [place], [place] [id number] Pcp:Magalys Wall MD Subjective: * Chief Complaints: [...] 11/15/2023 Generated for Lacey scruggs/Marcie/Leslyitting on: 0 04/13/2025 11:13 AM EDT
--- NOTE | 2025-04-13 11:04 | A.OFFPC_ITS ---
Intake Visit Reasons: review labs Allergies amiodarone (AMIODARONE) Allergy (Severe, Verified 04/13/25 11:21) INTERSTITIAL PNEUMONITIS, fluid gain, interstial pneumonitis amoxicillin (AMOXICILLIN) Allergy (Unknown, Verified 04/13/25 11:21) SHAKES ALL OVER , shaky, shaky doxycycline (DOXYCYCLINE) Adverse Reaction (Unknown, Verified 04/13/25 11:21) STOMACH UPSET, upset stomach flecainide Adverse Reaction (Verified 04/13/25 11:21) dizzy Medication List - Last Reconciled 04/13/25 by Magalys Wall MD bumetanide 2 mg PO BID cyproheptadine 4 mg PO BEDTIME digoxin 125 mcg PO DAILY empagliflozin (Jardiance) 10 mg PO DAILY estradiol-norethindrone acet 0.05-0.14 mg/24 hr (CombiPatch) 1 patch transdermal 2XW fluvoxamine 25 mg PO TID 3 months guaifenesin ER (Mucinex) 600 mg PO BID lorazepam 0.5 mg take one half to one tablet by mouth 3 times a day; metolazone 2.5 mg PO .PRN metoprolol succinate ER (Toprol XL) orally 2 times a day; Take 1 tablet in the morning and half tablet at night omeprazole 20 mg PO BEDTIME polyethylene glycol 3350 (Miralax) 17 grams PO DAILY rivaroxaban (Xarelto) 20 mg PO DAILY 30 days spironolactone 12.5 mg (1/2 x 25 mg) PO DAILY Synthroid (levothyroxine) 137 mcg PO DAILY NS Tobacco use date assessed: 02/01/25 Fall risk assessment: No Falls in past year Last assessed Fall Risk: 04/13/25 Dental Screening Dental Screen Date: 02/01/25 HPI review labs HPI Details - The patient is a 74-year-old female pr esenting with increased fatigue. - Reports increased tiredness, unrelated to thyroid function as tests are normal. - On multiple diuretics for treatment o f her congestive heart failure, namely bumetanide, spironolactone, Zaroxolyn she has taken as needed for leg swelling, in addition to Jardiance started by Cardiology, possibly causing dehydration and fatigue. - Advised to maintain hydration to preve nt dehydration. - On Metoprolol, which may contribute to fatigue, dosed at 100 mg in the morning and 50 mg in the evening. PFSH Medical History Chronic a-fib Panic disorder [episodic paroxysmal anxiety] Postmenopausal HRT (hormone replacement therapy) Essential hypertension Hypothyroidism Tachycardia COLIN on CPAP Cardiac pacemaker in situ Non-toxic multinodular goiter Subclinical hypothyroidism Osteopenia Hyperparathyroidism COPD (chronic obstructive pulmonary disease) Chronic heart failure with preserved ejection fraction (HFpEF) Sick sinus syndrome Elevated antinuclear antibody (LORETO) level Drug-induced pneumonitis Dyslipidemia Depression with anxiety Stress incontinence Surgical History Hx of colonoscopy History of parathyroidectomy Hx of thyroidectomy S/P placement of cardiac pacemaker H/O unilateral oophorectomy History of removal of cyst Family History Father Cirrhosis with alcoholism Medical history non-contributory Mother Medical history non-contributory Hypothyroidism Social History Housing: Condominium Alcohol intake: never Patient Tobacco Use Status: Former Tobacco user e-Cigarette/Vaping Use: Never Used service: No Current occupational status: retired Cognitive needs: No Hearing needs: No Vision needs: No Questionnaire PHQ-9 Over the last 2 weeks, how often have you been bothered by any of the following problems? 1. Little interest or pleasure in doing things: not at all 2. Feeling down, depressed, or hopeless: several days 3. Trouble falling or staying asleep, or sleeping too much: more than half the days 4. Feeling tired or having little energy: more than half the days 5. Poor appetite or overeating: not at all 6. Feeling bad about yourself - or that you are a failure or have let yourself or your family down: not at all 7. Trouble concentrating on things, such as reading the newspaper or watching television: not at all 8. Moving or speaking so slowly that other people could have noticed. Or the opposite - being so fidgety or restless that you have been moving around a lot more than usual: not at all 9. Thoughts that you would be better off or of hurting yourself in some way: not at all Total score: 5 Depression Screening Interpretation: Positive (followed by Dr Bae) Depression Screening Follow-up: Existing condition, In treatment and Community Mental Health Worker F/U Depression Screening Done: Yes 24822 - PHQ-9 Billing: Yes Source: Developed by Drs. Jeromy Cardozo, Minerva Iniguez, Josemanuel Vazquez and colleagues, with an educational elizabeth from [employer]. Thrive Questionnaire Date Thrive assessed: 02/01/25 GERMAINE-7 AMB Questionnaire GERMAINE-7 Date GERMAINE - 7 assessed: 04/13/25 Feeling nervous, anxious, or on edge: 0 = Not at all Not being able to stop or control worryin = Several days Worrying too much about different things: 0 = Not at all Trouble relaxin = Not at all Being so restless that it is hard to sit still: 0 = Not at all Becoming easily annoyed or irritable: 0 = Not at all Feeling afraid as if something awful might happen: 0 = Not at all Total GERMAINE-7 score (0-4 normal; 5-9 mild; 10-14 moderate; 15-21 severe): 1 Source: Developed by Drs. Jeromy Cardozo, Minerva Iniguez, Josemanuel Vazquez and colleagues, with an educational elizabeth from [employer]. GERMAINE-7 Assessment Billing GERMAINE-7 Assessment Tool: GERMAINE-7 Assessment 29501 Review of Systems Const All systems reviewed & are unremarkable except as noted in HPI and below Eyes Reports no additional complaints ENT Reports no additional complaints Card Reports irregular heart rhythm and Reports dyspnea on exertion (mild) Resp Reports dyspnea on exertion (mild) GI Reports no additional complaints Reports no additional complaints Musc Reports no additional complaints Skin/Breast Reports system reviewed and no additional complaints, except as documented Neuro Reports no additional complaints Psych Reports anxiety Endo Reports no additional complaints Physical exam (Primary Care) Tobacco/Smoking Status: Tobacco use Status Tobacco use date assessed 02/01/25 04/13/25 11:06 Patient Tobacco Use Status Former Tobacco user 04/13/25 11:06 e-Cigarette/Vaping Use Never Used 04/13/25 11:06 PHQ-9: PHQ-9 Score PHQ-9: Total score 5 04/13/25 11:40 Depression Screening Interpretation: Positive (followed by Dr Bae) Depression Screening Follow-up: Existing condition, In treatment and Community Mental Health Worker F/U Thrive Assessment: Date of Thrive Assessment Date Thrive assessed 02/01/25 04/13/25 11:06 Telehealth Telehealth Telehealth Platform: [facility] Location of provider rendering services: practice address Location of patient: address on file Patient Identification confirmed using: Name, : Yes Telehealth method: video Patient verbally consented to treatment: Yes Patient verbally consented to billing insurance company: Yes Patient informed of any privacy concerns related to visit: Yes Minutes spent on Phone/Video with Pt.: 15 Coding Level of Care Code Tele Est Pt Level 4 (10747) Diagnoses Acquired hypothyroidism E03.9 Hypothyroidism type: acquired Additional Codes GERMAINE-7 Assessment Billing - GERMAINE-7 Assessment Tool: GERMAINE-7 Assessment 01950 ([id number]) PHQ-9 - 35168 - PHQ-9 Billing: Yes ([id number]) Assessment & Plan Assessment & Plan (1) Hypothyroidism: Code(s): E03.9 - Hypothyroidism, unspecified Category: Medical Qualifiers: Hypothyroidism type: acquired Qualified Code(s): E03.9 - Hypothyroidism, unspecified Plan: The patient is advised to increase fluid intake to counteract the dehydration effects of her diuretics, which include Metolazone, Bumetanide, and Spironolactone. Monitoring of symptoms related to congestive heart failure is recommended, with continued use of Jardiance and Digoxin for management. The patient's fatigue is likely multifactorial, with contributions from her medication regimen, including Metoprolol, and potential dehydration. Current thyroid levels are within normal limits Patient was informed and verbally consented to the use of an ambient scribe for clinic note documentation during this visit.
--- OUTSIDE RECORDS SUMMARY | 2025-04-13 11:14 | XMS_ITS | Clinical Summary ---
Author Organization [facility] [place] [address] Care Team Providers Care Barber Stylist Name Role Phone Massiel Soto MD Primary [...] AM EDT Narrative 06/23/2024 9:[address] [facility] Diagnostic Imaging Department [address] [place] [address] Patient: SEVENMEHNAZJENNY /Age/Sex: 1950 - 74 - F Unit#: [id number] [facility]Ordering [facility] Ordering Physician: MASSIEL SOTO MD [facility] Screening Digital - 06/22/243 Report Status:Signed EXAM: [facility] Screening Digital EXAM DATE AND TIME: 06/22/2024 11:23 AM HISTORY: Screening. Right breast biopsy in 2022, pathology benign. COMPARISON: 05/13/23, 05/04/23, 11/24/22, 04/28/22, 04/22/21 and previous exams dating back to 2009. TECHNIQUE: Bilateral digital breast tomosynthesis was performed in the CC and MLO projections. Computer aided detection with Glia[employer] 3D 3.1 was employed. TISSUE DENSITY: c. [...] Mammogram performed at [facility] [place] [address] Dictating Physician: CATE LEON MD Electronically Signed by: CATE LEON MD Dic Date/Time: 06/23/24921 Sign date/Time: 06/23/24924 Procedure Note Cate Leon MD - 07/18/2024 [facility] Diagnostic Imaging Department [address] [place] [id number] Patient: JENNY MENDOZA /Age/Sex: 1950 - 74 - F Unit#: [id number] Location/Status: [facility]REG CLI Mnemonic/Ordering Site: [facility] Ordering Physician: MASSIEL SOTO MD [facility] Screening Digital - 06/22/24 - 1123 Report Status:Signed EXAM: [facility] Screening Digital EXAM DATE AND TIME: 06/22/2024 11:23 AM HISTORY: Screening. Right breast biopsy in 2022, pathology benign. COMPARISON: 05/13/23, 05/04/23, 11/24/22, 04/28/22, 04/22/21 and previous examsdating back to 2009. TECHNIQUE: Bilateral digital breast tomosynthesis was performed in the CCand MLO projections. Computer aided detection with Glia[employer] 3D 3.1was employed. TISSUE DENSITY: c. The [...] Mammogram performed at [facility] [address] [address] Dictating Physician: CATE LEON MD Electronically Signed by: CATE LEON MD Dic Date/Time: 06/23/24921 Sign date/Time: 06/23/24924 us Massiel Soto MD IMG BI PROCEDURES Final Res ult from Last 3 Months or Most Recently Relevant to Health Maintenance Care Teams Barber Stylist Relationship Specialty Start Date End Date Massiel Soto MD [address] [place] [address] PCP - General Internal Medicine 03/10/22
== END 2025-04-13 12:43 | disposition home or self-care (01) ==
LOC: HO.HMCC 11:04
PROVIDERS: PCP Internal Medicine; Visit Provider Internal Medicine
DX: E03.9 Hypothyroidism, unspecified (principal)

== ENCOUNTER → 2025-04-13 11:04 | Outpatient (BNVA) | payer MEDICARE, SELFPAY | PROVIDERS: PCP Internal Medicine; Visit Provider Internal Medicine | DX: E03.9 Hypothyroidism, unspecified (principal) | CPT/HCPCS: 96127 ==

== ENCOUNTER 2025-05-29 14:23 | Outpatient (AMB) | payer MEDICARE, SELFPAY ==
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
--- OUTSIDE RECORDS SUMMARY | 2025-05-29 16:57 | XMS_ITS | Clinical Summary ---
Author Organization [facility] it Address [address] [place] [address] Care Team Providers Care Boilermaker Mechanic Name Role Phone Massiel Soto MD [...] Patients (1 - 1-dose 75+ series) 2023 Depression Screening 09/20/2024 COVID-19 Vaccine (1 - 2023- season) 2025 Influenza Vaccine (#1) 2025 Breast Cancer Screening [...] Procedure Name Priority Date/Time Associated Diagnosis Comments [facility] SCREENING [facility] Routine 06/23/2024 9:25 AM EDT Encounter for screening mammogram for malignant neoplasm of breast from Last 3 Months or Most Recently Relevant to Health Maintenance Results * [facility] SCREENING [facility] (06/23/2024 9:25 AM EDT) Anatomical Region Laterality Modality Mammography 06/22/2024 11:0 0 AM EDT Narrative 06/23/2024 9:25 AM EDT [facility] Diagnostic Imaging Department [address] [place] [address] Patient: SEVENMEHNAZJENNY /Age/Sex: 1950 - 74 - F Unit#: [id number] [facility]ing [facility] Ordering Physician: MASSIEL SOTO MD [facility] Screening Digital - 06/22/243 Report Status:Signed EXAM: [facility] Screening Digital EXAM DATE AND TIME: 06/22/2024 11:23 AM HISTORY: Screening. Right breast biopsy in 2022, pathology benign. COMPARISON: 05/13/23, 05/04/23, 11/24/22, 04/28/22, 04/22/21 and previous exams dating back to 2009. TECHNIQUE: Bilateral digital breast tomosynthesis was performed in the CC and MLO projections. Computer aided detection with X[employer]MOTORS 3D 3.1 was employed. TISSUE DENSITY: c. [...] Mammogram performed at [facility] [place] [address] Dictating Physician: CATE LEON MD Electronically Signed by: CATE LEON MD Dic Date/Time: 06/23/24921 Sign date/Time: 06/23/24924 Procedure Note Cate Leon MD - 07/18/2024 [facility] Diagnostic Imaging Department [address] [place] [id number] Patient: JENNY MENDOZA /Age/Sex: 1950 - 74 - F Unit#: [id number] Location/Status: [facility]REG CLI Mnemonic/Ordering Site: [facility] Ordering Physician: MASSIEL SOTO MD [facility] Screening Digital - 06/22/24 - 1123 Report Status:Signed EXAM: [facility] Screening Digital EXAM DATE AND TIME: 06/22/2024 11:23 AM HISTORY: Screening. Right breast biopsy in 2022, pathology benign. COMPARISON: 05/13/23, 05/04/23, 11/24/22, 04/28/22, 04/22/21 and previous examsdating back to 2009. TECHNIQUE: Bilateral digital breast tomosynthesis was performed in the CCand MLO projections. Computer aided detection with XOR.MOTORS 3D 3.1was employed. TISSUE DENSITY: c. The [...] Mammogram performed at [facility] at [address] [address] Dictating Physician: CATE LEON MD Electronically Signed by: CATE LEON MD Dic Date/Time: 06/23/24921 Sign date/Time: 06/23/24924 us Massiel Soto MD IMG BI PROCEDURES Final Res ult from Last 3 Months or Most Recently Relevant to Health Maintenance Care Teams Boilermaker Mechanic Relationship Specialty Start Date End Date Massiel Soto MD [address] [place] [address] PCP - General Internal Medicine 03/10/22
--- OUTSIDE RECORDS SUMMARY | 2025-05-29 16:57 | XMS_ITS | Patient Health Record ---
Author Organization [facility] Address [address] [place] [address] Care Team Providers Care Wellness Guide Name Role Phone Magalys Wall MD Primary Care Provider Jeromy Chaparro Unavailable [phone] NIKHIL NEWMAN Unavailable Unavailable Allergies Allergen (clinical [...] Furosemide 20 MG TAKE twoTABLET BY [facility] EVERY DAYwith 2 tablets Orally [...] Problem Status W/U Status Risk Notes Problem 269675511 Colon cancer screening (Z12.11) Active confirmed Problem Diverticular disease of colon (090200730) Diverticulosis of large intestine without perforation or abscess without bleeding (K57.30) Active confirmed Problem 564265428 Gastroesophageal reflux disease without esophagitis (K21.9) Active confirmed Problem 876605785 Gastroesophageal reflux disease, esophagitis presence not specified (K21.9) Active confirmed Problem 432819163 Gallstones (K80.20) Active confirmed Problem 15608533 Pharyngoesophage al dysphagia (R13.14) Active confirmed Problem 677225932 Anticoagulant long-term use (Z79.01) Active confirmed Problem 24441001 Gilbert's syndro me (E80.4) Active confirmed Plan Of Treatment Future Test Test Name Order Date COLONOSCOPY 02/14/2013 UPPER GI ENDOSCOPY [place] DILATION OF ESOPH 01/24/2020 COLONOSCOPY 08/24/2023 Insurance Providers Payer Name Payer Address Payer Phone Subscriber Number Group Number Insured Name Patient Relationship to Insured Coverage Start Date Coverage End Date MEDICARE OF [place] [address] [facility] [address] [id number] POHORE, ANGELA Self - patient is the insured [facility] SU[employer] [address] [place] [address] [id number] POHORE, ANGELA Self - patient is the insured Medical (General) History Medical History History ICD Code Denies PA,DM,CVA,Lung disease,renal dise ase She describes a colonoscopy [...]
== END 2025-05-29 15:08 | disposition home or self-care (01) ==
LOC: HO.HOP 14:23
PROVIDERS: PCP Internal Medicine; Visit Provider Psychiatry & Neurology Psychiatry
DX: F41.0 Panic disorder [episodic paroxysmal anxiety] (principal); F41.8 Other specified anxiety disorders
CPT/HCPCS: 99214

== ENCOUNTER → 2025-05-29 14:23 | Outpatient (BNVA) | payer MEDICARE, SELFPAY | PROVIDERS: PCP Internal Medicine; Visit Provider Psychiatry & Neurology Psychiatry | DX: F41.0 Panic disorder [episodic paroxysmal anxiety] (principal); F41.8 Other specified anxiety disorders; Z79.899 Other long term (current) drug therapy | CPT/HCPCS: 99212 ==

== ENCOUNTER 2025-07-25 15:02 | Outpatient (AMB) | payer MEDICARE, SELFPAY ==
--- NOTE | 2025-07-25 15:04 | A.OFFVIS_ITS ---
Vital Signs 07/25/25 15:13 Height 5 ft 5.5 in Weight 189 lb 2 oz BMI 31.0 BP 126/66 Blood Pressure Location Lt brachial Position Sitting Intake Visit Reasons: HRT/ do not r/s per [employer] Finance Manager Required: No Allergies amiodarone (AMIODARONE) Allergy (Severe, Verified 07/25/25 15:17) INTERSTITIAL PNEUMONITIS, fluid gain, interstial pneumonitis amoxicillin (AMOXICILLIN) Allergy (Unknown, Verified 07/25/25 15:17) SHAKES ALL OVER , shaky, shaky doxycycline (DOXYCYCLINE) Adverse Reaction (Unknown, Verified 07/25/25 15:17) STOMACH UPSET, upset stomach flecainide Adverse Reaction (Verified 07/25/25 15:17) dizzy Medication List - Last Reconciled 07/25/25 by Jenise Rosenthal LPN bumetanide 2 mg PO BID cyproheptadine 4 mg PO BEDTIME digoxin 125 mcg PO DAILY empagliflozin (Jardiance) 10 mg PO DAILY estradiol-norethindrone acet 0.05-0.14 mg/24 hr (CombiPatch) 1 patch transdermal 2XW fluvoxamine 25 mg PO TID 3 months guaifenesin ER (Mucinex) 600 mg PO BID lorazepam 0.5 mg take one half to one tablet by mouth 3 times a day; metolazone 2.5 mg PO .PRN metoprolol succinate ER 100 mg PO BID omeprazole 20 mg PO BEDTIME polyethylene glycol 3350 (Miralax) 17 grams PO DAILY rivaroxaban (Xarelto) 20 mg PO DAILY 30 days spironolactone 12.5 mg (1/2 x 25 mg) PO DAILY Synthroid (levothyroxine) 137 mcg PO DAILY NS Is last menstrual period known: No Post menopausal: Yes Patient : No HPI Comments Details: Presenting requesting refill on can be patch. The patient has been on Combivent last 27 year, since menopausal for hot flash Last mammogram in 07/13 was BI-RADS 2 Last DEXA scan in 01/05/2025 with a high-risk for hip fracture, 22.5% PFSH Medical History Chronic a-fib Panic disorder [episodic paroxysmal anxiety] Postmenopausal HRT (hormone replacement therapy) Essential hypertension Hypothyroidism Tachycardia COLIN on CPAP Cardiac pacemaker in situ Non-toxic multinodular goiter Subclinical hypothyroidism Osteopenia Hyperparathyroidism COPD (chronic obstructive pulmonary disease) Chronic heart failure with preserved ejection fraction (HFpEF) Sick sinus syndrome Elevated antinuclear antibody (LORETO) level Drug-induced pneumonitis Dyslipidemia Depression with anxiety Stress incontinence Surgical History Hx of colonoscopy History of parathyroidectomy Hx of thyroidectomy S/P placement of cardiac pacemaker H/O unilateral oophorectomy History of removal of cyst Family History Father Cirrhosis with alcoholism Medical history non-contributory Mother Medical history non-contributory Hypothyroidism Social History Housing: Condominium Alcohol intake: never Patient Tobacco Use Status: Former Tobacco user e-Cigarette/Vaping Use: Never Used service: No Current occupational status: retired Cognitive needs: No Hearing needs: No Vision needs: No Female Reproductive History Menstrual Menopause type: natural Age of menopause: 48 Total pregnancies: 1 History of abnormal pap smear: No History of STI: No Date of Mammogram: 06/22/24 History of abnormal mammogram: No Date of last Bone Density Screenin01/05/25 Review of Systems Const All systems reviewed & are unremarkable except as noted in HPI and below Reports as per HPI and Reports no additional complaints GI Reports no additional complaints Reports no additional complaints Physical Exam Vital Signs: Last Vital Signs BP 126/66 07/25/25 15:13 BMI result Body Mass Index 31.0 Assessment & Plan Assessment & Plan (1) Hot flashes: Code(s): R23.2 - Flushing Category: Medical Plan: Discussed with the patient the multiple medical conditions contraindication for estrogen treatment including AFib on Xarelto, congestive heart failure, diabetes on Jardiance recommended the patient to immediately discontinue her estrogen/norethindrone patch. If it is hot flashes recur and are intolerable recommended multiple possible treatment nonhormonal for hot flashes including SSRIs SNRIs, gabapentin or other. All questions answered, the patient verbalized understanding (2) High risk for fracture due to osteoporosis by DEXA scan: Code(s): M81.0 - Age-related osteoporosis without current pathological fracture Category: Medical Plan: Discussed with the patient the results DEXA scan showing high-risk for osteoporosis and fracture, recommended referral to rheumatology for further management. All questions answered, the patient verbalized understanding. Orders: Referrals Rheumatology Referral M81.0 - Age-related osteoporosis without current pathological fracture Coding Level of Care Code New Pt Level 3 (65737) Diagnoses Hot flashes R23.2 High risk for fracture due to osteoporosis by DEXA scan M81.0
[2025-07-25 15:13] VITALS: BP 126/66; BMI 31.0
--- OUTSIDE RECORDS SUMMARY | 2025-07-25 18:04 | XMS_ITS | Patient Health Record ---
Author Organization [facility] Address [address] [place] [address] Care Team Providers Care Revenue Coordinator Name Role Phone Magalys Wall MD Primary Care Provider Jeromy Chaparro Unavailable [phone] NIKHIL NEWMAN Unavailable Unavailable Allergies Allergen (clinical drug ingredient) Drug/Non Drug Allergy documented on EMR Reaction Allergy Type Onset Date Status amoxicillin Amoxicillin Unknown Drug Allergy Act alex Reason For Referral No Information Medications Medication SIG (Take, Route, Frequency, Duration) Notes Start Date End Date Status Levothyroxine Sodium 150 MCG TAKE ONE TA BLET BY MOUTH EVERY DAY Oral; Duration: 30 Active Spironolactone 25 MG TAKE ONE-HALF TABLE T 12.5 MG) BY MOUTH EVERY DAY Oral; Duration: 30 Active LORazepam 0.5 MG TAKE ONE-HALF TO ONE TABLET BY MOUTH THREE TIMES A DAY Oral; Duration: 90 Active fluvoxaMINE Maleate 25 MG TAKE ONE TABLE T BY MOUTH THREE TIMES A DAY Oral; Duration: 90 Active Omeprazole 20 MG 1 capsule 30 minutes before morning meal Orally Once a day; Duration: 30 day(s) Active CombiPatch 0.05-0.25 MG/DAY 1 patch to s kin Transdermal as directed Active Furosemide 20 MG TAKE twoTABLET BY MO UTH EVERY DAYwith 2 tablets Orally twice a day Active Xarelto 20 MG 1 tablet with food Orally Once a day; Duration: 30 day(s) Active Metoprolol Succinate ER 100 MG TAKE 1 TABLET BY MOUTH ONCE DAILY Oral; Duration: 90 Active MiraLax 17 GM 1 packet mixed with 8 ounces of fluid Orally prn Active Citracal + D Active Mucinex 600 MG 1 tablet as needed Orally every 12 hrs Active Problems Problem Type SNOMED Code ICD Code Onset Dates Problem Status W/U Status Risk Notes Problem Colon cancer screening (374825119) Colon cancer screening (Z12.11) Active confirmed Problem Diverticular disease of colon (327876682) Diverticulosis of large intestine without perforation or abscess without bleeding (K57.30) Active confirmed Problem Gastroesophageal reflux disease without esophagitis (268645508) Gastroesophageal reflux disease without esophagitis (K21.9) Active confirmed Problem Gastroesophageal reflux disease (784302961) Gastroesophageal reflux disease, esophagitis presence not specified (K21.9) Active confirmed Problem Gallstones (401349631) Gallstones (K80.20) Active confirmed Problem Dysphagia (82627076) Pharyngoesophageal dysphagia (R13.14) Active confirmed Problem Long-term current use of anticoagulant (162350787) Anticoagulant long-term use (Z79.01) Active confirmed Problem Gilbert's syndrome (80783010) Gilbert's syndrome (E80.4) Active confirmed Plan Of Treatment Future Test Test Name Order Date COLONOSCOPY 02/14/2013 UPPER GI ENDOSCOPY BALLOOON DILATION OF ESOPH 01/24/2020 COLONOSCOPY 08/24/2023 Insurance Providers Payer Name Payer Address Payer Phone Subscriber Number Group Number Insured Name Patient Relationship to Insured Coverage Start Date Coverage End Date MED[place]ARE OF [place] [address] [facility] [place] [address] [id number] POHORE, ANGELA Self - patient is the insured [facility] SUPPLEMENTAL PLAN [address] [place] [address] [id number] POHORE, ANGELA Self - patient is the insured Medical (General) History Medical History History ICD Code Denies PR,DM,CVA,Lung disease,renal dise ase She describes a colonoscopy [...]
--- OUTSIDE RECORDS SUMMARY | 2025-07-25 18:04 | XMS_ITS | Clinical Summary ---
Author Organization [facility] it Address [address] [place] [address] Care Team Providers Care Payroll Secretary Name Role Phone Massiel Soto MD Primary [...] Procedure Name Priority Date/Time Associated Diagnosis Comments [facility] SCREENING DIGITAL Routine 06/23/2024 9:25 AM EDT Encounter for screening mammogram for malignant neoplasm of breast from Last 3 Months or Most Recently Relevant to Health Maintenance Results * [facility] SCREENING DIGITAL (06/23/2024 9:25 AM EDT) Anatomical Region Laterality Modality Mammography 06/22/2024 11:0 0 AM EDT Narrative 06/23/2024 9:25 AM EDT [facility] Diagnostic Imaging Department [address] [place] [address] Patient: SEVENMEHNAZJENNY /Age/Sex: 1950 - 74 - F Unit#: [id number] [facility]Ordering Site[facility] Ordering Physician: MASSIEL SOTO MD [facility] Screening Digital - 06/22/243 Report Status:Signed EXAM: [facility] Screening Digital EXAM DATE AND TIME: 06/22/2024 11:23 AM HISTORY: Screening. Right breast biopsy in 2022, pathology benign. COMPARISON: 05/13/23, 05/04/23, 11/24/22, 04/28/22, 04/22/21 and previous exams dating back to 2009. TECHNIQUE: Bilateral digital breast tomosynthesis was performed in the CC and MLO projections. Computer aided detection with [employer] 3D 3.1 was employed. TISSUE DENSITY: c. [...] Mammogram performed at [facility] [place] [address] Dictating Physician: CATE LEON MD Electronically Signed by: CATE LEON MD Dic Date/Time: 06/23/24921 Sign date/Time: 06/23/24924 Procedure Note Cate Leon MD - 07/18/2024 [facility] Diagnostic Imaging Department [address] [place] [address] Patient: JENNY MENDOZA /Age/Sex: 1950 - 74 - F Unit#: [id number] Location/Status: [facility]/REG CLI Mnemonic/Ordering Site: [facility] Ordering Physician: MASSIEL SOTO MD [facility] Screening Digital - 06/22/24 - 1123 Report Status:Signed EXAM: [facility] Screening Digital EXAM DATE AND TIME: 06/22/2024 11:23 AM HISTORY: Screening. Right breast biopsy in 2022, pathology benign. COMPARISON: 05/13/23, 05/04/23, 11/24/22, 04/28/22, 04/22/21 and previous examsdating back to 2009. TECHNIQUE: Bilateral digital breast tomosynthesis was performed in the CCand MLO projections. Computer aided detection with [employer] 3D 3.1was employed. TISSUE DENSITY: c. The [...] Mammogram performed at [facility] [address] [address] Dictating Physician: CATE LEON MD Electronically Signed by: CATE LEON MD Dic Date/Time: 06/23/24921 Sign date/Time: 06/23/24924 us Massiel Soto MD IMG BI PROCEDURES Final Res ult from Last 3 Months or Most Recently Relevant to Health Maintenance Care Teams Payroll Secretary Relationship Specialty Start Date End Date Massiel Soto MD [address] [place] [address] PCP - General Internal Medicine 03/10/22
== END 2025-07-26 09:35 | disposition home or self-care (01) ==
LOC: HO.HWS 15:02
PROVIDERS: PCP Internal Medicine; Visit Provider Obstetrics & Gynecology
DX: R23.2 Flushing (principal); M81.0 Age-related osteoporosis without current pathological fracture
CPT/HCPCS: 99203

== ENCOUNTER → 2025-07-25 15:02 | Outpatient (BNVA) | payer MEDICARE, SELFPAY | PROVIDERS: PCP Internal Medicine; Visit Provider Obstetrics & Gynecology | DX: R23.2 Flushing (principal); M81.0 Age-related osteoporosis without current pathological fracture; Z87.891 Personal history of nicotine dependence; Z95.0 Presence of cardiac pacemaker; Z79.01 Long term (current) use of anticoagulants | CPT/HCPCS: 99202 ==

== ENCOUNTER 2025-08-02 14:24 | Outpatient (AMB) | payer MEDICARE, SELFPAY ==
--- NOTE | 2025-08-02 14:32 | A.OFFVIS_ITS ---
Vital Signs 08/02/25 14:33 Height 5 ft 5.5 in Weight 185 lb 3.013 oz BMI 30.3 BP 112/70 Blood Pressure Location Lt brachial Position Sitting Pulse 68 Pulse Source Pulse Oximeter Pulse Oximetry (%) 97 Oxygen Delivery Method Room Air Intake Visit Reasons: Obstructive sleep apnea Intake Note: pt is here for follow up and doing well with cpap Lumber Stacker Driver Required: No Blackjack Dealer: Blackjack Dealer offered & declined Allergies amiodarone (AMIODARONE) Allergy (Severe, Verified 08/02/25 14:53) INTERSTITIAL PNEUMONITIS, fluid gain, interstial pneumonitis amoxicillin (AMOXICILLIN) Allergy (Unknown, Verified 08/02/25 14:53) SHAKES ALL OVER , shaky, shaky doxycycline (DOXYCYCLINE) Adverse Reaction (Unknown, Verified 08/02/25 14:53) STOMACH UPSET, upset stomach flecainide Adverse Reaction (Verified 08/02/25 14:53) dizzy Medication List - Last Reconciled 08/02/25 by Idalia Woo MD bumetanide 2 mg PO BID cyproheptadine 4 mg PO BEDTIME digoxin 125 mcg PO DAILY empagliflozin (Jardiance) 10 mg PO DAILY estradiol-norethindrone acet 0.05-0.14 mg/24 hr (CombiPatch) 1 patch transdermal 2XW fluvoxamine 25 mg PO TID 3 months guaifenesin ER (Mucinex) 600 mg PO BID lorazepam 0.5 mg take one half to one tablet by mouth 3 times a day; metolazone 2.5 mg PO .PRN metoprolol succinate ER 100 mg PO BID omeprazole 20 mg PO BEDTIME polyethylene glycol 3350 (Miralax) 17 grams PO DAILY rivaroxaban (Xarelto) 20 mg PO DAILY 30 days spironolactone 12.5 mg (1/2 x 25 mg) PO DAILY Synthroid (levothyroxine) 137 mcg PO DAILY NS Do you need a note to return to daycare/school/sports/work: No HPI HPI Obstructive sleep apnea: Details: ANGELA IS 75 YEARS OLD VERY PLEASANT FEMALE. SHE IS HERE FOR 6 MONTHS FOLLOW-UP FOR HER SLEEP APNEA. SHE IS A REGULAR USER OF CPAP, BUT ON SOME NIGHTS WHEN SHE COMES HOME LATE AND IS TIRED SHE TENDS TO GO TO SLEEP WITHOUT PUTTING ON THE MASK. OVERALL SHE HAS BEEN USING ALMOST EVERY NIGHT. SHE SLEEPS GOOD. THERE IS NO ISSUE WITH THE CPAP DEVICE OR THE MASK. SHE IS ASKING IF SHE COULD USE THE CPAP FOR SHORT PERIOD DURING THE DAY ALSO AND I SAID IT IS OKAY. SHE HAS NO COUGH OR WHEEZING ATTACKS. [facility] Medical History Chronic a-fib Panic disorder [episodic paroxysmal anxiety] Postmenopausal HRT (hormone replacement therapy) Essential hypertension Hypothyroidism Tachycardia COLIN on CPAP Cardiac pacemaker in situ Non-toxic multinodular goiter Subclinical hypothyroidism Osteopenia Hyperparathyroidism COPD (chronic obstructive pulmonary disease) Chronic heart failure with preserved ejection fraction (HFpEF) Sick sinus syndrome Elevated antinuclear antibody (LORETO) level Drug-induced pneumonitis Dyslipidemia Depression with anxiety Stress incontinence Surgical History Hx of colonoscopy History of parathyroidectomy Hx of thyroidectomy S/P placement of cardiac pacemaker H/O unilateral oophorectomy History of removal of cyst Family History Father Cirrhosis with alcoholism Medical history non-contributory Mother Medical history non-contributory Hypothyroidism Social History Housing: Condominium Alcohol intake: never Patient Tobacco Use Status: Former Tobacco user e-Cigarette/Vaping Use: Never Used service: No Current occupational status: retired Cognitive needs: No Hearing needs: No Vision needs: No Review of Systems Const All systems reviewed & are unremarkable except as noted in HPI and below Eyes Reports no additional complaints ENT Reports no additional complaints Card Reports irregular heart rhythm and Reports dyspnea on exertion (mild) Resp Reports as per HPI and Reports dyspnea on exertion (mild) GI Reports no additional complaints Reports no additional complaints Musc Reports no additional complaints Skin/Breast Reports system reviewed and no additional complaints, except as documented Neuro Reports no additional complaints Psych Reports anxiety and Reports depression (Mild controlled) Endo Reports no additional complaints Physical Exam Vital Signs: Last Vital Signs Pulse 68 08/02/25 14:33 BP 112/70 08/02/25 14:33 Pulse Ox 97 08/02/25 14:33 Oxygen Delivery Method Room Air 08/02/25 14:33 BMI result Body Mass Index 30.3 Const General: comfortable, no acute distress, alert and awake Orientation/consciousness: patient oriented x3 HEENT Head: Yes normal to inspection General nose exam: No nasal polyps present and No nasal discharge present Face and sinus: Yes sinuses nontender Mouth: oropharynx normal Throat: Yes posterior oropharynx normal Eyes General: appearance normal, both eyes and all related structures Neck Neck: Yes normal visual inspection, Yes no lymphadenopathy, Yes trachea midline and Yes no JVD Thyroid: Thyroid normal Chest Chest palpation & inspection: normal inspection of the chest, normal palpation of entire chest wall and no tenderness Resp Other: Percussion note is resonant, breath sounds are slightly distant but equal on both sides, No wheezes rhonchi or crepitations are heard. Cardio Palpation: normal PMI Rate: regular rate Rhythm: regular rhythm Heart sounds: no gallops and no murmurs GI Palpation (GI): Soft to palpation, nontender, No hepatosplenomegaly present and no masses Auscultation: normal bowel sounds Back/Spine/Pelvis Thoracic/Lumbar Spine: thoracic and lumbar spine normal to inspection Skin General skin exam: no rashes or lesions noted Neuro General: patient oriented x3 and no focal motor deficits Cranial nerves: Yes CN's II-XII intact bilaterally Extrem General: Yes normal to inspection, Yes no clubbing, cyanosis or edema and Yes no calf tenderness Psych Appearance: grossly normal and well kempt Speech and movement: Normal speech and movement present Results Reviewed Results Reviewed: CPAP COMPLIANCE REPORT FOR THE LAST 30 NIGHTS REVIEWED. SHE USED CPAP 27/30 NIGHTS, 90%. AVERAGE USE IT PER NIGHT 5 HOURS 26 MINUTES. THERE IS NO SIGNIFICANT AIR LEAK. RESIDUAL AHI 1.5 Assessment & Plan Assessment & Plan (1) COLIN on CPAP: Comment: Known case of obstructive sleep apnea. Using CPAP regularly every night . Compliance is good . She feels more comfortable with the nasal pillows . Code(s): G47.33 - Obstructive sleep apnea (adult) (pediatric); Z99.89 - Dependence on other enabling machines and devices Category: Medical Plan: COMMENDED FOR GOOD COMPLIANCE. ASKED TO KEEP ON USING CPAP EVERY NIGHT. IF SHE WANTS TO TAKE A LITTLE NAP DURING THE DAYTIME SHE CAN USE THE CPAP. RECHECK IN 6 MONTHS Coding Level of Care Code Est Pt Level 3 (81804) Diagnoses COLIN on CPAP G47.33; Z99.89
[2025-08-02 14:33] VITALS: BP 112/70; PULSE 68; O2SAT 97; BMI 30.3
--- OUTSIDE RECORDS SUMMARY | 2025-08-02 17:50 | XMS_ITS | Clinical Summary ---
Author Organization [facility] it Address [address] [place] [address] Care Team Providers Care Maintenance Mechanic Elevators Name Role Phone Massiel Soto MD Primary [...] series) 2023 Depression Screening 09/20/2024 COVID-19 Vaccine ( - 2024- season) 2025 Influenza Vaccine (#1) 2025 Breast [...] Procedure Name Priority Date/Time Associated Diagnosis Comments [facility] SCREENING DIGITAL Routine 06/23/2024 9:25 AM EDT Encounter for screening mammogram for malignant neoplasm of breast from Last 3 Months or Most Recently Relevant to Health Maintenance Results * [facility] SCREENING DIGITAL (06/23/2024 9:25 AM EDT) Anatomical Region Laterality Modality Mammography 06/22/2024 11:0 0 AM EDT Narrative 06/23/2024 9:25 AM EDT [facility] Diagnostic Imaging Department [address] [place] [address] Patient: SEVENMEHNAZJENNY /Age/Sex: 1950 - 74 - F Unit#: [id number] [facility]Ordering Site[facility] Ordering Physician: MASSIEL SOTO MD [facility] Screening Digital - 06/22/243 Report Status:Signed EXAM: [facility] Screening Digital EXAM DATE AND TIME: 06/22/2024 11:23 AM HISTORY: Screening. Right breast biopsy in 2022, pathology benign. COMPARISON: 05/13/23, 05/04/23, 11/24/22, 04/28/22, 04/22/21 and previous exams dating back to 2009. TECHNIQUE: Bilateral digital breast tomosynthesis was performed in the CC and MLO projections. Computer aided detection with [employer] 3D 3.1 was employed. TISSUE DENSITY: c. [...] Mammogram performed at [facility] [place] [address] Dictating Physician: CATE LEON MD Electronically Signed by: CATE LEON MD Dic Date/Time: 06/23/24921 Sign date/Time: 06/23/24924 Procedure Note Cate Leon MD - 07/18/2024 [facility] Diagnostic Imaging Department [address] [place] [address] Patient: JENNY MENDOZA /Age/Sex: 1950 - 74 - F Unit#: [id number] Location/Status: SPDIMAM/REG CLI Mnemonic/Ordering Site: [facility] Ordering Physician: MASSIEL SOTO MD [facility] Screening Digital - 06/22/24 - 1123 Report Status:Signed EXAM: [facility] Screening Digital EXAM DATE AND TIME: 06/22/2024 11:23 AM HISTORY: Screening. Right breast biopsy in 2022, pathology benign. COMPARISON: 05/13/23, 05/04/23, 11/24/22, 04/28/22, 04/22/21 and previous examsdating back to 2009. TECHNIQUE: Bilateral digital breast tomosynthesis was performed in the CCand MLO projections. Computer aided detection with [employer] 3D 3.1was employed. TISSUE DENSITY: c. The [...] Mamm[facility] performed at [facility] at [address] [address] Dictating Physician: CATE LEON MD Electronically Signed by: CATE LEON MD Dic Date/Time: 06/23/24921 Sign date/Time: 06/23/24924 us Massiel Soto MD IMG BI PROCEDURES Final Res ult from Last 3 Months or Most Recently Relevant to Health Maintenance Care Teams Maintenance Mechanic Elevators Relationship Specialty Start Date End Date Massiel Soto MD [address] [place] [address] PCP - General Internal Medicine 03/10/22
--- OUTSIDE RECORDS SUMMARY | 2025-08-02 17:51 | XMS_ITS | Patient Health Record ---
Author Organization [facility] Address [address] [place] [address] Care Team Providers Care Advertising Copywriter Name Role Phone Magalys Wall MD Primary Care Provider Jeromy Chaparro Unavailable [phone] NIKHIL NEWMAN Unavailable Unavailable Allergies Allergen (clinical [...] Status Risk Notes Problem Colon cancer screening (818098511) Colon cancer screening (Z12.11) Active confirmed Problem Diverticular disease of colon (017555307) Diverticulosis of large intestine without perforation or abscess without bleeding (K57.30) Active confirmed Problem Gastroesophageal reflux disease without esophagitis (388286315) Gastroesophageal reflux disease without esophagitis (K21.9) Active confirmed Problem Gastroesophageal reflux disease (659829801) Gastroesophageal reflux disease, esophagitis presence not specified (K21.9) Active confirmed Problem Gallstones (298275965) Gallstones (K80.20) Active confirmed Problem Dysphagia (15520215) Pharyngoesophageal dysphagia (R13.14) Active confirmed Problem Long-term current use of anticoagulant (849669637) Anticoagulant long-term use (Z79.01) Active confirmed Problem Gilbert's syndrome (95980465) Gilbert's syndrome (E80.4) Active confirmed Plan Of Treatment Future Test Test Name Order Date COLONOSCOPY 02/14/2013 UPPER GI ENDOSCOPY BALLOOON DILATION OF ESOPH 01/24/2020 COLONOSCOPY 08/24/2023 Insurance Providers Payer Name Payer Address Payer Phone Subscriber Number Group Number Insured Name Patient Relationship to Insured Coverage Start Date Coverage End Date [place] [address] [place] [address] [id number] POHORE, ANGELA Self - patient is the insured [facility] SUPPLEMENTAL PLAN [address] [place] [address] [phone] [id number] POHORE, ANGELA Self - patient is the insured Medical (General) History Medical History History ICD Code Denies NC,DM,CVA,Lung disease,renal dise ase She describes a colonoscopy [...]
== END 2025-08-02 14:55 | disposition home or self-care (01) ==
LOC: HO.HPS 14:24
PROVIDERS: PCP Internal Medicine; Visit Provider Internal Medicine
DX: G47.33 Obstructive sleep apnea (adult) (pediatric) (principal); Z99.89 Dependence on other enabling machines and devices
CPT/HCPCS: 99213

== ENCOUNTER → 2025-08-02 14:24 | Outpatient (BNVA) | payer MEDICARE, SELFPAY | PROVIDERS: PCP Internal Medicine; Visit Provider Internal Medicine | DX: G47.33 Obstructive sleep apnea (adult) (pediatric) (principal); Z99.89 Dependence on other enabling machines and devices; Z95.0 Presence of cardiac pacemaker; Z87.891 Personal history of nicotine dependence | CPT/HCPCS: 99212 ==

== ENCOUNTER 2025-08-09 14:43 | Outpatient (AMB) | payer MEDICARE, SELFPAY ==
--- OUTSIDE RECORDS SUMMARY | 2021-09-06 06:45 | XMS_ITS | Continuity of Care Document ---
Author Name [facility] Organization [facility] Care Team Providers Care Quality Control Clerk Name Role Phone [facility] Unavailable Unavailable Immunizations Combined list of available immunizations from the Department of Defense and Veterans Affairs facilities. Immunization Series Date Given Administered By Site Reaction Lot Number CVX Code Drug Engineering Programmer Status Comments Source COVID-19 (MODERNA), MRNA, LNP-S, PF, 100 MCG OR 50 MCG DOSE 3 2020 207 complet ed MOD; [id number]; 2 IELD COVID-19 (MODERNA), MRNA, LNP-S, PF, 100 MCG/0.5 ML DOSE 2 2020 207 complet ed MOD; [id number]; IELD COVID-19 (MODERNA), MRNA, LNP-S, PF, 100 MCG/0.5 ML DOSE 1 2020 207 complet ed MOD; [id number]; 1 IELD
--- NOTE | 2025-08-09 14:48 | A.OFFVIS_ITS ---
Vital Signs 08/09/25 14:49 Height 5 ft 5.5 in Weight 187 lb 6.287 oz BMI 30.7 BP 120/80 Blood Pressure Location Lt brachial Position Sitting Pulse 81 Intake Visit Reasons: 6m follow up Intake Note: 6 month follow-up with [facility] check feeling good Allergies amiodarone (AMIODARONE) Allergy (Severe, Verified 08/02/25 14:53) INTERSTITIAL PNEUMONITIS, fluid gain, interstial pneumonitis amoxicillin (AMOXICILLIN) Allergy (Unknown, Verified 08/02/25 14:53) SHAKES ALL OVER , shaky, shaky doxycycline (DOXYCYCLINE) Adverse Reaction (Unknown, Verified 08/02/25 14:53) STOMACH UPSET, upset stomach flecainide Adverse Reaction (Verified 08/02/25 14:53) dizzy Medication List - Last Reconciled 08/09/25 by Fabian Arndt MD bumetanide 2 mg PO BID cyproheptadine 4 mg PO BEDTIME digoxin 125 mcg PO DAILY empagliflozin (Jardiance) 10 mg PO DAILY estradiol-norethindrone acet 0.05-0.14 mg/24 hr (CombiPatch) 1 patch transdermal 2XW fluvoxamine 25 mg PO TID 3 months guaifenesin ER (Mucinex) 600 mg PO BID lorazepam 0.5 mg take one half to one tablet by mouth 3 times a day; metolazone 2.5 mg PO .PRN metoprolol succinate ER 100 mg PO BID omeprazole 20 mg PO BEDTIME polyethylene glycol 3350 (Miralax) 17 grams PO DAILY rivaroxaban (Xarelto) 20 mg PO DAILY 30 days spironolactone 12.5 mg (1/2 x 25 mg) PO DAILY Synthroid (levothyroxine) 137 mcg PO DAILY NS HPI Comments Details: Jenny comes for follow-up. She says she has been feeling really well. She has not heart failure syndrome. Since been on digoxin and on Jardiance she said her fluid status has been lot better. She is still has to take intermittent metolazone as needed. However she denies any orthopnea, PND, worsening leg edema. No worsening shortness of breath. No prolonged palpitation irregular heartbeat. No lightheadedness, syncope. No bleeding issues or neurologic events [facility] Medical History Chronic a-fib Panic disorder [episodic paroxysmal anxiety] Postmenopausal HRT (hormone replacement therapy) Essential hypertension Hypothyroidism Tachycardia COLIN on CPAP Cardiac pacemaker in situ Non-toxic multinodular goiter Subclinical hypothyroidism Osteopenia Hyperparathyroidism COPD (chronic obstructive pulmonary disease) Chronic heart failure with preserved ejection fraction (HFpEF) Sick sinus syndrome Elevated antinuclear antibody (LORETO) level Drug-induced pneumonitis Dyslipidemia Depression with anxiety Stress incontinence Surgical History Hx of colonoscopy History of parathyroidectomy Hx of thyroidectomy S/P placement of cardiac pacemaker H/O unilateral oophorectomy History of removal of cyst Family History Father Cirrhosis with alcoholism Medical history non-contributory Mother Medical history non-contributory Hypothyroidism Social History [facility] Alcohol intake: never Patient Tobacco Use Status: Former Tobacco user e-Cigarette/Vaping Use: Never Used service: No Current occupational status: retired Cognitive needs: No Hearing needs: No Vision needs: No Review of Systems Const Denies chills, Denies fatigue, Denies fever(s), Denies frequent falls, Denies weakness, Denies weight gain and Denies weight loss ENT Denies dizziness Card Denies chest pain, Denies leg edema, Denies lightheadedness, Denies palpitations, Denies dyspnea, Denies dyspnea on exertion, Denies orthopnea and Denies other (loss of consciousness) Resp Denies cough, Denies dyspnea and Denies dyspnea on exertion GI Denies hematochezia and Denies change in stool character Musc Denies abnormal gait, Denies muscle weakness, Denies numbness, Denies radiating pain into limb and Denies tingling Neuro Denies abnormal gait, Denies dizziness, Denies frequent falls, Denies numbness, Denies tingling and Denies weakness Endo Denies fatigue and Denies palpitations Physical Exam Vital Signs: Last Vital Signs Pulse 81 08/09/25 14:49 BP 120/80 08/09/25 14:49 BMI result Body Mass Index 30.7 Const General: cooperative, comfortable, no acute distress, alert and awake Nutritional Appearance: obese Orientation/consciousness: patient oriented x3 Limitations: no limitations Neck Neck: Yes trachea midline, Yes supple and Yes no JVD Resp Effort & Inspection: normal respiratory effort Auscultation: clear to auscultation bilaterally Cardio Jugular venous distension: no JVD Rate: tachycardic Rhythm: abnormal rhythm irregularly irregular Heart sounds: S1 normal heart sound present and S2 normal heart sound present GI Auscultation: normal bowel sounds Skin General skin exam: no rashes or lesions noted and ecchymosis Neuro General: patient oriented x3 and no focal motor deficits Extrem General: No clubbing, No cyanosis and Yes edema (2+ below knee on the left side and 1+ on the right) Psych Appearance: grossly normal Office Procedures Cardiac Device Check Cardiac Device Check Details: Dual-chamber [place] pacemaker in place programmed in VVI due to chronic atrial fibrillation. Ventricular pacing thresholds are stable and reprogrammed to enhance battery life. Ventricular sensing is adequate. Pacing lead impedance is stable. Battery life is adequate [id number]-KV Cardiac Device Check, pacemaker dual lead Procedure code (CPT) selection complete Assessment & Plan Assessment & Plan (1) Chronic heart failure with preserved ejection fraction (HFpEF): Code(s): I50.32 - Chronic diastolic (congestive) heart failure Category: Medical Plan: Heart failure preserved ejection fraction this elderly woman relating to chronic atrial fibrillation with diastolic dysfunction. Clinically euvolemic and well compensated current diuretic dose as well as Jardiance therapy. She has done very well with therapy with better rate control with digoxin as well. Continue current therapy. Semi annual renal function test should be pursued. Heart failure management was discussed in details. Daily weight monitoring avoidance salt loading was discussed. Additional diuretics especially metolazone as discussed. Echocardiogram in 6 months time. (2) Chronic a-fib: Code(s): I48.20 - Chronic atrial fibrillation, unspecified Category: Medical Plan: Chronic atrial fibrillation has failed rhythm control approach. Currently on dual therapy with digoxin as well as metoprolol for rate control. She has done well with rate control therapy. Continue current rate control. Continue full oral anticoagulation currently currently on Xarelto 20 mg. Semi annual renal function test should be pursued. Importance of oral anticoagulation was therapy was discussed. (3) Cardiac pacemaker in situ: Code(s): Z95.0 - Presence of cardiac pacemaker Category: Medical Plan: Cardiac pacemaker in-situ for sick sinus syndrome. Minimal use of single- chamber pacemaker which was reprogrammed due to chronic AFib. Follow remotely. Follow up in the clinic in 6 months time. Thank you for allowing me to partake in his care. Will follow up in 6 months Orders: Orders Digoxin Today I48.20 - Chronic atrial fibrillation, unspecified Basic Metabolic Panel Today I48.20 - Chronic atrial fibrillation, unspecified Medications: Refilled metolazone Pt is to take 1 tab 1/2 hr before taking bumetanide. 2.5 mg PO .PRN 10 tabs 0RF Coding Level of Care Code Complex visit Add On G2211 Diagnoses Chronic heart failure with preserved ejection fraction (HFpEF) I50.32 Chronic a-fib I48.20 Cardiac pacemaker in situ Z95.0 CPT Codes Cardiac Device Check - Cardiac Device 2: [id number] Cardiac Device Check, pacemaker dual lead ([id number])
[2025-08-09 14:49] VITALS: BP 120/80; PULSE 81; BMI 30.7
--- OUTSIDE RECORDS SUMMARY | 2025-08-09 20:07 | XMS_ITS | Clinical Summary ---
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Ordering [facility]: [facility] Ordering Physician: MASSIEL SOTO MD [facility] Screening Digital - 06/22/243 Report Status:Signed EXAM: [facility] Screening Digital EXAM DATE AND TIME: 06/22/2024 11:23 AM HISTORY: Screening. Right breast biopsy in 2022, pathology benign. COMPARISON: 05/13/23, 05/04/23, 11/24/22, 04/28/22, 04/22/21 and previous exams dating back to 2009. TECHNIQUE: Bilateral digital breast tomosynthesis was performed in the CC and MLO projections. Computer aided detection with [employer] 3D 3.1 was employed. TISSUE DENSITY: c. [...] Mammogram performed at [facility] [place] [address] Dictating Physician: CATE LEON MD Electronically Signed by: CATE LEON MD Dic Date/Time: 06/23/24921 Sign date/Time: 06/23/24924 Procedure Note Cate Leon MD - 07/18/2024 [facility] Diagnostic Imaging Department [address] [place] [id number] Patient: JENNY MENDOZA /Age/Sex: 1950 - 74 - F Unit#: [id number] Location/Status: [facility]REG CLI Mnemonic/Ordering Site: [facility] Ordering Physician: MASSIEL SOTO MD [facility] Screening Digital - 06/22/24 - 1123 Report Status:Signed EXAM: [facility] Screening Digital EXAM DATE AND TIME: 06/22/2024 11:23 AM HISTORY: Screening. Right breast biopsy in 2022, pathology benign. COMPARISON: 05/13/23, 05/04/23, 11/24/22, 04/28/22, 04/22/21 and previous examsdating back to 2009. TECHNIQUE: Bilateral digital breast tomosynthesis was performed in the CCand MLO projections. Computer aided detection with [employer] 3D 3.1was employed. TISSUE DENSITY: c. The [...] Mammogram performed at [facility] at [address] [address] Dictating Physician: CATE LEON MD Electronically Signed by: CATE LENO MD Dic Date/Time: 06/23/24921 Sign date/Time: 06/23/24924 us Massiel Soto MD IMG BI PROCEDURES Final Res ult from Last 3 Months or Most Recently Relevant to Health Maintenance Care Teams Steel Construction Worker Relationship Specialty Start Date End Date Massiel Soto MD [address] [place] [address] PCP - General Internal Medicine 03/10/22
--- OUTSIDE RECORDS SUMMARY | 2025-08-09 20:07 | XMS_ITS | Patient Health Record ---
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 Name Role Phone Magalys Wall MD Primary Care Provider Jeromy Chaparro Unavailable [phone] NIKHIL NEWMAN Unavailable Unavailable Allergies Allergen (clinical drug ingredient) Drug/Non Drug Allergy documented on EMR Reaction Allergy Type Onset Date Status amoxicillin Amoxicillin Unknown Drug Allergy Act alex Reason For Referral No Information Medications Medication SIG (Take, Route, Frequency, Duration) Notes Start Date End Date Status Levothyroxine Sodium 150 MCG Tablet TAKE ONE TABLET BY MOUTH EVERY DAY Oral; Duration: 30 Active Spironolactone 25 MG Tablet TAKE ONE-JUAN PBALO F TABLET 12.5 MG) BY MOUTH EVERY DAY Oral; Duration: 30 Active LORazepam 0.5 MG Tablet TAKE ONE-HALF TO ONE TABLET BY MOUTH THREE TIMES A DAY Oral; Duration: 90 Active fluvoxaMINE Maleate 25 MG Tablet TAKE ONE TABLET BY MOUTH THREE TIMES A DAY Oral; Duration: 90 Active Omeprazole 20 MG Capsule Delayed Release 1 capsule 30 minutes before morning meal Orally Once a day; Duration: 30 day(s) Active CombiPatch 0.05-0.25 MG/DAY Patch Twice Weekly 1 patch to skin Transdermal as directed Active Furosemide 20 MG Tablet TAKE twoTABLET B Y MOUTH EVERY DAYwith 2 tablets Orally twice a day Active Xarelto 20 MG Tablet 1 tablet with food Orally Once a day; Duration: 30 day(s) Active Metoprolol Succinate ER 100 MG Tablet Extended Release 24 Hour TAKE 1 TABLET BY MOUTH ONCE DAILY Oral; Duration: 90 Active MiraLax 17 GM Packet 1 packet mixed with 8 ounces of fluid Orally prn Active Citracal + D Active Mucinex 600 MG Tablet Extended Release 12 Hour 1 tablet as needed Orally every 12 hrs Active Social History Social History Additional Details Category Social Info Options Details Miscellaneous: Marital status: 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 Section Notes: Nonsmoker x 20 yrs; no alcoh ol Nonsmoker x 20 yrs; no alcoh ol Nonsmoker x 20 yrs; no alcoh ol Problems Problem Type SNOMED Code ICD Code Onset Dates Problem Status W/U Status Risk Notes Problem Colon cancer screening (836146761) Colon cancer screening (Z12.11) Active confirmed Problem Diverticular disease of colon (464369406) Diverticulosis of large intestine without perforation or abscess without bleeding (K57.30) Active confirmed Problem Gastroesophageal reflux disease without esophagitis (413663523) Gastroesophageal reflux disease without esophagitis (K21.9) Active confirmed Problem Gastroesophageal reflux disease (219665982) Gastroesophageal reflux disease, esophagitis presence not specified (K21.9) Active confirmed Problem Gallstones (483624023) Gallstones (K80.20) Active confirmed Problem Dysphagia (64009044) Pharyngoesophageal dysphagia (R13.14) Active confirmed Problem Long-term current use of anticoagulant (856146064) Anticoagulant long-term use (Z79.01) Active confirmed Problem Gilbert's syndrome (06964363) Gilbert's syndrome (E80.4) Active confirmed Plan Of Treatment Future Test Test Name Order Date COLONOSCOPY 02/14/2013 UPPER GI ENDOSCOPY [place] DILATION OF ESOPH 01/24/2020 COLONOSCOPY 08/24/2023 Insurance Providers Payer Name Payer Address Payer Phone Subscriber Number Group Number Insured Name Patient Relationship to Insured Coverage Start Date Coverage End Date MEDICARE OF [place] [address] [place] [address] [id number] POHORE, ANGELA Self - patient is the insured [facility] SUPPLEMENTAL PLAN [address] [place] [address] [id number] POHORE, ANGELA Self - patient is the insured Medical (General) History Medical History History ICD Code Denies [place],DM,CVA,Lung disease,renal dise ase She describes a colonoscopy [...]
== END 2025-08-09 15:18 | disposition home or self-care (01) ==
LOC: HO.HCS 14:44
PROVIDERS: PCP Internal Medicine; Visit Provider Internal Medicine Cardiovascular Disease
DX: I50.32 Chronic diastolic (congestive) heart failure (principal); I48.20 Chronic atrial fibrillation, unspecified; Z95.0 Presence of cardiac pacemaker
CPT/HCPCS: 93280; 99214; G2211

== ENCOUNTER 2025-08-09 14:43 | Outpatient (REF) | payer MEDICARE, SELFPAY ==
[2025-08-09 16:23] LABS: Anion Gap 12 (12-20); Blood Urea Nitrogen 16 mg/dL (9-16); Calcium 8.9 mg/dL (8.4-10.2); Carbon Dioxide 30 mmol/L (22-29); Chloride 102 mmol/L (96-108); Estimated Glomerular Filt Rate > 60; Potassium 3.4 mmol/L (3.3-5.1); Sodium 141 mmol/L (135-145)
[2025-08-09 16:28] LABS: Digoxin 0.4 ng/mL (0.8-2.0)
== END 2025-08-09 14:44 | disposition home or self-care (01) ==
LOC: HO.LAB 14:43
PROVIDERS: PCP Internal Medicine; Visit Provider Internal Medicine Cardiovascular Disease
DX: I50.32 Chronic diastolic (congestive) heart failure (principal); I48.20 Chronic atrial fibrillation, unspecified; Z95.0 Presence of cardiac pacemaker; I49.5 Sick sinus syndrome; Z79.01 Long term (current) use of anticoagulants; Z79.899 Other long term (current) drug therapy
CPT/HCPCS: 36415; 80048; 80162; 93280; 99212

== ENCOUNTER → 2025-08-28 12:46 | Outpatient (BNV) | payer MEDICARE, SELFPAY | PROVIDERS: PCP Internal Medicine | DX: Z45.018 Encounter for adjustment and management of other part of cardiac pacemaker (principal) | CPT/HCPCS: 93294 ==